=== PATIENT | female | born 1940 | race Caucasian/White ===

== ENCOUNTER 2023-08-29 07:19 | Outpatient (OUT) | payer MEDICARE, SELFPAY ==
--- NOTE | 2023-08-29 07:30 | CA_ITS ---
Patient Name: NANCY ANDRADE MR#: [id number] : 1940 Exam Date: 08/29/2023 Ordering Doctor: JETHRO KOVACS ECHOCARDIOGRAM REPORT PROCEDURE: CA ECHO LIMITED INDICATIONS: Dilated cardiomyopathy, pacemaker, h/o IA COMPARISON: None. DESCRIPTION: Limited ECHOCARDIOGRAM Real-time transthoracic echocardiography with 2D and M-mode performed. QUALITY: Technical quality was good. 64 , 185#, BSA 1.89 m2 Limited echocardiogram per physician order. LEFT VENTRICLE: Normal chamber size. Sigmoid septum. LV EF: Global left ventricular systolic function is difficult to assess but appears normal; visually estimated ejection fraction is 55 to 60%. Unable to assess regional wall motion abnormalities. LEFT ATRIUM: Normal chamber size. RIGHT ATRIUM: Normal chamber size. RIGHT VENTRICLE: Normal chamber size. Pacemaker wire appears to extend beyond the right ventricle; likely artifactual given imaging plane. Pacer wire present. TRICUSPID VALVE: Normal mobility and thickness. MITRAL VALVE: Normal mobility and thickness. There is no mitral annular calcification. AORTIC VALVE: Normal trileaflet appearance. No visible sclerosis. Normal leaflet mobility. AORTIC ROOT: Normal diameter and appearance. PULMONIC VALVE: Normal thickness and mobility. PERICARDIUM: Anterior free space; trivial effusion versus fat pad. IVC: Not well visualized. CONCLUSION: 1. Global left ventricular systolic function is normal; visually estimated ejection fraction is 55 to 60% 2. Normal right ventricular size and systolic function 3. Right ventricular pacemaker lead extends out into the apex; the appearance of the lead extending beyond the right ventricle is likely artifactual. Consider further imaging if clinical concern exists. 4. Angiography; trivial effusion versus fat pad A limited echocardiogram was performed Adult Echocardiography Procedure Report Left Ventricle LVEDD (3.7 - 5.6 cm): 3.74 cm LVESD (2.2 - 4.0 cm): 2.87 cm LVIVS thickness (0.6 - 1.2 cm): 1.46 cm LVPW thickness (0.5 - 1.0 cm): 1.09 cm LVOT Diameter 2.03 cm Left Atrium LA Volume Index (2D A2C): 34.57 ml/m2 Left Atrium Systolic Dimension: 3.51 cm Mitral Valve Right Ventricle Aorta AO Root Diam: 3.53 cm Ascending Ao Diam: 3.60 cm Aortic Valve Tricuspid Valve Pulmonic Valve Right Atrium Dictated by: Jamie Mora M.D. on 08/29/2023 at 12:14 Approved by: Jamie Mora M.D. on 08/29/2023 at 12:20
== END 2023-08-29 07:20 | disposition home or self-care (01) ==
LOC: CARD 07:19
PROVIDERS: PCP Internal Medicine; Visit Provider Internal Medicine Cardiovascular Disease
DX: I42.0 Dilated cardiomyopathy (principal)
CPT/HCPCS: 93308

== ENCOUNTER 2023-09-16 13:06 | Outpatient (OUT) | payer MEDICARE, SELFPAY ==
[2023-09-16 14:16] LABS: Basophils Absolute Auto 0.1 10^3/uL (0.0-0.1); Basophils Percent Auto 0.6 % (0.2-2.0); Eosinophils Absolute Auto 0.2 10^3/uL (0.0-0.7); Eosinophils Percent Auto 2.8 % (0.9-7.0); Hematocrit 44.1 % (36.0-48.0); Immature Granulocytes Abs Auto 0.04 10^3/uL (0.00-0.03); Immature Granulocytes Pct Auto 0.5 % (0.0-0.5); Lymphocytes Absolute Auto 2.1 10^3/uL (1.2-3.8); Lymphocytes Percent Auto 24.4 % (20.5-60.0); Mean Corpuscular HGB Conc 31.7 g/dL (29.9-35.2); Mean Corpuscular Hemoglobin 31.9 pg (26.7-34.0); Mean Corpuscular Volume 100.5 fL (81.0-99.0); Mean Platelet Volume 12.2 fL (9.5-13.5); Monocytes Absolute Auto 0.8 10^3/uL (0.3-0.8); Monocytes Percent Auto 9.5 % (1.7-12.0); Neutrophils Absolute Auto 5.3 10^3/uL (1.4-6.5); Neutrophils Percent Auto 62.2 % (43.0-75.0); Platelet Count 125 10^3/uL (150-450); Red Blood Count 4.39 10^6/uL (4.20-5.40); Red Cell Distribution Width 12.4 % (11.0-15.0); White Blood Count 8.6 10^3/uL (4.0-11.0)
[2023-09-16 14:20] LABS: BUN Creatinine Ratio 16.4; Calcium 9.3 mg/dL (8.5-10.1); Carbon Dioxide 23.8 mmol/L (21.0-32.0); Chloride 108 mmol/L (98-107); Estimated GFR (African America 40 (>=60); Estimated GFR (Non-African Ame 33 (>=60); Glucose 184 mg/dL (74-106); Potassium 4.8 mmol/L (3.5-5.1); Sodium 142 mmol/L (136-145)
== END 2023-09-16 13:07 | disposition home or self-care (01) ==
LOC: LAB 13:10
PROVIDERS: PCP Internal Medicine; Visit Provider Internal Medicine Cardiovascular Disease
DX: I50.22 Chronic systolic (congestive) heart failure (principal)
CPT/HCPCS: 36415; 80048; 85025

== ENCOUNTER 2024-03-29 09:35 | Outpatient (OUT) | payer MEDICARE, SELFPAY ==
--- OUTSIDE RECORDS SUMMARY | 2024-03-29 09:46 | XMS_ITS | CCD ---
Author Organization [facility] Care Team Providers Care Plasterer Journeyman Name Role Phone MARIPOSA CABRERA Primary Care Physician MD Madhav MERCADO Attending Unavailable JESS, MD Madhav Her Attending Unavailable JESS, MD Madhav Her Attending Unavailable JESS, MD Madhav Her Admitting Unavailable HEMMER, DR MARVA Dixon Admitting Unavailable HEMMER, DR MARVA Dixon Attending Unavailable CABRERA, DR MONGE Primary Care Unavailable Zieber, DR Vera Consulting Unavailable HEMMER, DR AMRVA Dixon Consulting Unavailable MERCADO, DR COREY Admitting Unavailable MERCADO, DR COREY Attending Unavailable CABRERA, DR MONGE Primary Care Unavailable MERCADO, DR COREY Consulting Unavailable MERCADO, DR COREY Admitting Unavailable MERCADO, DR COREY Attending Unavailable CABRERA, DR MONGE Primary Care Unavailable MERCADO, DR COREY Consulting Unavailable Zieber, DR Vera Consulting Unavailable Unavailable Primary Care Provider UnavailCarmen Landeros MD Primary Care Provider [phone] DARIN, JED Referring Unavailable CARMEN QUINTANA Primary Care Unavailable DARIN, JED Admitting Unavailable DARIN, JED Attending Unavailable DARIN, JED Referring Unavailable DARIN, JED Admitting Unavailable DARIN, JED Attending Unavailable DARIN, JED Referring Unavailable DARIN, JED Referring Unavailable TWYAL QUINTANAEN Primary Care Unavailable DARIN, JED Attending Unavailable NAOMI IBRAHIM Referring Unavailab PEPE Crum Attending Unavailable PEPE KOVACS Admitting Unavailable PEPE KOVACS Referring Unavailable JONN LEE Attending Unavailable PEPE KOVACS Attending Unavailable EUNICE GRANT Referring Unavailable BETHANIEPEPE Mooney Referring Unavailable PEPE KOVACS Referring Unavailable CHRIS TILLEY Attending Unavailable Allergies Allergy Classification Reported Allergen(s) Allergy Type Date of Onset Reaction(s) Facility (1 source) No Known Medication Allergies; Translations: [No Known Medication Allergies] Propensity to adverse reactions (disorder) [facility] Repository (1 source) ALLERGIES NOT ON FILE; Translations: [ALLERGIES NOT ON FILE] Propensity to adverse reactions (disorder) [facility] Repository Medications Current Medications Medication Drug Class(es) Dates Sig (Normalized) Sig (Original) cephalexin 250 mg oral capsule (2 sources) Cephalosporin Antibacterial Start: 11-19-2021 End: 11-24-2021 take 1 capsule by mouth twice daily Keflex 250 mg Cap 250 mg = 1 cap(s), Oral, BID, X 5 day(s), # 10 cap(s), Refills(s) 0, Pharmacy: [facility]/pharmacy #[id number], 163, cm, 11/19/21 9:53:00 EDT, Height/Length Dosing, 85.3, kg, 11/19/21 9:53:00 EDT, Weight Dosing Start Date: 11/19/21 Stop Date: 11/24/21 Status: Ordered Completed/Discontinued Medications Medication Drug Class(es) Dates Sig (Normalized) Sig (Original) aspirin 325 mg oral tablet (5 sources) Platelet Aggregation Inhibitor, Nonsteroidal Anti-inflammatory Drug Start: 04-17-2021 aspirin 325 mg cap Take by mouth. 0 04/17/2021 Active Start: 04-17-2021 take 1 mg by mouth once daily aspirin 325 mg oral capsule mg cap(s), Oral, Daily, Refills(s) 0 Start Date: 04/17/21 Status: Ordered Comment on above: Take by mouth. atorvastatin 40 mg oral tablet (5 sources) HMG-CoA Reductase Inhibitor Start: 04-17-2021 atorvastatin (LIPITOR) 40 mg tablet Take by mouth. 0 04/17/2021 Active Comment on above: Take by mouth. benoxinate hydrochloride 4 mg/ml / fluorescein sodium 2.5 mg/ml ophthalmic solution (1 source) Diagnostic Dye Start: 01-09-2023 End: 01-10-2023 fluorescein-benoxinate 0.25-0.4 % 1 Drop (FLURESS) carvedilol 12.5 mg oral tablet (5 sources) alpha-Adrenergic Alberto, beta-Adrenergic Alberto Start: 04-17-2021 carvedilol (COREG) 12.5 mg tablet Take by mouth. 0 04/17/2021 Active Comment on above: Take by mouth. glimepiride 1 mg oral tablet (5 sources) Sulfonylurea Start: 04-17-2021 glimepiride (AMARYL) 1 mg tablet Take by mouth. 0 04/17/2021 Active Comment on above: Take by mouth. metFORMIN hydrochloride 500 mg oral tablet (5 sources) Biguanide Start: 04-17-2021 metFORMIN (GLUCOPHAGE) 500 mg tablet Take by mouth. 0 04/17/2021 Active Comment on above: Take by mouth. phenylephrine hydrochloride 25 mg/ml ophthalmic solution (1 source) alpha-1 Adrenergic Agonist Start: 01-09-2023 End: 01-10-2023 PHENYLephrine 2.5 % 1 Drop (AK-DILATE, LORRIE-SYNEPHRINE) SITagliptin 50 mg oral tablet (2 sources) Dipeptidyl Peptidase 4 Inhibitor Start: 01-01-2023 JANUVIA 50 mg tablet tropicamide 10 mg/ml ophthalmic solution (1 source) Anticholinergic Start: 01-09-2023 End: 01-10-2023 tropicamide 1 % 1 Drop (MYDRIACYL) Problems Problem Classification Problem Date Documented Da te Episodic/Chronic Acute myocardial infarction (4 sources) Myocardial infarction; Translations: [Acute myocardial infarction, unspecified] Onset: 02-26-2023 04-17-2021 Chronic Calculus of urinary tract (9 sources) History of calculus of kidney; Translations: [Personal history of urinary calculi] Onset: 11-19-2021 Episodic Cataract (3 sources) Bilateral senile combined form cataracts of eyes; Translations: [Combined forms of age-related cataract, bilateral] Onset: 03-26-2023 Chronic Conduction disorders (8 sources) Biventricular cardiac pacemaker present; Translations: [Presence of cardiac pacemaker] Onset: 11-20-2011 02-27-2023 Chronic Diabetes mellitus without complication (6 sources) Diabetes mellitus; Translations: [Type 2 diabetes mellitus without complication] Onset: 02-26-2023 04-17-2021 Chronic Disorders of lipid metabolism (5 sources) Hyperlipidemia; Translations: [Hyperlipidemia, unspecified] Onset: 07-22-2023 02-27-2023 Chronic Essential hypertension (3 sources) Hypertensive disorder; Translations: [Essential (primary) hypertension] 02-27-2023 Chronic Genitourinary symptoms and ill-defined conditions (2 sources) Mixed incontinence; Translations: [Mixed incontinence] Onset: 11-19-2021 Chronic Glaucoma (1 source) Preglaucoma, unspecified, bilateral; Translations: [Preglaucoma, unspecified] Chronic Menopausal disorders (4 sources) Other primary ovarian failure; Translations: [OTHER PRIMARY OVARIAN FAILURE] Onset: 08-12-2022 Chronic Other bone disease and musculoskeletal deformities (1 source) Other specified disorders of bone density and structure, other site; Translations: [OTH D/O BONE DEN STRUCT OTH SITE] Onset: 08-14-2022 Episodic Urinary tract infections (2 sources) Urinary tract infectious disease; Translations: [Urinary tract infection, site not specified] Onset: 11-19-2021 Episodic Results Test Name Value Interpretation Reference Range Facility Office Visiton 03-15-2024 Follow-up visit [id number] Derian Andrade [place] 1940 Date Provider Department Center 03/15/2024 [id number] LEE [facility] No family history on file Level of Service:19486 ND OFFICE/OUTPATIENT ESTABLISHED MOD MDM 30 MIN Reason for Visit and Comments: Hyperlipidemia [182] Hypertension [378735] - Pt is here for a six month follow up [facility] Office Visiton 10-02-2023 Follow-up visit [id number] Brandt [place] 1940 Provider Department Center 10/02/2023 CHRIS CRAWLEY [facility] No family history on file Level of Service:77930 ND POSTOP FOLLOW UP VISIT RELATED TO ORIGINAL PX Reason for Visit and Comments: Wound Check [447314] Normal [facility] HPon 09-22-2023 [facility] Electrophysiology Consult Note Reason for visit:Gen change 09/22/23 pt here for gen change 07/22/23 Telephone visit for 2.5 year follow up. Device had reached DIANE. Had Medtronic device checked at [facility] in May and Jun 2023. She denies chest pain, SOB, palpitations, and lightheadedness/syncope . Active and ambulated without assistanmce. Was told had only few months to DIANE when [facility] HPI: Marva Andrade is a 83 y.o. year old with past medical history of atrioventricular block, cardiac pacemaker in situ, HFrEF, Cardiomyopathy presented to the clinic due to the device check up.As per pt she Device checked showed: normal function no tachcardiasNo chest pain/pressure, No BUENO or SOB at rest, No PND, No orthopnea, No edema No cough No palpitations dizziness or lightheadedness or syncope. No claudication. She document GEN change by Dr. De on 05/29/2016, and previously by Dr. Wiggins on 10/21/2007. It is noted does mention that she had the first implant in 1999. Test Device check that was performed on 03/21/2021 shows a Medtronic Adapta pacemaker the patient is known to have 3 leads .However there is a note of one of the leads being attached to the His location. EKG performed on 07/23/2017 shows AV pacing with the ventricular pacing revealing right bundle branch morphology with II, III, and aVF being negative and a QRS of 132 ms supported likely what this is his and RV pacing combination. CXR cionfirms 3 leads with atrial lead likely in His area. Echocardiogram performed on 11/17/2015 showed EF of 45 to 50% with a left atrium is normal in size with mild MR and mild TR PMH: Past Medical History: Diagnosis Date Abnormal ECG AV block Cardiomyopathy (CMS/HCC) CHF (congestive heart failure) (CMS/HCC) Diabetes mellitus (CMS/HCC) PSH: Past Surgical History: Procedure Laterality Date INSERT / REPLACE / REMOVE PACEMAKER SH: Social Determinants of Health Tobacco Use: Not on file Alcohol Use: Not on file Financial Resource Strain: Not on file Food Insecurity: Not on file Transportation Needs: Not on file Physical Activity: Not on file Stress: Not on file Social Connections: Not on file Intimate Partner Violence: Not on file Depression: Not on file Housing Stability: Not on file Utilities: Not on file Allergies: No Known Allergies Weight: 81.6kg Visit Vitals BP 141/79 Pulse 86 Ht 1.626 m (5' 4 ) Wt 81.6 kg (180 lb) BMI 30.90 kg/m??? BSA 1.92 m??? Meds: Current Outpatient Medications on File Prior to Visit Medication Sig Dispense Refill aspirin 325 mg capsule Take by mouth. atorvastatin (Lipitor) 40 mg tablet Take 1 tablet every day by oral route for 90 days. carvedilol (Coreg) 12.5 mg tablet Take 1 tablet twice a day by oral route for 90 days. cholecalciferol (Vitamin D-3) 125 MCG (5000 UT) capsule Take 1 capsule by mouth in the morning. glimepiride (Amaryl) 2 mg tablet Take 1 tablet by mouth in the morning and at bedtime. metFORMIN (Glucophage) 500 mg tablet Take 1 tablet twice a day by oral route for 90 days. SITagliptin phosphate (Januvia) 50 mg tablet Take 50 mg by mouth 1 (one) time each day. No current facility-administered medications on file prior to visit. ROS: Cardio Basic Cardiovascular Symptoms: no lightheadedness, no leg edema, no syncope, no orthopnea, no PND, no claudication, Constitutional Constitutional: no fever, no night sweats, no significant weight gain, no significant weight loss, no exercise intolerance Eyes Eyes: no dry eyes, no irritation, no vision change ENMT Ears: no difficulty hearing, no ear pain Nose: no frequent nosebleeds, Mouth/Throat: no sore throat, no bleeding gums, no snoring, no dry mouth, no mouth ulcers, no oral abnormalities, no teeth problems Respiratory Respiratory: no cough, no wheezing, no coughing up blood, no sleep apnea Musculoskeletal Musculoskeletal: no muscle aches, no muscle weakness, joint pain+, no back pain, no swelling in the extremities Integumentary Skin no rash, no ulcer, no varicosities, no discoloration, no pruritus Neurologic Neurologic: no loss of consciousness, no weakness, no numbness, no seizures, no dizziness, no headaches Psychiatric Psych: no depression, feeling safe in relationship, no alcohol abuse, Hematologic/Lymphatic Hematologic/Lymphatic no swollen glands, no bruising Physical Exam: Constitutional General Appearance: well-nourished, well-developed, appears stated age Level of Distress: comfortable Psychiatric Mental Status: alert, normal affect Orientation: oriented to time, place, and person Insight: good judgement Eyes Lids and Conjunctivae: non-injected, no xanthelasma ENMT Ears: no lesions on external ear Nose: no lesions on external nose Oropharynx: no cyanosis, no pallor Neck Neck: supple, trachea midline Carotid Arteries: bilateral normal upstroke, no bruits Jugular Veins: normal jugu (more content not included)... Normal [facility] NURSNOTEon 09-22-2023 NURSNOTE RN educated pt on d/ c instructions. RN encouraged pt to voice any questions or concerns. Pt verbalizes no questions or concerns at this time. Pt was wheeled off of unit with all of belongings. [facility] NURSNOTE CHG wipes and betadi ne nasal swabs completed. Normal [facility] Orders Onlyon 09-22-2023 Orders Only [id number] Trickett,Derian sixto S 1940 F Date Provider Department Center 09/22/2023 [id number], SHANTEL [facility] No family history on file [facility] Orders Onlyon 09-15-2023 Orders Only [id number] Trickett,Derian sixto S 1940 F Date Provider Department Center 09/15/2023 [id number], SHANTEL [facility] No family history on file [facility] Telemedicineon 07-22-2023 Telemedicine [id number] Trickett,Derian sixto S 1940 F Date Provider Department Center 07/22/2023 Miesha-PEPE KOVACS [facility] No family history on file Level of Service:05710 ND PHYS/QHP TELEPHONE EVALUATION 5-10 MIN [facility] ANES POSTPROC EVALon 023 ANES POSTPROC EVAL HNO ID: [id number] Author: Pepe Junior II, DO Service: Anesthesiology Author Type: Anesthesiologist Type: Anesthesia Postprocedure Evaluation Filed: 03/26/2023 11:31 AM Note Text: POST ANESTHESIA EVALUATION NOTE : 1940 Procedure Summary Date: 03/26/23 Room / Location: [place] [address] / [facility] Anesthesia Start: 954 Anesthesia Stop: 1014 Procedures: PHACOEMULSIFICATION CATARACT IMPLANT INTRAOCULAR LENS W/O ENDOSCOPIC CYCLOPHOTOCOAGULATION (Right: Eye) OPHTHALMIC BIOMETRY BY PARTIAL COHERENCE INTERFEROMETRY W/INTRAOCULAR LENS POWER CALCULATION (Right: Eye) Diagnosis: Combined forms of age-related cataract of both eyes (Combined forms of age-related cataract of both eyes [H25.813]) Surgeons: Jed Webster V, MD Responsible Provider: Pepe Junior II, DO Anesthesia Type: MAC ASA Status: 3 Anesthesia Type: MAC Last Vitals Vitals Value Taken Time BP 136/68 03/26/23 1025 Temp 36.1 ?C (96.9 ?F) 03/26/23 1018 HR SpO2 76 03/26/23 1025 Resp 16 03/26/23 1025 SpO2 95 % 03/26/23 1025 Post Anesthesia Patient Status Patient Evaluation: PACU. PACU/ICU Patient Condition: stable. Neurological Status: aware and responsive. Pulmonary Status: breathing comfortably on room air Airway Control: returned to baseline unsupported. Cardiovascular Status: stable. Pain Management: clinically adequate Postoperative Hydration: acceptable. Intraoperative Events: no significant anesthesia events Post Operative Nausea/Vomiting Status: no significant post operative nausea or vomiting Recommendation: continue current plan of care. Anesthesia Observations No Documentation SIGNATURE: Pepe Junior II, DO PATIENT NAME: Marva Andrade DATE: March 26, 2023 TIME: 11:31 AM CSN: [id number] Normal [facility] ANES PRE-OPon 03-26-2023 ANES PRE-OP HNO ID: [id number] Author: Pepe uJnior II, DO Service: Anesthesiology Author Type: Anesthesiologist Type: Anesthesia Preprocedure Evaluation Filed: 03/26/2023 9:11 AM Note Text: ANESTHESIOLOGY DAY OF SURGERY NOTE : 1940 Procedure Information Date/Time: 03/26/23 1000 Procedures: PHACOEMULSIFICATION CATARACT IMPLANT INTRAOCULAR LENS W/O ENDOSCOPIC CYCLOPHOTOCOAGULATION (Right: Eye) OPHTHALMIC BIOMETRY BY PARTIAL COHERENCE INTERFEROMETRY W/INTRAOCULAR LENS POWER CALCULATION (Right: Eye) Location: [address] Surgeons: Jed Webster V, MD Estimated body mass index is 31.24 kg/m? as calculated from the following: Height as of 02/27/23: 162.6 cm (5' 4 ). Weight as of 02/27/23: 82.6 kg (182 lb). Most recent hematocrit and potassium results: No results found for this basename: HCT,HEMATOCRIT,K,POTASS IUM Relevant Problems CARDIO (+) Biventricular cardiac pacemaker in situ (+) Complete atrioventricular block (HCC) (+) Hypertension (+) Myocardial infarction (HCC) I - PHYSICAL EVALUATION AIRWAY Patient intubated: No. Tracheostomy tube not present Mallampati: III. TM distance: >3 FB. Neck ROM: limited extension. Mouth opening: adequate. Short neck: no. Thick neck: yes DENTAL Dentures, upper: complete. Additional exam findings: yes. CARDIOVASCULAR Rhythm: regular Rate: normal PULMONARY Breath sounds clear to auscultation. II - ANESTHESIA PLAN ASA Score: 3 Anesthetic Plan: MAC The patient is not a current smoker. NPO Status: adequate Beta Alberto Monitoring Plan Monitoring plan: standard ASA. Post Procedure Analgesic Plan Postoperative analgesic plan: parenteral or oral opioids. Informed Consent Anesthetic risks, benefits, alternatives, personnel and consent discussed: yes. Patient / Responsible Libertarian agrees to proceed: yes Patient / Surrogate agrees to blood products: Yes No vitals data found for the desired time range. Facility-Administered Medications as of 03/26/2023 Medication Dose Route Frequency - [COMPLETED] lidocaine HCl (PF) 40 mg/mL 2 mg injection (XYLOCAINE) 0.05 mL LEFT EYE EVERY 5 MINUTES X 3 DOSES - [COMPLETED] PHENYLephrine 2.5 % 1 Drop (AK-DILATE, LORRIE-SYNEPHRINE) 1 Drop LEFT EYE EVERY 5 MINUTES X 3 DOSES - [COMPLETED] tropicamide 1 % 1 Drop (MYDRIACYL) 1 Drop LEFT EYE EVERY 5 MINUTES X 3 DOSES - [COMPLETED] keTORolac 0.5 % 1 Drop (ACULAR) 1 Drop LEFT EYE q 5 MIN - [COMPLETED] Povidone-Iodine 5 % 30 mL ophth soln (BETADINE) 30 mL LEFT EYE ONCE - [COMPLETED] balanced salts 15 mL (BSS) 15 mL LEFT EYE ONCE Outpatient Medications as of 03/26/2023 Medication Sig - prednisoLONE acetate (PRED FORTE) 1 % ophthalmic suspension USE DIRECTED BY PHYSICIAN, IN OPERATIVE EYE, BEGINNING ONE DAY AFTER SURGERY - keTORolac (ACULAR) 0.5 % ophthalmic solution USE DIRECTED BY PHYSICIAN, IN OPERATIVE EYE, BEGINNING ONE DAY AFTER SURGERY - prednisoLONE acetate (PRED FORTE) 1 % ophthalmic suspension USE DIRECTED BY PHYSICIAN, IN OPERATIVE EYE, BEGINNING ONE DAY AFTER SURGERY - keTORolac (ACULAR) 0.5 % ophthalmic solution USE DIRECTED BY PHYSICIAN, IN OPERATIVE EYE, BEGINNING ONE DAY AFTER SURGERY - JANUVIA 50 mg tablet - aspirin 325 mg cap Take by mouth. - atorvastatin (LIPITOR) 40 mg tablet Take by mouth. - carvedilol (COREG) 12.5 mg tablet Take by mouth. - glimepiride (AMARYL) 1 mg tablet Take by mouth. - metFORMIN (GLUCOPHAGE) 500 mg tablet Take by mouth. I have interviewed and examined the patient. I have reviewed the medical record and/or the pre-anesthesia evaluation, pertinent labs, and test results. This contains updated information obtained within 48 hours of Surgery/Procedure. SIGNATURE: Pepe Junior II, DO PATIENT NAME: Marva Andrade DATE: March 26, 2023 TIME: 9:10 AM CSN: [id number] Normal [facility] OPERATIVE NOon 03-26-2023 OPERATIVE NO HNO ID: [id number] Author: Jed Webster V, MD Service: Ophthalmology Author Type: Physician Type: Operative Report Filed: 03/26/2023 10:14 AM Note Text: OPERATIVE REPORT DATE OF SERVICE: March 26, 2023 PRIMARY SURGEON: Jed Webster M.D. VENETIAN BLIND MECHANIC: None Procedure(s) (LRB): PHACOEMULSIFICATION CATARACT IMPLANT INTRAOCULAR LENS W/O ENDOSCOPIC CYCLOPHOTOCOAGULATION (Right) OPHTHALMIC BIOMETRY BY PARTIAL COHERENCE INTERFEROMETRY W/INTRAOCULAR LENS POWER CALCULATION (Right) ANESTHESIA: Topical with monitored anesthesia care. PREOPERATIVE DIAGNOSIS: Combined cataract POSTOPERATIVE DIAGNOSIS: Combined cataract, presbyopia OPERATIVE INDICATIONS: BAT <20/400 OPERATIVE PROCEDURE: The patient was admitted to the operating suite where an IV and BP, EKG, and O2 monitors were placed. Nasal oxygen was administered. The operative eye was confirmed, marked, then pretreated with 2.5% tropicamide and 1% phenylephrine eye drops. With the patient in the supine position, topical lidocaine gel 2% was placed in a small ribbon in the lower cul-de-sac. The patient was then prepped and draped in the usual sterile fashion for intraocular surgery. After a time-out confirming correct patient, correct eye, correct operation, presence of allergies, and correct implant, an eyelid speculum was placed. Under the operating microscope a beveled clear corneal incision was created temporally with a Gove blade then a 2.4 mm keratome. The anterior chamber was reformed with Viscoat, after which the anterior capsule was opened centrally. Using the Utrata forceps a continuous curvilinear capsulorrhexis of approximately 5.5 mm round was created. Gentle hydrodissection was accomplished using preservative-free lidocaine on a 27-gauge cannula. Using the Viktor phacoemulsification unit with the Kelman curved tip, the anterior chamber was entered and the nucleus was removed while it was in the bag. The epinuclear ring was dissected into several segments, then removed using the phacoemulsification unit set to the desired aspiration flow rate and ultrasound parameters. It was necessary to use chopper forceps at various intervals to aid in the fragmentation of the dense lens material. Great care was taken not to violate the posterior capsule. The silicone-tipped I and A instrument was used to remove the cortex and buff off any remaining cataractous material from the posterior capsule. The capsular bag was then reformed with Discovisc and the following Intraocular lens implant Implant Name Type Inv. Item Serial No. Lead Producer Lot No. LRB No. Used Action Model No. [place] IOL [id number] +25.5 D Implant [id number] IMPLANT [id number] [employer] Right 1 Implanted [id number] was inserted through the lips of the wound into the capsular bag. Using the I and A instrument, the Discovisc was removed from the anterior chamber and capsular bag, and the implant was centered. Cefuroxime 1mg in 0.1 mL normal saline was introduced into the anterior chamber through the clear corneal incision using a 30 gauge cannula. The wound was checked and found to be watertight. At the end of the procedure, the cornea was clear, the anterior chamber was deep and clear, the pupil was round, the implant was centered within the capsular bag, and the posterior capsule was intact. The eyelid speculum was removed and prednisolone acetate 1% and timolol 0.5% eye drops were administered. A shield was affixed over the eye and the patient was sent to the recovery room, leaving the operating room in excellent condition. ESTIMATED BLOOD LOSS: <1mL SPECIMEN: None FINDINGS: Age-related cataract COMPLICATIONS: None Incision/Procedure Start Time: 10:02 AM Incision Close/Procedure End Time: 10:12 AM - Comanage with Dr Ibrahim; relinquish care POD #1 Jed WEBSTER MD [facility] ANES POSTPROC EVALon 023 ANES POSTPROC EVAL HNO ID: [id number] Author: Beto Awan MD Service: Anesthesiology Author Type: Anesthesiologist Type: Anesthesia Postprocedure Evaluation Filed: 03/12/2023 10:36 AM Note Text: POST ANESTHESIA EVALUATION NOTE : 1940 Procedure Summary Date: 03/12/23 Room / Location: [address] Anesthesia Start: 930 Anesthesia Stop: 954 Procedures: PHACOEMULSIFICATION CATARACT IMPLANT INTRAOCULAR LENS W/O ENDOSCOPIC CYCLOPHOTOCOAGULATION (Left: Eye) OPHTHALMIC BIOMETRY BY PARTIAL COHERENCE INTERFEROMETRY W/INTRAOCULAR LENS POWER CALCULATION (Left: Eye) Diagnosis: Combined forms of age-related cataract of both eyes (Combined forms of age-related cataract of both eyes [H25.813]) Surgeons: Jed Webster V, MD Responsible Provider: Beto Awan MD Anesthesia Type: MAC ASA Status: 3 Anesthesia Type: MAC Last Vitals Vitals Value Taken Time BP 133/63 03/12/23 1005 Temp 36.6 ?C (97.9 ?F) 03/12/23 0955 HR SpO2 75 03/12/23 1005 Resp 16 03/12/23 1005 SpO2 95 % 03/12/23 1005 Post Anesthesia Patient Status Patient Evaluation: PACU. PACU/ICU Patient Condition: stable. Anticipated Disposition: phase 2 then home. Neurological Status: aware and responsive. Pulmonary Status: breathing comfortably on room air Airway Control: returned to baseline unsupported. Cardiovascular Status: stable. Pain Management: clinically adequate - multimodal analgesia pain management approach Postoperative Hydration: acceptable. Intraoperative Events: no significant anesthesia events Recommendation: continue current plan of care. Anesthesia Observations No Documentation SIGNATURE: Beto Awan MD PATIENT NAME: Marva Andrade DATE: March 12, 2023 TIME: 10:36 AM CSN: [id number] Normal [facility] ANES PRE-OPon 03-12-2023 ANES PRE-OP HNO ID: [id number] Author: Beto Awna MD Service: Anesthesiology Author Type: Anesthesiologist Type: Anesthesia Preprocedure Evaluation Filed: 03/12/2023 9:08 AM Note Text: ANESTHESIOLOGY DAY OF SURGERY NOTE : 1940 Procedure Information Date/Time: 03/12/2340 Procedures: PHACOEMULSIFICATION CATARACT IMPLANT INTRAOCULAR LENS W/O ENDOSCOPIC CYCLOPHOTOCOAGULATION (Left: Eye) OPHTHALMIC BIOMETRY BY PARTIAL COHERENCE INTERFEROMETRY W/INTRAOCULAR LENS POWER CALCULATION (Left: Eye) Location: [place] [address] / [facility] Surgeons: Jed Webster V, MD Estimated body mass index is 31.24 kg/m? as calculated from the following: Height as of 02/27/23: 162.6 cm (5' 4 ). Weight as of 02/27/23: 82.6 kg (182 lb). Most recent hematocrit and potassium results: No results found for this basename: HCT,HEMATOCRIT,K,POTASS IUM Relevant Problems CARDIO (+) Biventricular cardiac pacemaker in situ (+) Complete atrioventricular block (HCC) (+) Hypertension (+) Myocardial infarction (HCC) I - PHYSICAL EVALUATION AIRWAY Patient intubated: No. Tracheostomy tube not present Mallampati: II. TM distance: >3 FB. Neck ROM: full ROM without neurological symptoms. Mouth opening: adequate. DENTAL Dental findings: poor dentition. Additional exam findings: no II - ANESTHESIA PLAN ASA Score: 3 Anesthetic Plan: MAC NPO Status: adequate Beta Alberto Monitoring Plan Monitoring plan: standard ASA. Post Procedure Analgesic Plan Postoperative analgesic plan: parenteral or oral opioids and multimodal analgesia. Patient / Surrogate agrees to blood products: blood products not planned Significant changes in the patient condition since the History and Physical, not otherwise documented in primary service progress note: no. Vitals Value Taken Time BP 169/86 03/12/23900 Pulse 73 03/12/23900 Resp 16 03/12/23900 Temp -13.3 ?C (8 ?F) 03/12/23 09 SpO2 95 % 03/12/23 09 Facility-Administered Medications as of 03/12/2023 Medication Dose Route Frequency - NaCl 0.9% iv infusion 30 mL/hr INTRAVENOUS CONTINUOUS - [COMPLETED] lidocaine HCl (PF) 40 mg/mL 2 mg injection (XYLOCAINE) 0.05 mL LEFT EYE EVERY 5 MINUTES X 3 DOSES - [COMPLETED] PHENYLephrine 2.5 % 1 Drop (AK-DILATE, LORRIE-SYNEPHRINE) 1 Drop LEFT EYE EVERY 5 MINUTES X 3 DOSES - [COMPLETED] tropicamide 1 % 1 Drop (MYDRIACYL) 1 Drop LEFT EYE EVERY 5 MINUTES X 3 DOSES - cyclopentolate 1 % 1 Drop (CYCLOGYL) 1 Drop LEFT EYE Pre-Op PRN - [COMPLETED] keTORolac 0.5 % 1 Drop (ACULAR) 1 Drop LEFT EYE q 5 MIN - Povidone-Iodine 5 % 30 mL ophth soln (BETADINE) 30 mL LEFT EYE ONCE - balanced salts 15 mL (BSS) 15 mL LEFT EYE ONCE Outpatient Medications as of 03/12/2023 Medication Sig - JANUVIA 50 mg tablet - aspirin 325 mg cap Take by mouth. - atorvastatin (LIPITOR) 40 mg tablet Take by mouth. - carvedilol (COREG) 12.5 mg tablet Take by mouth. - glimepiride (AMARYL) 1 mg tablet Take by mouth. - metFORMIN (GLUCOPHAGE) 500 mg tablet Take by mouth. - prednisoLONE acetate (PRED FORTE) 1 % ophthalmic suspension USE DIRECTED BY PHYSICIAN, IN OPERATIVE EYE, BEGINNING ONE DAY AFTER SURGERY - keTORolac (ACULAR) 0.5 % ophthalmic solution USE DIRECTED BY PHYSICIAN, IN OPERATIVE EYE, BEGINNING ONE DAY AFTER SURGERY I have interviewed and examined the patient. I have reviewed the medical record and/or the pre-anesthesia evaluation, pertinent labs, and test results. This contains updated information obtained within 48 hours of Surgery/Procedure. SIGNATURE: Beto Awan MD PATIENT NAME: Marva Andrade DATE: March 12, 2023 TIME: 9:07 AM CSN: [id number] Normal [facility] OPERATIVE NOon 03-12-2023 OPERATIVE NO HNO ID: [id number] Author: Jed Webster V, MD Service: Ophthalmology Author Type: Physician Type: Operative Report Filed: 03/12/2023 9:52 AM Note Text: OPERATIVE REPORT DATE OF SERVICE: March 12, 2023 PRIMARY SURGEON: Jed Webster M.D. VENETIAN BLIND MECHANIC: None Procedure(s) (LRB): PHACOEMULSIFICATION CATARACT IMPLANT INTRAOCULAR LENS W/O ENDOSCOPIC CYCLOPHOTOCOAGULATION (Left) OPHTHALMIC BIOMETRY BY PARTIAL COHERENCE INTERFEROMETRY W/INTRAOCULAR LENS POWER CALCULATION (Left) ANESTHESIA: Topical with monitored anesthesia care. PREOPERATIVE DIAGNOSIS: Combined cataract POSTOPERATIVE DIAGNOSIS: Combined cataract, presbyopia OPERATIVE INDICATIONS: BAT <20/400 OPERATIVE PROCEDURE: The patient was admitted to the operating suite where an IV and BP, EKG, and O2 monitors were placed. Nasal oxygen was administered. The operative eye was confirmed, marked, then pretreated with 2.5% tropicamide and 1% phenylephrine eye drops. With the patient in the supine position, topical lidocaine gel 2% was placed in a small ribbon in the lower cul-de-sac. The patient was then prepped and draped in the usual sterile fashion for intraocular surgery. After a time-out confirming correct patient, correct eye, correct operation, presence of allergies, and correct implant, an eyelid speculum was placed. Under the operating microscope a beveled clear corneal incision was created temporally with a Gove blade then a 2.4 mm keratome. The anterior chamber was reformed with Viscoat, after which the anterior capsule was opened centrally. Using the Utrata forceps a continuous curvilinear capsulorrhexis of approximately 5.5 mm round was created. Gentle hydrodissection was accomplished using preservative-free lidocaine on a 27-gauge cannula. Using the Viktor phacoemulsification unit with the Kelman curved tip, the anterior chamber was entered and the nucleus was removed while it was in the bag. The epinuclear ring was dissected into several segments, then removed using the phacoemulsification unit set to the desired aspiration flow rate and ultrasound parameters. It was necessary to use chopper forceps at various intervals to aid in the fragmentation of the dense lens material. Great care was taken not to violate the posterior capsule. The silicone-tipped I and A instrument was used to remove the cortex and buff off any remaining cataractous material from the posterior capsule. The capsular bag was then reformed with Discovisc and the following Intraocular lens implant Implant Name Type Inv. Item Serial No. Lead Producer Lot No. LRB No. Used Action Model No. [id number] IMPLANT - [id number] Implant [id number] IMPLANT [id number] ClickScanShare Left 1 Implanted [id number] was inserted through the lips of the wound into the capsular bag. Using the I and A instrument, the Discovisc was removed from the anterior chamber and capsular bag, and the implant was centered. Cefuroxime 1mg in 0.1 mL normal saline was introduced into the anterior chamber through the clear corneal incision using a 30 gauge cannula. The wound was checked and found to be watertight. At the end of the procedure, the cornea was clear, the anterior chamber was deep and clear, the pupil was round, the implant was centered within the capsular bag, and the posterior capsule was intact. The eyelid speculum was removed and prednisolone acetate 1% and timolol 0.5% eye drops were administered. A shield was affixed over the eye and the patient was sent to the recovery room, leaving the operating room in excellent condition. ESTIMATED BLOOD LOSS: <1mL SPECIMEN: None FINDINGS: Age-related cataract COMPLICATIONS: None Incision/Procedure Start Time: 9:42 AM Incision Close/Procedure End Time: 9:51 AM - Comanage with Dr Ibrahim; [facility] POD #1 Jed WEBSTER MD [facility] HISTORY PHYSICALon HISTORY PHYSICAL HNO ID: [id number] Author: Shoshana Nieves APRN.CNP Service: ? Author Type: Nurse Practitioner Type: HANDP Filed: 02/27/2023 9:09 AM Note Text: HISTORY AND PHYSICAL EXAMINATION SERVICE DATE: 02/27/2023 SERVICE TIME: 8:39 AM PRIMARY CARE PHYSICIAN: Carmen Quintana CNP, MD REASON FOR VISIT: Marva Andrade is a 82 year old female who is scheduled for PHACOEMULSIFICATION CATARACT IMPLANT INTRAOCULAR LENS W/O ENDOSCOPIC CYCLOPHOTOCOAGULATION bilateral at the request of Dr. Jed Webster V for consultation. My final recommendation will be communicated back to the requesting physician by way of shared medical record or letter. The patient has the following: ACTIVE PROBLEM LIST Diabetes Mellitus (Hcc) Myocardial Infarction (Hcc) Biventricular Cardiac Pacemaker in Situ Complete Atrioventricular Block (Hcc) Hld (Hyperlipidemia) Hypertension Subjective CHIEF COMPLAINT: bilateral change of vision HPI: 82 year old female with bilateral change of vision that has been ongoing for >6 months. Patient states she has blurred Vision,difficulty with reading,difficulty with watching television,glare. No alleviating factors. No pain today PAST MEDICAL HISTORY Diagnosis Date Diabetes mellitus (HCC) HLD (hyperlipidemia) Hypertension Senile cataracts of both eyes PAST SURGICAL HISTORY Procedure Laterality Date ESWL PAST SURGICAL HISTORY OF pacemaker FAMILY HISTORY Problem Relation Age of Onset Cataract Daughter SOCIAL HISTORY: Social History Tobacco Use Smoking status: Never Smokeless tobacco: Never Vaping Use Vaping Use: Never used Substance Use Topics Alcohol use: Not Currently Drug use: Never Prior to Admission medications as of 02/27/23 0848 Medication Sig Last Dose Taking JANUVIA 50 mg tablet Taking Yes aspirin 325 mg cap Take by mouth. Taking Yes atorvastatin (LIPITOR) 40 mg tablet Take by mouth. Taking Yes carvedilol (COREG) 12.5 mg tablet Take by mouth. Taking Yes glimepiride (AMARYL) 1 mg tablet Take by mouth. Taking Yes metFORMIN (GLUCOPHAGE) 500 mg tablet Take by mouth. Taking Yes No medication comments found. ALLERGIES No Known Allergies COVID VACCINATION STATUS: Fully vaccinated REVIEW OF SYSTEMS: PAIN ASSESSMENT: General: No weight loss, malaise or fevers. Neuro: No history of TIA's, stroke, IMMERSION METALCLEANER tumor, impaired sensorium, hemiplegia, paraplegia or quadraplegia. No neurological symptoms or problems. Respiratory: No history of current cough or dyspnea, or pneumonia in the past 6 weeks. No history of respiratory/pulmonary symptoms or problems. Cardiovascular: Positive for: HLD, Hypertension Pacemaker on ASA follows with Dr. Longoria from in [place] Denies rest pain, gangrene or revascularization/amput ation for PVD. GI: No history of GI symptoms or problems. No history of esophageal varices, recent ascites, or ETOH greater than 2 drinks per day. : No difficulty urinating, nocturia > 1 time per night or hematuria, History of kidney stones JACK WINDER: Negative for abnormal vaginal bleeding, abnormal vaginal discharge. : Denies, No LMP recorded. Patient is postmenopausal. Endocrine: Diabetes Mellitus on oral agent Hematology: Chronic anti-coagulation / platelet meds (Aspirin) Oncology: No history of CA metastasis, chemo within 30 days, or radiotherapy within 90 days. Has not lost 10% of body wt in 6 months. No history of oncological symptoms or problems. Psych: No history of psychiatric symptoms or problems. Musculoskeletal: Negative for joint pain or swelling, back pain or muscle pain. Skin: Negative for lesions, rash and itching. Objective PHYSICAL EXAM: VITALS: BP 138/75 Pulse 99 Temp (Src) 98 (Temporal) Resp 16 Ht 5' 4 (1.63m) Wt 182 lb (82.6kg) SpO2 99% BMI 31.22 kg/(m2). General: Alert and oriented, No acute distress Skin: Normal color, no rash, no lesions. Cardiovascular: Pulse regular. 2/6 mid systolic low pitched blowing murmur URSB and ULSB Lungs: Normal breath sounds, no wheezes or crackles. Abdomen: Soft, non-tender, no rigidity., Positive bowel sounds Extremities: No deformity, no edema or tenderness, no joint swelling or clubbing. Neurological: Normal cognition and motor skills. Gait normal. No weakness or sensory deficit. Pulses: Carotid and radial pulses normal +2. Diagnostic tests reviewed for today's visit: CARDIAC PACEMAKER IN PDF FILE FROM [facility] EVERYWHERE 12/18/2022 Lab Value Units Date High Low ABORHD No results within date range. ABSCREEN No results within date range. Echocardiogram 2D complete Anatomical Region Laterality Modality -- -- Ultrasound Narrative PERFORMED AT [facility] LOCATION:[place] [address] Patient: RAYMOND George Exam Date: 05/08/2021 : 1940 Gender:F Ordering : PEPE KOVACS Admission #: [id number] Family : DR MARIPOSA CABRERA M.D. Order #: [id number] CLICK HERE TO VIEW EXAM ECHOCARDIOGRAM REPORT PROCEDURE: CARDI (more content not included)... Normal [facility] XR DEXA BONE DENSITYon 08-12 XR DEXA BONE DENSITY EXAMINATION: XR DEX A BONE DENSITY, 08/12/2022 10:47 AM EST HISTORY: Primary ovarian failure COMPARISON: DEXA bone densitometry 08/10/2020 TECHNIQUE: Dual-energy X-ray absorptiometry (DEXA) bone density study performed for the axial skeleton. FINDINGS: SPINE ANALYSIS: Average bone mineral density is 1.262 g/cm2. T-score (standard deviation relative to young adult mean): 0.7 . -3.9% change since prior study. HIP ANALYSIS: Lowest bone mineral density is within the left femoral trochanter, 0.638 g/cm2. T-score (standard deviation relative to young adult mean): -1.8 . +1.0% change since prior study. IMPRESSION: [employer] Classification: Osteopenia - Moderate Fracture Risk Electronically authenticated by: THA LOVE Date: 2022-08-12 11:24 Normal [facility] Patient Educationon 05-27-20 Patient Education Urology Dietary Guidelines to Help Prevent Kidney Stones Kidney stones are deposits of minerals and salts that form inside your kidneys. Your risk of developing kidney stones may be greater depending on your diet, your lifestyle, the medicines you take, and whether you have certain medical conditions. Most people can reduce their chances of developing kidney stones by following the instructions below. Depending on your overall health and the type of kidney stones you tend to develop, your dietitian may give you more specific instructions. What are tips for following this plan? Reading food labels ? Choose foods with no salt added or low-salt labels. Limit your sodium intake to less than 1500 mg per day. ? Choose foods with calcium for each meal and snack. Try to eat about 300 mg of calcium at each meal. Foods that contain 200?500 mg of calcium per serving include: ? 8 oz (237 ml) of milk, fortified nondairy milk, and fortified fruit juice. ? 8 oz (237 ml) of kefir, yogurt, and soy yogurt. ? 4 oz (118 ml) of tofu. ? 1 oz of cheese. ? 1 cup (300 g) of dried figs. ? 1 cup (91 g) of cooked broccoli. ? 1?3 oz can of sardines or mackerel. ? Most people need 1000 to 1500 mg of calcium each day. Talk to your dietitian about how much calcium is recommended for you. Shopping ? Buy plenty of fresh fruits and vegetables. Most people do not need to avoid fruits and vegetables, even if they contain nutrients that may contribute to kidney stones. ? When shopping for convenience foods, choose: ? Whole pieces of fruit. ? Premade salads with dressing on the side. ? Low-fat fruit and yogurt smoothies. ? Avoid buying frozen meals or prepared deli foods. ? Look for foods with live cultures, such as yogurt and kefir. Cooking ? Do not add salt to food when cooking. Place a salt shaker on the table and allow each person to add his or her own salt to taste. ? Use vegetable protein, such as beans, textured vegetable protein (TVP), or tofu instead of meat in pasta, casseroles, and soups. Meal planning ? Eat less salt, if told by your dietitian. To do this: ? Avoid eating processed or premade food. ? Avoid eating fast food. ? Eat less animal protein, including cheese, meat, poultry, or fish, if told by your dietitian. To do this: ? Limit the number of times you have meat, poultry, fish, or cheese each week. Eat a diet free of meat at least 2 days a week. ? Eat only one serving each day of meat, poultry, fish, or seafood. ? When you prepare animal protein, cut pieces into small portion sizes. For most meat and fish, one serving is about the size of one deck of cards. ? Eat at least 5 servings of fresh fruits and vegetables each day. To do this: ? Keep fruits and vegetables on hand for snacks. ? Eat 1 piece of fruit or a handful of berries with breakfast. ? Have a salad and fruit at lunch. ? Have two kinds of vegetables at dinner. ? Limit foods that are high in a substance called oxalate. These include: ? Spinach. ? Rhubarb. ? Beets. ? Potato chips and jamaican fries. ? Nuts. ? If you regularly take a diuretic medicine, make sure to eat at least 1?2 fruits or vegetables high in potassium each day. These include: ? Avocado. ? Banana. ? [place], prune, carrot, or tomato juice. ? Baked potato. ? Cabbage. ? Beans and split peas. General instructions ? Drink enough fluid to keep your urine clear or pale yellow. This is the most important thing you can do. ? Talk to your health care provider and dietitian about taking daily supplements. Depending on your health and the cause of your kidney stones, you may be advised: ? Not to take supplements with vitamin C. ? To take a calcium supplement. ? To take a daily probiotic supplement. ? To take other supplements such as magnesium, fish oil, or vitamin B6. ? Take all medicines and supplements as told by your health care provider. ? Limit alcohol intake to no more than 1 drink a day for non women and 2 drinks a day for men. One drink equals 12 oz of beer, 5 oz of wine, or 1? oz of hard liquor. ? Lose weight if told by your health care provider. Work with your dietitian to find strategies and an eating plan that works best for you. What foods are not recommended? Limit your intake of the following foods, or as told by your dietitian. Talk to your dietitian about specific foods you should avoid based on the type of kidney stones and your overall health. Grains Breads. Bagels. Rolls. Baked goods. Salted crackers. Cereal. Pasta. Vegetables Spinach. Rhubarb. Beets. Canned vegetables. Pickles. Olives. Meats and other protein foods Nuts. Nut butters. Large portions of meat, poultry, or fish. Salted or cured meats. Deli meats. Hot dogs. Sausages. Dairy Cheese. Beverages Regular soft drinks. Regular vegetable juice. Seasonings and other foods Seasoning blends with salt. Katiana luque (more content not included)... [facility] Reminderson 05-27-2022 Reminders - From: Ayde Horton To: JYOTSNA Mercado; Sent: 05/27/2022 14:17:03 EST Show up: 02/05/2024 14:16:00 EDT Subject: 2 year follow up Due Date/Time: 05/21/2024 14:16:00 EST Reminder/Recall Patient will be due back for a two year follow up for med refills in 05/2024 [facility] Urology Office/Clinic Noteon 05-27-2022 Urology Office/Clinic Note Chief Complaint 6m KUB HPI Staff 6m w/KUB due to Kidney Stone. Additional DX: Mixed incontinence & UTI. KUB done @ [place] on 05/21/22. *Effer K 25meq BID therapy. Pt denies any signs/symptoms of kidney stone. Denies any complaints urinating. Still has some mild leaking. Wears a pad, changes 1-2x/day, leaks before getting to restroom. No infection since last encounter. History of Present Illness Tests reviewed: reviewed UA, KUB. I have reviewed the previous health record information and history for this patient from Dr. Mercado. I have reviewed and verified the staff HPI to be accurate for this encounter. There have been no associated fever, chills, flank pain, or blood in the urine. Denies any urinary infections since last encounter. Review of Systems PHQ Score Initial Depression Screen Score: 0 ROS - Provider Constitutional: denies weight loss, denies hot flashes. Eyes: denies eye problems. Gastrointestinal: denies nausea, denies vomiting. Cardiovascular: denies chest pain or angina. Integumentary: no dryness Musculoskeletal: denies musculoskeletal symptoms. ENMT: denies otolaryngeal symptoms. Respiratory: no shortness of breath. Heme/Lymph: denies easy bleeding tendency, denies easy bruising tendency. Psychiatric: no confusion, no anxiety. Genitourinary: denies vaginal discharge, denies incontinence, denies dysuria, denies hematuria, denies urinary frequency, denies amenorrhea, denies menorrhagia, denies abnormal bleeding, denies pelvic pain, denies genital sores, and denies decreased libido. Physical Exam Vitals & Measurements HR: 66(Peripheral) RR: 16 BP: 132/74 HT: 64 in HT: 163 cm WT: 85 kg WT: 187 lb BMI: 31.99 General Appearance: alert , no acute distress, well nourished, well developed female. Genitourinary: bladder nonpalpable, no flank pain. Assessment/Plan 1. Personal history of kidney stones (Z87.442: Personal history of urinary calculi) S/p Right ESWL 05/24/21. KUB done at [place] on 05/21/22 shows no appreciable urinary tract calculi. Pt denies any signs/symptoms of kidney stone. Pt denies passing any stones since last encounter. Pt admits she doesn't drink enough, probably 32oz per day. Recommended pt. to increase fluid intake to ten to twelve 16oz bottles a day; preferably water, clear pop, and sugar free lemonade. Pt continues taking Effer K 25meq BID therapy. Pt to increase fluid intake otherwise follow up PRN. All questions/concerns were discussed. Pt. to call the office if heencounters any issues prior. Pt. acknowledges understanding and agrees with plan. 2. Mixed incontinence (N39.46: Mixed incontinence) Ongoing. Denies any urinary habit complaints. Still has some mild leaking. Wears a pad, changes 1-2x/day, leaks before getting to restroom. 3. UTI (urinary tract infection) (N39.0: Urinary tract infection, site not specified) No infection since last encounter. Follow-up With When Contact Information JESS DELGADO, Madhav Her, URL [facility] [address], [place] [address]- Additional Instructions: PRN Patient Education Dietary Guidelines to Help Prevent Kidney Stones I, Sandhya Rodrigues, personally scribed for Dr. Mercado on 05/27/2022 12:12:36. . Documentation recorded by the scribe, Sandhya Rodrigues, accurately reflects the services(s) I performed and decisions made by me. Authenticated by Dr. Mercado on 05/27/2022 12:13:44. Problem List/Past Medical History Ongoing Diabetes mellitus Heart attack Kidney stone Mixed incontinence Personal history of kidney stones UTI (urinary tract infection) Historical No qualifying data Procedure/Surgical History ESWL of kidney (05/24/2021), Cardiac pacemaker. Medications aspirin 325 mg oral capsule, Oral, Daily atorvastatin 40 mg Tab, Oral, Daily carvedilol 12.5 mg Tab, Oral, BID Effer-K 25 mEq oral tablet, effervescent, 25 mEq= 1 tab(s), Oral, BID, 11 refills glimepiride 1 mg Tab, Oral, Daily metformin 500 mg oral tablet, Oral, BID Allergies No Known Medication Allergies Social History Tobacco Never (less than 100 in lifetime) Tobacco Use:. Never Smokeless Tobacco Use:., 05/27/2022 Family History Cancer: Mother. Kidney stone: Father. Lab Results Ambulatory Point of Care Results Bilirubin Urine Dipstick: Negative (05/27/22 11:20:00) Blood Urine Dipstick: Trace-intact (05/27/22 11:20:00) Glucose Urine Dipstick: 1+ 250 mg/dl (05/27/22 11:20:00) Ketones Urine Dipstick: Trace - 5 mg/dl (05/27/22 11:20:00) Leukocytes Urine Dipstick: Trace (05/27/22 11:20:00) Nitrite Urine Dipstick: Negative (05/27/22 11:20:00) Protein Urine Dipstick: Negative (05/27/22 11:20:00) Specific [place] Urine Dipstick: 1.025 (05/27/22 11:20:00) Urine Appearance Urine Dipstick: Cloudy (05/27/22 11:20:00) Urine Color Urine Dipstick: Yellow (05/27/22 11:20:00) Urobilinogen Urine Dipstick: Normal 0.2-1 EU/dl (05/27/22 11:20: (more content not included)... Normal [facility] Comment on above: Result Comment: Elec tronically Signed By: JESS DELGADO, Madhav Vásquez\Date and Time Signed: 05/27/22 12:15 EST RAD - MISCon 05-24-2022 RAD - MISC [id number] D:127 Normal [facility] XR KUB 1 VIEWon 05-21-2022 XR KUB 1 VIEW EXAMINATION: XR KUB 1 VIEW HISTORY: Urinary incontinence ; history of kidney stones COMPARISON: XR KUB 08/06/2021 FINDINGS: KIDNEY/URETER - RIGHT: No visible renal or ureteral calcifications. KIDNEY/URETER - LEFT: No visible renal or ureteral calcifications. PELVIS: Stable pelvic calcifications favoring phlebolith. No visible ureteral stones. BOWEL: No abnormal dilation or deviation. BONES: No acute abnormality. OTHER: Negative. No abnormal gaseous collections. IMPRESSION: 1. No appreciable urinary tract calculi. Electronically authenticated by: THA LOVE Date: 2022-05-21 15:32 Normal [facility] Lab Reportson 11-29-2021 Lab Reports [id number] D:127 Normal [facility] Coding Summary.on 11-24-2021 Coding Summary. CD:[id number] Gh0 bWw+PGhlYWQ+JJ6FUSOzL97 rcUXwvZ6GJ6mTVQ3RZEKNQW HRPK2FSR4puGN5GYbuV5Kpb iAv WkyjoXCjZX07FTr6EER6fGd kXRypzY7xtTFrG4b3VpAwVH 70iP28ORfdJMPyWyW1HrZcg jsgbWFy M1bjJuGqmHHhDdd+PHRhYmx lIHdpZHRoPScxMDAlJyBzdH zjTO3gVz8wVBHaCTUpiNgae HNlOiBj k2jeRPApAEadZB8beDouJ9R amSW9VNQhj2g1Pg46mJX+PH TdMCK8oHefUFijb555NhNvs 4tsVWI5 iTSbARbsQLN5T72da7A2YMF tJQVxSHJ7eEZ9tS8swNyrnt xgL2NcdHWlYyJ8GUG5aCKai E1vyJqz jkhgrB8cOek+T42JKE2WIIW QPL4OPkl7D8PnUwmorRH+PC 29MNNlZY65dYKvfSRho0wum Kv4NtLd JDZkJXF2jPikOBpog0RdKUJ xG60xzGIyp7Q6PPDgzYbvkH CpPhZhiKX0oP3tMAnsxkrny 2hvdzsn Czcdm4wzll86gA04X49kTRd dWJQhBPZ1TIWaPTFzpKjevd 6reW9hEz1+FBjpd5qtx1fuj Op8KdEl ACOoukRejBvsQJD3l4ClFz1 3U1QmyTmdn9LzIny6jr07wA Wai6I0kRW2KQhuSLMmvA0mX WxlZnQ6 HMFiLfEaqW03gXMpDHwoIp3 hiHjemQrfSM3bYJQaoxsxNM ZgdZ8uXSAenUYrzLxvWQ5yP TBpbjtm x464JvEaXDT9MPHtnEYtP3M hxK4tZwXyMIOiMMHaZ5MomO VrHQfhL259QTvqQzG7UTXcp gJgC4Ox GWBwfPptJpL4p2Q0Za0Zp1F kvgvxQMD8LXxiJIR3VeYbBf HaPaH1B7DkHmk3SCNutJrjA L8kW8Gh QPMqgljpgzmbdHX6JOQlYSL cyX09jCLbRWsmWl6cc9M8e4 05TDHsZJGniO58Pn8dwQzrJ TBwdCBU jT8nifpkh9qjpsgqRxUmZKE sCYi8FIc3BYMdoAcbIkYrME T3ZyZ8CGX7eQLriI0ezUatj kwxsW9f Oyc+V75ncD9xNWM4GCK9lku uXNJchgQlAG53TY87V0XpGi wvdGFibGU+PGRpdiBzdHlsZ Y6pSlHt z3oml1RqRCsrP2AsJMSiOEo tDwn1EATwTXP8jMF9iM1nMW QvPRgyp0Q6iZT0E5SuuoSah u8lx1cb UZFgILxtP97rfXGzm3N8IFU vcHH4INPjoHipTeVvcY18Nm c+FIOzqNsxs9VwPsgvx2rqr 5heqDo2 LaSuPWHuoyLnfAoyERG2u0D sFv68L34aZWseOHHhDKVsOA FcXAUisCtyxk0xbP6vUl6+P GNvbCB3 nQC1oO2bKKZiZpI3LOfeZ56 1SbBhsACnYikrx0tyn2zugR e1ThIgVRQsgrLnwZfyBRB3f 5XyLj40 B37aRSueRRSyWTRxCHPbNKI rvGemkd0wkY4bUu1+PC9jb2 ohgx99eU31hGM+IGOsDWU5e WxlPSdw INYrcH1bVPdaGiC7BHLvZqV yxM99cMJwTQrySz2arVwulY srGR4uMXZjrxgao923HtYmk 2xkIDEw gVEbFQinFGI4P60rs0R2IWC nRKWqWVU1jWZ5cM0boGhizi ogbGVmdDsgdmVydGljYWwtY JseM219 IHRvcDsnPlBhdGllbnQgTmF xIBh2Q5LmSiw7UJVxiCagDQ 5qgFIkJHdlNx8dzVpmeVijP Y0xROAv rkqyi123RtHaq3tlDLLvtJP oFAghQBS1I90zu5X8WCQjKM JgSNE7xIS7qI0deEjxdanbb GVmdDsg mjVfzGunUWelVIbkX285DSA ddGshXeYdvmBvIUDtqEF1HF 92EQ24qMRbu4Y6dZI3Y4FgA GRpbmct banthZM4BDEwHAStkM36Da9 beHcaEp1cQTExLEG0QYOgmL RhE5KqzL7xEtWjOMXhBYVzC 3RleHQt DExnR040IFdvGaR4NXEkufT iI2MsFILuwAivRsF8t3Q1Hp 0XT3G6ZI14JP07qOIna4T9v OT0V5Us BOUclrkmahodbDO9OOPlHGD wlB00Ln3gdIekWk7uZQLhDV W0CPPobPHkC9TfzM2wXeBoY DAwMDAw U7RdlYMcAQqkL950SSzwKvX 8XUWkivYiN2TcVKGbgLogDv H5w7F3Rv2ATAq1DG73XV56r YCuh9K1 mFT6T2ZeDYTjkclkfljmtRR 9SWKnDOHvlC64Hy0oeDkuYg 5lHBAjQCT8HUBmsSUzO5Upt J0aNiGi LFWwQDJmU4NxxSXbLGpqK08 2KVwwDsJ5PDLjigTnI3EgPT YqzOaoAqY8u0X7Ve5MDCMzB Z04ZUC4 zOE8HU26MY34K4EdFqxjaSG ibGU+PHRhYmxlIHdpZHRoPS lbZSSiDrZwrMseWY8oVb9wD GVyLWNv zShggCEwNgEqw0mmSGKdHRr uKN3aoPtfQ7PwaTF8NMAwm6 m6Yf36T50xF0NqqBH+PGNvb DJ6nVT6 mE8lWaWlUoO6CEdvE413TmU tvCCoErptk3hnn5goxTz7Ts O5OFTdcdVftTuyEKN7o9YcG a96J65u IHdpZHRoPSIxNSUiIHZhbGl drt2jjZ7kEb8+RTAcsIG1dV U8zA5rHzDgOeN1QBnsR258D nRvcCIv Kzemm8kwy9dkbFx4DpSxSWO ukeBbdRezUWG3g8HyOn89T7 PiaWcsx5TvEck9ue86fWIdd 1P2tBF2 V0FzRTZipahjmPPrfCuvJX2 xFVKtyqwpLHHarK2oGIMjW3 l4TtJfWcG8ZCyjF9DrbpV7D DEwcHQg XYfiCOV0E43gm6D5BNGiQNB iZFP5hVY9bO0dpTlgflncxC VmdDsgdmVydGljYWwtYWxpZ 246IHRv jAueANYvgL7qHEQkdGHyoMr qHG7eKWImgsycJsOQHYTNXC PNSZTOBXKZKhVQXB33ZU32v WQst6W2 bET3X8RwQRGesvevntqctTW 0UOCkSVBwgB05uDXiHHbpUf 8ho6P7e329NPFzPLGpaT05N g1pbWkf DIAudDLEcX5dhvymh3rnicu aDlHvUKPqEIz8ECn1GWAdjO kxPaJuDKP0RzK7KCW7tIQkw X7qbUpn wgfquT8cKrm+MTEvMDgvMTk 0MTwvdGQ+ROJiZZM6bYqcIB nqBSVhbW8aUZOeR3a7VpXuK zV9XNmp X7XvGYKavgesKi37sK6tHoL pKwQ1KWbhX7NlmaH5AJQzzV GqQJjvMGX8Y61jn4I1JXNcD DAwMDA7 xGM2dS8hgWwsysaxdHKsxUa azxWxoCgbOUotABlmX356YO TxyLodWcagPIjeZRNaDY76M Y88zPPj x8S6hYE0D8CpYRLjzltfkwa ddLE2RMWbPVHpxX49pRYdVY cdTd4wa1H4f760OUAaITYnl M67Ng9i xOueQFVrvITPyO1jdnutf3u putbtIcMfOQAlLSc4GPa8SP XkrGhlEyQuWYX2ZxB5UYJ4k RNrxE4u kNfjizzrzS0dJou+RmVtYWx uOT17FD55kYLnb9S6cBP4A2 GcPXCvojsjpysblZA0KLMyG DUwaW47 lQRwGRsdDd3hp9Y5d049WYR bFSVxgE69Sa5rkRlhOXWveG RLcI8tosfjk5oxdfkqZmDdT DAwMDt0 NUh5HLXeoDwzVxEdILQ4RmF 6IHT1aIHvfQ1kxXgjjbwlkV 9wOyc+FMJwZDYub8Wur8ChW J42SR37 C9TpJddcuDItbZJ+PHRhYmx lIHdpZHRoPScxMDAlJyBzdH clSV3qCt2dFNZpUDScePhbk HNlOiBj s4twLMDbJClsEW7kpXmvM6P thPP1NIHxk2m9Aq29Z70rQ5 JvdXA+CKZeaAI7zHY9aX8oI zAlIiB2 OCvyY204OmTnqETmOtiqh7y hl5lgtDe9RaGgOHEopyBhyW ceDMW8m3YnBp52N56kXUgcB HRoPSIy BNHzRTZlmKbhcc1qgS7zWz4 +FUXjdJK5tJI0jX5mVsJkLd T3SXbyG233CjQrcPGaUxfmM 71lC1Hy dXA+SUSeYqd3TICgnUyyXR8 lsVWxMNagCx0sQID0YyCmOz YiATjgI5WdZJWbfiqihmbkc WS0BEVc NTBjuG08Aq1gdMqdDw5rAKO jMRQ3GIKcxLRhH3JriG2wQf SaKUNpROWfC7BpyXHxZIgzD 246IGxl KvE6NYRgxnWgR7ObVZEslKi gRzD6e5D8Hf7BzBmynLNjHO 2nKvAyVRb1F0BbZio3QSHun ZzcWH2q pEYgXDfzYu2sgIoqoQnvGO4 iAFKmdyfyn809BiGdr2gkAP XnxNNeTMykIYE7G38kb2C2Z CMwMDAw IEG3wZY0xG2jjBivxgdmgNP mdDsgdmVydGljYWwtYWxpZ2 09ZNLglGxoNvKZIcz4O3EbS ow9OKHb pCkzLP1rmTHhYHnfNa4ndYy sjWpuHN7tHZCwonurd563Xu Qal3egDUSmeIPiKQerIKL0R 67xe1Y4 QPHoXCEqHGG5iWJ0hU7ksBo nbjogbGVmdDsgdmVydGljYW inBGwnZ205RTFfvVudQu6TY xb2S3Vi Wjn3JHQebEqjXV7xiPQcYSj kZw2okXtilCpkHV5rQYBlrn dhl804JfDtz4bcRVDroNCoE GltZXM7 I34tx5U1ORCdUALlHOL6xYO 2rH2uhZgfgnezlJAbbSaoiw KtlElgFCilLGeaK198XBKcg DsnPlBh eWVyOjwvdGQ+HY23ik70M1X cOigqHjp3FXEqUIJ1zKR2uF 6nDTIkEDqvu2M8cWF6N3Hnp ePrui4y b2xs (more content not included)... Normal [facility] C Urineon 11-22-2021 Bacteria identified Cx Nom (U) Microbiology PROCEDURE: Urine Culture [R1] SOURCE: U Random BODY SITE: COLLECTED DATE/TIME: 11/19/2021 13:51 EDT RECEIVED DATE/TIME: 11/20/2021 15:13 EDT START DATE/TIME: 11/20/2021 15:13 EDT FREE TEXT SOURCE: JESS DELGADO, Madhav MERCADO MD, Madahv Her FINAL REPORTS Final Report [] Verified Date/Time: 11/22/2021 11:54 EDT >100,000 cfu/ml Escherichia coli SUSCEPTIBILITY RESULTS ___ LEGEND: S=Susceptible, N/R=Not Reported, Blank=Data not available, or drug not advisable or tested, I=Intermediate, ESBL=Extended spectrum beta-lactamase, R=Resistant, TFG=Thymidine-dependent strain, DARYL=Beta-lactamase positive, ROHIT=mcg/m;(mg/L), S*=Predicted susceptible interp, R*=Predicted resistant interp ___ EC Antibiotic ROHIT Dilutn ROHIT Interp Amikacin <=16 S Ampicillin >16 R Ampicillin/ 16/8 I Sulbactam Aztreonam <=4 S Cefazolin <=2 S Cefepime <=2 S Cefoxitin <=8 S Ceftazidime <=1 S Ceftazidime/ <=8 S Avibactam Ceftriaxone <=1 S Ciprofloxacin <=1 S Ertapenem <=0.5 S Gentamicin <=4 S Levofloxacin <=2 S Meropenem <=1 S Nitrofurantoin 64 I Piperacillin/ <=16 S Tazobactam Tetracycline <=4 S Tigecycline <=2 S Tobramycin <=4 S Trimethoprim/ <=2/38 S Sulfa Performing Locations R1: This test was performed at: [facility], [address] [place] [address], [address] , [place], Normal [facility] Comment on above: Performed By: #### [id number] #### [facility] [address] [place] [id number] CALCULI, URINARYon 2 2,8 Dihydroxyadenine Normal [facility] Comment on above: Performed By: #### C ALCULI #### [facility] [address] [address] [address] Tena Gregg Ammonium Acid Urate Normal [facility] Comment on above: Performed By: #### C ALCULI #### [facility] [address] [place] [address] Dr. Tena Gregg Bilirubin Ql (U) Normal [facility] Comment on above: Performed By: #### C ALCULI #### [facility] [address] [address] [address] Tena Gregg Ca Oxalate Dihydrate Normal [facility] Comment on above: Performed By: #### C ALCULI #### [facility] [address] [address] [address] Tena Gregg CaHPO4 (Brushite) [facility] Comment on above: Performed By: #### C ALCULI #### [facility] [address] [address] [address] Tena Gregg Calcium Bilirubinate Normal [facility] Comment on above: Performed By: #### C ALCULI #### [facility] [address] [address] [address] Tena Gregg Calcium Carbonate Normal [facility] Comment on above: Performed By: #### C ALCULI #### [facility] [address] [address] [address] Tena Gregg Calcium Oxalate Monohydrate 20 % [facility] Comment on above: Performed By: #### C ALCULI #### [facility] [address] [address] [address] Tena Gregg Calcium Palmitate Normal [facility] Comment on above: Performed By: #### C ALCULI #### [facility] [address] [address] [address] Tena Gregg Calcium Phosphate Normal [facility] Comment on above: Performed By: #### C ALCULI #### [facility] [address] [address] [address] Tena Gregg Calcium Stearate Normal [facility] Comment on above: Performed By: #### C ALCULI #### [facility] [address] [address] [address] Tena Gregg Carbonate Apatite Normal [facility] Comment on above: Performed By: #### C ALCULI #### [facility] [address] [address] [address] Tena Gergg Cellular Material Normal [facility] Comment on above: Performed By: #### C ALCULI #### [facility] [address] [address] [address] Tena Gregg Cholesterol [facility] Comment on above: Performed By: #### C ALCULI #### [facility] [address] [address] [address] Tena Gregg Color (U) [place] Normal [facility] Comment on above: Performed By: #### C ALCULI #### [facility] [address] [address] [address] Tena Gregg Comment [facility] Comment on above: Performed By: #### C ALCULI #### [facility] [address] [address] [address] Tena Gregg Comment: Comment Normal [facility] Comment on above: Result Comment: Ken briceno questions regarding Calculi Analysis contact [facility] at: [phone]. Performed By: #### C ALCULI #### [facility] [address] [address] [address] Tena Gregg Composition Comment [facility] Comment on above: Result Comment: Perc entage (Represents the % composition) Performed By: #### C ALCULI #### [facility] [address] [address] [address] Tena Gregg Cystine Normal [facility] Comment on above: Performed By: #### C ALCULI #### [facility] [address] [address] [address] Tena Gregg Disclaimer: Comment Normal [facility] Comment on above: Result Comment: This test was developed and its performance characteristics determined by [facility]. It has not been cleared or approved by the Food and Drug Administration. Performed By: #### C ALCULI #### [facility] [address] [address] [address] Tena Gregg Dried Blood [facility] Comment on above: Performed By: #### C ALCULI #### [facility] [address] [place] [address] Dr. Tena Gregg Drug or Metabolite Normal [facility] Comment on above: Performed By: #### C ALCULI #### [facility] [address] [place] [address] Dr. Tena Gregg Hydroxyapatite [facility] Comment on above: Performed By: #### C ALCULI #### [facility] [address] [place] [address] Dr. Tena Gregg Mg NH4 PO4 (Struvite) [facility] Comment on above: Performed By: #### C ALCULI #### [facility] [address] [place] [address] Dr. Tena Gregg MgHPO4 (Newberyite) Normal [facility] Comment on above: Performed By: #### C ALCULI #### [facility] [address] [place] [address] Dr. Tena Gregg Other component(s) Normal [facility] Comment on above: Performed By: #### C ALCULI #### [facility] [address] [place] [address] Dr. Tena Gregg PDF . [facility] Comment on above: Performed By: #### C ALCULI #### [facility] [address] [place] [address] Dr. Tena Gregg Photo Comment Normal [facility] Comment on above: Result Comment: Phot ograph will follow under a separate cover Performed By: #### C ALCULI #### [facility] [address] [address] [address] Tena Gregg Please note: Comment Normal [facility] Comment on above: Result Comment: Calc mitzi report will follow via computer, mail or can closing machine tender delivery. Performed By: #### C ALCULI #### [facility] [address] [address] [address] Tena Gregg Size 4x3 Normal [facility] Comment on above: Result Comment: Mult iple pieces received. Dimensions of the largest piece reported. Performed By: #### C ALCULI #### [facility] [address] [address] [address] Tena Gregg Sodium Acid Urate [facility] Comment on above: Performed By: #### C ALCULI #### [facility] [address] [address] [address] Tena Gregg Source Comment Normal [facility] Comment on above: Result Comment: Not provided Performed By: #### C ALCULI #### [facility] [address] [address] [address] Tena Gregg Triamterene [facility] Comment on above: Performed By: #### C ALCULI #### [facility] [address] [address] [address] Tena Gregg Uric Acid 80 % [facility] Comment on above: Performed By: #### C ALCULI #### [facility] [address] [address] [address] Tena Gregg Uric Acid Dihydrate Normal [facility] Comment on above: Performed By: #### C ALCULI #### [facility] [address] [address] [address] Tena Gregg Weight 195 mg [facility] Comment on above: Performed By: #### C ALCULI #### [facility] [address] [address] [address] Tena Gregg Xanthine [facility] Comment on above: Performed By: #### C ALCULI #### [facility] [address] [place], [place] [address] Dr. Tena Gregg Reminderson 11-22-2021 Reminders - From: Olga Duque MA To: [facility] - Clinical; Sent: 11/19/2021 13:53:51 EDT Show up: 11/21/2021 13:53:00 EDT Subject: Urine culture Reminder/Recall Urine culture Sent to Maite Villagomez to review [facility] Ambulatory Visit Summaryon 0 11-19-2021 Ambulatory Visit Summary MARVA ANDRADE :1940 Visit Date:11/19/2021 Ambulatory Visit Instructions Your Diagnosis Personal history of kidney stones Kidney stone Mixed incontinence Urinary tract infection Tests Performed Urnls Dip Stick Auto w/o Microscopy POC 02449 XR Abdomen 1 View -- Results Pending -- Please visit your patient portal for your results or contact your primary care physician. Your Care Team Attending Physician - Madhav MERCADO MD Primary Care Physician - MARIPOSA CABRERA MD This Is Your Medications List cephalexin (Keflex 250 mg Cap) Contact prescribing physician if questions or concerns aspirin (aspirin 325 mg oral capsule) atorvastatin (atorvastatin 40 mg Tab) carvedilol (carvedilol 12.5 mg Tab) glimepiride (glimepiride 1 mg Tab) metformin (metformin 500 mg oral tablet) Procedures Performed ESWL of kidney (05/24/2021), Cardiac pacemaker. Discharge Vitals Heart Rate (Peripheral) 73 Respiratory Rate 16 Blood Pressure 132/72 Height 163 cm Height 163.0 cm Weight 85.3 kg Weight 85.3 kg BMI 32.11 What to do next Scheduled Follow-Up Appointments Friday 11:15 AM EST With: Madhav MERCADO MD Where: [facility] Patient Educationon 11-20-19 22 Patient Education Urology Dietary Guidelines to Help Prevent Kidney Stones Kidney stones are deposits of minerals and salts that form inside your kidneys. Your risk of developing kidney stones may be greater depending on your diet, your lifestyle, the medicines you take, and whether you have certain medical conditions. Most people can reduce their chances of developing kidney stones by following the instructions below. Depending on your overall health and the type of kidney stones you tend to develop, your dietitian may give you more specific instructions. What are tips for following this plan? Reading food labels ? Choose foods with no salt added or low-salt labels. Limit your sodium intake to less than 1500 mg per day. ? Choose foods with calcium for each meal and snack. Try to eat about 300 mg of calcium at each meal. Foods that contain 200?500 mg of calcium per serving include: ? 8 oz (237 ml) of milk, fortified nondairy milk, and fortified fruit juice. ? 8 oz (237 ml) of kefir, yogurt, and soy yogurt. ? 4 oz (118 ml) of tofu. ? 1 oz of cheese. ? 1 cup (300 g) of dried figs. ? 1 cup (91 g) of cooked broccoli. ? 1?3 oz can of sardines or mackerel. ? Most people need 1000 to 1500 mg of calcium each day. Talk to your dietitian about how much calcium is recommended for you. Shopping ? Buy plenty of fresh fruits and vegetables. Most people do not need to avoid fruits and vegetables, even if they contain nutrients that may contribute to kidney stones. ? When shopping for convenience foods, choose: ? Whole pieces of fruit. ? Premade salads with dressing on the side. ? Low-fat fruit and yogurt smoothies. ? Avoid buying frozen meals or prepared deli foods. ? Look for foods with live cultures, such as yogurt and kefir. Cooking ? Do not add salt to food when cooking. Place a salt shaker on the table and allow each person to add his or her own salt to taste. ? Use vegetable protein, such as beans, textured vegetable protein (TVP), or tofu instead of meat in pasta, casseroles, and soups. Meal planning ? Eat less salt, if told by your dietitian. To do this: ? Avoid eating processed or premade food. ? Avoid eating fast food. ? Eat less animal protein, including cheese, meat, poultry, or fish, if told by your dietitian. To do this: ? Limit the number of times you have meat, poultry, fish, or cheese each week. Eat a diet free of meat at least 2 days a week. ? Eat only one serving each day of meat, poultry, fish, or seafood. ? When you prepare animal protein, cut pieces into small portion sizes. For most meat and fish, one serving is about the size of one deck of cards. ? Eat at least 5 servings of fresh fruits and vegetables each day. To do this: ? Keep fruits and vegetables on hand for snacks. ? Eat 1 piece of fruit or a handful of berries with breakfast. ? Have a salad and fruit at lunch. ? Have two kinds of vegetables at dinner. ? Limit foods that are high in a substance called oxalate. These include: ? Spinach. ? Rhubarb. ? Beets. ? Potato chips and jamaican fries. ? Nuts. ? If you regularly take a diuretic medicine, make sure to eat at least 1?2 fruits or vegetables high in potassium each day. These include: ? Avocado. ? Banana. ? [place], prune, carrot, or tomato juice. ? Baked potato. ? Cabbage. ? Beans and split peas. General instructions ? Drink enough fluid to keep your urine clear or pale yellow. This is the most important thing you can do. ? Talk to your health care provider and dietitian about taking daily supplements. Depending on your health and the cause of your kidney stones, you may be advised: ? Not to take supplements with vitamin C. ? To take a calcium supplement. ? To take a daily probiotic supplement. ? To take other supplements such as magnesium, fish oil, or vitamin B6. ? Take all medicines and supplements as told by your health care provider. ? Limit alcohol intake to no more than 1 drink a day for non women and 2 drinks a day for men. One drink equals 12 oz of beer, 5 oz of wine, or 1? oz of hard liquor. ? Lose weight if told by your health care provider. Work with your dietitian to find strategies and an eating plan that works best for you. What foods are not recommended? Limit your intake of the following foods, or as told by your dietitian. Talk to your dietitian about specific foods you should avoid based on the type of kidney stones and your overall health. Grains Breads. Bagels. Rolls. Baked goods. Salted crackers. Cereal. Pasta. Vegetables Spinach. Rhubarb. Beets. Canned vegetables. Pickles. Olives. Meats and other protein foods Nuts. Nut butters. Large portions of meat, poultry, or fish. Salted or cured meats. Deli meats. Hot dogs. Sausages. Dairy Cheese. Beverages Regular soft drinks. Regular vegetable juice. Seasonings and other foods Seasoning blends with salt. Salad dr (more content not included)... Normal [facility] Urology Office/Clinic Noteon 11-19-2021 Urology Office/Clinic Note Chief Complaint 6 month f/u HPI Staff Pt is here for f/u. 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 Dysuria: no Incomplete bladder emptying: no Hematuria: no Frequency: no Urgency: yes Nocturia: pt states she does not get up Stream: good stream no straining Leaking: yes for years Post void dripping: no Wearing pads/ Depends: pad has to change 2-3x a day depending on how much she is drinking Urge incontinence: states that once she starts leaking she is unable to stop Stress incontinence: yes with coughing and sneezing hard Incontinence without Sensory Awareness: no Abdominal pain: no Flank pain: no Sexual complaints: no History of Present Illness I have reviewed and verified the staff HPI to be accurate for this encounter. Review of Systems PHQ Score Initial Depression Screen Score: 0 ROS - Provider Constitutional: denies weight loss, denies hot flashes. Eyes: denies eye problems. Gastrointestinal: denies nausea, denies vomiting. Cardiovascular: denies chest pain or angina. Integumentary: no dryness Musculoskeletal: denies musculoskeletal symptoms. ENMT: denies otolaryngeal symptoms. Respiratory: no shortness of breath. Heme/Lymph: denies easy bleeding tendency, denies easy bruising tendency. Psychiatric: no confusion, no anxiety. Genitourinary: denies vaginal discharge, denies incontinence, denies dysuria, denies hematuria, denies urinary frequency, denies amenorrhea, denies menorrhagia, denies abnormal bleeding, denies pelvic pain, denies genital sores, and denies decreased libido. Physical Exam Vitals & Measurements HR: 73(Peripheral) RR: 16 BP: 132/72 HT: 163 cm HT: 163.0 cm WT: 85.3 kg WT: 85.3 kg BMI: 32.11 General Appearance: alert , no acute distress, well nourished, well developed female. Genitourinary: bladder nonpalpable, no flank pain. Assessment/Plan 1. Personal history of kidney stones (Z87.442: Personal history of urinary calculi) S/p right ESWL 05/24/21. Patient has an apparent, ongoing hx with kidney stones. Patient brought in expelled kidney stones, directed that she can send her sample out for stone analysis. 2. Kidney stone (N20.0: Calculus of kidney) S/p right ESWL 05/24/21. KUB on 08/06/21 shows right 2mm kidney stone, faint calcification within inferior pole, and possible small bilateral urinary tract stone. Patient currently denies any pain or visual blood. Educated patient to start increasing water intake, such as drinking two bottles of water q2 hours. Patient understands/acknowledge s. 3. Mixed incontinence (N39.46: Mixed incontinence) Patient reports incontinence with sneezing and coughing. Patient wears pads, has to change 2-3x a day depending on how much fluids she is drinking. Patient reports she does has accidents, and is unable to stop leaking. Patient reports she does not get up during the night. 4. Urinary tract infection (N39.0: Urinary tract infection, site not specified) UA today is cloudy, foul smelling, and purulent, with positive nitrates, moderate leukocytes, and small blood. Patient shares she has symptoms such as urgency and frequency, however denies any dysuria or pain. will send urine for culture. Will start abx treatment. Will start Keflex 250mg bid for 5 days, sent to [facility] in [place]. Follow-up With When Contact Information JESS DELGADO, Madhav Her, URL [facility] [address] [place] [address]- Additional Instructions: 6 month f/u with [facility] Patient Education Dietary Guidelines to Help Prevent Kidney Stones Sangeetha Schmitt, personally scribed for Dr. Mercado on 11/19/2021 10:26:46. . Documentation recorded by the tripibSangeetha sarmiento, accurately reflects the services(s) I performed and decisions made by me. Authenticated by Dr. Mercado on 11/19/2021 10:28:59. Problem List/Past Medical History Ongoing Diabetes mellitus Heart attack Kidney stone Historical No qualifying data Procedure/Surgical History ESWL of kidney (05/24/2021), Cardiac pacemaker. Medications aspirin 325 mg oral capsule, Oral, Daily atorvastatin 40 mg Tab, Oral, Daily carvedilol 12.5 mg Tab, Oral, BID glimepiride 1 mg Tab, Oral, Daily metformin 500 mg oral tablet, Oral, BID Allergies No Known Medication Allergies Social History Tobacco Never (less than 100 in lifetime) Tobacco Use:. Never Smokeless Tobacco Use:., 04/17/2021 Family History Cancer: Mother. Kidney stone: Father. Immunizations Vaccine Date Status SARS-CoV-2 (COVID-19) Ad26 vaccine 08/18/2020 Recorded SARS-CoV-2 (COVID-19) Ad26 vaccine 07/21/2020 Recorded Lab Results Ambulatory Point of Care Results Bilirubin Urine Dipstick: Negative (11/19/21 09:48:00) Blood Urine Dipstick: 1+ Small (11/19/21 09:48:00) Glucose Urine Dipstick: Trace 100 mg/dl (11/19/21 09:48:00) Ketones Urine Dipstick: Negative (05 (more content not included)... [facility] Comment on above: Result Comment: Elec tronically Signed By: Madhav MERCADO MD\.br\Date and Time Signed: 11/19/21 10:29 EDT\.br\Electronically Co-Signed By: Sangeetha Singh.br\Date and Time Co-Signed: 11/19/21 10:27 EDT RAD - MISCon 08-10-2021 RAD MIS [id number] D:127 [facility] RAD - MISC [id number] D:127 [facility] Reminderson 08-07-2021 Reminders - From: Rebecca Asencio To: EU - Clinical; Sent: 08/02/2021 15:25:57 EST Show up: 08/07/2021 15:25:00 EST Subject: IMELDA Reminder/Recalls Owen SEGURA, order faxed 08/02/21 Results scanned into pt's file will send PRW a message when they are available. Normal [facility] Complete Blood Count with Au to Diffon 08-06-2021 Basophils (Bld) [#/Vol] 0.06 10*3/uL Normal 0.00-0.20 [facility] Comment on above: Performed By: #### C BCAD, CMP, LIPD #### [facility] [address], [place] [id number] Basophils/100 WBC (Bld) 0.7 % Normal [facility] Comment on above: Performed By: #### C BCAD, CMP, LIPD #### [facility] [address], [place] [id number] Eosinophils (Bld) [#/Vol] 0.23 10*3/uL Normal 0.02-0.50 [facility] Comment on above: Performed By: #### C BCAD, CMP, LIPD #### [facility] [address], [place] [id number] Eosinophils/100 WBC (Bld) 2.5 % Normal [facility] Comment on above: Performed By: #### C BCAD, CMP, LIPD #### [facility] [address], [place] [id number] Erythrocyte distribution width (RBC) [Ratio] 13.0 % Normal 11.0-15.0 [facility] Comment on above: Performed By: #### C BCAD, CMP, LIPD #### [facility] [address], [place] [id number] Hematocrit (Bld) [Volume fraction] 43.3 % Normal 35.0-47.0 [facility] Comment on above: Performed By: #### C BCAD, CMP, LIPD #### [facility] [address], [place] [id number] Hemoglobin (Bld) [Mass/Vol] 14.1 g/dL Normal 11.6-15.5 [facility] Specialist Comment on above: Performed By: #### C BCAD, CMP, LIPD #### [facility] [address], [place] [id number] Lymphocytes (Bld) [#/Vol] 2.7 10*3/uL Normal 0.9-3.9 [facility] Comment on above: Performed By: #### C BCAD, CMP, LIPD #### [facility] [address], [place] [id number] Lymphocytes/100 WBC (Bld) 29.9 % Normal [facility] Comment on above: Performed By: #### C BCAD, CMP, LIPD #### [facility] [address], [place] [id number] MCH (RBC) [Entitic mass] 31.7 pg Normal 27.0-33.0 [facility] Comment on above: Performed By: #### C BCAD, CMP, LIPD #### [facility] [address], [place] [id number] MCHC (RBC) [Mass/Vol] 32.6 g/dL Normal 32.0-36.0 [facility] Comment on above: Performed By: #### C BCAD, CMP, LIPD #### [facility] [address], [place] [id number] MCV (RBC) [Entitic vol] 97 fL Normal 80-100 [facility] Comment on above: Performed By: #### C BCAD, CMP, LIPD #### [facility] [address], [place] [id number] Monocytes (Bld) [#/Vol] 0.9 10*3/uL Normal 0.2-0.9 [facility] Comment on above: Performed By: #### C BCAD, CMP, LIPD #### [facility] [address], [place] [id number] Monocytes/100 WBC (Bld) 9.5 % Normal [facility] Comment on above: Performed By: #### C BCAD, CMP, LIPD #### [facility] [address], [place] [id number] Neutrophils (Bld) [#/Vol] 5.2 10*3/uL Normal 1.5-7.8 [facility] Comment on above: Performed By: #### C BCAD, CMP, LIPD #### [facility] [address], [place] [id number] Neutrophils/100 WBC (Bld) 57.2 % Normal [facility] Comment on above: Performed By: #### C BCAD, CMP, LIPD #### [facility] [address], [place] [id number] Platelet mean volume (Bld) [Entitic vol] 12.10 fL Normal 7.50-12.50 [facility] Comment on above: Performed By: #### C BCAD, CMP, LIPD #### [facility] [address], [place] [id number] Platelets (Bld) [#/Vol] 138 10*3/uL Low 140-400 [facility] Comment on above: Performed By: #### C BCAD, CMP, LIPD #### [facility] [address], [place] [id number] RBC (Bld) [#/Vol] 4.45 10*6/uL Normal 3.90-5.20 [facility] Comment on above: Performed By: #### C BCAD, CMP, LIPD #### [facility] [address], [place] [id number] RDW-SD 46.4 fL Normal 37.0-50.0 [facility] Comment on above: Performed By: #### C BCAD, CMP, LIPD #### [facility] [address], [place] [id number] WBC (Bld) [#/Vol] 9.1 10*3/uL Normal 3.8-11.0 [facility] Comment on above: Performed By: #### C BCAD, CMP, LIPD #### [facility] [address], [place] [id number] Comprehensive Metabolic Pane thelma 08-06-2021 Albumin [Mass/Vol] 4.6 g/dL Normal 3.6-5.1 [facility] Specialist Comment on above: Performed By: #### C BCAD, CMP, LIPD #### [facility] [address], [place] [id number] Albumin/Globulin [Mass ratio] 2.1 {ratio} Normal 1.0-2.5 [facility] Comment on above: Performed By: #### C BCAD, CMP, LIPD #### [facility] [address], [place] [id number] ALP [Catalytic activity/Vol] 126 U/L High 35-119 [facility] Comment on above: Performed By: #### C BCAD, CMP, LIPD #### [facility] [address], [place] [id number] ALT [Catalytic activity/Vol] 26 U/L Normal 6-33 [facility] Comment on above: Result Comment: 06/06 Female reference range changed. Performed By: #### C BCAD, CMP, LIPD #### [facility] [address] [place] [id number] Anion gap [Moles/Vol] 20 mmol/L Normal 12-20 [facility] Comment on above: Result Comment: Effe ctive 07/12/2019 reference range changed. Performed By: #### C BCAD, CMP, LIPD #### [facility] [address], [place] [id number] AST [Catalytic activity/Vol] 36 U/L High 9-34 [facility] Comment on above: Performed By: #### C BCAD, CMP, LIPD #### [facility] [address], [place] [id number] Bilirubin [Mass/Vol] 0.64 mg/dL Normal 0.30-1.20 [facility] Comment on above: Performed By: #### C BCAD, CMP, LIPD #### [facility] [address] [place] [id number] BUN/CREA 24 Ratio High 6-22 [facility] Comment on above: Performed By: #### C BCAD, CMP, LIPD #### [facility] [address] [place] [place] [id number] Calcium [Mass/Vol] 9.7 mg/dL Normal 8.6-10.2 [facility] Comment on above: Performed By: #### C BCAD, CMP, LIPD #### [facility] [address] [place] [id number] Chloride [Moles/Vol] 108 mmol/L High 98-107 [facility] Comment on above: Performed By: #### C BCAD, CMP, LIPD #### [facility] [address] [place] [id number] CO2 [Moles/Vol] 19 mmol/L Low 20-31 [facility] Comment on above: Performed By: #### C BCAD, CMP, LIPD #### [facility] [address] [place] [id number] Creatinine [Mass/Vol] 1.2 mg/dL Normal 0.6-1.4 [facility] Comment on above: Performed By: #### C BCAD, CMP, LIPD #### [facility] [address], [place] [id number] eGFRAA 52 mL/min/1.73m2 Low >60 [facility] Comment on above: Performed By: #### C BCAD, CMP, LIPD #### [facility] [address] [place] [id number] eGFRNAA 43 mL/min/1.73m2 Low >60 [facility] Comment on above: Performed By: #### C BCAD, CMP, LIPD #### [facility] [address], [place] [id number] Globulin (S) [Mass/Vol] 2.2 g/dL Normal 1.9-3.7 [facility] Comment on above: Performed By: #### C BCAD, CMP, LIPD #### [facility] [address], [place] [id number] Glucose [Mass/Vol] 104 mg/dL High 65-99 [facility] Comment on above: Result Comment: For FASTING Glucose --- ADA reference ranges: Normal 65-99 mg/dl Prediabetes 100-125 Diabetes >/= 126 Performed By: #### C BCAD, CMP, LIPD #### [facility] [address], [place] [id number] Potassium [Moles/Vol] 4.5 mmol/L Normal 3.5-5.5 [facility] Comment on above: Performed By: #### C BCAD, CMP, LIPD #### [facility] [address], [place] [id number] Protein [Mass/Vol] 6.8 g/dL Normal 6.1-8.1 [facility] Comment on above: Performed By: #### C BCAD, CMP, LIPD #### [facility] [address], [place] [id number] Sodium [Moles/Vol] 143 mmol/L Normal 135-146 [facility] Comment on above: Performed By: #### C BCAD, CMP, LIPD #### [facility] [address], [place] [id number] Urea nitrogen [Mass/Vol] 28 mg/dL High 7-25 [facility] Comment on above: Performed By: #### C BCAD, CMP, LIPD #### [facility] [address], [place] [id number] Hemoglobin A1Con 08-06-2021 EAG 145.59 Normal [facility] Comment on above: Performed By: #### A 1C #### [facility] [address], [place] [id number] HbA1c (Bld) [Mass fraction] 6.7 % High 4.0-6.0 [facility] Comment on above: Performed By: #### A 1C #### [facility] [address], [place] [id number] Lipid Panelon 08-06-2021 Cholesterol [Mass/Vol] 142 mg/dL Normal 125-200 [facility] Comment on above: Result Comment: Low risk < 200mg/dL Borderline risk 201-239 mg/dl High risk > or equal to 240 Performed By: #### C BCAD, CMP, LIPD #### [facility] [address], [place] [id number] Cholesterol in HDL [Mass/Vol] 43 mg/dL Normal >40 [facility] Comment on above: Result Comment: High Cardiovascular Risk HDL <40 mg/dL Low Cardiovascular Risk HDL > or equal to 60 mg/dl Performed By: #### C BCAD, CMP, LIPD #### [facility] [address] [place] [id number] Cholesterol in LDL [Mass/Vol] 73 mg/dL Normal [facility] Comment on above: Result Comment: LDL ATP III CLASSIFICATION LDL less than 100 mg/dl Optimal LDL 100-129 mg/dl Near or above optimal LDL 130-159 Borderline high LDL 160-189 High LDL greater than 189 mg/dl Very High Performed By: #### C BCAD, CMP, LIPD #### [facility] [address], [place] [id number] Cholesterol in VLDL [Mass/Vol] 26 mg/dL Normal [facility] Comment on above: Performed By: #### C BCAD, CMP, LIPD #### [facility] [address], [place] [id number] Cholesterol.total/Ch olesterol in HDL [Mass ratio] 3 {ratio} Normal [facility] Comment on above: Performed By: #### C BCAD, CMP, LIPD #### [facility] [address], [place] [id number] Triglyceride [Mass/Vol] 132 mg/dL Normal 30-150 [facility] Comment on above: Result Comment: TRIG ATPIII CLASSIFICATIONS TRIG less than 150 mg/dl Normal TRIG 150-199 mg/dl Borderline High TRIG 200-500 mg/dl High TRIG greather than 500 mg/dl Very High Performed By: #### C BCAD, CMP, LIPD #### [facility] [address], [place] [id number] CHEST AND LATERALon 03-30-20 CHEST AND LATERAL [facility] Department of Radiology [address] [place] [id number] ===== Patient Name: MARVA ANDRADE : 1940 Sex: F Age: Race: White Pt. Location: Patient Status: O Ordered Date: 03/30/2021 11:40:00 AM Completed Date: 03/30/2021 11:59 AM Requesting Provider: PEPE KOVACS Attending Provider: PEPE KOVACS Report Copy To: MARIPOSA CABRERA Signs & Symptoms: Z95.0 Presence of cardiac pacemaker I10 History: Comments: evaluate Exam: CHEST AND LATERAL ===== EXAMINATION: CHEST AND LATERAL 03/30/2021 11:59 AM CLINICAL HISTORY: Z95.0 Presence of cardiac pacemaker I10 TECHNOLOGIST COMMENTS: patient states check pacemaker but denies any problems with it. placed in 2000 QUESTION FOR THE RADIOLOGIST: evaluate TECHNIQUE: AP(PA) and Lateral views were obtained. COMPARISON: None available. FINDINGS: Heart is in upper limits of normal in size. A permanent pacemaker is in satisfactory position. Aorta is somewhat ectatic with calcification in its wall. Trachea is in midline. Mediastinum is otherwise unremarkable. Both lungs are free of pulmonary infiltrates or acute pulmonary pathology. Costophrenic angles are clear. There is no vascular congestion. Hemidiaphragms are normal in position and contour. IMPRESSION: 1. Mild cardiomegaly. A permanent pacemaker is in satisfactory position. 2. No evidence of pulmonary infiltrate or acute pulmonary pathology. Electronically signed: Nikolai Palomino. Transcribed by: [email or web address], User Resident: Electronically Signed by: NIKOLAI PALOMINO @ 03/30/2021 01:03 PM Normal [facility] Comment on above: Order Comment: evalu ate IOL BIOMETRY W/ IOL CALC OU (BOTH EYES) [facility] Vital Signs Date Time Vital Sign Value Performing Clinician Facility 02-27-2023 08:37-0400 Body height 162.6 cm Pacc 1 Work Phone: [facility] 02-27-2023 08:37-0400 Body temperature 98.01 [degF] Pacc 1 Work Phone: [facility] 02-27-2023 08:37-0400 Body weight 82.56 kg Pacc 1 Work Phone: [facility] 02-27-2023 08:37-0400 Diastolic blood pressure 75 mm[Hg] Pacc 1 Work Phone: [facility] 02-27-2023 08:37-0400 Heart rate 99 /min Pacc 1 Work Phone: [facility] 02-27-2023 08:37-0400 Respiratory rate 16 /min Pacc 1 Work Phone: [facility] 02-27-2023 08:37-0400 SaO2% (BldA) [Mass fraction] 99 % Pacc 1 Work Phone: [facility] 02-27-2023 08:37-0400 Systolic blood pressure 138 mm[Hg] Pacc 1 Work Phone: [facility] 11-19-2021 09:49-0400 Blood Pressure Location Madhav MERCADO [facility] 11-19-2021 09:49-0400 Diastolic blood pressure 72 mm[Hg] Madhav MERCADO [facility] 11-19-2021 09:49-0400 Heart rate 73 /min Madhav MERCADO [facility] 11-19-2021 09:49-0400 Respiratory rate 16 /min Madhav MERCADO [facility] 11-19-2021 09:49-0400 Systolic blood pressure 132 mm[Hg] Madhav MERCADO [facility] Encounters Encounter Date Encounter Type Care Provider Facility Start: 03-15-2024 End: 03-[facility] Start: 11-18-2023 End: 11-18-2023 ambulatory [facility] Start: 10-02-2023 End: 10[facility]02-20[facility] 09-22-[facility]23 End: 09-22-2023 ambulatory [facility] Start: 08-19-2023 End: 08-19-2023 ambulatory [facility] Start: 07-22-2023 End: 07-22-2023 ambulatory [facility] Start: 07-03-2023 ambulatory [facility] Start: 05-27-2023 ambulatory EUNICE GRANT [facility] Start: 03-26-2023 End: 03-26-2023 ambulatory [facility] Facility:[facility] Start: 03-12-2023 End: 03-12-2023 ambulatory [facility] Facility:[facility] Start: 02-27-2023 Encounter for other preprocedural examination JED WEBSTER [facility] Start: 02-27-2023 End: 02-27-2023 Patient encounter procedure [facility] Work Phone: Ophthalmology Comment on above: Combined forms of ag e-related cataract of both eyes Start: 02-27-2023 End: 02-27-2023 Admission to [facility]acc King 1 [facility] Start: 02-27-2023 End: 02-27-2023 ambulatory Pacc King 1 Work Phone: Pre Anesthesia Comment on above: Pre-operative cleara nce (Primary Dx); Type 2 diabetes mellitus without complication, without long-term current use of insulin (HCC); Hyperlipidemia, unspecified hyperlipidemia type; Hypertension, unspecified type; Biventricular cardiac pacemaker in situ; Complete atrioventricular block (HCC) Start: 02-27-2023 End: 02-27-2023 Preoperative state Pac Mayda Meyers Work Phone: [facility] Work Phone: Start: 01-09-2023 End: 01-09-2023 ambulatory JED WEBSTER Facility:[facility] Start: 01-09-2023 End: 01-09-2023 Patient encounter procedure Jed Webster MD Work Phone: Ophthalmology Comment on above: Combined forms of ag e-related cataract of both eyes (Primary Dx); Glaucoma suspect of both eyes Start: 08-12-2022 End: 08-13-[address] MARVA SAUER Facility:[facility] Start: 05-27-2022 End: 05-28-2022 ambulatory MD Madhav MERCADO Facility:[facility] [place] Start: 05-21-2022 End: 05-22-[address] MADHAV MERCADO Facility:[facility] Start: 11-19-2021 End: 11-20-2021 ambulatory MD Madhav MERCADO [facility] Start: 11-19-2021 End: 11-19-2021 Lab Drop off Madhav MERCADO [facility] Start: 11-19-2021 End: 11-19-[address] MADHAV MERCADO Facility:[facility] Start: 11-19-2021 End: 11-20-2021 ambulatory MD Madhav MERCADO Facility:[facility] [place] Start: 11-19-2021 End: 11-19-2021 Patient encounter procedure Madhav MERCADO [facility] Procedures Date Procedure Procedure Detail Performing Clinician Start: 02-27-2023 IOL BIOMETRY W/ IOL CALC OU (BOTH EYES) Jed Webster MD Work Phone: Start: 05-24-2021 Extracorporeal shock wave lithotripsy of calculus of kidney Madhav MERCADO Cardiac pacemaker, d evice (physical object) Madhav MERCADO Plan of Treatment Date Care Activity Detail Author Start: 01-10-2024 Hepatitis C antibody , confirmatory test DILATED RETINAL EXAM [facility] Start: 01-09-2024 End: 07-02-2024 IOL BIOMETRY W/ IOL CALC OU (BOTH EYES) IOL BIOMETRY W/ IOL CALC OU (BOTH EYES) [facility] Imaging Routine Combined forms of age-related cataract of both eyes Expected: 01/09/2024, Expires: 07/02/2024 [facility] Work Phone: Comment on above: Expected: 01/09/2024 , Expires: 07/02/2024 Start: 03-07-2023 Influenza vaccination INFLUENZA (#1) [facility] Start: 07-07-2022 ADVANCE DIRECTIVE DISCUSSION ADVANCE DIRECTIVE DISCUSSION [facility] Start: 07-07-2022 DEPRESSION ASSESSMENT DEPRESSION ASS ESSMENT [facility] Start: 2006 BONE DENSITY BONE DENSITY [facility] Start: 2006 PNEUMOCOCCAL: 65+ (1 - PCV) PNEUMOCOCCAL: 65+ (1 - PCV) [facility] Start: 1991 SHINGRIX VACCINE (1 of 2) SHINGRIX VACCINE (1 of 2) [facility] Start: 1986 DIABETES SCREEN DIABETES SCREEN [facility] Start: 1960 Urine microalbumin profile DTAP,TDAP,TD (1 - Tdap) [facility] Start: 1959 Hepatitis B surface antibody level LDL CHOLESTEROL [facility] Start: 1951 3 comp foot exam completed DIABETIC FOOT EXAM [facility] Start: 1951 Hepatitis B screening URINE ALBUMIN:CREATININE RATIO [facility] Start: 1947 PNEUMOCOCCAL: 65+ (1 - PCV) PNEUMOCOCCAL: 65+ (1 - PCV) [facility] Start: 1946 Hemoglobin A1c/Hemoglobin.total in Blood HBA1C [facility] CORNEAL TOPOGRAPHY A TLAS OU (BOTH EYES) CORNEAL TOPOGRAPHY ATLAS OU (BOTH EYES) [facility] Imaging Routine Combined forms of age-related cataract of both eyes 01/09/2023 1:45 PM EDT [facility] Work Phone: End: 06-12-2024 OCT MACULA CIRRUS OU (BOTH EYES) OCT MACULA CIRRUS OU (BOTH EYES) [facility] Imaging Routine Combined forms of age-related cataract of both eyes 1 Occurrences starting 12/20/2022 until 06/12/2024 [facility] Work Phone: Comment on above: 1 Occurrences starti ng 12/20/2022 until 06/12/2024 OCT MACULA CIRRUS OU (BOTH EYES) OCT MACULA CIRRUS OU (BOTH EYES) [facility] Imaging Routine Combined forms of age-related cataract of both eyes 01/09/2023 2:05 PM EDT [facility] Work Phone: [facility] Immunizations Immunization Date Immunization Notes Care Provider Fa cility 08-18-2020 SARS-CoV-2 (COVID-19 ) Ad26 vaccine, recombinant Madhav MERCADO [facility] 07-21-2020 SARS-CoV-2 (COVID-19 ) Ad26 vaccine, recombinant Madhav MERCADO [facility] Payers Date Payer Category Payer Private Health Insurance [facility] AARP SUPPLEMENT [id number] 2022-Present [phone] [address] [place] [address] Indemnity [id number] 2006 Medicare MEDICARE MEDICAR E A AND B [id number] 2006-Present [phone] [place] [address] Medicare [id number] 1959 Medicare [id number] 1958 Unknown [id number] 1940 Unknown [id number] 1940 Unknown [id number] 1940 Unknown [id number] 1940 Unknown [id number] 1940 Unknown [id number] 1940 Unknown [id number] Social History Date Type Detail Facility Start: 04-17-2021 End: 01-09-2023 Tobacco smoking status Never smoked tobacco (finding) [facility] Tobacco smoking status Never [facility] Start: 01-09-2023 End: 02-27-2023 Sex Assigned At Female [facility] Start: 01-09-2023 Tobacco use and exposure Smokeless tobacco non-user [facility] Start: 01-09-2023 End: 02-27-2023 Alcohol intake Ex-drinker (finding) [facility] Start: 1940 Sex Assigned At Not on file [facility] Start: 01-09-2023 End: 02-27-2023 History of Social function [facility] Start: 10-25-2022 Gender identity Identifies as female gender (finding) [facility] Clinical Notes 11-19-2021 to 03-15-2024 Leticia Keyes [facility] - 02/27/2023 9:48 AM EDTPatient Shoshana Ferrari DRILLER PORTABLE.RACE STARTER - 02/27/2023 8:32 AM EDTAddendum Note - Yasmany Clark Coord - 01/09/2023 4:33 PM EDT Note Date & Type Note Facility 03-15-2024 Note [facility] Subjective Marva Andrade is a 83 y.o. year old female patient being seen for Hyperlipidemia and Hypertension (Pt is here for a six month follow up) Patient Active Problem List Diagnosis Allergic rhinitis Atherosclerosis of coronary artery without angina pectoris Biventricular cardiac pacemaker in situ Cardiomyopathy, ischemic Chronic systolic congestive heart failure, NYHA class 2 (CMS/HCC) Complete atrioventricular block (CMS/HCC) Congestive heart failure (CMS/HCC) Elevated liver enzymes HLD (hyperlipidemia) Hypertension Obesity (BMI 30-39.9) Myocardial infarction (CMS/HCC) Osteopenia of right femoral neck Pain in right knee Primary cardiomyopathy (CMS/HCC) Primary ovarian failure Pure hypercholesterolemia Recurrent major depressive disorder (CMS/HCC) Stage 3b chronic kidney disease (CMS/HCC) Thrombocytopenia (CMS/HCC) Type 2 diabetes mellitus with diabetic chronic kidney disease (CMS/HCC) Cardiac pacemaker in situ HPI Patient has history of AV block, status post permanent pacemaker and generator replacement September 2023, cardiomyopathy and chronic CHF, diabetes mellitus Here today for follow-up visit. She has been doing well. She denies any chest pain or shortness of breath at rest or with exertion. She denies orthopnea or paroxysmal nocturnal dyspnea or dizziness or palpitations. She denies legs edema or discomfort on exertion. ROS All systems were reviewed and they were negative except for the positive findings noted above in the history Past Medical History: Diagnosis Date Abnormal ECG AV block Cardiomyopathy (CMS/HCC) CHF (congestive heart failure) (CMS/HCC) Diabetes mellitus (CMS/HCC) Past Surgical History: Procedure Laterality Date INSERT / REPLACE / REMOVE PACEMAKER No family history on file. Allergies No Known Allergies Medications Current Outpatient Medications: aspirin 325 mg capsule, Take by mouth., Disp: , Rfl: atorvastatin (Lipitor) 40 mg tablet, Take 1 tablet every day by oral route for 90 days., Disp: , Rfl: carvedilol (Coreg) 12.5 mg tablet, Take 1 tablet twice a day by oral route for 90 days., Disp: , Rfl: cholecalciferol (Vitamin D-3) 125 MCG (5000 UT) capsule, Take 1 capsule by mouth in the morning., Disp: , Rfl: glimepiride (Amaryl) 2 mg tablet, Take 1 tablet by mouth in the morning and at bedtime., Disp: , Rfl: metFORMIN (Glucophage) 500 mg tablet, Take 1 tablet twice a day by oral route for 90 days., Disp: , Rfl: SITagliptin phosphate (Januvia) 50 mg tablet, Take 50 mg by mouth 1 (one) time each day., Disp: , Rfl: Objective Visit Vitals BP 133/71 (BP Location: Right arm, Patient Position: Sitting) Pulse 65 Ht 1.626 m (5' 4 ) Wt 79.8 kg (176 lb) SpO2 93% BMI 30.21 kg/m??? OB Status Postmenopausal BSA 1.9 m??? Physical exam: GENERAL: alert and oriented x3, well developed, in no acute distress. HEAD: atraumatic, normocephalic. EYES: CONCHIS, EOMI. NECK: trachea midline, no JVD present, no carotid bruits present. CARDIAC: S1, S2 present. RRR. No murmur, rubs, or gallops. RESPIRATORY: CTAB, no increased effort of breathing, no rales, rhonchi, or wheezing. ABDOMEN: soft, nontender, nondistended. EXTREMITIES: no lower extremity edema. No rash/skin discoloration present. NEURO: strength/sensation equal and symmetric in bilateral upper and lower extremities. PSYCH: appropriate mood, affect, and judgement. Recent Labs Labs 09/16/2023 sodium 142, potassium 4.8, BUN 25, creatinine 1.5, glucose 184, GFR 40, calcium 9.3 White blood count 9.3, hemoglobin 14, hematocrit 44, platelets 125 Imaging and other tests EKG: Echo: 08/29/2023 Stress test: Cardiac cath: Event Monitor: Cardiac MRI: CX ray: Assessment/Plan: History of AV block, Status post permanent pacemaker implantation, Last generator replacement was in September 22, 2023 Last device check was in November 2023 showing adequate function History of cardiomyopathy, EF 45-50% on Echo 2015, with recovery of left ventricle systolic function, ejection fraction 55 to 60% August 2023 Clinically stable. She is on Coreg Hypertension, well-controlled on Coreg Hyperlipidemia, on atorvastatin Type 2 diabetes mellitus, on Januvia and Glucophage and Amaryl Obesity BMI 30.2 kg/m??? Chronic kidney disease Thrombocytopenia Plan: Continue current management Continue device check in device clinic every 6 months Check fasting lipids and LFTs Follow-up in 6 months Jonn Lee MD,[facility] 10-02-2023 Note Cardiovascular Medic ine [facility] SUBJECTIVE Chief Complaint Patient presents with Wound Check Marva Andrade is a 83 y.o. female here for wound check follow-up after her recent generator change. HPI PMHx: CAD, HFrEF, CHB s/p PPM (medtronic) document GEN change by Dr. De on 05/29/2016, and previously by Dr. Wiggins on 10/21/2007. It is noted does mention that she had the first implant in 1999 She has been doing well. She initially had some increased soreness around PM incision. This has improved. Denies any fevers/chills, CP, dyspnea, palpitations, dizziness/LH. Patient Active Problem List Diagnosis Allergic rhinitis Atherosclerosis of coronary artery without angina pectoris Biventricular cardiac pacemaker in situ Cardiomyopathy, ischemic Chronic systolic congestive heart failure, NYHA class 2 (CMS/HCC) Complete atrioventricular block (CMS/HCC) Congestive heart failure (CMS/HCC) Elevated liver enzymes HLD (hyperlipidemia) Hypertension Obesity (BMI 30-39.9) Myocardial infarction (CMS/HCC) Osteopenia of right femoral neck Pain in right knee Primary cardiomyopathy (CMS/HCC) Primary ovarian failure Pure hypercholesterolemia Recurrent major depressive disorder (CMS/HCC) Stage 3b chronic kidney disease (CMS/HCC) Thrombocytopenia (CMS/HCC) Type 2 diabetes mellitus with diabetic chronic kidney disease (CMS/HCC) Cardiac pacemaker in situ Past Medical History: Diagnosis Date Abnormal ECG AV block Cardiomyopathy (CMS/HCC) CHF (congestive heart failure) (CMS/HCC) Diabetes mellitus (CMS/HCC) No family history on file. No Known Allergies Review of Systems Constitutional: Negative for chills, decreased appetite, fever, malaise/fatigue and weight gain. Cardiovascular: Negative for chest pain, dyspnea on exertion, irregular heartbeat, leg swelling, near-syncope, orthopnea, palpitations, paroxysmal nocturnal dyspnea and syncope. Hematologic/Lymphatic: Negative for bleeding problem. Does not bruise/bleed easily. OBJECTIVE Visit Vitals OB Status Postmenopausal Medications: Current Outpatient Medications: aspirin 325 mg capsule, Take by mouth., Disp: , Rfl: atorvastatin (Lipitor) 40 mg tablet, Take 1 tablet every day by oral route for 90 days., Disp: , Rfl: carvedilol (Coreg) 12.5 mg tablet, Take 1 tablet twice a day by oral route for 90 days., Disp: , Rfl: cholecalciferol (Vitamin D-3) 125 MCG (5000 UT) capsule, Take 1 capsule by mouth in the morning., Disp: , Rfl: doxycycline (Monodox) 100 mg capsule, Take 1 capsule (100 mg) by mouth in the morning and at bedtime for 14 days. Take with at least 8 ounces (large glass) of water, do not lie down for 30 minutes after, Disp: 28 capsule, Rfl: 0 glimepiride (Amaryl) 2 mg tablet, Take 1 tablet by mouth in the morning and at bedtime., Disp: , Rfl: metFORMIN (Glucophage) 500 mg tablet, Take 1 tablet twice a day by oral route for 90 days., Disp: , Rfl: SITagliptin phosphate (Januvia) 50 mg tablet, Take 50 mg by mouth 1 (one) time each day., Disp: , Rfl: Physical Exam Cardiovascular: Comments: Left upper chest PM incision healing well without any s/s of infection. Surgical glue intact. Resolving ecchymosis. No redness/warmth/drainage/hematoma. Labs: Ancillary Procedure on 05/27/2023 Component Date Value Ref Range Status Date Time Interrogation Session 05/27/[id number] Final Implantable Pulse Generator Manufa* 05/27/2023 Medtronic Final Implantable Pulse Generator Model 05/27/2023 [id number] Adapta Final Implantable Pulse Generator Serial* 05/27/2023 [id number] Final Type Interrogation Session 05/27/2023 In Clinic Final Clinic Name 05/27/2023 [facility] Final Implantable Pulse Generator Type 05/27/2023 Pacemaker Final Implantable Pulse Generator Implan* 05/27/2023 [id number] Final Implantable Lead Lead Producer 05/27/2023 Medtronic Final Implantable Lead Model 05/27/2023 4023 CapSure SP Final Implantable Lead Serial Number 05/27/2023 [id number] Final Implantable Lead Implant Date 05/27/2023 [id number] Final Implantable Lead Location 05/27/2023 Left Ventricle Final Implantable Lead Lead Producer 05/27/2023 Medtronic Final Implantable Lead Model 05/27/2023 5076 CapSureFix Novus Final Implantable Lead Serial Number 05/27/2023 [id number] Final Implantable Lead Implant Date 05/27/202320010220 Final Implantable Lead Location 05/27/2023 Unknown Final Implantable Lead Lead Producer 05/27/2023 Medtronic Final Implantable Lead Model 05/27/2023 5076 CapSureFix Novus Final Implantable Lead Serial Number 05/27/2023 [id number] Final Implantable Lead Implant Date 05/27/202320010220 Final Implantable Lead Location 05/27/2023 Right Ventricle Final Edwin Setting Mode (NBG Code) 05/27/2023 DDDR Final Edwin Setting Lower Rate Limit 05/27/2023 70 [beats]/min Final Edwin Setting Maximum Tracking Rate 05/27/2023 130 [beats]/min Final Edwin Setting Maximum Sensor Rate 05/27/2023 130 [ (more content not included)... [facility] 09-22-2023 Note PACEMAKER GENERATOR REPLACEMENT PROCEDURE NOTE DATE OF PROCEDURE: 09/22/23 PERFORMING PHYSICIAN: Dr. Pepe Kovacs CONSENT: Patient LOCATION: EP Lab PROCEDURE PERFORMED: 1. Pacemaker generator change (Medtronic) 2. Explant of previously implanted pacemaker (Medtronic) 3. Pocket revision. INDICATIONS: 1. Device at EOL. PROCEDURAL SEDATION: Versed and Fentanyl. Moderate sedation was administered by the sedation nurse under my supervision and noted in the CVL log. Intraprocedural face to face sedation time: 29min. Monitoring: Cardiac telemetry, Blood pressure, continuous pulse oxymetry. FLUOROSCOPY TIME:0min EBL: 10cc SPECIMEN REMOVED: None PREPARATION: Patient was brought to the EP lab in the post absorptive state. A procedural pause was performed identifying the patient, the procedure to be performed and the site of implant. The left chest was prepped and draped in the usual sterile fashion. Preoperative antibiotics IV Ancef was administered. PROCEDURAL DETAILS: Patient was placed in trendelenberg position and local infiltration of 1% Lidocaine was performed, and an incision was created in the left upper chest. Dissection was then performed using cautery down to the fascial plane to identify the capsule. Capsulotomy was performed and the device was freed and the leads were freed form the underlying capsule. Capsulectomy was performed so as to open and exteriorize the device. It was noted that there was a Y adaptor attached to 2 ventricular leads. Leads were then removed and connected to a new Medtronic pacemaker generator in sequence. Once both leads were attached, pacing thresholds, sensing and impedance were checked and noted to be stable as prior to procedure. Pocket was revised to prevent the device from migrating cephalad causing tension on the superior aspect of the pocket. Pocket hemostasis was secured, and it was then copiously and vigorously irrigated with antibiotic solution. The leads were wrapped under the device and the device was tacked to underlying muscle and placed in the pocket. The pocket was closed in layers: subcutaneous layer using 2-0 Vicryl and skin using 3-0 absorbable monofilament suture. Glue was applied and Tegaderm dressing was placed on top. Lead parameters were then rechecked through the device as noted below. The patient was returned to the short stay room for post procedural observation. No immediate procedural complications were noted. POST PROCEDURE EXAM: Patient was hemodynamically stable. COMPLICATIONS: None. IMPRESSION: 1. Successful dual chamber pacemaker generator change with excellent pacing and sensing parameters. RECOMMENDATIONS: 1. Occlusive dressing to be removed after 2 weeks. 2. Do not wet the incision for 7 days. 3. F/u in device clinic 1 week from discharge or sooner for any concerns. 4. Doxycycline 100mg bid x 2 weeks Pepe Kovacs MD Cardiac Electrophysiology [facility] 09-22-2023 Note Patient: Marva dominguez Procedure Information Date/Time: 09/22/23 1500 Procedure: PPM generator change - dual Location: [facility] POSTDOCTORAL RESEARCH [facility]OCI[facility] 1 EP / [facility] (Cath) Providers: Pepe Kovacs MD Clinical information reviewed: Allergies Meds OB Status Physical Exam Airway Mallampati: II TM distance: >3 FB Neck ROM: full Cardiovascular Dental Pulmonary Abdominal Anesthesia Plan ASA 2 CSE Anesthetic plan and risks discussed with patient. Use of blood products discussed with patient who. Additional Equipment Requests [facility] 07-22-2023 Note [place] Electrophysiology Consult Note Reason for visit: Date of Telehealth Visit: 07/22/23 The patient was notified that using 3rd constitution party telecommunication application (e.g., [employer]) is not HIPPA compliant and may carry some privacy risks. Yes The visit was conducted [id number] with the use of audio and video technology between patient and provider for a virtual visit. Verbal consent to provide and bill this service was obtained on 07/22/23 . No signature was obtained due to the COVID-19 pandemic. Patient Location: Patient Home I spent 7 minutes of total time on the day of the visit. This time was spent preparing for the visit, obtaining and reviewing any outside history/data, taking a history, performing an exam/evaluation, counseling and educating patient/family about the diagnosis and plan, performing medical decision making, referring to and communicating with other health care referrals, independently interpreting results and documenting in the EMR, and coordinating care. Please see the additional documentation in this note for specific details. There are no diagnoses linked to this encounter. 07/22/23 Telephone visit for 2.5 year follow up. Device had reached DIANE. Had Medtronic device checked at [facility] in May and Jun 2023. She denies chest pain, SOB, palpitations, and lightheadedness/syncope. Active and ambulated without assistanmce. Was told had only few months to DIANE when [facility] HPI: Marva Andrade is a 83 y.o. year old with past medical history of atrioventricular block, cardiac pacemaker in situ, HFrEF, Cardiomyopathy presented to the clinic due to the device check up.As per pt she Device checked showed: normal function no tachcardiasNo chest pain/pressure, No BUENO or SOB at rest, No PND, No orthopnea, No edema No cough No palpitations dizziness or lightheadedness or syncope. No claudication. She document GEN change by Dr. De on 05/29/2016, and previously by Dr. Wiggins on 10/21/2007. It is noted does mention that she had the first implant in 1999. Test Device check that was performed on 03/21/2021 shows a Medtronic Adapta pacemaker the patient is known to have 3 leads .However there is a note of one of the leads being attached to the His location. EKG performed on 07/23/2017 shows AV pacing with the ventricular pacing revealing right bundle branch morphology with II, III, and aVF being negative and a QRS of 132 ms supported likely what this is his and RV pacing combination. CXR cionfirms 3 leads with atrial lead likely in His area. Echocardiogram performed on 11/17/2015 showed EF of 45 to 50% with a left atrium is normal in size with mild MR and mild TR PMH: Past Medical History: Diagnosis Date Abnormal ECG AV block Cardiomyopathy (CMS/HCC) CHF (congestive heart failure) (CMS/HCC) Diabetes mellitus (CMS/HCC) PSH: Past Surgical History: Procedure Laterality Date INSERT / REPLACE / REMOVE PACEMAKER SH: Social Determinants of Health Tobacco Use: Not on file Alcohol Use: Not on file Financial Resource Strain: Not on file Food Insecurity: Not on file Transportation Needs: Not on file Physical Activity: Not on file Stress: Not on file Social Connections: Not on file Intimate Partner Violence: Not on file Depression: Not on file Housing Stability: Not on file Utilities: Not on file Allergies: No Known Allergies Weight: 81.6kg Visit Vitals BP 141/79 Pulse 86 Ht 1.626 m (5' 4 ) Wt 81.6 kg (180 lb) BMI 30.90 kg/m??? BSA 1.92 m??? Meds: Current Outpatient Medications on File Prior to Visit Medication Sig Dispense Refill aspirin 325 mg capsule Take by mouth. atorvastatin (Lipitor) 40 mg tablet Take 1 tablet every day by oral route for 90 days. carvedilol (Coreg) 12.5 mg tablet Take 1 tablet twice a day by oral route for 90 days. cholecalciferol (Vitamin D-3) 125 MCG (5000 UT) capsule Take 1 capsule by mouth in the morning. glimepiride (Amaryl) 2 mg tablet Take 1 tablet by mouth in the morning and at bedtime. metFORMIN (Glucophage) 500 mg tablet Take 1 tablet twice a day by oral route for 90 days. SITagliptin phosphate (Januvia) 50 mg tablet Take 50 mg by mouth 1 (one) time each day. No current facility-administered medications on file prior to visit. ROS: Cardio Basic Cardiovascular Symptoms: no lightheadedness, no leg edema, no syncope, no orthopnea, no PND, no claudication, Constitutional Constitutional: no fever, no night sweats, no significant weight gain, no significant weight loss, no exercise intolerance Eyes Eyes: no dry eyes, no irritation, no vision change ENMT Ears: no difficulty hearing, no ear pain Nose: no frequent nosebleeds, Mouth/Throat: no sore throat, no bleeding gums, no snoring, no dry mouth, no mouth ulcers, no oral abnormalities, no teeth problems Respiratory Respiratory: no cough, no wheezing, no coughing up blood, no sleep apnea Musculoskeletal Mu (more content not included)... [facility] 02-27-2023 Note HNO ID: [id number] Author: Leticia Keyes COA Service: ? Author Type: Molding Fitter Type: Progress Notes Filed: 02/27/2023 9:49 AM Note Text: CONFIRM AIM PLANO BOTH EYES. PATIENT AWARE THAT SHE WILL NEED GLASSES FOR ALL DISTANCES. BOZENA Hurley [facility] 02-27-2023 History of Present illness Narrative CONFIRM AIM PLANO BOTH EYES. PATIENT AWARE THAT SHE WILL NEED GLASSES FOR ALL DISTANCES. BOZENA Hurley documented in this encounter [facility] 02-27-2023 Instructions Shoshana Nieves APRN.RACE STARTER - 02/27/2023 8:53 AM EDT PATIENT PREOPERATIVE INSTRUCTIONS Jed Webster V, MD has scheduled you for your procedure at this surgery center: [facility]: [phone] --[id number] [facility]. [facility] [place] [address]. Please read below carefully for your personalized instructions. Dietary Restrictions: - No solid food after midnight. - You may have 12 ounces of clear liquids (water, clear juices such as apple juice or gatorade, carbonated beverages, clear tea, black coffee, jello) until 2 hours before scheduled arrival at facility. Medications: Unless instructed differently below, stay on all of your medications until your surgery. Approved medications to take the morning of surgery with a sip of water: Carvedilol NO DIABETIC MEDICATION MORNING OF SURGERY If you start any new medications after today's visit, please contact the surgeon's office. Important Reminders: - Candy, mints, and tobacco products are NOT permitted the morning of surgery. - Hearing aids, dentures and glasses may be worn the morning of surgery. - NO jewelry, body piercings, makeup, hairpins or contacts are to be worn the day of surgery. If you develop symptoms such as a fever, cold, or flu, or have other changes to your health within TWO DAYS of scheduled surgery or the morning of surgery, please contact the surgery center above. Personal Belongings: -Please have photo ID and insurance cards. -If you do not have a copy of advance directives on file with us, please bring a copy with you on the day of surgery. - Leave ALL valuables and money at home or with family members. For Outpatient Procedures: - YOU MUST HAVE A RESPONSIBLE WASHER BLANKET TAKE YOU HOME. A DIGITAL PRINTER OPERATOR OR UNDERWRITING SUPPORT MANAGER CANNOT BE MADE A RESPONSIBLE WASHER BLANKET. - We recommend that a responsible person stays with you overnight to take care of you. - You cannot stay in a hotel alone after outpatient surgery. You will not be permitted to have your surgery, if you do not have someone to take care of you. Arrival Time for Surgery: - The Surgery Center or hospital where you are having surgery will call the afternoon before surgery (or Friday for Friday surgery) with a scheduled arrival time. - If you have not heard by 4 pm, please contact the surgery center above. Please be aware that emergency situations arise, which may delay or change your surgical time. If this happens, we will notify you as soon as possible and regret any inconvenience. If you already have an Advance Directive, please fax a copy to [phone] or email to for it to be added to your chart. If you do not have an Advance Directive, you can find the appropriate form and more information at [email or web address]. We recommend that you complete the Advance Directive form found on the website and bring it with you the day of your surgery. It can be witnessed and scanned into your chart that day. Shoshana Nieves APRN.GRACIELA documented in this encounter [facility] 02-27-2023 History and physical note HISTORY AND PHYSICAL EXAMINATION SERVICE DATE: 02/27/2023 SERVICE TIME: 8:39 AM PRIMARY CARE PHYSICIAN: Carmen Quintana CNP, MD REASON FOR VISIT: Marva Andrade is a 82 year old female who is scheduled for PHACOEMULSIFICATION CATARACT IMPLANT INTRAOCULAR LENS W/O ENDOSCOPIC CYCLOPHOTOCOAGULATION bilateral at the request of Dr. Jed Webster V for consultation. My final recommendation will be communicated back to the requesting physician by way of shared medical record or letter. The patient has the following: ACTIVE PROBLEM LIST Diabetes Mellitus (Hcc) Myocardial Infarction (Hcc) Biventricular Cardiac Pacemaker in Situ Complete Atrioventricular Block (Hcc) Hld (Hyperlipidemia) Hypertension Subjective CHIEF COMPLAINT: bilateral change of vision HPI: 82 year old female with bilateral change of vision that has been ongoing for >6 months. Patient states she has blurred Vision,difficulty with reading,difficulty with watching television,glare. No alleviating factors. No pain today PAST MEDICAL HISTORY Diagnosis Date Diabetes mellitus (HCC) HLD (hyperlipidemia) Hypertension Senile cataracts of both eyes PAST SURGICAL HISTORY Procedure Laterality Date ESWL PAST SURGICAL HISTORY OF pacemaker FAMILY HISTORY Problem Relation Age of Onset Cataract Daughter SOCIAL HISTORY: Social History Tobacco Use Smoking status: Never Smokeless tobacco: Never Vaping Use Vaping Use: Never used Substance Use Topics Alcohol use: Not Currently Drug use: Never Prior to Admission medications as of 02/27/23 0848 Medication Sig Last Dose Taking JANUVIA 50 mg tablet Taking Yes aspirin 325 mg cap Take by mouth. Taking Yes atorvastatin (LIPITOR) 40 mg tablet Take by mouth. Taking Yes carvedilol (COREG) 12.5 mg tablet Take by mouth. Taking Yes glimepiride (AMARYL) 1 mg tablet Take by mouth. Taking Yes metFORMIN (GLUCOPHAGE) 500 mg tablet Take by mouth. Taking Yes No medication comments found. ALLERGIES No Known Allergies COVID VACCINATION STATUS: Fully vaccinated REVIEW OF SYSTEMS: PAIN ASSESSMENT: General: No weight loss, malaise or fevers. Neuro: No history of TIA's, stroke, IMMERSION METALCLEANER tumor, impaired sensorium, hemiplegia, paraplegia or quadraplegia. No neurological symptoms or problems. Respiratory: No history of current cough or dyspnea, or pneumonia in the past 6 weeks. No history of respiratory/pulmonary symptoms or problems. Cardiovascular: Positive for: HLD, Hypertension Pacemaker on ASA follows with Dr. Longoria from in [place] Denies rest pain, gangrene or revascularization/amputation for PVD. GI: No history of GI symptoms or problems. No history of esophageal varices, recent ascites, or ETOH greater than 2 drinks per day. : No difficulty urinating, nocturia > 1 time per night or hematuria, History of kidney stones JACK WINDER: Negative for abnormal vaginal bleeding, abnormal vaginal discharge. : Denies, No LMP recorded. Patient is postmenopausal. Endocrine: Diabetes Mellitus on oral agent Hematology: Chronic anti-coagulation / platelet meds (Aspirin) Oncology: No history of CA metastasis, chemo within 30 days, or radiotherapy within 90 days. Has not lost 10% of body wt in 6 months. No history of oncological symptoms or problems. Psych: No history of psychiatric symptoms or problems. Musculoskeletal: Negative for joint pain or swelling, back pain or muscle pain. Skin: Negative for lesions, rash and itching. Objective PHYSICAL EXAM: VITALS: BP 138/75 Pulse 99 Temp (Src) 98 (Temporal) Resp 16 Ht 5' 4 (1.63m) Wt 182 lb (82.6kg) SpO2 99% BMI 31.22 kg/(m^2). General: Alert and oriented, No acute distress Skin: Normal color, no rash, no lesions. Cardiovascular: Pulse regular. 2/6 mid systolic low pitched blowing murmur URSB and ULSB Lungs: Normal breath sounds, no wheezes or crackles. Abdomen: Soft, non-tender, no rigidity., Positive bowel sounds Extremities: No deformity, no edema or tenderness, no joint swelling or clubbing. Neurological: Normal cognition and motor skills. Gait normal. No weakness or sensory deficit. Pulses: Carotid and radial pulses normal +2. Diagnostic tests reviewed for today's visit: CARDIAC PACEMAKER IN PDF FILE FROM [facility] EVERYWHERE 12/18/2022 Lab Value Units Date High Low ABORHD No results within date range. ABSCREEN No results within date range. Echocardiogram 2D complete Anatomical Region Laterality Modality -- -- Ultrasound Narrative PERFORMED AT [facility] LOCATION:[place] [address] Patient: RAYMOND George Exam Date: 05/08/2021 : 1940 Gender:F Ordering : PEPE KOVACS Admission #: [id number] Family : DR MARIPOSA CABRERA M.D. Order #: [id number] CLICK HERE TO VIEW EXAM ECHOCARDIOGRAM REPORT PROCEDURE: CARDIO PULMONARY ECHOCARDIO M/2D COMP INDICATIONS: Chronic systolic heart failure. COMPARISON: None. DESCRIPTION: COMPLETE ECHOCARDIOGRAM Real-time transthoracic echocardiography with 2D M-mode spectral and color flow Doppler performed. QUALITY: Technical quality was good. LEFT VENTRICLE: Normal chamber size. Thickened septal wall. Left ventricular systolic function appears at the lower limits of normal. Abnormal septal motion likely related to bundle branch block or pacing. LV EF: Lower limits of normal left ventricular ejection fraction (50-55%). DIASTOLIC: Grade I diastolic dysfunction. ATRIAL SEPTUM: LEFT ATRIUM: Mild dilatation. RIGHT ATRIUM: Mild dilatation. Pacer wire present. RIGHT VENTRICLE: Normal chamber size. Normal right ventricular systolic function. Pacer wire present. TRICUSPID VALVE: Normal mobility and thickness. No stenosis with mild regurgitation. No evidence of pulmonary hypertension. RVSP 28 mmHg MITRAL VALVE: Mild Anterior and posterior mitral valve leaflet prolapse. No evidence of mitral valve stenosis. There is no mitral annular calcification. Mild mitral regurgitation. AORTIC VALVE: Normal trileaflet appearance. No visible sclerosis. Normal leaflet mobility. No evidence of aortic valve stenosis. No aortic regurgitation. AORTIC ROOT: Normal diameter and appearance. PULMONIC VALVE: Normal thickness and mobility. No stenosis. Trivial regurgitation. PERICARDIUM: No evidence of pericardial effusion. IVC: Collapses with inspirations. PLEURA: CONCLUSION: 1. Left ventricular systolic function is at the lower limits of normal ejection fraction 50-55%. 2. Mild diastolic dysfunction. 3. Mild mitral and tricuspid regurgitation. 4. Normal right-sided pressures. 5. Lumason echocontrast was injected for better endocardial border definition. Adult Echocardiography Procedure Report Left Ventricle LVEDD (3.7 - 5.6 cm): 3.24 cm LVESD (2.2 - 4.0 cm): 2.62 cm LVIVS thickness (0.6 - 1.2 cm): 1.36 cm LVPW thickness (0.5 - 1.0 cm): 1.05 cm e'': 5.78 cm/s E - e'': 10 LVOT Area (cm2): 4.15 cm2 LVOT Diameter 2.30 cm Left Ventricular Ejection Fraction: 40.50 % Left Ventricular Ejection Fraction (A2C): 49 % Left Ventricular Ejection Fraction (A4C): 53 % Left Atrium LA Volume Index (2D A2C): 27.10 ml/m2 Left Atrium Systolic Dimension: 3.20 cm Left Atrium Systolic Area(A2C): 18.90 cm2 Left Atrium Systolic Area(A4C): 20.50 cm2 Left Atrium Systolic Volume(A2C): 10209 mm3 Left Atrium Systolic Volume(A4C): 64273 mm3 Mitral Valve MV E to A Ratio: 0.70 Deceleration Latimer: 2330 mm/s2 Mitral Valve A-Wave Peak Velocity: 87.90 cm/s Mitral Valve E-Wave Peak Velocity: 57.80 cm/s Right Ventricle RV Internal Diastolic Dimension: 3.76 cm Aorta AO Root Diam: 3.70 cm Aortic Valve AoV Area (Peak Palmer): 2.56 cm2 Aortic Valve Cusp Separation: 2.10 cm Peak Velocity(Antegrade Flow): 95.00 cm/s Peak Gradient(Antegrade Flow): 4 mm[Hg] Tricuspid Valve Peak Velocity (Regurgitant Flow): 232.00 cm/s 200.00 cm/s Pulmonic Valve Peak Velocity: 85.60 cm/s Peak Gradient: 3 mm[Hg] Right Atrium Dictated by: Thuan Dale M.D. on 05/08/2021 at 18:39 Approved by: Thuan Dale M.D. on 05/08/2021 at 18:44 No results found for: HBA1C No new labs or tests Assessment/Plan Diabetes mellitus (HCC) Stable on oral medication HLD (hyperlipidemia) Assessment: stable on medication Hypertension Assessment: Stable on medication BP today 138/75 To take medication morning of surgery Biventricular cardiac pacemaker in situ Assessment: Pacemaker in place Last checked 12/[address] Bay Complete atrioventricular block (HCC) Assessment: s/p pacemaker insertion METS: Take care of self; that is eating, dressing, bathing, using the toilet (2.75 METs) Walk a block or two on level ground (2.75 METs) Do moderate work around the house such as vacuuming, sweeping floors, or carrying in groceries (3.50 METs) Patient denies any chest pain or undue shortness of breath with the above physical activity. ANESTHESIA FINDINGS: Intubation History: No history of difficult intubation Significant Anesthesia Considerations: None Airway Exam: General: Normal appearance Mallampati Score is CLASS II ULBT: Class II - Lower incisors can bite the upper lip below the jeny line Neck: Normal appearance and function, Distance from hyoid to mentum during neck extension is at least 3 finger breaths Mouth: Normal tongue size and Mouth opening greater than 2 finger breaths Dentition: Upper denture Airway History: No abnormal airway history STOP BANG Score: Criteria: Hypertension Age over 50 (82 year old) Score = 2 PLAN This patient is optimally prepared for surgery. CONSULTS: Patient does not require consults for optimization at this time. The Following Tests/Procedures Have Been Initiated: Labs not indicated per [facility] protocol, EKG not indicated per [facility] protocol Planned Anesthetic: Per anesthesia choice Instructions Given to Patient: Instructions located in the after visit summary. Patient given verbal and written preop instructions and voices comprehension and compliance. SIGNATURE: Shoshana Nieves APRN.CNP PATIENT NAME: Marva Andrade DATE: February 27, 2023 TIME: 8:39 AM documented in this encounter [facility] 01-09-2023 Note HNO ID: [id number] Author: Jed Webster V, MD Service: ? Author Type: Physician Type: Progress Notes Filed: 01/09/2023 4:04 PM Note Text: The documentation for this note was completed by Aide Moreland, COA acting as a scribe for Jed WEBSTER MD. 01/09/2023 3:01 PM. ASSESSMENT / PLAN: 1. Combined cataract, both eyes - Offered cataract extraction by phacoemulsification and intraocular lens implant with Dr. Webster, both eyes, left eye first - Aim: plano Both eyes [do not recommend interrupting binocularity in the setting of probable glaucomatous Visual field loss] - Flomax/alpha-alberto? No - Toric candidate: No - PanOptix candidate: No - Anesthesia: Topical with MAC - Contact lens use No - History of LASIK/PRK/RK No - Discussed initiate twice daily eyelid scrubs pending U/S biometry and surgery - Comanage with Dr Ibrahim; [facility] POD #1 Cataract Presurgical Documentation Cataract: Both eyes (OU) Current Visual Acuity Right Eye Distance CC 20/30 Left Eye Distance CC 20/30 Best Corrected Vision Right Eye 20/30 Best Corrected Vision Left Eye 20/30 Glare Testing: Right Eye High Less jagdish 20/400 Left Eye High Less than 20/400 Visual Function: Marva Andrade states that the decline in vision from the cataract impedes her abilities as listed in the HPI, as well as other activities of daily living. Marva Andrade has confirmed that she is no longer able to function adequately on a day-to-day basis because of her current visual condition. Further, it is my medical opinion that the cataract is the primary cause, or at least a significantly contributory cause of her visual dysfunction. With uncomplicated cataract surgery and lens implantation, it is my expectation that her visual function and quality of life will improve significantly. The risks, benefits, alternatives, personnel and complications of cataract surgery with lens implantation were discussed with Marva Andrade in detail. These included, but are not limited to: infection, bleeding, loss of vision, and the need for additional surgery. she appeared to understand and asked that I proceed with plans for surgery. Patient acknowledges possible need for glasses after procedure. Intraocular lens options were discussed with patient. If patient was a good candidate for multifocal Intraocular lenses, risk of halos, glare, and possible need for glasses was discussed. Informed consent form signed by physician and patient. Literature regarding cataract and cataract extraction by phacoemulsification offered. Return for preadmission testing, biometry AND intraocular lens calculations prior to surgery. The patient was offered a surgery/procedure at a [facility] facility. The surgeon/proceduralist and patient have discussed in detail the risk of exposure to and/or potential harm posed by the COVID-19 virus with having a surgery/procedure at this time versus the risk of delaying the surgery/procedure. It is not possible to know either the risk of delaying the surgery or procedure or chance of getting an infection with perfect accuracy, but a joint decision was made between the patient and the surgeon/proceduralist to proceed at this time with the scheduled surgery/procedure as indicated on the consent form. The documentation recorded by the scribe accurately reflects the service I personally performed and the decisions made by me. I have confirmed and edited as necessary the relevant ophthalmic history, ROS, and the exam findings as obtained by others. I have seen and examined Marva Andrade. I also have reviewed and agree with the assessment and plan as stated above and agree with all of its relevant components. Jed WEBSTER MD January 09, 2023 3:01 PM [facility] 01-09-2023 Miscellaneous Notes Addended by: YASMANY LÓPEZ on: 01/09/2023 04:33 PM Modules accepted: Orders documented in this encounter [facility] 01-09-2023 Note HNO ID: [id number] Author: Tyson Fleming, OD Service: ? Author Type: ACIDIZER HELPER Type: Progress Notes Filed: 01/09/2023 4:04 PM Note Text: ASSESSMENT/PLAN: 1. Combined forms of age-related cataract of both eyes - ICD9: 366.19, ICD10: H25.813 (primary diagnosis) Dr Jed Webster Cataract evaluation today 2. Glaucoma suspect of both eyes - ICD9: 365.00, ICD10: H40.003 Large c/d's with thin rims Average IOPs Ttoday 17/17 Pachs 600/594 Arcuate RNFL losses Both eyes with corresponding GCL losses OD > OS +++ Documented history of Andres Cannon x [address] Ibrahim+++ Likely Glaucoma (NTGlc) Review with Dr Jed Webster today - Likely to start treatment I have confirmed and edited as necessary the relevant ophthalmic history, ROS, and the exam findings as obtained by others. I have seen and examined this patient. I also have reviewed and agree with the assessment and plan as stated above and agree with all of its relevant components. Tyson Bernadette, OD January 09, 2023 2:20 PM [facility] 01-09-2023 History of Present illness Narrative The documentation for this note was completed by Aide Moreland, COA acting as a scribe for Jed WEBSTER MD. 01/09/2023 3:01 PM. ASSESSMENT / PLAN: 1. Combined cataract, both eyes - Offered cataract extraction by phacoemulsification and intraocular lens implant with Dr. Webster, both eyes, left eye first - Aim: plano Both eyes [do not recommend interrupting binocularity in the setting of probable glaucomatous Visual field loss] - Flomax/alpha-alberto? No - Toric candidate: No - PanOptix candidate: No - Anesthesia: Topical with MAC - Contact lens use No - History of LASIK/PRK/RK No - Discussed initiate twice daily eyelid scrubs pending U/S biometry and surgery - [facility] POD #1 Cataract Presurgical Documentation Cataract: Both eyes (OU) Current Visual Acuity Right Eye Distance CC 20/30 Left Eye Distance CC 20/30 Best Corrected Vision Right Eye 20/30 Best Corrected Vision Left Eye 20/30 Glare Testing: Right Eye High Less jagdish 20/400 Left Eye High Less than 20/400 Visual Function: Marva Andrade states that the decline in vision from the cataract impedes her abilities as listed in the HPI, as well as other activities of daily living. Marva Andrade has confirmed that she is no longer able to function adequately on a day-to-day basis because of her current visual condition. Further, it is my medical opinion that the cataract is the primary cause, or at least a significantly contributory cause of her visual dysfunction. With uncomplicated cataract surgery and lens implantation, it is my expectation that her visual function and quality of life will improve significantly. The risks, benefits, alternatives, personnel and complications of cataract surgery with lens implantation were discussed with Marva Andrade in detail. These included, but are not limited to: infection, bleeding, loss of vision, and the need for additional surgery. she appeared to understand and asked that I proceed with plans for surgery. Patient acknowledges possible need for glasses after procedure. Intraocular lens options were discussed with patient. If patient was a good candidate for multifocal Intraocular lenses, risk of halos, glare, and possible need for glasses was discussed. Informed consent form signed by physician and patient. Literature regarding cataract and cataract extraction by phacoemulsification offered. Return for preadmission testing, biometry & intraocular lens calculations prior to surgery. The patient was offered a surgery/procedure at a [facility] facility. The surgeon/proceduralist and patient have discussed in detail the risk of exposure to and/or potential harm posed by the COVID-19 virus with having a surgery/procedure at this time versus the risk of delaying the surgery/procedure. It is not possible to know either the risk of delaying the surgery or procedure or chance of getting an infection with perfect accuracy, but a joint decision was made between the patient and the surgeon/proceduralist to proceed at this time with the scheduled surgery/procedure as indicated on the consent form. The documentation recorded by the scribe accurately reflects the service I personally performed and the decisions made by me. I have confirmed and edited as necessary the relevant ophthalmic history, ROS, and the exam findings as obtained by others. I have seen and examined Marva Trickett. I also have reviewed and agree with the assessment and plan as stated above and agree with all of its relevant components. Jed WEBSTER MD January 09, 2023 3:01 PM ASSESSMENT/PLAN: 1. Combined forms of age-related cataract of both eyes - ICD9: 366.19, ICD10: H25.813 (primary diagnosis) Dr Jed Webster Cataract evaluation today 2. Glaucoma suspect of both eyes - ICD9: 365.00, ICD10: H40.003 Large c/d's with thin rims Average IOPs Ttoday 17/17 Pachs 600/594 Arcuate RNFL losses Both eyes with corresponding GCL losses OD > OS +++ Documented history of Drance Hemes x [address] Ibrahim+++ Likely Glaucoma (NTGlc) Review with Dr Jed Webster today - Likely to start treatment I have confirmed and edited as necessary the relevant ophthalmic history, ROS, and the exam findings as obtained by others. I have seen and examined this patient. I also have reviewed and agree with the assessment and plan as stated above and agree with all of its relevant components. Tyson Fleming OD January 09, 2023 2:20 PM documented in this encounter [facility] 11-19-2021 Hospital Discharge instructions Patient Education 11/19/2021 07:44:37 Dietary Guidelines to Help Prevent Kidney Stones Dietary Guidelines to Help Prevent Kidney Stones Kidney stones are deposits of minerals and salts that form inside your kidneys. Your risk of developing kidney stones may be greater depending on your diet, your lifestyle, the medicines you take, and whether you have certain medical conditions. Most people can reduce their chances of developing kidney stones by following the instructions below. Depending on your overall health and the type of kidney stones you tend to develop, your dietitian may give you more specific instructions. What are tips for following this plan? Reading food labels Choose foods with no salt added or low-salt labels. Limit your sodium intake to less than 1500 mg per day. Choose foods with calcium for each meal and snack. Try to eat about 300 mg of calcium at each meal. Foods that contain 200 500 mg of calcium per serving include: ?8 oz (237 ml) of milk, fortified nondairy milk, and fortified fruit juice. ?8 oz (237 ml) of kefir, yogurt, and soy yogurt. ?4 oz (118 ml) of tofu. ?1 oz of cheese. ?1 cup (300 g) of dried figs. ?1 cup (91 g) of cooked broccoli. ?1 3 oz can of sardines or mackerel. Most people need 1000 to 1500 mg of calcium each day. Talk to your dietitian about how much calcium is recommended for you. Shopping Buy plenty of fresh fruits and vegetables. Most people do not need to avoid fruits and vegetables, even if they contain nutrients that may contribute to kidney stones. When shopping for convenience foods, choose: ?Whole pieces of fruit. ?Premade salads with dressing on the side. ?Low-fat fruit and yogurt smoothies. Avoid buying frozen meals or prepared deli foods. Look for foods with live cultures, such as yogurt and kefir. Cooking Do not add salt to food when cooking. Place a salt shaker on the table and allow each person to add his or her own salt to taste. Use vegetable protein, such as beans, textured vegetable protein (TVP), or tofu instead of meat in pasta, casseroles, and soups. Meal planning Eat less salt, if told by your dietitian. To do this: ?Avoid eating processed or premade food. ?Avoid eating fast food. Eat less animal protein, including cheese, meat, poultry, or fish, if told by your dietitian. To do this: ?Limit the number of times you have meat, poultry, fish, or cheese each week. Eat a diet free of meat at least 2 days a week. ?Eat only one serving each day of meat, poultry, fish, or seafood. ?When you prepare animal protein, cut pieces into small portion sizes. For most meat and fish, one serving is about the size of one deck of cards. Eat at least 5 servings of fresh fruits and vegetables each day. To do this: ?Keep fruits and vegetables on hand for snacks. ?Eat 1 piece of fruit or a handful of berries with breakfast. ?Have a salad and fruit at lunch. ?Have two kinds of vegetables at dinner. Limit foods that are high in a substance called oxalate. These include: ?Spinach. ?Rhubarb. ?Beets. ?Potato chips and jamaican fries. ?Nuts. If you regularly take a diuretic medicine, make sure to eat at least 1 2 fruits or vegetables high in potassium each day. These include: ?Avocado. ?Banana. ?[place], prune, carrot, or tomato juice. ?Baked potato. ?Cabbage. ?Beans and split peas. General instructions Drink enough fluid to keep your urine clear or pale yellow. This is the most important thing you can do. Talk to your health care provider and dietitian about taking daily supplements. Depending on your health and the cause of your kidney stones, you may be advised: ?Not to take supplements with vitamin C. ?To take a calcium supplement. ?To take a daily probiotic supplement. ?To take other supplements such as magnesium, fish oil, or vitamin B6. Take all medicines and supplements as told by your health care provider. Limit alcohol intake to no more than 1 drink a day for non women and 2 drinks a day for men. One drink equals 12 oz of beer, 5 oz of wine, or 1 oz of hard liquor. Lose weight if told by your health care provider. Work with your dietitian to find strategies and an eating plan that works best for you. What foods are not recommended? Limit your intake of the following foods, or as told by your dietitian. Talk to your dietitian about specific foods you should avoid based on the type of kidney stones and your overall health. Grains Breads. Bagels. Rolls. Baked goods. Salted crackers. Cereal. Pasta. Vegetables Spinach. Rhubarb. Beets. Canned vegetables. Pickles. Olives. Meats and other protein foods Nuts. Nut butters. Large portions of meat, poultry, or fish. Salted or cured meats. Deli meats. Hot dogs. Sausages. Dairy Cheese. Beverages Regular soft drinks. Regular vegetable juice. Seasonings and other foods Seasoning blends with salt. Salad dressings. Canned soups. Soy sauce. Ketchup. Barbecue sauce. Canned pasta sauce. Casseroles. Pizza. Lasagna. Frozen meals. Potato chips. Swedish fries. Summary You can reduce your risk of kidney stones by making changes to your diet. The most important thing you can do is drink enough fluid. You should drink enough fluid to keep your urine clear or pale yellow. Ask your health care provider or dietitian how much protein from animal sources you should eat each day, and also how much salt and calcium you should have each day. This information is not intended to replace advice given to you by your health care provider. Make sure you discuss any questions you have with your health care provider. Document Released: 10/18/2011 Document Revised: 10/13/2019 Document Reviewed: 06/03/2017 [employer] Patient Education 2020 [employer]. Follow Up Care 05/24/2021 08:42:01 With:Madhav MERCADO MD, URL Address: [facility] [address], [place] [address]- When: Unknown [facility] Evaluation + Plan note Future Appointments Appointment Date:05/27/2022 11:15:00 AM Scheduled Provider:Madhav MERCADO MD Location:[facility] Appointment Type:URO Office Visit Diagnostic Tests PendingCalculi Analysis Urinary 11/19/21 [facility] Evaluation + Plan note Future Appointments Appointment Date:05/27/2022 11:15:00 AM Scheduled Provider:Madhav MERCADO MD [facility] Appointment Type:URO Office Visit Diagnostic Tests PendingUrine Culture 11/19/21 [facility] Evaluation note Diagnosis Combined forms of age-related cataract of both eyes- Primary Other and combined forms of senile cataract Glaucoma suspect of both eyes Preglaucoma, unspecified [facility] Pre-operative clearance- Primary Preoperative examination, unspecified Type 2 diabetes mellitus without complication, without long-term current use of insulin (HCC) Hyperlipidemia, unspecified hyperlipidemia type Hypertension, unspecified type 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, 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 Other and combined forms of senile cataract Combined forms of age-related cataract of both eyes Other and combined forms of senile cataract documented [facility] this [facility] Diagnosis Combined forms of age-related cataract of both eyes Other and combined forms of senile cataract Combined forms of age-related cataract of both eyes Other and combined forms of senile cataract Combined forms of age-related cataract of both eyes Other and combined forms of senile cataract documented in this encounter [facility] course Narrative No data available for this section [facility] Discharge instructions No data available for this section [facility] Summary Purpose Family History No Family History Records FoundNo Family History Records FoundNo Family History Records FoundNo Family History Records FoundNo Family History Records FoundNo Family History Records Found Advance Directives No Advanced Directives Records FoundNo Advanced Directives Records FoundNo Advanced Directives Records FoundNo Advanced Directives Records FoundNo Advanced Directives Records FoundNo Advanced Directives Records Found Medications Administered Section Inactive Administered Medications - up to 3 most recent administrations Medication Order MAR Action Action Date Dose Rate Site fluorescein-benoxinate 0.25-0.4 % 1 Drop (FLURESS) 1 Drop, BOTH EYES, DIRECTED, Starting on Fri01/09/23 at 1330, Until Fri01/10/23 at 0129, Administer for applanation tonometry. In the event of a Fluress shortage, administer 1 drop of Cool-Fluor into both eyes as directed for applanation tonometry., [facility] MED ORDERS Given 01/09/2023 1:30 PM EDT 1 Drop PHENYLephrine 2.5 % 1 Drop (AK-DILATE, LORRIE-SYNEPHRINE) 1 Drop, BOTH EYES, DIRECTED, Starting on Fri01/09/23 at 1330, Until Fri01/10/23 at 0129, Administer for dilation PROTECT FROM LIGHT, [facility] MED ORDERS Given 01/09/2023 1:30 PM EDT 1 Drop tropicamide 1 % 1 Drop (MYDRIACYL) 1 Drop, BOTH EYES, DIRECTED, Starting on Fany 01/09/23 at 1330, Until Fri01/10/23 at 0129, Administer for dilation, [facility] MED ORDERS Given 01/09/2023 1:30 PM EDT 1 Drop Additional Source Comments INFORMATION SOURCE (unrecogn ized section and content) DATE CREATED AUTHOR 04/03/2021 [facility] DATE CREATED AUTHOR AUTHOR'S ORGANIZ ATION 08/06/2021 [facility] dical Specialist DATE CREATED AUTHOR AUTHOR'S ORGANIZ ATION 05/28/2022 [employer] [facility] DATE CREATED AUTHOR AUTHOR'S ORGANIZ ATION 08/15/2022 [facility] DATE CREATED AUTHOR AUTHOR'S ORGANIZ ATION 03/27/2023 [facility] DATE CREATED AUTHOR AUTHOR'S ORGANIZ ATION 03/21/2024 [facility] Source Comments (unrecognize d section and content) In the event this informatio n is protected by the Federal Confidentiality of Alcohol and Drug Abuse Patient Records regulations: The Federal rules restrict any use of the information to criminally investigate or prosecute any alcohol or drug abuse patient.[facility] the event this information is protected by the Federal Confidentiality of Alcohol and Drug Abuse Patient Records regulations: The Federal rules restrict any use of the information to criminally investigate or prosecute any alcohol or drug abuse patient.[facility] the event this information is protected by the Federal Confidentiality of Alcohol and Drug Abuse Patient Records regulations: The Federal rules restrict any use of the information to criminally investigate or prosecute any alcohol or drug abuse patient.[facility] Reason for Visit (unrecogniz ed section and content) Reason Comments Cataract Evaluation Reason Comments Anesthesia Consult Bilateral Cataract Reason Comments Pre-Op Exam Care Teams (unrecognized sec tion and content) Plasterer Journeyman Relationship Specialty Start Date End Date Carmen Quintana MD [address] [place] [address] PCP - General Internal Medicine 02/20/23 Plasterer Journeyman Relationship Specialty Start Date End Date Carmen Quintana MD [address] [place] [address] PCP - General Internal Medicine 02/20/23 FOR RECORDS PERTAINING TO PATIENTS WHO ARE OR HAVE BEEN ENROLLED IN A CHEMICAL DEPENDENCY/SUBSTANCEABUSE PROGRAM, SOME INFORMATION MAY BE OMITTED. This clinical summary was aggregated from multiple sources. Caution should be exercised in using it in the provision of clinical care. This summary normalizes information from multiple sources, and as a consequence, information in this document may materially change the coding, format and clinical context of patient data. In addition, data may be omitted in some cases. CLINICAL DECISIONS SHOULD BE BASED ON THE PRIMARY CLINICAL RECORDS. [facility] [employer] [facility] provides no warranty or guarantee of the accuracy or completeness of information in this document.
[2024-03-29 10:15] LABS: Chol HDL Ratio 2.7; Cholesterol 144 mg/dL (<=200); HDL Cholesterol 54 mg/dL (40-60); LDL Cholesterol Calculated 63.4 mg/dL; Triglycerides 133 mg/dL (<=150); VLDL CHOLESTEROL 26.6 mg/dL
== END 2024-03-29 09:36 | disposition home or self-care (01) ==
LOC: LAB 09:37
PROVIDERS: PCP Internal Medicine; Visit Provider Internal Medicine Cardiovascular Disease
DX: E78.00 Pure hypercholesterolemia, unspecified (principal)
CPT/HCPCS: 36415; 80061

== ENCOUNTER 2024-12-01 11:48 | Outpatient (OUT) | payer MEDICARE, SELFPAY ==
--- OUTSIDE RECORDS SUMMARY | 2024-12-01 12:08 | XMS_ITS | CCD ---
Author Organization [facility] Care Team Providers Care Regrinder Operator Name Role Phone EUGENE RYAN Primary Care Physician MD Yao DINERO Attending Unavailable JESS, MD Yao Her Attending Unavailable JESS, MD Yao Her Attending Unavailable JESS, MD Yao Her Admitting Unavailable HEMMER, DR MARVA Dixon Admitting Unavailable HEMMER, DR MARVA Dixon Attending Unavailable RYAN, DR MONGE Primary Care Unavailable Ziebemily, DR Vera Consulting Unavailable HEMMER, DR MARVA Dixon Consulting Unavailable JESS, DR COREY Admitting Unavailable DINERO, DR COREY Attending Unavailable RYAN, DR MONGE Primary Care Unavailable DINERO, DR COREY Consulting Unavailable DINERO, DR COREY Admitting Unavailable DINERO, DR COREY Attending Unavailable RYAN, DR MONGE Primary Care Unavailable DINERO, DR COREY Consulting Unavailable Zieber, DR Vera Consulting Unavailable Unavailable Primary Care Provider UnavailCarmen Landeros MD Primary Care Provider DARIN, JED Referring Unavailable CARMEN QUINTANA Primary Care Unavailable DARIN, JED Admitting Unavailable DARIN, JED Attending Unavailable DARIN, JED Referring Unavailable DARIN, JED Admitting Unavailable DARIN, JED Attending Unavailable DARIN, JED Referring Unavailable DARIN, JED Referring Unavailable CARMEN QUINTANA Primary Care Unavailable DARIN, JED Attending Unavailable NAOMI IBRAHIM Referring UnavailEugene Garcia MD Unavailable [phone] Eugene Ryan MD Primary Care Provider PEPE KOVACS Referring Unavailable PEPE KOVACS Referring Unavailable MAURILIO PURCELL Attending Unavailable MAURILIO PURCELL Attending Unavailable PEPE KOVACS Referring Unavailable JONN LEE Attending Unavailable PEPE KOVACS Referring Unavailable PEPE KOVACS Referring Unavailable Allergies Allergy Classification Reported Allergen(s) Allergy Type Date of Onset Reaction(s) Facility (1 source) No Known Medication Allergies; Translations: [No Known Medication Allergies] Propensity to adverse reactions (disorder) [facility] Repository Medications Current Medications Medication Drug Class(es) Dates Sig (Normalized) Sig (Original) atorvastatin 40 mg oral tablet (6 sources) HMG-CoA Reductase Inhibitor Start: 01-12-2024 take 1 tablet by mouth in the morning atorvastatin (Lipitor) 40 MG tablet Indications: Pure hypercholesterolemia (CMS/HCC) TAKE 1 TABLET BY MOUTH IN THE MORNING 90 tablet 3 01/12/2024 Active Start: 04-17-2021 atorvastatin ( LIPITOR) 40 mg tablet Take by mouth. 0 04/17/2021 Active Comment on above: Take by mouth. carvedilol 12.5 mg oral tablet (6 sources) alpha-Adrenergic Endy, beta-Adrenergic Endy Start: 01-12-2024 take 1 tablet by mouth in the morning carvedilol (Coreg) 12.5 MG tablet Indications: Chronic systolic congestive heart failure, NYHA class 2 (CMS/HCC) TAKE 1 TABLET BY MOUTH IN THE MORNING AND 1 TABLET BY MOUTH BEFORE BEDTIME 180 tablet 3 01/12/2024 Active Start: 04-17-2021 carvedilol (CO REG) 12.5 mg tablet Take by mouth. 0 04/17/2021 Active Comment on above: Take by mouth. cephalexin 250 mg oral capsule (2 sources) Cephalosporin Antibacterial Start: 2 End: 2 take 1 capsule by mouth twice daily Keflex 250 mg Cap 250 mg = 1 cap(s), Oral, BID, X 5 day(s), # 10 cap(s), Refills(s) 0, Pharmacy: [facility]/pharmacy #[id number], 163, cm, 11/19/21 9:53:00 EDT, Height/Length Dosing, 85.3, kg, 11/19/21 9:53:00 EDT, Weight Dosing Start Date: 11/19/21 Stop Date: 11/24/21 Status: Ordered glimepiride 2 mg oral tablet (6 sources) Sulfonylurea Start: 4 take 1 tablet by mouth in the morning glimepiride (Amaryl) 2 MG tablet Indications: Type 2 diabetes mellitus with stage 3b chronic kidney disease, without long-term current use of insulin (HCC) (CMS/HCC) TAKE 1 TABLET BY MOUTH IN THE MORNING AND 1 TABLET BY MOUTH BEFORE BEDTIME 180 tablet 3 01/12/2024 Active Start: 04-17-2021 glimepiride (A MARYL) 1 mg tablet Take by mouth. 0 04/17/2021 Active Comment on above: Take by mouth. metFORMIN hydrochloride 500 mg oral tablet (6 sources) Biguanide Start: 01-12-2024 metFORMIN (Glucophage) 500 MG tablet Indications: Type 2 diabetes mellitus with stage 3b chronic kidney disease, without long-term current use of insulin (HCC) (CMS/HCC) TAKE 1 TABLET BY MOUTH IN THE MORNING AND 1 TABLET BY MOUTH AT NOON AND 1 TABLET BY MOUTH IN THE EVENING WITH MEALS 270 tablet 3 01/12/2024 Active Start: 04-17-2021 metFORMIN (GLU COPHAGE) 500 mg tablet Take by mouth. 0 04/17/2021 Active Comment on above: Take by mouth. SITagliptin 50 mg oral tablet (3 sources) Dipeptidyl Peptidase 4 Inhibitor Start: take 1 tablet by mouth once daily SITagliptin (Januvia) 50 MG tablet Indications: Type 2 diabetes mellitus with chronic kidney disease, without long-term current use of insulin, unspecified CKD stage ([facility]/HCC) TAKE 1 TABLET BY MOUTH ONCE DAILY 30 tablet 03/12/2024 Active Start: 01-01-2023 JANUVIA 50 mg tablet Completed/Discontinued Medications Medication Drug Class(es) Dates Sig [...] Ordered Comment on above: Take by mouth. benoxinate hydrochloride 4 mg/ml / fluorescein sodium 2.5 mg/ml ophthalmic solution (1 source) Diagnostic Dye Start: 01-09-2023 End: 01-10-2023 fluorescein-benoxinate 0.25-0.4 % 1 Drop (FLURESS) phenylephrine hydrochloride 25 mg/ml ophthalmic solution (1 source) alpha-1 Adrenergic Agonist Start: 01-09-2023 End: 01-10-2023 PHENYLephrine 2.5 % 1 Drop (AK-DILATE, LORRIE-SYNEPHRINE) tropicamide 10 mg/ml ophthalmic solution (1 source) Anticholinergic Start: 01-09-2023 End: 01-10-2023 tropicamide 1 % 1 Drop (MYDRIACYL) Problems Active Problems Problem Classification Problem Date Documented Date Episodic/Chronic Acute myocardial infarction (4 sources) Myocardial infarction; Translations: [Acute myocardial infarction, unspecified] Onset: 02-26-2023 04-17-2021 Chronic Calculus of urinary tract (9 sources) History of calculus of kidney; Translations: [Personal history of urinary calculi] Onset: 11-19-2021 Episodic Cataract (3 sources) Bilateral senile combined form cataracts of eyes; Translations: [Combined forms of age-related cataract, bilateral] Onset: 03-26-2023 Chronic Chronic kidney disease (1 source) Chronic kidney disease stage 3B ; Translations: [Stage 3b chronic kidney disease (HCC)] Onset: 02-26-2023 02-26-2023 Chronic Coagulation and hemorrhagic disorders (1 source) Thrombocytopenic disorder; Translations: [Thrombocytopenia, unspecified] Onset: 02-26-2023 02-26-2023 Chronic Conduction disorders (14 sources) Biventricular cardiac pacemaker present; Translations: [Presence of cardiac pacemaker] Onset: 11-20-2011 02-27-2023 Chronic Congestive heart failure; nonhypertensive (3 sources) Chronic systolic heart failure; Translations: [Chronic systolic (congestive) heart failure] Onset: 02-26-2023 02-26-2023 Chronic Coronary atherosclerosis and other heart disease (3 sources) Ischemic myocardial dysfunction; Translations: [Ischemic cardiomyopathy] Onset: 02-26-2023 02-26-2023 Chronic Diabetes mellitus with complications (1 source) Chronic kidney disease due to type 2 diabetes mellitus; Translations: [Type 2 diabetes mellitus with diabetic chronic kidney disease] Onset: 02-26-2023 02-26-2023 Chronic Diabetes mellitus without complication (6 sources) Diabetes mellitus; Translations: [Type 2 diabetes mellitus without complication] Onset: 02-26-2023 04-17-2021 Chronic Disorders of lipid metabolism (6 sources) Hyperlipidemia; Translations: [Hyperlipidemia, unspecified] Onset: 02-26-2023 02-27-2023 Chronic Essential hypertension (5 sources) Hypertensive disorder; Translations: [Essential (primary) hypertension] Onset: 07-22-2023 02-27-2023 Chronic Genitourinary symptoms and ill-defined conditions (2 sources) Mixed incontinence; Translations: [Mixed incontinence] Onset: 11-19-2021 Chronic Glaucoma (1 source) Preglaucoma, unspecified, bilateral; Translations: [Preglaucoma, unspecified] Chronic Menopausal disorders (5 sources) Other primary ovarian failure; 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] Onset: 08-12-2022 Chronic Mood disorders (1 source) Recurrent major depression; Translations: [Major depressive disorder, recurrent, unspecified] Onset: 02-26-2023 02-26-2023 Chronic Other bone disease and musculoskeletal deformities (1 source) Other specified disorders of bone density and structure, other site; Translations: [OTH D/O BONE DEN STRUCT OTH SITE] Onset: 08-14-2022 Episodic Other nutritional; endocrine; and metabolic disorders (1 source) Body mass index 30+ - obesity; Translations: [Obesity, unspecified] Onset: 02-26-2023 02-26-2023 Chronic Other upper respiratory disease (1 source) Allergic rhinitis; Translations: [Allergic rhinitis, unspecified] Onset: 02-26-2023 02-26-2023 Chronic Urinary tract infections (2 sources) Urinary tract infectious disease; Translations: [Urinary tract infection, site not specified] Onset: 11-19-2021 Episodic Past or Other Problems Problem Classification Problem Date Documented Da te Episodic/Chronic Other bone disease and musculoskeletal deformities (1 source) Osteopenia; Translations: [Other specified disorders of bone density and structure, right thigh] Onset: 02-26-2023 02-26-2023 Episodic Other liver diseases (1 source) Elevated liver enzymes level; Translations: [Abnormal levels of other serum enzymes] Onset: 02-26-2023 02-26-2023 Episodic Other non-traumatic joint disorders (1 source) Pain in right knee; Translations: [Pain in joint, lower leg] Onset: 02-26-2023 02-26-2023 Episodic Results Test Name Value Interpretation Reference Range Facility Office Visiton 10-20-2024 Follow-up visit [id number] Derian Wang 1940 F Date Provider Department Center 10/20/2024 MAURILIO SIFUENTES Family History Problem Relation Age of Onset Cancer Mother Cancer Father Cancer Sister Cancer Brother Family Status - Relation Status Age at Mother Father Sister Brother Level of Service:24456 [place] OFFICE/OUTPATIENT ESTABLISHED LOW MDM 20 MIN [facility] Office Visiton 09-29-2024 Follow-up visit [id number] Derian Wang S 1940 F Date Provider Department Center 09/29/2024 MAURILIO SIFUENTES Hos No family history on file Level of Service:16328 [place] OFFICE/OUTPATIENT ESTABLISHED LOW MDM 20 MIN [facility] 36on 04-05-2024 36 Regarding lab result s from 03/29/2024: MD Kareen Maddox MA Please inform patient that her lipids look very good. Continue current management. Recheck lipids and AST/ALT in 6 months. Patient made aware. Normal [facility] ALL LIPID PROFILE (FASTING)o n 03-29-2024 CHOL HDL RATIO 2.7 [facility] Comment on above: 3.3 - 4.4 LOW RISK 4.4 - 7.1 AVERAGE RISK 7.1 - 11.0 MODERATE RISK >11.0 HIGH RISK Cholesterol [Mass/Vol] 144 mg/dL NINF - 200 mg/dL [facility] Cholesterol in HDL [Mass/Vol] 54 mg/dL 40 - 60 mg/dL [facility] Comment on above: > or =60 mg/dl - LOW CARDIOVASCULAR RISK <40 mg/dl - HIGH CARDIOVASCULAR RISK Magnesium [Mass/Vol] 63.4 mg/dL [facility] Comment on above: <100 mg/dl OPTIMAL 100-129 mg/dl NEAR OR ABOVE OPTIMAL 130-159 mg/dl BORDERLINE HIGH 160-189 mg/dl HIGH >190 mg/dl VERY HIGH Magnesium [Mass/Vol] 26.6 mg/dL [facility] Triglyceride [Mass/Vol] 133 mg/dL NINF - 150 mg/dL [facility] Office Visiton 03-15-2024 Follow-up visit [id number] Derian Wang S 1940 F Date Provider Department Center 03/15/2024 [id number] LEE CARD [place] [facility] No family history on file Level of Service:78820 [place] OFFICE/OUTPATIENT ESTABLISHED MOD MDM 30 MIN Reason for Visit and Comments: Hyperlipidemia [182] Hypertension [345101] - Pt is here for a six month follow up [facility] ANES POSTPROC EVALon 023 ANES POSTPROC EVAL HNO ID: [id number] Author: Pepe Junior II, DO Service: Anesthesiology Author Type: Anesthesiologist Type: Anesthesia Postprocedure Evaluation Filed: 03/26/2023 11:31 AM Note Text: POST ANESTHESIA EVALUATION NOTE : 1940 Procedure Summary Date: 03/26/23 Room / Location: [address] Anesthesia Start: 954 Anesthesia Stop: 1014 Procedures: PHACOEMULSIFICATION CATARACT IMPLANT INTRAOCULAR LENS W/O ENDOSCOPIC CYCLOPHOTOCOAGULATION (Right: Eye) OPHTHALMIC BIOMETRY BY PARTIAL COHERENCE INTERFEROMETRY W/INTRAOCULAR LENS POWER CALCULATION (Right: Eye) Diagnosis: Combined forms of age-related cataract of both eyes (Combined forms of age-related cataract of both eyes [H25.813]) Surgeons: Jed Marcos V, MD Responsible Provider: Pepe Junior II, [...] Pepe Junior II, DO PATIENT NAME: Marva Wang DATE: March 26, 2023 TIME: 11:31 AM CSN: [id number] Normal [facility] ANES PRE-OPon 03-26-2023 ANES PRE-OP HNO ID: [id number] Author: Pepe Junior II, DO Service: Anesthesiology Author Type: Anesthesiologist Type: Anesthesia Preprocedure Evaluation Filed: 03/26/2023 9:11 AM Note Text: ANESTHESIOLOGY DAY OF SURGERY NOTE : 1940 Procedure Information Date/Time: 03/26/23 1000 Procedures: PHACOEMULSIFICATION CATARACT IMPLANT INTRAOCULAR LENS W/O ENDOSCOPIC CYCLOPHOTOCOAGULATION (Right: Eye) OPHTHALMIC BIOMETRY BY PARTIAL COHERENCE INTERFEROMETRY W/INTRAOCULAR LENS POWER CALCULATION (Right: Eye) Location: [address] Surgeons: Jed Marcos V, MD Estimated body mass index is [...] a current smoker. NPO Status: adequate Beta Endy Monitoring Plan Monitoring plan: standard ASA. Post [...] Pepe Junior II, DO PATIENT NAME: Marva Wang DATE: March 26, 2023 TIME: 9:10 AM CSN: [id number] [facility] OPERATIVE NOon 03-26-2023 OPERATIVE NO HNO ID: [id number] Author: Jed Marcos V, MD Service: Ophthalmology Author Type: Physician Type: Operative Report Filed: 03/26/2023 10:14 AM Note Text: OPERATIVE REPORT DATE OF SERVICE: March 26, 2023 PRIMARY SURGEON: Jed Marcos M.D. MITER SAWYER: None Procedure(s) (LRB): PHACOEMULSIFICATION CATARACT IMPLANT INTRAOCULAR [...] corneal incision was created temporally with a [place] blade then a 2.4 mm keratome. The [...] Implant Name Type Inv. Item Serial No. Industrial Manufacturing Technician Lot No. LRB No. Used Action Model No. [place] IOL [id number] +25.5 D Implant BFP-BR-Z-KIND IMPLANT [id number] [employer] Right 1 Implanted [id number] was inserted through [...] 10:12 AM - [facility] Ibrahim[facility] Jed MARCOS MD [facility] ANES POSTPROC EVALon 023 ANES POSTPROC EVAL HNO ID: [id number] Author: Beto Awan MD Service: Anesthesiology Author Type: Anesthesiologist Type: Anesthesia Postprocedure Evaluation Filed: 03/12/2023 10:36 AM Note Text: POST ANESTHESIA EVALUATION NOTE : 1940 Procedure Summary Date: 03/12/23 Room / Location: [address] Anesthesia Start: 930 Anesthesia Stop: 954 Procedures: PHACOEMULSIFICATION CATARACT IMPLANT INTRAOCULAR LENS W/O ENDOSCOPIC CYCLOPHOTOCOAGULATION (Left: Eye) OPHTHALMIC BIOMETRY BY PARTIAL COHERENCE INTERFEROMETRY W/INTRAOCULAR LENS POWER CALCULATION (Left: Eye) Diagnosis: Combined forms of age-related cataract of both eyes (Combined forms of age-related cataract of both eyes [H25.813]) Surgeons: Jed Marcos V, MD Responsible Provider: Beto Awan MD [...] SIGNATURE: Beto Awan MD PATIENT NAME: Marva Wang DATE: March 12, 2023 TIME: 10:36 AM CSN: [id number] Normal [facility] ANES PRE-OPon 03-12-2023 ANES PRE-OP HNO ID: [id number] Author: Beto Awan MD Service: Anesthesiology Author Type: Anesthesiologist Type: Anesthesia Preprocedure Evaluation Filed: 03/12/2023 9:08 AM Note Text: ANESTHESIOLOGY DAY OF SURGERY NOTE : 1940 Procedure Information Date/Time: 03/12/23 0940 Procedures: PHACOEMULSIFICATION CATARACT IMPLANT INTRAOCULAR LENS W/O ENDOSCOPIC CYCLOPHOTOCOAGULATION (Left: Eye) OPHTHALMIC BIOMETRY BY PARTIAL COHERENCE INTERFEROMETRY W/INTRAOCULAR LENS POWER CALCULATION (Left: Eye) Location: [address] Surgeons: Jed Marcos V, MD Estimated body mass index is [...] Anesthetic Plan: MAC NPO Status: adequate Beta Endy Monitoring Plan Monitoring plan: standard ASA. Post [...] 16 03/12/23900 Temp -13.3 ?C (8 ?F) 03/12/23900 SpO2 95 % 03/12/23900 Facility-Administered Medications as of 03/12/2023 Medication Dose [...] SIGNATURE: Beto Awan MD PATIENT NAME: Marva Wang DATE: March 12, 2023 TIME: 9:07 AM CSN: [id number] Normal [facility] OPERATIVE NOon 03-12-2023 OPERATIVE NO HNO ID: [id number] Author: Jed Marcos V, MD Service: Ophthalmology Author Type: Physician Type: Operative Report Filed: 03/12/2023 9:52 AM Note Text: OPERATIVE REPORT DATE OF SERVICE: March 12, 2023 PRIMARY SURGEON: Jed Marcos M.D. MITER SAWYER: None Procedure(s) (LRB): PHACOEMULSIFICATION CATARACT IMPLANT INTRAOCULAR [...] corneal incision was created temporally with a [place] blade then a 2.4 mm keratome. The [...] Implant Name Type Inv. Item Serial No. Industrial Manufacturing Technician Lot No. LRB No. Used Action Model No. KFD-IX-E-KIND IMPLANT - [id number] Implant CGQ-YQ-V-KIND IMPLANT [id number] [employer]oApp Left 1 Implanted [id number] was inserted through [...] 9:51 AM - Comanage with [facility] Ibrahim[facility] Jed MARCOS MD [facility] HISTORY PHYSICALon HISTORY PHYSICAL HNO ID: [id number] Author: Shoshana Nieves APRN.ELECTRONIC COMMERCE SPECIALIST Service: ? Author Type: Nurse Practitioner Type: HANDP Filed: 02/27/2023 9:09 AM Note Text: HISTORY AND PHYSICAL EXAMINATION SERVICE DATE: 02/27/2023 SERVICE TIME: 8:39 AM PRIMARY CARE PHYSICIAN: Carmen Quintana CNP, MD REASON FOR VISIT: Marva Wang is a 82 year old female who is scheduled for PHACOEMULSIFICATION CATARACT IMPLANT INTRAOCULAR LENS W/O ENDOSCOPIC CYCLOPHOTOCOAGULATION bilateral at the request of Dr. Jed Marcos V for consultation. My final recommendation will [...] fevers. Neuro: No history of TIA's, stroke, GRIT BLASTER tumor, impaired sensorium, hemiplegia, paraplegia or quadraplegia. No neurological symptoms or problems. Respiratory: No history of current cough or dyspnea, or pneumonia in the past 6 weeks. No history of respiratory/pulmonary symptoms or problems. Cardiovascular: Positive for: HLD, Hypertension Pacemaker on ASA follows with Dr. Longoria from in [place] Denies rest pain, gangrene or revascularization/amput ation for PVD. GI: No history of GI symptoms or problems. No history of esophageal varices, recent ascites, or ETOH greater than 2 drinks per day. : No difficulty urinating, nocturia > 1 time per night or hematuria, History of kidney stones HEAD OF DIGITAL ADVERTISING & INTEGRATION: Negative for abnormal vaginal bleeding, abnormal vaginal [...] visit: CARDIAC PACEMAKER IN PDF FILE FROM CARE EVERYWHERE 12/18/2022 Lab Value Units Date High Low ABORHD No results within date range. ABSCREEN No results within date range. Echocardiogram 2D complete Anatomical Region Laterality Modality -- -- Ultrasound Narrative PERFORMED AT [facility] LOCATION:[place] [address] Patient: RAYMOND George Exam Date: 05/08/2021 : 1940 Gender:F Ordering : PEPE KOVACS Admission #: [id number] Family : DR EUGENE RYAN M.D. Order #: [id number] CLICK HERE TO VIEW EXAM ECHOCARDIOGRAM REPORT PROCEDURE: CARDI (more content not included)... Normal [facility] XR DEXA BONE DENSITYon 08-12 XR DEXA [...] by: THA LOVE Date: 2022-08-12 11:24 Normal [facility] Patient Educationon 05-27-20 Patient Education Urology Dietary [...] Rhubarb. ? Beets. ? Potato chips and south korean fries. ? Nuts. ? If you regularly take a diuretic medicine, make sure to eat at least 1?2 fruits or vegetables high in potassium each day. These include: ? Avocado. ? Banana. ? [place], prune, carrot, or tomato juice. ? Baked [...] salt. Katiana luque (more content not included)... Normal [facility] Reminderson 05-27-2022 Reminders - From: Ayde Horton To: EU - Recalls Dinero; Sent: 05/27/2022 14:17:03 EST Show up: 02/05/2024 14:16:00 EDT Subject: 2 year follow up Due Date/Time: 05/21/2024 14:16:00 EST Reminder/Recall Patient will be due back for a two year follow up for med refills in 05/2024 [facility] Urology Office/Clinic Noteon 05-27-2022 Urology Office/Clinic Note Chief Complaint 6m KUB HPI Staff 6m w/KUB due to Kidney Stone. Additional DX: Mixed incontinence & UTI. KUB done @ [place] on 05/21/22. *Effer K 25meq BID therapy. Pt denies any signs/symptoms of kidney stone. Denies any complaints urinating. Still has some mild leaking. Wears a pad, changes 1-2x/day, leaks before getting to restroom. No infection since last encounter. History of Present Illness Tests reviewed: reviewed UA, KUB. I have reviewed the previous health record information and history for this patient from Dr. Dinero. I have reviewed and verified the staff [...] S/p Right ESWL 05/24/21. KUB done at [place] on 05/21/22 shows no appreciable urinary tract [...] Follow-up With When Contact Information JESS DELGADO, Yao Her, [facility] [address], [place] [address]- Additional Instructions: PRN Patient Education Dietary Guidelines to Help Prevent Kidney Stones I, Sandhya Rodrigues, personally scribed for Dr. Dinero on 05/27/2022 12:12:36. . Documentation recorded by the scribe, Sandhya Rodrigues, accurately reflects the services(s) I performed and decisions made by me. Authenticated by Dr. Dinero on 05/27/2022 12:13:44. Problem List/Past Medical History [...] Protein Urine Dipstick: Negative (05/27/22 11:20:00) Specific Lily Urine Dipstick: 1.025 (05/27/22 11:20:00) Urine Appearance Urine Dipstick: Cloudy (05/27/22 11:20:00) Urine Color Urine Dipstick: Yellow (05/27/22 11:20:00) Urobilinogen Urine Dipstick: Normal 0.2-1 EU/dl (05/27/22 11:20: (more content not included)... Normal [facility] Comment on above: Result Comment: Elec tronically Signed By: JESS DELGADO, Yao Vásquez\Date and Time Signed: 05/27/22 12:15 EST RAD - MISCon 05-24-2022 RAD - MISC [id number] D:127 Normal [facility] XR KUB 1 VIEWon 05-21-2022 XR [...] by: THA LOVE Date: 2022-05-21 15:32 Normal [facility] Lab Reportson 11-29-2021 Lab Reports [id number] D:127 Normal [facility] Coding Summary.on 11-24-2021 Coding Summary. CD:[id number] Gh0 bWw+PGhlYWQ+FZ0ONYReT05 ebDWepZ0BA8wRZE4XWJTCHJ UYOS4PLO0urAE1OUqtN6Nbe iAv FvnbeBIaSE56UWa2CRP0zDr iLRgzgA7vpNCnA1l7QqIwRQ 33pE19XFuqRWYoDsZ0OgKdq jsgbWFy S1kpLjEliDRdQdq+PHRhYmx lIHdpZHRoPScxMDAlJyBzdH yxFA3cQj7zWGAiBGJcpVztr HNlOiBj f4lkUMWmTOpoTE1gsGacV0V bhWB7KWIji5k8Df68hHB+PH ExAYE0dKhcIHsya351JxHfv 2srUSN2 jLMfWBljOVX2C60es7O4TSC mETMdCSB0hSH7kI3hgYwlmg ezK4ArbBIsFrN0BHH3dYIoa K0ggGur fvvxoA0fKar+S89ROG5OEIK MCB1EVxl6X9KcIwtdsTF+PC 59THSrRW68xBDfhIUma5dqq Uf0XdMr RJMpUYY2sKxjSYbec3BxYZX nV67ofJHac4I3PSEchFnzkP BcPsJvfDA0eT7hXVbfijvsm 2hvdzsn Sawln8song19bM83G93zVFf kZGKtTBE9JWCwBZYveRiarc 0vbB9jKb7+PHrlb8mok0rmt Qv9UePt GPPhxpEgeDkxUAP0x7AiSt7 4I7QatQnkk9GzVmn1tc46jV Tej9S6pOU9OKuwRCVdxX3yX WxlZnQ6 UTPxBpUzrX49kJZqVVweXm0 vzYlejFigHH1kTTBlaqxpKH HvbC4vRZWtjZLqcEdzHD2bT TBpbjtm f956TdJvGGS7MKOpcYTeA4O fuN4gDhHaJTGvPVYoN0HuzX KhHJefM138MFjkVgZ2CEPra cAnZ9Bj CCYdcTgaRjT4b4X7Zl2Jo4C vmabjWQG5HBlyPRW0YuHxHu MpIuO3Z1ImBsp8LUEbpCqoG K2eP1Sa WKPxremcdibngBU8JTGtIEV udI02vAFaGQkeKa9qz0P4d7 80DWUwAEShhQ37Ko3jtVaqL TBwdCBU bA2ilhdhz6hoxmzjXkVgISH sVFd1EWt6BVQnmDvyFmPlPO J0MaH7OYC3iYTusZ7udXftq ojlcR5e Oyc+U80izZ0qUAL8HCG9nss tBIKsovZqEI68XX37Y2NyHl wvdGFibGU+PGRpdiBzdHlsZ W7jBeXt a8efg2KuRFjsD6KkNKDaOTc qNsv0XWPfYDW3lTO0iQ4sZF CqGYywl3E7xXP8W9IstiMeo g6tb9ah YCRuBPqyW71coAIvt6S9CGT abTX1NAFfbNiwLxBjqF34Gy c+WPFwiRvsx4IqYwttv4ntj 7jwfAn7 YdAiTGVqnvQavTaqRZQ8d5Z xTg89H19gDQkwWGThLBYeMG IjHFJktFvjes1zkC4sFy1+P GNvbCB3 bDW3mM8gCHYxKdH2VQimS02 8YuAmeFZvObzny7suv1qkpA q8HzPeLZStquJikUqsOSO3m 1UwVt39 S99dQJrkJRQnQEKsCHPwYMU ekQzzzb2baA9qSy3+PC9jb2 hsnk30jQ12sWU+IWAsMPG2u WxlPSdw SLOhhA8jKQffBiS0JZPjGtZ ddH63rUPpFXoxGx2vhPgahA tlKS7qHVQelketj311KoOrb 2xkIDEw zIVyFBtoTWX4P98ao9W9XWJ aNXLkSMF6sWS9yG7ykSprbe ogbGVmdDsgdmVydGljYWwtY HtfR731 IHRvcDsnPlBhdGllbnQgTmF bIOw7F3RiGis3CLDolWtpHU 5spZLyWJmoAk6zeLzhyAfxZ U1mBWCn imkbj854YxObq8bsRPYuaVL bAVybPUZ4B92rn5U7TOVuPP NeVER3sAZ2kT2qyMjwcikjy GVmdDsg xbRtvGijCPxiTTbuL566JIR anDxvTtImunRdANUndWY5MI 01TF86uZXlw1V8aDY4B7HzR GRpbmct hkrlnNM4HBYiCTQkzI97Do7 ywJjpFc2xVXOuLQO0ZWTchB YtI4PuxX7aEbNlSRHjLSLtF 3RleHQt FYdwW785YKznYiH3HPFjsfU cL8LzEYWjaRmaNbC1u2L2Kx 1IX9J5LA03ZX16kAUqv5W4v PX9R6Wj ELPpjkrtxqvzfJA4YRFqOPH gsI07Bf9upTzhRa5sAMRmZU D7KNEmbDKzQ5JnfM5jOwZjN DAwMDAw V1YrpNVmSKvyL695NPstTiM 8XIVxxwZsQ4SfSVMytSyjFt U7q9N6Zx9VZRo1IM41ZS39l ZYno7V0 zLD9Y5QtMHIplflnngtrqZZ 7DMCeUDVaxN46Bu8xoAkdQg 6oJSFhFIM4NHRyqLXfR7Qma U8gCwFv RUIiBJLxR8AwaEPhPWlyH22 2ZCumOnC2HWFqlzUzW1LbDV VagIrjEgU4z1I8Qz7UHTWfA J93OEO7 zUH7OV86HT00Q0KoPxvhkYK ibGU+PHRhYmxlIHdpZHRoPS ybIKJlXqCcaFhgIS6yXr5cD GVyLWNv mSeieWHyMvZcw3drYNNxSTb rUE3hpEpoV6TnlZY3DAQir2 o7Fy22P89vD7CyrKK+PGNvb YK2qNY9 vI3cShGiZhB0WNzmC416OeQ ypBRsFlxhe8cah5xmfOn1Bu G3RYFxdpTjvQlqRWP0j9BqN m19E84b IHdpZHRoPSIxNSUiIHZhbGl plc0rnQ5jRp8+KYDmnPO1qO O7oD7kCnIaRgX1RKnyB282K nRvcCIv Aigdy1iog3bngCa7RuNyOGG hluCquPugOCE9x5AwSb62T7 BvxObpj3WjWdg2pb57dPJdo 2T3tZI3 Y4ZfGNXjjdcujSAowVjuMS0 mOADiwnulIWZwkM6hZZTnA3 p4ShMdZvD7STnpP8AakxM0M DEwcHQg VRwlHVM1N47xk9A9HMQpWXP kXZI6jWO0fG8koCwwilhybI VmdDsgdmVydGljYWwtYWxpZ 246IHRv fUksNAKtwH5gIPTobNTfxXv fDX8oURIuwimeXnJLJSAGXJ LFEWYVJUWSDfJVCN20NB80e OTjn4H5 dOK8J5NsMRXnrlcyfkwnkQC 6SQWmGWKutA85qPPeKTaxQp 3il0Y4p208WCZuJWAxhS47C o5grEar RITojSUKhZ5jhhnqk7iuvia mYcCvPSQeXXc0YUg0IXTibR phNgNcVYC0FfI7OQC5yAXcz B3xuUee zmqveE3hDhr+MTEvMDgvMTk 0MTwvdGQ+QDHuJMP3rYlwBQ goKSAowQ4qYJAaU9d8FqDdD dK9DOrv W0YfRCYqvvpzCa15cN0eMlP hDcI6BJfkL1GwjeQ1VTAxuB HoMEboUSN2Q21mx5U7MZLnB DAwMDA7 mKZ8zC7itRwaevybuVKwyTu hvqSqbKeuNNmuMQvlP246WW TrlCcfThwfKIakAQFbNR54X Y01iOBi s5O1mPP4N2FsTTFifjmhdmz viBW9UBKjDTGweD36aHHqVC jfEh3op1M9e139ASZbTQGps C55Je1f hTdpDDHgnADAdD6ucryep2i brvtaTvCdLECcBDg1QNu6KQ NfuDewIdSmZXH0QqD5VOS1h ASugL6k rOvwqrvpzA6xSqi+RmVtYWx kAA91FR72hYZbx3Z9jHV0G5 UzPOOrouqmmtooqHN4JVIzL DUwaW47 sIYgHCgfHi2uq3F9i784AOI sILZwiO24Ae4hwLjmJRNpyR TBpE9ooqzsp2dpyyqsBmQxC DAwMDt0 KAc5FFTsjPriGjAzSPH8UtP 5CBV7mXPzsB1leLxtfquchU 9wOyc+NXOpKTMwf2Udi7UaA I84FP48 Z4JnZbiueWQrpQJ+PHRhYmx lIHdpZHRoPScxMDAlJyBzdH ftTT6hVk4cUOOtTLKyxYzgz HNlOiBj y6llIQRdDRgkXK3gqGtaZ5U tuTU9HVLae2d3Vc29Z50vI6 JvdXA+ILBpkVP8kTE8xS4wB zAlIiB2 QTgqM752PrHboWAqJwyfz5u dr1zisLd4PrOgSEVphtHylQ ycVJA1x9UuBy72B16iIYqxF HRoPSIy LLXxGZMdiTdphj6qaC0rNo6 +XWAlkOF3fHE4bO5uYoCxIh R8TQbdT965WsCtfUSbEqycS 57nZ3Ek dXA+PYTjKzz8ULLtfEvlGX0 zzOCyVAdkZg1wMMG5IxJbZi BjMKdhV2ZaQEKmowrqoqdaz MW5YREx LSFufX58Vj4xePlzBf4aTAO wZUZ1QBNnvORiG9TeeK7yDo MxTSDaLLHlC6IgdHFkXJnyI 246IGxl IjG5MTUqokEoB4RdXPMhmTh gTmK9j5O8Na5ElVnsmPRuEZ 4rIpGpEDq9C1NdRur9LQNls AxeGM2s uJGdJMznBl3naOieyNkyVW7 rMMEbnjmor874KbMeh5wkSC VeyBRfGDdfNTZ6I48zu8D9H CMwMDAw ORZ6nCQ1uJ4whKfhoaxehWD mdDsgdmVydGljYWwtYWxpZ2 28YVFcrJixLqEZZvp0M5KfA tm2YBFg zSszOH6cdFRjQDlpAf5hiOm mrJteIA3qJUUuqpwoa338Qa Tad1lsZYBqhKBpILpxKXM5T 98xa4L2 PYLoIAOdZRG9nDI1rH8ezEw nbjogbGVmdDsgdmVydGljYW hbLGvgN038ZRAdjIwbGl3FJ sm6P8Ze Dbi8IYYbdOesNQ7pxZPwDPn tIy2hvOragYrvTL7rOAHzcy shl453TtMcp9jpGGKmwUOxY GltZXM7 Q25zm0L2KUDlBFVcEZB7lVV 3yV6khIcnunzblPNviOtcnf PlzXvrVRdnXRpwY707ELXbh DsnPlBh eWVyOjwvdGQ+QK75kl91I8F uPedmGyp4MWDzTVY9xJN9nY 5gESMoFFslo2P1lTW5K2Zyz sQize9h b2xs (more content not included)... [facility] C Urineon 11-22-2021 Bacteria identified Cx Nom (U) Microbiology PROCEDURE: Urine Culture [R1] SOURCE: U Random BODY SITE: COLLECTED DATE/TIME: 11/19/2021 13:51 EDT RECEIVED DATE/TIME: 11/20/2021 15:13 EDT START DATE/TIME: 11/20/2021 15:13 EDT FREE TEXT SOURCE: JESS DELGADO, Yao DINERO MD, Yao Her FINAL REPORTS Final Report [] Verified [...] Locations R1: This test was performed at: [facility], [address] [place] [address], [facility]- , , [facility] Comment on above: Performed By: #### [id number] #### [facility] [address] [place] [address] CALCULI, URINARYon 2 2,8 Dihydroxyadenine Normal [facility] Comment on above: Performed By: #### C ALCULI #### [facility] [address] [place] [address] Dr. Tena Gregg Ammonium Acid Urate Normal [facility] Comment on above: Performed By: #### C ALCULI #### [facility] [address] [place] [address] Dr. Tena Gregg Bilirubin Ql (U) Normal [facility] Comment on above: Performed By: #### C ALCULI #### [facility] [address] [address] [address] Tena Gregg Ca Oxalate Dihydrate Normal [facility] Comment on above: Performed By: #### C ALCULI #### [facility] [address] [address] [address] Tena Gregg CaHPO4 (Brushite) Normal [facility] Comment on above: Performed By: #### C ALCULI #### [facility] [address] [address] [address] Tena Gregg Calcium Bilirubinate Normal [facility] Comment on above: Performed By: #### C ALCULI #### [facility] [address] [address] [address] Tena Gregg Calcium Carbonate Normal [facility] Comment on above: Performed By: #### C ALCULI #### [facility] [address] [address] [address] Tena Gregg Calcium Oxalate Monohydrate 20 % [facility] Comment on above: Performed By: #### C ALCULI #### [facility] [address] [address] [address] Tena Gregg Calcium Palmitate Normal [facility] Comment on above: Performed By: #### C ALCULI #### [facility] [address] [address] [address] Tena Gregg Calcium Phosphate Normal [facility] Comment on above: Performed By: #### C ALCULI #### [facility] [address] [address] [address] Tena Gregg Calcium Stearate Normal [facility] Comment on above: Performed By: #### C ALCULI #### [facility] [address] [address] [address] Tena Gregg Carbonate Apatite Normal [facility] Comment on above: Performed By: #### C ALCULI #### [facility] [address] [address] [address] Tena Gregg Cellular Material Normal [facility] Comment on above: Performed By: #### C ALCULI #### [facility] [address] [address] [address] Tena Gregg Cholesterol Normal [facility] Comment on above: Performed By: #### C ALCULI #### [facility] [address] [address] [address] Tena Gregg Color (U) Kenedy Normal [facility] Comment on above: Performed By: #### C ALCULI #### [facility] [address] [address] [address] Tena Gregg Comment Normal [facility] Comment on above: Performed By: #### C ALCULI #### [facility] [address] [address] [address] Tena Gregg Comment: Comment Normal [facility] Comment on above: Result Comment: Ken briceno questions regarding Calculi Analysis contact [employer] at: [phone]. Performed By: #### C ALCULI #### [facility] [address] [place] [address] Dr. Tena Gregg Composition Comment [facility] Comment on above: Result Comment: Perc entage (Represents the % composition) Performed By: #### C ALCULI #### [facility] [address] [place] [address] Dr. Tena Gregg Cystine Normal [facility] Comment on above: Performed By: #### C ALCULI #### [facility] [address] [place] [address] Dr. Tena Gregg Disclaimer: Comment [facility] Comment on above: Result Comment: This test was developed and its performance characteristics determined by [facility]. It has not been cleared or approved by the Food and Drug Administration. Performed By: #### C ALCULI #### [facility] [address] [place] [address] Dr. Tena Gregg Dried Blood [facility] Comment on above: Performed By: #### C ALCULI #### [facility] [address] [place] [address] Dr. Tena Gregg Drug or Metabolite Normal [facility] Comment on above: Performed By: #### C ALCULI #### [facility] [address] [place] [address] Dr. Tena Gregg Hydroxyapatite Normal [facility] Comment on above: Performed By: #### C ALCULI #### [facility] [address] [address] [address] Tena Gregg Mg NH4 PO4 (Struvite) [facility] Comment on above: Performed By: #### C ALCULI #### [facility] [address] [address] [address] Tena Gregg MgHPO4 (Newberyite) Normal [facility] Comment on above: Performed By: #### C ALCULI #### [facility] [address] [address] [address] Tena Gregg Other component(s) Normal [facility] Comment on above: Performed By: #### C ALCULI #### [facility] [address] [address] [address] Tena Gregg PDF . Normal [facility] Comment on above: Performed By: #### C ALCULI #### [facility] [address] [place] [address] Dr. Tena Gregg Photo Comment [facility] Comment on above: Result Comment: Phot ograph will follow under a separate cover Performed By: #### C ALCULI #### [facility] [address] [place] [address] Dr. Tena Gregg Please note: Comment Normal [facility] Comment on above: Result Comment: Calc mitzi report will follow via computer, mail or reprographics technician delivery. Performed By: #### C ALCULI #### [facility] [address] [address] [address] Tena Gregg Size 4x3 Normal [facility] Comment on above: Result Comment: Mult iple pieces received. Dimensions of the largest piece reported. Performed By: #### C ALCULI #### [facility] [address] [address] [address] Tena Gregg Sodium Acid Urate Normal [facility] Comment on above: Performed By: #### C ALCULI #### [facility] [address] [place] [address] Dr. Tena Gregg Source Comment Normal [facility] Comment on above: Result Comment: Not provided Performed By: #### C ALCULI #### [facility] [address] [address] [address] Tena Gregg Triamterene [facility] Comment on above: Performed By: #### C ALCULI #### [facility] [address] [address] [address] Tena Gregg Uric Acid 80 % Normal [facility] Comment on above: Performed By: #### C ALCULI #### [facility] [address] [address] [address] Tena Gregg Uric Acid Dihydrate Normal [facility] Comment on above: Performed By: #### C ALCULI #### [facility] [address] [address] [address] Tena Gregg Weight 195 mg [facility] Comment on above: Performed By: #### C ALCULI #### [facility] [address] [address] [address] Tena Gregg Xanthine [facility] Comment on above: Performed By: #### C ALCULI #### [facility] [address] [address] [address] Tena Gregg Reminderson 11-22-2021 Reminders - From: Olga Duque MA To: [facility] - Clinical; Sent: 11/19/2021 13:53:51 EDT Show up: 11/21/2021 13:53:00 EDT Subject: Urine culture Reminder/Recall Urine culture Sent to Maite Villagomez to review Normal [facility] Ambulatory Visit Summaryon 0 11-19-2021 Ambulatory Visit Summary MICHELLEMARVA Ocampo :1940 Visit Date:11/19/2021 Ambulatory Visit Instructions Your Diagnosis Personal history of kidney stones Kidney stone Mixed incontinence Urinary tract infection Tests Performed Urnls Dip Stick Auto w/o Microscopy POC 58766 XR Abdomen 1 View -- Results Pending -- Please visit your patient portal for your results or contact your primary care physician. Your Care Team Attending Physician - Yao DINERO MD Primary Care Physician - EUGENE RYAN MD This Is Your Medications List cephalexin [...] Follow-Up Appointments Friday 11:15 AM EST With: Yao DINERO MD Where: [facility] Patient Educationon 11-20-19 22 Patient Education Urology [...] Rhubarb. ? Beets. ? Potato chips and south korean fries. ? Nuts. ? If you regularly take a diuretic medicine, make sure to eat at least 1?2 fruits or vegetables high in potassium each day. These include: ? Avocado. ? Banana. ? Kenedy, prune, carrot, or tomato juice. ? Baked [...] salt. Katiana luque (more content not included)... Normal [place] [facility] Urology Office/Clinic Noteon 11-19-2021 Urology Office/Clinic Note Chief Complaint 6 month f/u HPI Staff Pt is here for f/u. Previous dx of kidney stone (right ESWL 05/24/21), stress incontinence, personal hx of kidney stones and snf use of aspirin. Dysuria: no Incomplete bladder [...] 250mg bid for 5 days, sent to [facility] in [place]. Follow-up With When Contact Information JESS DELGADO, Yao Her, L [facility] [address] [place] [address]- Additional Instructions: 6 month f/u with [facility] Patient Education Dietary Guidelines to Help Prevent Kidney Stones ISangeetha, personally scribed for Dr. Dinero on 11/19/2021 10:26:46. . Documentation recorded by the scribeSangeetha, accurately reflects the services(s) I performed and decisions made by me. Authenticated by Dr. Dinero on 11/19/2021 10:28:59. Problem List/Past Medical History [...] Dipstick: Negative (05 (more content not included)... Normal [facility] Comment on above: Result Comment: Elec tronically Signed By: Yao DINERO MD\.br\Date and Time Signed: 11/19/21 10:29 EDT\.br\Electronically Co-Signed By: Sangeetha Singh\.br\Date and Time Co-Signed: 11/19/21 10:27 EDT RAD - MISCon 08-10-2021 RAD - MISC [id number] D:127 Normal [facility] RAD - MISC [id number] D:127 Normal [facility] Reminderson 08-07-2021 Reminders - From: Rebecca Asencio To: [facility] - Clinical; Sent: 08/02/2021 15:25:57 EST Show up: 08/07/2021 15:25:00 EST Subject: IMELDA Reminder/Recalls Owen SEGURA, order faxed 08/02/21 Results scanned into pt's file will send PRW a message when they are available. Normal [facility] Complete Blood Count with Au to Diffon 08-06-2021 Basophils (Bld) [#/Vol] 0.06 10*3/uL Normal 0.00-0.20 [facility] [employer] Comment on above: Performed By: #### C BCAD, CMP, LIPD #### [facility] [address] [place], [place] [id number] Basophils/100 WBC (Bld) 0.7 % Normal [facility] [employer] Comment on above: Performed By: #### C BCAD, CMP, LIPD #### [facility] [address] [place], [place] [id number] Eosinophils (Bld) [#/Vol] 0.23 10*3/uL Normal 0.02-0.50 [facility] Comment on above: Performed By: #### C BCAD, CMP, LIPD #### [facility] [address] [facility] [place] [place] [id number] Eosinophils/100 WBC (Bld) 2.5 % Normal [facility] Comment on above: Performed By: #### C BCAD, CMP, LIPD #### [facility] [address] [place], [place] [id number] Erythrocyte distribution width (RBC) [Ratio] 13.0 % Normal 11.0-15.0 [facility] Comment on above: Performed By: #### C BCAD, CMP, LIPD #### [facility] [address] [place], [place] [id number] Hematocrit (Bld) [Volume fraction] 43.3 % Normal 35.0-47.0 [facility] Comment on above: Performed By: #### C BCAD, CMP, LIPD #### [facility] [address] [place], [place] [id number] Hemoglobin (Bld) [Mass/Vol] 14.1 g/dL Normal 11.6-15.5 [facility] Comment on above: Performed By: #### C BCAD, CMP, LIPD #### [facility] [address] [place], [place] [id number] Lymphocytes (Bld) [#/Vol] 2.7 10*3/uL Normal 0.9-3.9 [facility] Comment on above: Performed By: #### C BCAD, CMP, LIPD #### [facility] [address] [place], [place] [id number] Lymphocytes/100 WBC (Bld) 29.9 % Normal [facility] Comment on above: Performed By: #### C BCAD, CMP, LIPD #### [facility] [address] [place], [place] [id number] MCH (RBC) [Entitic mass] 31.7 pg Normal 27.0-33.0 [facility] Comment on above: Performed By: #### C BCAD, CMP, LIPD #### [facility] [address] [place], [place] [id number] MCHC (RBC) [Mass/Vol] 32.6 g/dL Normal 32.0-36.0 [facility] Comment on above: Performed By: #### C BCAD, CMP, LIPD #### [facility] [address] [place], [place] [id number] MCV (RBC) [Entitic vol] 97 fL Normal 80-100 [facility] Comment on above: Performed By: #### C BCAD, CMP, LIPD #### [facility] [address] [place], [place] [id number] Monocytes (Bld) [#/Vol] 0.9 10*3/uL Normal 0.2-0.9 [facility] Comment on above: Performed By: #### C BCAD, CMP, LIPD #### [facility] [address] [place], [place] [id number] Monocytes/100 WBC (Bld) 9.5 % Normal [facility] Comment on above: Performed By: #### C BCAD, CMP, LIPD #### [facility] [address] [place], [place] [id number] Neutrophils (Bld) [#/Vol] 5.2 10*3/uL Normal 1.5-7.8 [facility] Comment on above: Performed By: #### C BCAD, CMP, LIPD #### [facility] [address] [place], [place] [id number] Neutrophils/100 WBC (Bld) 57.2 % Normal [facility] Comment on above: Performed By: #### C BCAD, CMP, LIPD #### [facility] [address] [place], [place] [id number] Platelet mean volume (Bld) [Entitic vol] 12.10 fL Normal 7.50-12.50 [facility] Comment on above: Performed By: #### C BCAD, CMP, LIPD #### [facility] [address] [place], [place] [id number] Platelets (Bld) [#/Vol] 138 10*3/uL Low 140-400 [facility] Comment on above: Performed By: #### C BCAD, CMP, LIPD #### [facility] [address] [place], [place] [id number] RBC (Bld) [#/Vol] 4.45 10*6/uL Normal 3.90-5.20 [facility] Comment on above: Performed By: #### C BCAD, CMP, LIPD #### [facility] [address] [place], [place] [id number] RDW-SD 46.4 fL Normal 37.0-50.0 [facility] Comment on above: Performed By: #### C BCAD, CMP, LIPD #### [facility] [address] [place], [place] [id number] WBC (Bld) [#/Vol] 9.1 10*3/uL Normal 3.8-11.0 [facility] Comment on above: Performed By: #### C BCAD, CMP, LIPD #### [facility] [address] [place], [place] [id number] Comprehensive Metabolic Pane [facility] 08-06-2021 Albumin [Mass/Vol] 4.6 g/dL Normal 3.6-5.1 [facility] Comment on above: Performed By: #### C BCAD, CMP, LIPD #### [facility] [address] [place], [place] [id number] Albumin/Globulin [Mass ratio] 2.1 {ratio} Normal 1.0-2.5 [facility] Comment on above: Performed By: #### C BCAD, CMP, LIPD #### [facility] [address] [place], [place] [id number] ALP [Catalytic activity/Vol] 126 U/L High 35-119 [facility] Comment on above: Performed By: #### C BCAD, CMP, LIPD #### [facility] [address] [place], [place] [id number] ALT [Catalytic activity/Vol] 26 U/L Normal 6-33 [facility] Comment on above: Result Comment: 06/06 Female reference range changed. Performed By: #### C BCAD, CMP, LIPD #### [facility] [address] [place], [place] [id number] Anion gap [Moles/Vol] 20 mmol/L Normal 12-20 [place] Comment on above: Result Comment: Effguillermina ctive 07/12/2019 reference range changed. Performed By: #### C BCAD, CMP, LIPD #### [facility] [address] [place], [place] [id number] AST [Catalytic activity/Vol] 36 U/L High 9-34 [place] Comment on above: Performed By: #### C BCAD, CMP, LIPD #### [facility] [address] [place], [place] [id number] Bilirubin [Mass/Vol] 0.64 mg/dL Normal 0.30-1.20 [facility] Comment on above: Performed By: #### C BCAD, CMP, LIPD #### [facility] [address] [place], [place] [id number] BUN/CREA 24 Ratio High 6-22 [place] Comment on above: Performed By: #### C BCAD, CMP, LIPD #### [facility] [address] [place], [place] [id number] Calcium [Mass/Vol] 9.7 mg/dL Normal 8.6-10.2 [facility] Comment on above: Performed By: #### C BCAD, CMP, LIPD #### [facility] [address] [place], [place] [id number] Chloride [Moles/Vol] 108 mmol/L High 98-107 [facility] Comment on above: Performed By: #### C BCAD, CMP, LIPD #### [facility] [address] [place], [place] [id number] CO2 [Moles/Vol] 19 mmol/L Low 20-31 [place] Comment on above: Performed By: #### C BCAD, CMP, LIPD #### [facility] [address] [place], [place] [id number] Creatinine [Mass/Vol] 1.2 mg/dL Normal 0.6-1.4 [facility] [employer] Comment on above: Performed By: #### C BCAD, CMP, LIPD #### [facility] [address] [place], [place] [id number] eGFRAA 52 mL/min/1.73m2 Low >60 [facility] [employer] Work[employer] Comment on above: Performed By: #### C BCAD, CMP, LIPD #### [facility] [address] [place], [place] [id number] eGFRNAA 43 mL/min/1.73m2 Low >60 [facility] [employer] Work[employer] Comment on above: Performed By: #### C BCAD, CMP, LIPD #### [facility] [address] [place], [place] [id number] Globulin (S) [Mass/Vol] 2.2 g/dL Normal 1.9-3.7 [facility] [employer] Work[employer] Comment on above: Performed By: #### C BCAD, CMP, LIPD #### [facility] [address] [place], [place] [id number] Glucose [Mass/Vol] 104 mg/dL High 65-99 [facility] [employer] Worker Comment on above: Result Comment: For FASTING Glucose --- ADA reference ranges: Normal 65-99 mg/dl Prediabetes 100-125 Diabetes >/= 126 Performed By: #### C BCAD, CMP, LIPD #### [facility] [address] [place], [place] [id number] Potassium [Moles/Vol] 4.5 mmol/L Normal 3.5-5.5 [facility] [employer] Work[employer] Comment on above: Performed By: #### C BCAD, CMP, LIPD #### [facility] [address] [place], [place] [id number] Protein [Mass/Vol] 6.8 g/dL Normal 6.1-8.1 [facility] [employer] Work[facility] Comment on above: Performed By: #### C BCAD, CMP, LIPD #### [facility] [address] [place], [place] [id number] Sodium [Moles/Vol] 143 mmol/L Normal 135-146 [facility] [place] [facility] [employer] Comment on above: Performed By: #### C BCAD, CMP, LIPD #### [facility] [address] [place], [place] [id number] Urea nitrogen [Mass/Vol] 28 mg/dL High 7-25 [facility] [employer] Work[employer] Comment on above: Performed By: #### C BCAD, CMP, LIPD #### [facility] [address] [place], [place] [id number] Hemoglobin A1Con 08-06-2021 EAG 145.59 Normal [facility] [employer] Work[employer] Comment on above: Performed By: #### A 1C #### [facility] [address] [place], [place] [id number] HbA1c (Bld) [Mass fraction] 6.7 % High 4.0-6.0 [facility] [employer] Work[employer] Comment on above: Performed By: #### A 1C #### [facility] [address] [place], [place] [id number] Lipid Panelon 08-06-2021 Cholesterol [Mass/Vol] 142 mg/dL Normal 125-200 [facility] [employer] Work[employer] Comment on above: Result Comment: Low risk < 200mg/dL Borderline risk 201-239 mg/dl High risk > or equal to 240 Performed By: #### C BCAD, CMP, LIPD #### [facility] [address] [place], [place] [id number] Cholesterol in HDL [Mass/Vol] 43 mg/dL Normal >40 [facility] [employer] Production Worker Comment on above: Result Comment: High Cardiovascular Risk HDL <40 mg/dL Low Cardiovascular Risk HDL > or equal to 60 mg/dl Performed By: #### C BCAD, CMP, LIPD #### [facility] [address], [place] [id number] Cholesterol in LDL [Mass/Vol] 73 mg/dL Normal [facility] [employer] Production Worker Comment on above: Result Comment: LDL ATP III CLASSIFICATION LDL less than 100 mg/dl Optimal LDL 100-129 mg/dl Near or above optimal LDL 130-159 Borderline high LDL 160-189 High LDL greater than 189 mg/dl Very High Performed By: #### C BCAD, CMP, LIPD #### [facility] [address], [place] [id number] Cholesterol in VLDL [Mass/Vol] 26 mg/dL Normal [facility] [employer]ag Production Worker Comment on above: Performed By: #### C BCAD, CMP, LIPD #### [facility] [address] [place], [place] [id number] Cholesterol.total/Ch olesterol in HDL [Mass ratio] 3 {ratio} Normal [facility] [employer]ag Production Worker Comment on above: Performed By: #### C BCAD, CMP, LIPD #### [facility] [address] [place], [place] [id number] Triglyceride [Mass/Vol] 132 mg/dL Normal 30-150 [facility] [employer]ag Production Worker Comment on above: Result Comment: TRIG ATPIII CLASSIFICATIONS TRIG less than 150 mg/dl Normal TRIG 150-199 mg/dl Borderline High TRIG 200-500 mg/dl High TRIG greather than 500 mg/dl Very High Performed By: #### C BCAD, CMP, LIPD #### [facility] [address] [place], [place] [id number] CHEST AND LATERALon 03-30-20 CHEST AND LATERAL [facility] Department of Radiology [address] [place] [address] ===== Patient Name: MARVA WANG : 1940 Sex: F Age: Race: White Pt. Location: Patient Status: O Ordered Date: 03/30/2021 11:40:00 AM Completed Date: 03/30/2021 11:59 AM Requesting Provider: PEPE KOVACS Attending Provider: PEPE KOVACS Report Copy To: EUGENE RYAN Signs & Symptoms: Z95.0 Presence of cardiac [...] or acute pulmonary pathology. Electronically signed: Nikolai Sauceda. Transcribed by: [email or web address], User Resident: Electronically Signed by: NIKOLAI SAUCEDA @ 03/30/2021 01:03 PM Normal [facility] Comment on above: Order Comment: evalu ate IOL BIOMETRY W/ IOL CALC OU (BOTH EYES) [facility] Vital Signs Date Time Vital Sign Value Performing Clinician Facility 02-27-2023 08:37-0400 Body height 162.6 cm Pacc 1 Work Phone: [facility] 02-27-2023 08:37-0400 Body temperature 98.01 [degF] Pac 1 Work Phone: [facility] 02-27-2023 08:37-0400 Body weight 82.56 kg Pacc 1 Work Phone: [facility] 02-27-2023 08:37-0400 Diastolic blood pressure 75 mm[Hg] Pacc 1 Work Phone: [facility] 02-27-2023 08:37-0400 Heart rate 99 /min Pacc 1 Work Phone: [facility] 02-27-2023 08:37-0400 Respiratory rate 16 /min Pac 1 Work Phone: [facility] 02-27-2023 08:37-0400 SaO2% (BldA) [Mass fraction] 99 % Pacc 1 Work Phone: [facility] 02-27-2023 08:37-0400 Systolic blood pressure 138 mm[Hg] Pacc 1 Work Phone: [facility] 11-19-2021 09:49-0400 Blood Pressure Location Yao DINERO [facility] 11-19-2021 09:49-0400 Diastolic blood pressure 72 mm[Hg] Yao DINERO [facility] 11-19-2021 09:49-0400 Heart rate 73 /min Yao DINERO [facility] 11-19-2021 09:49-0400 Respiratory rate 16 /min Yao DINERO [facility] 11-19-2021 09:49-0400 Systolic blood pressure 132 mm[Hg] Yao DINERO [facility] Encounters Encounter Date Encounter Type Care Provider Facility Start: 11-15-2024 ambulatory [facility] Start: 11-01-2024 ambulatory [facility] Start: 10-25-2024 End: 10-25-2024 ambulatory [facility] Start: 10-20-2024 End: 10-20-2024 ambulatory [facility] Start: 09-29-2024 End: 09-29-2024 ambulatory [facility] Start: 05-18-2024 End: 05-18-2024 ambulatory [facility] Start: 03-29-2024 End: 03-29-2024 Clinisync Result Encounter Generic External Data Provider [facility] Unsolicited Start: 03-29-2024 End: 03-29-2024 Clinisync Result Encounter Generic External Data Provider [facility] External [facility] Unsolicited Start: 03-15-2024 End: 03-15-2024 ambulatory JONN LEE [facility] Start: 11-18-2023 End: 11-18-2023 ambulatory PEPE KOVACS [facility] Start: 03-26-2023 End: 03-26-2023 ambulatory JED MARCOS Facility:[facility] Start: 03-12-2023 End: 03-12-2023 ambulatory JED MARCOS Facility:[facility] Start: 02-27-2023 Encounter for other preprocedural examination JED MARCOS [facility] Start: 02-27-2023 End: 02-27-2023 Patient encounter procedure [facility] Work Phone: Ophthalmology Comment on above: Combined forms of ag e-related cataract of both eyes Start: 02-27-2023 End: 02-27-2023 [facility] Pacc Monona 1 Work Phone: [facility] Start: 02-27-2023 End: 02-27-2023 ambulatory Pacc Monona 1 Work Phone: Pre Anesthesia Comment on above: Pre-operative cleara nce (Primary Dx); Type 2 diabetes mellitus without complication, without long-term current use of insulin (HCC); Hyperlipidemia, unspecified hyperlipidemia type; Hypertension, unspecified type; Biventricular cardiac pacemaker in situ; Complete atrioventricular block (HCC) Start: 02-27-2023 End: 02-27-2023 Preoperative state Pacc Monona 1 Work Phone: [facility] Work Phone: Start: 01-09-2023 End: 01-09-2023 ambulatory JED MARCOS Facility:[facility] Start: 01-09-2023 End: 01-09-2023 Patient encounter procedure Jed Marcos MD Work Phone: Ophthalmology Comment on above: Combined forms of ag e-related cataract of both eyes (Primary Dx); Glaucoma suspect of both eyes Start: 08-12-2022 End: 08-13-[address] MARVA SAUER Facility: Start: 05-27-2022 End: 05-28-2022 ambulatory MD Yao DINERO Facility:[facility] Start: 05-21-2022 End: 05-22-[address] YAO DINERO Facility: Start: 11-19-2021 End: 11-20-2021 ambulatory MD Yao DINERO [place] Start: 11-19-2021 End: 11-19-2021 Lab Drop off Yao DINERO [facility] Start: 11-19-2021 End: 11-19-[address] YAO DINERO Facility: Start: 11-19-2021 End: 11-20-2021 ambulatory MD Yao DINERO Facility:[facility] Start: 11-19-2021 End: 11-19-2021 Patient encounter procedure Yao DINERO [facility] Procedures Date Procedure Procedure Detail Performing Clinician Start: 03-29-2024 ALL LIPID PROFILE (FASTING) Generic External Data Provider Start: 02-27-2023 IOL BIOMETRY W/ IOL CALC OU (BOTH EYES) Jed Marcos MD Work Phone: Start: 05-24-2021 Extracorporeal shock wave lithotripsy of calculus of kidney Yao DINERO Cardiac pacemaker, d evice (physical object) Yao DINERO Plan of Treatment Date Care Activity Detail Author Start: 03-07-2024 Influenza vaccination Influenza Vacc ine (#1) [facility] Start: 01-10-2024 Hepatitis C antibody , confirmatory test DILATED RETINAL EXAM [facility] Start: 01-09-2024 End: 07-02-2024 IOL BIOMETRY W/ IOL CALC OU (BOTH EYES) IOL BIOMETRY W/ IOL CALC OU (BOTH EYES) [facility] Imaging Routine Combined forms of age-related cataract of both eyes Expected: 01/09/2024, Expires: 07/02/2024 [facility] Work Phone: Comment on above: Expected: 01/09/2024 , Expires: 07/02/2024 Start: 09-05-2023 Urine screening for protein Diabetes: Urine Protein Screening [facility] Start: 03-07-2023 Influenza vaccination INFLUENZA (#1) [facility] Start: 10-22-2022 Hemoglobin A1c measurement Diabetes: Hemoglobin A1C [facility] Start: 07-07-2022 ADVANCE DIRECTIVE DISCUSSION ADVANCE DIRECTIVE DISCUSSION [facility] Start: 07-07-2022 DEPRESSION ASSESSMENT DEPRESSION ASS ESSMENT [facility] Start: 03-27-2022 Glaucoma screening Diabetes: R etinopathy Screening [facility] Start: 2006 BONE DENSITY BONE DENSITY [facility] Start: 2006 PNEUMOCOCCAL: 65+ (1 - PCV) PNEUMOCOCCAL: 65+ (1 - PCV) [facility] Start: 1991 SHINGRIX VACCINE (1 of 2) SHINGRIX VACCINE (1 of 2) [facility] Start: 1986 DIABETES SCREEN DIABETES SCREEN [facility] Start: 1960 Urine microalbumin profile DTAP,TDAP,TD (1 - Tdap) [facility] Start: 1959 Hepatitis B surface antibody level LDL CHOLESTEROL [facility] Start: 1951 3 comp foot exam completed DIABETIC FOOT EXAM [facility] Start: 1951 Hepatitis B screening URINE ALBUMIN:CREATININE RATIO [facility] Start: 1947 PNEUMOCOCCAL: 65+ (1 - PCV) PNEUMOCOCCAL: 65+ (1 - PCV) [facility] Start: 1946 Hemoglobin A1c/Hemoglobin.total in Blood HBA1C [facility] CORNEAL TOPOGRAPHY A TLAS OU (BOTH EYES) CORNEAL TOPOGRAPHY ATLAS OU (BOTH EYES) [facility] Imaging Routine Combined forms of age-related cataract of both eyes 01/09/2023 1:45 PM EDT [facility] Work Phone: End: 06-12-2024 OCT MACULA CIRRUS OU (BOTH EYES) OCT MACULA CIRRUS OU (BOTH EYES) [facility] Imaging Routine Combined forms of age-related cataract of both eyes 1 Occurrences starting 12/20/2022 until 06/12/2024 [facility] Work Phone: Comment on above: 1 Occurrences starti ng 12/20/2022 until 06/12/2024 OCT MACULA CIRRUS OU (BOTH EYES) OCT MACULA CIRRUS OU (BOTH EYES) [facility] Imaging Routine Combined forms of age-related cataract of both eyes 01/09/2023 2:05 PM EDT [facility] Work Phone: [facility] Immunizations Immunization Date Immunization Notes Care Provider Fa cili 05-12-2023 influenza virus vaccine, unspecified formulation Generic Provider [facility] 08-18-2020 SARS-CoV-2 (COVID-19 ) Ad26 vaccine, recombinant Yao DIENRO [facility] 07-21-2020 SARS-CoV-2 (COVID-19 ) Ad26 vaccine, recombinant Yao DINERO [facility] Payers Date Payer Category Payer Private Health Insurance [facility] AARP SUPPLEMENT [id number] 2022-Present [phone] [address] [place] [address] Indemnity [id number] 2006 Medicare MEDICARE MEDICAR E A AND B [id number] 2006-Present [phone] [address] [address] [place] [address] Medicare [id number] 1959 Medicare [id number] 1959 Unknown [id number] 1940 Unknown [id number] 1940 Unknown [id number] 1940 Unknown [id number] 1940 Unknown [id number] 1940 Unknown [id number] 1940 Unknown [id number] Social History Date Type Detail Facility Start: 04-17-2021 End: 01-09-2023 Tobacco smoking status Never smoked tobacco (finding) [facility] Tobacco smoking status Never [facility] Start: 01-09-2023 End: 02-27-2023 Sex Assigned At Female [facility] Start: 01-09-2023 Tobacco use and exposure Smokeless tobacco non-user [facility] Start: 01-09-2023 End: 02-27-2023 Alcohol intake Ex-drinker (finding) [facility] Start: 1940 Sex Assigned At Not on file [facility] Start: 01-09-2023 End: 02-27-2023 History of Social function [facility] Start: 10-25-2022 Gender identity Identifies as female gender (finding) [facility] Tobacco smoking status NHIS Tobacco smoking consumption unknown [facility] Clinical Notes 11-19-2021 to 10-20-2024 Leticia Keyes COA - 02/27/2023 9:48 AM EDTPatient Shoshana Ferrari APRN.ELECTRONIC COMMERCE SPECIALIST - 02/27/2023 8:32 AM EDTAddendum Note - Bindu Daniels - 01/09/2023 4:33 PM EDT Note Date & Type Note Facility 10-20-2024 Note SUBJECTIVE Reason for Visit: Marva Wang is a 84 y.o. year old female patient being seen for follow-up. HPI: Marva Wang is a 84 y.o. 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 10/20/2024 office visit: Patient was seen and evaluated in the office today for follow-up of hypertension. She brings a home blood pressure log, with systolic readings ranging from 125s to 135s. She denies symptoms and has an overall benign exam. At her prior visit on 09/29/2024, her BP was 142/84; today, it is elevated at 157/82. She was advised to bring her home BP monitor to the next visit for comparison. She otherwise feels well and denies chest pain, shortness of breath, palpitations, lightheadedness, or dizziness. 09/29/2024 office visit: Patient was seen in the office today for evaluation. She reports feeling very well overall and denies chest pain, shortness of breath, lightheadedness, dizziness, or palpitations. Her initial blood pressure was elevated at 153/80 mmHg, and on repeat measurement, it improved to 142/84 mmHg. She was advised to monitor her blood pressure at home, specifically taking readings in the morning before taking her medications, including carvedilol, again one to two hours after medication administration, and once more in the evening. She was instructed to bring the blood pressure log to her next visit, at which time we will reassess and determine if any changes to her antihypertensive regimen are needed. She has no additional concerns at this time. 03/15/2024 office visit (Dr. Lee): Here today for follow-up visit. She has been doing well. She denies any chest pain or shortness of breath at rest or with exertion. She denies orthopnea or paroxysmal nocturnal dyspnea or dizziness or palpitations. She denies legs edema or discomfort on exertion. Past Medical History: Diagnosis Date Abnormal ECG AV block Cardiomyopathy (CMS/HCC) CHF (congestive heart failure) (CMS/HCC) Diabetes mellitus (CMS/HCC) Past Surgical History: Procedure Laterality Date INSERT / REPLACE / REMOVE PACEMAKER Patient Active Problem List Diagnosis Allergic rhinitis Atherosclerosis of coronary artery without angina pectoris Biventricular cardiac pacemaker in situ Cardiomyopathy, ischemic Chronic systolic congestive heart failure, NYHA class 2 (CMS/HCC) Complete atrioventricular block (CMS/HCC) Congestive heart failure (CMS/HCC) Elevated liver enzymes Hypertension Obesity (BMI 30-39.9) Myocardial infarction (CMS/HCC) Osteopenia of right femoral neck Pain in right knee Primary cardiomyopathy (CMS/HCC) Primary ovarian failure Pure hypercholesterolemia Recurrent major depressive disorder Stage 3b chronic kidney disease (CMS/HCC) Thrombocytopenia Type 2 diabetes mellitus with diabetic chronic kidney disease (CMS/HCC) Cardiac pacemaker in situ family history includes Cancer in her brother, father, mother, and sister. Social History Tobacco Use Smoking status: Former Types: Cigarettes Smokeless tobacco: Never Substance Use Topics Alcohol use: Never OBJECTIVE Visit Vitals BP 157/82 (BP Location: Right arm, Patient Position: Sitting) Pulse 75 Ht 1.626 m (5' 4 ) Wt 78 kg (172 lb) SpO2 98% BMI 29.52 kg/m??? OB Status Postmenopausal Smoking Status Former BSA 1.88 m??? Physical Exam Constitutional: General Appearance: well-developed, appears stated age. Level of Distress: no acute distress. Neck: Jugular Veins: normal jugular venous pressure. Lungs: Auscultation: no rales or rhonchi and normal breath sounds. Cardiovascular: Rate And Rhythm: regular Heart Sounds: normal S1 and s2; Systolic Murmur: not heard. Diastolic Murmur: not heard. Extremities: no edema Peripheral Pulses: Pulses: full and equal in all extremities except if noted. Abdomen: Inspection and Palpation: non distended or tender and soft. Musculoskeletal: Inspection: no joint tenderness or swelling. Neurologic: Gait: normal gait. Psychiatric: Mental Status: alert and normal affect. Skin: Inspection and Palpation: warm and dry. Allergies: No Known Allergies Outpatient Medications: Current Outpatient Medications Medication Instructions aspirin 325 mg capsule oral atorvastatin (Lipitor) 40 mg tablet Take 1 tablet every day by oral route for 90 days. carvedilol (Coreg) 12.5 mg tablet Take 1 tablet twice a day by oral route for 90 days. cholecalciferol (Vitamin D-3) 125 MCG (5000 UT) capsule 1 capsule, oral, Daily glimepiride (Amaryl) 2 mg tablet 1 tablet, oral, 2 times daily RT metFORMIN (Glucophage) 500 mg tablet Take 1 tablet twice a day by oral route for 90 days. SITagliptin phosphate (JANUVIA) 50 mg, oral, Daily Recent Labs: No visits with results within 2 Month(s) from this visit. Latest known visit with result (more content not included)... [facility] 09-29-2024 Note SUBJECTIVE Reason for Visit: Marva Wang is a 84 y.o. year old female patient being seen for 6-month follow-up visit. HPI: Marva Wang is a 84 y.o. 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 09/29/2024 office visit: Patient was seen in the office today for evaluation. She reports feeling very well overall and denies chest pain, shortness of breath, lightheadedness, dizziness, or palpitations. Her initial blood pressure was elevated at 153/80 mmHg, and on repeat measurement, it improved to 142/84 mmHg. She was advised to monitor her blood pressure at home, specifically taking readings in the morning before taking her medications, including carvedilol, again one to two hours after medication administration, and once more in the evening. She was instructed to bring the blood pressure log to her next visit, at which time we will reassess and determine if any changes to her antihypertensive regimen are needed. She has no additional concerns at this time. 03/15/2024 office visit (Dr. Lee): Here today for follow-up visit. She has been doing well. She denies any chest pain or shortness of breath at rest or with exertion. She denies orthopnea or paroxysmal nocturnal dyspnea or dizziness or palpitations. She denies legs edema or discomfort on exertion. Past Medical History: Diagnosis Date Abnormal ECG AV block Cardiomyopathy (CMS/HCC) CHF (congestive heart failure) (CMS/HCC) Diabetes mellitus (CMS/HCC) Past Surgical History: Procedure Laterality Date INSERT / REPLACE / REMOVE PACEMAKER Patient Active Problem List Diagnosis Allergic rhinitis Atherosclerosis of coronary artery without angina pectoris Biventricular cardiac pacemaker in situ Cardiomyopathy, ischemic Chronic systolic congestive heart failure, NYHA class 2 (CMS/HCC) Complete atrioventricular block (CMS/HCC) Congestive heart failure (CMS/HCC) Elevated liver enzymes Hypertension Obesity (BMI 30-39.9) Myocardial infarction (CMS/HCC) Osteopenia of right femoral neck Pain in right knee Primary cardiomyopathy (CMS/HCC) Primary ovarian failure Pure hypercholesterolemia Recurrent major depressive disorder Stage 3b chronic kidney disease (CMS/HCC) Thrombocytopenia Type 2 diabetes mellitus with diabetic chronic kidney disease (CMS/HCC) Cardiac pacemaker in situ family history is not on file. OBJECTIVE Visit Vitals BP 142/84 (BP Location: Right arm, Patient Position: Sitting) Pulse 79 Ht 1.626 m (5' 4 ) Wt 79.4 kg (175 lb) SpO2 97% BMI 30.04 kg/m??? OB Status Postmenopausal BSA 1.89 m??? Physical Exam Constitutional: General Appearance: well-developed, appears stated age. Level of Distress: no acute distress. Neck: Jugular Veins: normal jugular venous pressure. Lungs: Auscultation: no rales or rhonchi and normal breath sounds. Cardiovascular: Rate And Rhythm: regular Heart Sounds: normal S1 and s2; Systolic Murmur: not heard. Diastolic Murmur: not heard. Extremities: Trace lower extremity edema Peripheral Pulses: Pulses: full and equal in all extremities except if noted. Abdomen: Inspection and Palpation: non distended or tender and soft. Musculoskeletal: Inspection: no joint tenderness or swelling. Neurologic: Gait: normal gait. Psychiatric: Mental Status: alert and normal affect. Skin: Inspection and Palpation: warm and dry. Allergies: No Known Allergies Outpatient Medications: Current Outpatient Medications Medication Instructions aspirin 325 mg capsule oral atorvastatin (Lipitor) 40 mg tablet Take 1 tablet every day by oral route for 90 days. carvedilol (Coreg) 12.5 mg tablet Take 1 tablet twice a day by oral route for 90 days. cholecalciferol (Vitamin D-3) 125 MCG (5000 UT) capsule 1 capsule, oral, Daily glimepiride (Amaryl) 2 mg tablet 1 tablet, oral, 2 times daily RT metFORMIN (Glucophage) 500 mg tablet Take 1 tablet twice a day by oral route for 90 days. SITagliptin phosphate (JANUVIA) 50 mg, oral, Daily Recent Labs: No visits with results within 2 Month(s) from this visit. Latest known visit with results is: Ancillary Procedure on 05/27/2023 Component Date Value Date Time Interrogation * 05/27/2023 [id number] Implantable Pulse Genera* 05/27/2023 Medtronic Implantable Pulse Genera* 05/27/2023 [id number] Adapta Implantable Pulse Genera* 05/27/2023 [id number] Type Interrogation Sessi* 05/27/2023 In Clinic Clinic Name 05/27/2023 [facility] Implantable Pulse Genera* 05/27/2023 Pacemaker Implantable Pulse Genera* 05/27/2023 [id number] Implantable Lead Manufac* 05/27/2023 Medtronic Implantable Lead Model 05/27/2023 4023 CapSure SP Implantable Lead Serial * 05/27/2023 [id number] Implantable Lead Implant* 05/27/2023 [id number] Implantable Lead Location 05/27/2023 Left Ventricle Implantable L (more content not included)... [facility] 03-15-2024 Note [place] Cardiology - [facility] Subjective Marva Wang is a 83 y.o. year old female [...] LFTs Follow-up in 6 months Jonn Lee MD,[facility] 02-27-2023 Note HNO ID: [id number] Author: Leticia Keyes COA Service: ? Author Type: Production Operations Inspector Type: Progress Notes Filed: 02/27/2023 9:49 AM Note Text: CONFIRM AIM PLANO BOTH EYES. PATIENT AWARE THAT SHE WILL NEED GLASSES FOR ALL DISTANCES. BOZENA Hurley [facility] 02-27-2023 History of Present illness Narrative CONFIRM AIM PLANO BOTH EYES. PATIENT AWARE THAT SHE WILL NEED GLASSES FOR ALL DISTANCES. BOZENA Hurley documented in this encounter [facility] 02-27-2023 Instructions Shoshana Nieves APRN.ELECTRONIC COMMERCE SPECIALIST - 02/27/2023 8:53 AM EDT PATIENT PREOPERATIVE INSTRUCTIONS Jed Marcos V, MD has scheduled you for your procedure at this surgery center: [facility]: [phone] --[phone] [place] [address]. Please read below carefully for your personalized [...] Procedures: - YOU MUST HAVE A RESPONSIBLE AUTO DETAILER TAKE YOU HOME. A PIN BALL MACHINE MECHANIC OR HELIOTHERAPIST CANNOT BE MADE A RESPONSIBLE AUTO DETAILER. - We recommend that a responsible person [...] Advance Directive, please fax a copy to [phone] or email to for it to be [...] into your chart that day. Shoshana Nieves APRN.ELECTRONIC COMMERCE SPECIALIST documented in this encounter [facility] 02-27-2023 History and physical note HISTORY AND PHYSICAL EXAMINATION SERVICE DATE: 02/27/2023 SERVICE TIME: 8:39 AM PRIMARY CARE PHYSICIAN: Carmen Quintana CNP, MD REASON FOR VISIT: Marva Wang is a 82 year old female who is scheduled for PHACOEMULSIFICATION CATARACT IMPLANT INTRAOCULAR LENS W/O ENDOSCOPIC CYCLOPHOTOCOAGULATION bilateral at the request of Dr. Jed Marcos V for consultation. My final recommendation will [...] fevers. Neuro: No history of TIA's, stroke, GRIT BLASTER tumor, impaired sensorium, hemiplegia, paraplegia or quadraplegia. No neurological symptoms or problems. Respiratory: No history of current cough or dyspnea, or pneumonia in the past 6 weeks. No history of respiratory/pulmonary symptoms or problems. Cardiovascular: Positive for: HLD, Hypertension Pacemaker on ASA follows with Dr. Longoria from in [place] Denies rest pain, gangrene or revascularization/amputation for PVD. GI: No history of GI symptoms or problems. No history of esophageal varices, recent ascites, or ETOH greater than 2 drinks per day. : No difficulty urinating, nocturia > 1 time per night or hematuria, History of kidney stones HEAD OF DIGITAL ADVERTISING & INTEGRATION: Negative for abnormal vaginal bleeding, abnormal vaginal [...] visit: CARDIAC PACEMAKER IN PDF FILE FROM CARE EVERYWHERE 12/18/2022 Lab Value Units Date High Low ABORHD No results within date range. ABSCREEN No results within date range. Echocardiogram 2D complete Anatomical Region Laterality Modality -- -- Ultrasound Narrative PERFORMED AT [facility] LOCATION:[place] [address] Patient: RAYMNOD George Exam Date: 05/08/2021 : 1940 Gender:F Ordering : PEPE KOVACS Admission #: [id number] Family : DR EUGENE RYAN M.D. Order #: [id number] CLICK HERE TO VIEW EXAM ECHOCARDIOGRAM REPORT [...] Area(A4C): 20.50 cm2 Left Atrium Systolic Volume(A2C): 17482 mm3 Left Atrium Systolic Volume(A4C): 74869 mm3 Mitral Valve MV E to A Ratio: 0.70 Deceleration Cooke: 2330 mm/s2 Mitral Valve A-Wave Peak Velocity: [...] SIGNATURE: Shoshana Nieves APRN.CNP PATIENT NAME: Marva Wang DATE: February 27, 2023 TIME: 8:39 AM documented in this encounter [facility] 01-09-2023 Note HNO ID: [id number] Author: Jed Marcos V, MD Service: ? Author Type: Physician Type: Progress Notes Filed: 01/09/2023 4:04 PM Note Text: The documentation for this note was completed by Aide Moreland, [facility] acting as a scribe for Jed MARCOS MD. 01/09/2023 3:01 PM. ASSESSMENT / PLAN: 1. Combined cataract, both eyes - Offered cataract extraction by phacoemulsification and intraocular lens implant with Dr. Marcos, both eyes, left eye first - Aim: plano Both eyes [do not recommend interrupting binocularity in the setting of probable glaucomatous Visual field loss] - Flomax/alpha-endy? No - Toric candidate: No - PanOptix candidate: No - Anesthesia: Topical with MAC - Contact lens use No - History of LASIK/PRK/RK No - Discussed initiate twice daily eyelid scrubs pending U/S biometry and surgery - Comanage with Dr Ibrahim; [facility] POD #1 Cataract Presurgical Documentation Cataract: Both eyes (OU) Current Visual Acuity Right Eye Distance CC 20/30 Left Eye Distance CC 20/30 Best Corrected Vision Right Eye 20/30 Best Corrected Vision Left Eye 20/30 Glare Testing: Right Eye High Less jagdish 20/400 Left Eye High Less than 20/400 Visual Function: Marva Wang states that the decline in vision from the cataract impedes her abilities as listed in the HPI, as well as other activities of daily living. Marva Wang has confirmed that she is no longer [...] with lens implantation were discussed with Marva Wang in detail. These included, but are not [...] patient was offered a surgery/procedure at a [facility] facility. The surgeon/proceduralist and patient have discussed [...] others. I have seen and examined Marva Wang. I also have reviewed and agree with the assessment and plan as stated above and agree with all of its relevant components. Jed MARCOS MD January 09, 2023 3:01 PM [facility] 01-09-2023 Miscellaneous Notes Addended by: BINDU LÓPEZ on: 01/09/2023 04:33 PM Modules accepted: Orders documented in this encounter [facility] 01-09-2023 Note HNO ID: [id number] Author: Tyson Fleming, OD Service: ? Author Type: WARPER FIXER Type: Progress Notes Filed: 01/09/2023 4:04 PM Note Text: ASSESSMENT/PLAN: 1. Combined forms of age-related cataract of both eyes - ICD9: 366.19, ICD10: H25.813 (primary diagnosis) Dr Jed Marcos Cataract evaluation today 2. Glaucoma suspect of both eyes - ICD9: 365.00, ICD10: H40.003 Large c/d's with thin rims Average IOPs Ttoday 17/17 Pachs 600/594 Arcuate RNFL losses Both eyes with corresponding GCL losses OD > OS +++ Documented history of Andres [place] x [address] Ibrahim+++ Likely Glaucoma (NTGlc) Review with Dr Jed Marcos today - Likely to start treatment I have confirmed and edited as necessary the relevant ophthalmic history, ROS, and the exam findings as obtained by others. I have seen and examined this patient. I also have reviewed and agree with the assessment and plan as stated above and agree with all of its relevant components. Tyson Fleming, OD January 09, 2023 2:20 PM [facility] 01-09-2023 History of Present illness Narrative The documentation for this note was completed by Aide Moreland, [facility] acting as a scribe for Jed MARCOS MD. 01/09/2023 3:01 PM. ASSESSMENT / PLAN: 1. Combined cataract, both eyes - Offered cataract extraction by phacoemulsification and intraocular lens implant with Dr. Marcos, both eyes, left eye first - Aim: plano Both eyes [do not recommend interrupting binocularity in the setting of probable glaucomatous Visual field loss] - Flomax/alpha-endy? No - Toric candidate: No - PanOptix candidate: No - Anesthesia: Topical with MAC - Contact lens use No - History of LASIK/PRK/RK No - Discussed initiate twice daily eyelid scrubs pending U/S biometry and surgery - Comanage with Dr Ibrahim; [facility] POD #1 Cataract Presurgical Documentation Cataract: Both eyes (OU) Current Visual Acuity Right Eye Distance CC 20/30 Left Eye Distance CC 20/30 Best Corrected Vision Right Eye 20/30 Best Corrected Vision Left Eye 20/30 Glare Testing: Right Eye High Less jagdish 20/400 Left Eye High Less than 20/400 Visual Function: Marva Wang states that the decline in vision from the cataract impedes her abilities as listed in the HPI, as well as other activities of daily living. Marva Wang has confirmed that she is no longer [...] with lens implantation were discussed with Marva Wang in detail. These included, but are not [...] patient was offered a surgery/procedure at a [facility] facility. The surgeon/proceduralist and patient have discussed [...] others. I have seen and examined Marva Wang. I also have reviewed and agree with the assessment and plan as stated above and agree with all of its relevant components. Jed MARCOS MD January 09, 2023 3:01 PM ASSESSMENT/PLAN: 1. Combined forms of age-related cataract of both eyes - ICD9: 366.19, ICD10: H25.813 (primary diagnosis) Dr Jed Marcos Cataract evaluation today 2. Glaucoma suspect of both eyes - ICD9: 365.00, ICD10: H40.003 Large c/d's with thin rims Average IOPs Ttoday 17/17 Pachs 600/594 Arcuate RNFL losses Both eyes with corresponding GCL losses OD > OS +++ Documented history of Drance Hemes x [address] Ibrahim+++ Likely Glaucoma (NTGlc) Review with Dr Jed Marcos today - Likely to start treatment I have confirmed and edited as necessary the relevant ophthalmic history, ROS, and the exam findings as obtained by others. I have seen and examined this patient. I also have reviewed and agree with the assessment and plan as stated above and agree with all of its relevant components. Tyson Fleming, BLOSSOM January 09, 2023 2:20 PM documented in this encounter [facility] 11-19-2021 Hospital Discharge instructions Patient Education 11/19/2021 [...] include: ?Spinach. ?Rhubarb. ?Beets. ?Potato chips and south korean fries. ?Nuts. If you regularly take a diuretic medicine, make sure to eat at least 1 2 fruits or vegetables high in potassium each day. These include: ?Avocado. ?Banana. ?Kenedy, prune, carrot, or tomato juice. ?Baked potato. [...] Casseroles. Pizza. Lasagna. Frozen meals. Potato chips. Upper Sorbian fries. Summary You can reduce your risk [...] 10/18/2011 Document Revised: 10/13/2019 Document Reviewed: 06/03/2017 [employer] Patient Education 2020 [employer]. Follow Up Care 05/24/2021 08:42:01 With:Yao DINERO MD, URL Address: [facility] [address], [place] [address]- When: Unknown [facility] Evaluation + Plan note Future Appointments Appointment Date:05/27/2022 11:15:00 AM Scheduled Provider:Yao DINERO MD Location:[facility] Appointment Type:URO Office Visit Diagnostic Tests PendingCalculi Analysis Urinary 11/19/21 [facility] Evaluation + Plan note Future Appointments Appointment Date:05/27/2022 11:15:00 AM Scheduled Provider:Yao DINERO MD [facility] App[facility] Type:URO Office Visit Diagnostic Tests PendingUrine Culture 11/19/21 [facility] Evaluation note Diagnosis Combined forms of age-related cataract of both eyes- Primary Other and combined forms of senile cataract Glaucoma suspect of both eyes Preglaucoma, unspecified [facility] Diagnosis Pre-operative clearance- Primary Preoperative examination, [...] of senile cataract documented in this encounter [facility] note* Diagnosis Combined forms of age-related cataract of both eyes Other and combined forms of senile cataract Combined forms of age-related cataract of both eyes Other and combined forms of senile cataract Combined forms of age-related cataract of both eyes Other and combined forms of senile cataract documented in this encounter [facility] course Narrative No data available for this section [facility] Discharge instructions No data available for this section [facility] Summary Purpose Family History No Family [...] a Fluress shortage, administer 1 drop of Karolina-Fluor into both eyes as directed for applanation [...] Starting on Fany 01/09/23 at 1330, Until 01/10/23 at 0129, Administer for dilation, OP[facility] CLINIC MED ORDERS Given 01/09/2023 1:30 PM EDT 1 Drop Additional Source Comments INFORMATION SOURCE (unrecogn ized section and content) DATE CREATED AUTHOR 04/03/[address] [facility] DATE CREATED AUTHOR AUTHOR'S ORGANIZ ATION 08/06/2021 [facility] dical Specialist DATE CREATED AUTHOR AUTHOR'S ORGANIZ ATION 05/28/2022 [facility] DATE CREATED AUTHOR AUTHOR'S ORGANIZ ATION 08/15/2022 [facility] DATE CREATED AUTHOR AUTHOR'S ORGANIZ ATION 03/27/2023 [facility] DATE CREATED AUTHOR AUTHOR'S ORGANIZ ATION 11/16/2024 [facility] Source Comments (unrecognize d section and content) In the event this informatio n is protected by the Federal Confidentiality of Alcohol and Drug Abuse Patient Records regulations: The Federal rules restrict any use of the information to criminally investigate or prosecute any alcohol or drug abuse patient.[facility] the event this information is protected by the Federal Confidentiality of Alcohol and Drug Abuse Patient Records regulations: The Federal rules restrict any use of the information to criminally investigate or prosecute any alcohol or drug abuse patient.[facility] the event this information is protected by the Federal Confidentiality of Alcohol and Drug Abuse Patient Records regulations: The Federal rules restrict any use of the information to criminally investigate or prosecute any alcohol or drug abuse patient.[facility] Reason for Visit (unrecogniz ed section and content) Reason Comments Cataract Evaluation Reason Comments Anesthesia Consult Bilateral Cataract Reason Comments Pre-Op Exam Care Teams (unrecognized sec tion and content) Regrinder Operator Relationship Specialty Start Date End Date Carmen Quintana MD [address] [place] [address] PCP - General Internal Medicine 02/20/23 Regrinder Operator Relationship Specialty Start Date End Date Carmen Quintana MD [address] [place] [address] PCP - General Internal Medicine 02/20/23 Regrinder Operator Relationship Specialty Start Date End Date Eugene Ryan MD [address] [facility] [address] [place] [address] PCP - ACO Reach 11/28/22 Eugene Ryan MD [address] [facility] [address] [place] [address] PCP - General Internal Medicine 11/12/22 FOR RECORDS PERTAINING TO PATIENTS WHO ARE [...] BE BASED ON THE PRIMARY CLINICAL RECORDS. [employer] [facility]. provides no warranty or guarantee of the accuracy or completeness of information in this document.
[2024-12-01 12:16] LABS: Anion Gap 13.8; Calcium 9.5 mg/dL (8.5-10.1); Carbon Dioxide 26.3 mmol/L (21.0-32.0); Chloride 105 mmol/L (98-107); Estimated GFR (African America 40 (>=60 mL/min/1.73m^2); Estimated GFR (Non-African Ame 33 (>=60 mL/min/1.73m^2); Glucose 207 mg/dL (74-106); Potassium 5.1 mmol/L (3.5-5.1); Sodium 140 mmol/L (136-145)
== END 2024-12-01 11:49 | disposition home or self-care (01) ==
LOC: LAB 11:50
PROVIDERS: PCP Internal Medicine
DX: I11.0 Hypertensive heart disease with heart failure (principal); I50.22 Chronic systolic (congestive) heart failure
CPT/HCPCS: 36415; 80048

== ENCOUNTER 2025-05-27 13:48 | Outpatient (OUT) | payer MEDICARE, SELFPAY ==
--- OUTSIDE RECORDS SUMMARY | 2025-05-24 11:20 | XMS_ITS | Encounter Summary ---
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 Patient denies chest pain, SOB/BUENO, palpitations/racing heart, fatigue, leg swelling,dizziness/lightheadedCoronary Artery DiseaseCongestive Heart Failure CardiomyopathyIschemiccomplete atrioventricular blockPacemakerHypertensionMI Hyperlipidemia Encounter Details DateTypeDepartmentCare Team (Latest Contact Info)Urdrtqzaelu37/18/2025 11:20 AM ESTOffice Visit [facility] [address] [place] [address] Janina Ordoñez CNP [address] [place] [id number] Chronic systolic heart failure (CMS/HCC) (Primary Dx); [...] Assigned at BirthFemale 05/03/2025 2:29 PM EDTLegal OnvBmqflb44/29/2022 10:03 PM EDTGender Identity Riymyl1005/03/2025 2:29 PM EDTSexual OrientationChoose not to ynmrphmh71/29/2025 11:20 PM EDTdocumented as of this encounter Last Filed Vital Signs Vital SignReadingTime TakenCommentsBlood Xocctcce556/7405/24/2025 11:18 AM EST Nrbgz786605/24/2025 11:18 AM ESTTemperature--Respiratory Rate--Oxygen Saturation 98%05/24/2025 11:18 AM ESTInhaled Oxygen Concentration--Vglajb32.7 kg (178 lb) 05/24/2025 11:18 AM RHQXozmsl545.6 cm (5' 4 )05/24/2025 11:18 AM ESTBody Mass Index30.5505/24/2025 11:18 AM ESTdocumented in this encounter Functional Status * BPAnswerDate of QoeybnvujkWqblvj458/7405/24/2025 11:18 AM Jessica Mtz MA * PulseAnswerDate of AqgftrvuuzLjnhnn0451 11:18 AM Jessica Mtz MA * Audit Alcohol ScreeningQuestionAnswerDate of AssessmentAuthorHow often do you have a drink containing alcohol? 12:12 PM Jessica Mtz MA * Patient PositionAnswerDate of ZiogeztunuYzpsokTfxatri05/18/2025 11:18 AM Jessica Rivera MA * BPAnswerDate of SqacjnmdasCatvjb193/7405/24/2025 11:18 AM Jessica Mtz MA * PulseAnswerDate of AyhlldnnkgDsoguq4083 11:18 AM Jessica Mtz MA * YmT0TbgutcTspe of VottfadeldGdjqyi9705/18/2025 11:18 AM Jessica Mtz MA * BP LocationAnswerDate of AssessmentAuthorRight arm05/24/2025 11:18 AM Jessica Rivera MA * Audit Alcohol ScreeningQuestionAnswerDate of AssessmentAuthorHow often do you have a drink containing alcohol? 12:12 PM Jessica Mtz MA * Patient PositionAnswerDate of ReqwglvszrHwlbmxIrvvajg20/18/2025 11:18 AM Jessica Rivera MA documented as of this encounter Progress Notes * Janina Ordoñez, GRACIELA - 05/24/2025 11:20 AM EST Images from the original note were not included. Cardiovascular Medicine [facility] SUBJECTIVE Chief Complaint Patient presents with Follow-up Patient is here today for a 6 month follow up. Patient denies chest pain, SOB/BUENO, palpitations/racing heart, fatigue, leg swelling,dizziness/lightheaded Coronary Artery Disease Congestive Heart Failure Cardiomyopathy Ischemic complete atrioventricular block Pacemaker Hypertension [place] Hyperlipidemia Marva Wang is a 85 y.o. [...] Team MemberRelationshipSpecialtyStart DateEnd Eugene Ryan MD [address] [place] [address] PCP - Dioiplt65/19/22documented as of this encounter
--- OUTSIDE RECORDS SUMMARY | 2025-05-27 13:50 | XMS_ITS | Encounter Summary ---
Author Organization [facility] Address [address] [place] [address] Care Team Providers Care Cloth Finishing Range Operator Chief Name Role Phone Eugene Ryan MD Primary Care Provider Reason for Visit * ReasonOnset DateCommentsMed Xcbsxc6305/16/2025 Encounter Details DateTypeDepartmentCare Team (Latest Contact Info)Slyzlqbkije33/10/2025Refill [facility] Heart at [facility] [address] [place] [address] Kareen Leong MA Primary hypertension; Chronic systolic congestive heart failure, NYHA class 2 (CMS/HCC) Social History Tobacco UseTypesPacks/DayYears UsedDateSmoking Tobacco: FormerCigarettes Smokeless Tobacco: NeverAlcohol UseStandard Drinks/WeekCommentsNever0 (1 standard drink = 0.6 oz pure alcohol)UT Safety & EnvironmentAnswerDate Recorded Fear of Current or Ex-PartnerNot on file08/28/2023Emotionally AbusedNot on file 08/28/2023hysically AbusedNot on file08/28/2023Sexually AbusedNot on file 4Physically or Sexually AbusedNot on file08/28/2023CommentsNo Sex and Gender InformationValueDate RecordedSex Assigned at BirthFemale 05/03/2025 2:29 PM EDTLegal TtmXbkdxq88/29/2022 10:03 PM EDTGender Identity Picauf1005/03/2025 2:29 PM EDTSexual OrientationChoose not to bwstramt64/29/2025 11:20 PM EDTdocumented as of this encounter Plan of Treatment Not on file documented as of this encounter Visit Diagnoses Diagnosis Primary hypertension Unspecified essential hypertension Chronic systolic congestive heart failure, NYHA class 2 (CMS/HCC) documented in this encounter Care Teams Team MemberRelationshipSpecialtyStart DateEnd Date Eugene Ryan MD [address] [place] [id number] PCP - Ocijhgc64/19/22documented as of this encounter
--- OUTSIDE RECORDS SUMMARY | 2025-05-27 13:50 | XMS_ITS | Clinical Summary ---
Author Organization [facility] Address [address] [place] [address] Care Team Providers Care Store Custodian Name Role Phone Carmen Hernandez NP Primary Care Provider [phone] Allergies No known active allergies Medications MedicationSigDispense QuantityRefillsLast FilledStart DateEnd DateStatus aspirin 325 mg cap Take by mouth.04/17/2021ctive atorvastatin (LIPITOR) 40 mg tablet Take by mouth.04/17/2021ctive carvedilol (COREG) 12.5 mg tablet Take by mouth.04/17/2021ctive glimepiride (AMARYL) 1 mg tablet Take by mouth.04/17/2021ctive metFORMIN (GLUCOPHAGE) 500 mg tablet Take by mouth.04/17/2021ctive JANUVIA 50 mg tablet 01/01/2023ctive prednisoLONE acetate (PRED FORTE) 1 % ophthalmic suspension USE DIRECTED BY PHYSICIAN, IN OPERATIVE EYE, BEGINNING ONE DAY AFTER SURGERY 5 mL 03/11/2023ctive keTORolac (ACULAR) 0.5 % ophthalmic solution USE DIRECTED BY PHYSICIAN, IN OPERATIVE EYE, BEGINNING ONE DAY AFTER SURGERY 5 mL 03/11/2023ctive prednisoLONE acetate (PRED FORTE) 1 % ophthalmic suspension USE DIRECTED BY PHYSICIAN, IN OPERATIVE EYE, BEGINNING ONE DAY AFTER SURGERY 5 mL 03/25/2023ctive keTORolac (ACULAR) 0.5 % ophthalmic solution USE DIRECTED BY PHYSICIAN, IN OPERATIVE EYE, BEGINNING ONE DAY AFTER SURGERY 5 mL 03/25/2023ctive Active Problems ProblemNoted DateDiagnosed DateMyocardial bpfpztekgb12 Biventricular cardiac pacemaker in situ Assessment & Plan (02/27/2023 9:07 AM EDT): Assessment: Pacemaker in place Last checked 12/[address] [place] Complete atrioventricular block Assessment & Plan (02/27/2023 9:08 AM EDT): Assessment: s/p pacemaker insertion Diabetes mellitus Assessment & Plan (02/26/2023 10:41 AM EDT): Stable on oral medication HLD (hyperlipidemia) Assessment & Plan (02/27/2023 9:06 AM EDT): Assessment: stable on medication Hypertension Assessment & Plan (02/27/2023 9:07 AM EDT): Assessment: Stable on medication BP today 138/75 To take medication morning of surgery Family History Medical HistoryRelationCommentsCataractDaughterRelationStatusCommentsDaughter Alive Social History Tobacco UseTypesPacks/DayYears UsedDateSmoking Tobacco: NeverSmokeless Tobacco: Never Tobacco Cessation:Counseling Given: Not Answered Alcohol UseStandard Drinks/WeekCommentsNot Currently0 (1 standard drink = 0.6 oz pure alcohol)Area Deprivation IndexAnswerDate RecordedNational Score (1-100), lower number is lower ryni589401/09/2023State Score (1-10), lower number is lower eqgj2253Data from: https://www.neighborhoodatlas.medicine.[facility].edu/. Last address used for [address] 01/09/2023CommentsNoSex and Gender InformationValueDate RecordedSex Assigned at BirthNot on fileLegal Sex Fcimop0110/25/2022 8:24 AM EDTGender WebalabpJthham07/21/2023 8:26 AM EDTSexual OrientationNot on file Last Filed Vital Signs Vital SignReadingTime TakenCommentsBlood Svmbnfhb872/6809 10:25 AM EDT Ruxtp2633 10:25 AM WNPHoxbqakujra41.1 ??C (96.9 ??F)03/26/2023 10:18 AM EDTRespiratory Lljk591703/26/2023 10:25 AM EDTOxygen Wnvrskbmjp09%03/26/2023 10:25 AM EDTInhaled Oxygen Concentration--Gjliqm47.6 kg (182 lb)02/27/2023 8:37 AM EDT Uapozr578.6 cm (5' 4 )02/27/2023 8:37 AM EDTBody Mass Index31.24002/27/2023 8:37 AM EDT Plan of Treatment Health MaintenanceDue DateLast DoneCommentsAnxiety Pmxwtehht39/08/1959Depression Qvtpchvuu64/08/1959DTaP,Tdap,Td Vaccine (1 - Tdap)1960Diabetes Screening 1986Bone Density Myovuaksd72/08/2006Shingrix Vaccine (2 of 3)02/18/2015 12/24/2014Pneumococcal Vaccine: 50+ (2 of 2 - PCV20 or PCV21)12/25/2015 12/24/2014RSV Vaccine (1 - 1-dose 75+ series)2016Advance Directive Iprehmhiie75/01/2025Covid-19 Vaccine ( season), 10/08/2021, 06/04/2021, Additional history existsInfluenza Vaccine (#1) /, 05/08/2021, 03/25/2020, Additional history exists Medical Devices ImplantedTypeAreaManufacturerDevice [facility] Expiration DateModel / Serial / FboOjg-Hz-H-Kind Implant - [id number] Implanted:Qty: 1 on 03/12/2023 by Arlene Marcos V, MD at [facility] Left: EyeALCON [id number]/08/[id number] / [id number] / Description:-0.18Clareon Iol [id number] +25.5 D Implanted:Qty: 1 on 03/26/2023 by Arlene Marcos V, MD at [facility] JAYDEN GOPJWZUAGLND19/27/1645IC51HR.255 / [id number] / Description:-0.14 Insurance Care Teams Team MemberRelationshipSpecialtyStart DateEnd Date Carmen Hernandez NP [address] [place] [address] PCP - GeneralInternal Medicine02/20/23
--- OUTSIDE RECORDS SUMMARY | 2025-05-27 13:50 | XMS_ITS | Clinical Summary ---
Author Organization [facility] Address [address] [place] [address] Care Team Providers Care Vice President Client Services Name Role Phone Eugene Ryan MD Primary Care Provider [phone] Allergies No known active allergies Medications MedicationSigDispense QuantityRefillsLast FilledStart DateEnd DateStatus carvedilol (Coreg) 12.5 mg tablet Take 1 tablet twice a day by oral route for 90 days.04/17/2021ctive SITagliptin phosphate (Januvia) 50 mg tablet Take 50 mg by mouth 1 (one) time each day.01/01/2023ctive metFORMIN (Glucophage) 500 mg tablet Take 1 tablet twice a day by oral route for 90 days.04/17/2021ctive atorvastatin (Lipitor) 40 mg tablet Take 1 tablet every day by oral route for 90 days.04/17/2021ctive glimepiride (Amaryl) 2 mg tablet Take 1 tablet by mouth in the morning and at bedtime.Active aspirin 325 mg capsule Take by mouth.04/17/2021ctive cholecalciferol (Vitamin D-3) 125 MCG (5000 UT) capsule Take 1 capsule by mouth in the morning.Active cyanocobalamin (Vitamin B-12) 1,000 mcg tablet Take 1,000 mcg by mouth in the morning.Active chlorthalidone (Hygroton) 25 mg tablet Indications:Primary hypertension,Chronic systolic congestive heart failure, NYHA class 2 (CMS/HCC)Take 0.5 tablets (12.5 mg) by mouth in the morning. 45 tablet /ctive chlorthalidone (Hygroton) 25 mg tablet Indications:Primary hypertension,Chronic systolic congestive heart failure, NYHA class 2 (CMS/HCC)Take 0.5 tablets (12.5 mg) by mouth in the morning. 15 tablet /04/2025Discontinued(Reorder) Active Problems ProblemNoted DateDiagnosed DateCongestive heart hjpelej68 Eeqhrdngzatt79 Overview (07/22/2023): Last Assessment & Plan: Assessment: Stable on medication BP today 138/75 To take medication morning of surgery Cardiac pacemaker in situ07/22/2023llergic lwosmxzs92 Atherosclerosis of coronary artery without angina aspcrphk12 Cardiomyopathy, ymaqwjnb87hronic systolic congestive heart failure, NYHA class Elevated liver tcoriqy1502/26/2023 07/22/2023Obesity (BMI 30-39.9)Myocardial infarction 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 ovarian dqxeumk23ure wewrksmtqbvfcekxelah24/23/202301/16/2024Recurrent major depressive disorder Stage 3b chronic kidney Dlbxjuopupmfkbtq33Type 2 diabetes mellitus with diabetic chronic kidney hevrjkk81 Overview (07/22/2023): Last Assessment & Plan: Stable on oral medication Primary grhjgjvgbekzel22omplete atrioventricular block Overview (07/22/2023): Last Assessment & Plan: Assessment: s/p pacemaker insertion Resolved Problems ProblemNoted DateDiagnosed DateResolved DateHLD (hyperlipidemia)07/22/2023 Overview (07/22/2023): Last Assessment & Plan: Assessment: stable on medication Encounters DateTypeDepartmentCare ErpoSquogvrxpqs75/18/2025 11:[address] [facility] [address] [place] [address] Janina Ordoñez CNP Chronic systolic heart failure (CMS/HCC) (Primary Dx); 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); Cardiac pacemaker in situ; Sinus node dysfunction (CMS/HCC); Benign hypertensive heart disease with heart failure (CMS/HCC)05/16/2025Refill [facility] [address] [place] [address] Garth [place] Primary hypertension; Chronic systolic congestive heart failure, NYHA class 2 (CMS/HCC)05/03/2025 2:[address] [facility] [facility] [address] [place] [address] Encounter for checking and testing of cardiac pacemaker pulse generator (battery)04/21/2025 11:05 AM EDTAncillary Procedure [facility] [address] [place] [address] Adjustment and management of cardiac ejvqnefwi91/15/2025Orders Only [facility] [address] [place] [address] Pepe Kathleen MD from Last 3 Months Family History Medical HistoryRelationNameCommentsCancerBrotherCancerFatherCancerMotherCancer SisterRelationNameStatusCommentsBrotherDeceasedFatherDeceasedMotherDeceased SisterDeceased Social History Tobacco UseTypesPacks/DayYears UsedDateSmoking Tobacco: FormerCigarettes Smokeless Tobacco: Never Tobacco Cessation:Counseling Given: Not Answered Alcohol UseStandard Drinks/WeekCommentsNever0 (1 standard drink = 0.6 oz pure alcohol)UT Safety & EnvironmentAnswerDate RecordedFear of Current or Ex-Partner Not on file08/28/2023Emotionally AbusedNot on file08/28/2023hysically AbusedNot on file08/28/2023Sexually AbusedNot on file08/28/2023hysically or Sexually AbusedNot on file08/28/2023CommentsNoSex and Gender InformationValueDate RecordedSex Assigned at QdixpTjzcgq56/28/2025 2:29 PM EDTLegal SexFemale 01/02/2022 10:03 PM EDTGender UlbuhnxqRwsnvc32/28/2025 2:29 PM EDTSexual OrientationChoose not to kqbossgq93/29/2025 11:20 PM EDT Last Filed Vital Signs Vital SignReadingTime TakenCommentsBlood Yxaxprnu892/7411 11:18 AM EST Dvvlr267605/24/2025 11:18 AM ESTTemperature--Respiratory Jhut4518 4:30 PM EDTOxygen Mjddoeojpy67%05/24/2025 11:18 AM ESTInhaled Oxygen Concentration-- Csojva15.7 kg (178 lb)05/24/2025 11:18 AM NNIGgrhog286.6 cm (5' 4 )05/24/2025 11:18 AM ESTBody Mass Index30.5505/24/2025 11:18 AM EST Plan of Treatment Health MaintenanceDue DateLast DoneCommentsMedicare Annual Wellness (AWV) 1Diabetes: Retinopathy Ebxcxlahh35/08/1951epression Screening 1953Zoster Vaccines (1 of 2)Fall Risk Screening 2006Pneumococcal Vaccine: 50+ Years (2 of 2 - PPSV23, PCV20, or PCV21) Diabetes: Hemoglobin A1C///3COVID-19 Vaccine ( season)5003/16/2025, 03/27/2024, 06/10/2023, Additional history existsAdult Yudkfbw53/10/72006703/16/2025Influenza VaccineCompleted 03/16/2025, 03/27/2024, 05/12/2023, Additional history existsHIB VaccinesAged OutNo longer eligible based on patient's age to complete this topicHPV Vaccines Aged OutNo longer eligible based on patient's age to complete this topicIPV VaccinesAged OutNo longer eligible based on patient's age to complete this topic Meningococcal B VaccineAged OutNo longer eligible based on patient's age to complete this topicMeningococcal VaccineAged OutNo longer eligible based on patient's age to complete this topicRotavirus VaccinesAged OutNo longer eligible based on patient's age to complete this topic Medical Devices ImplantedTypeAreaManufacturerDevice IdentifierShelf Expiration DateModel / Serial / [id number] Capsure Sp [id number] Implanted:02/20/2001 (Quantity not on file)[id number] CAPSURE SP / [id number] / 5076 Capsurefix Novus [id number] Implanted:02/20/2001 (Quantity not on file)[id number] CAPSUREFIX NOVUS / [id number] / 5076 Capsurefix Novus [id number] Implanted:02/20/2001 (Quantity not on file)[id number] CAPSUREFIX NOVUS / [id number] / Generator,Asure,Ipg3,Xt Dr Valadez - [id number] - [id number] Implanted:Qty: 1 on 09/22/2023 [facility] CARDIO-VAS [id number] / [id number] / Addr01 Adapta [id number] Implanted:05/28/2016 (Quantity not on file)RsefkazfqRLYZ76 ADAPTA / [id number] / Procedures Procedure NamePriorityDate/TimeAssociated DiagnosisCommentsCARDIAC DEVICE CHECK - IN CLINIC - PACEMAKER DUAL CHAMBER W/ SFOSHzpkxdf79/29/2025 11:07 AM EDT Encounter for checking and testing of cardiac pacemaker pulse generator (battery) CARDIAC DEVICE CHECK CHECK - CCOSLSVwsfrty99/20/2025 10:13 AM EDT Adjustment and management of cardiac pacemaker CARDIAC DEVICE CHECK - REMOTE - WICYLYDGNWpylhfz88/15/2025 12:00 AM EDTfrom Last 3 Months Results * CARDIAC DEVICE CHECK - IN CLINIC - PACEMAKER DUAL CHAMBER W/ PROG (05/04/2025 11:07 AM EDT)Anatomical RegionLateralityModalityOtherSpecimen (Source) Anatomical Location / LateralityCollection Method / VolumeCollection Time Received Time Narrative 05/09/2025 5:27 AM EST By using the attestations below, the signing clinician agrees that I have read and verify that the documentation has been personally reviewed by me and ensure that the documentation accurately reflects the encounter. Routine EP device follow up as per schedule. Please see attached note Authorizing ProviderResult TypeResult StatusPaul Hever MDCV IMPLANTABLE CARDIAC DEVICE PROCEDURESFinal Result * CARDIAC DEVICE CHECK - REMOTE - PACEMAKER (04/25/2025 10:13 AM EDT)Specimen (Source)Anatomical Location / LateralityCollection Method / VolumeCollection TimeReceived Time Narrative Authorizing ProviderResult TypeResult StatusPaul Hever MDCV IMPLANTABLE CARDIAC DEVICE PROCEDURESFinal ResultPerforming OrganizationAddressCity/State/ZIP Code Phone Number CPACS * Cardiac device check - Remote pacemaker (04/20/2025 12:00 AM EDT)Anatomical RegionLateralityModalityOtherSpecimen (Source)Anatomical Location / Laterality Collection Method / VolumeCollection TimeReceived Time04/20/2025 Narrative Authorizing ProviderResult TypeResult StatusPaul Hever MDCV IMPLANTABLE CARDIAC DEVICE PROCEDURESFinal Result from Last 3 Months Insurance Advance Directives * Full Code (Latest Code Status on File) Date ActivatedDate InactivatedComments09/22/2023 3:56 PM09/22/2023 7:05 PM Care Teams Team MemberRelationshipSpecialtyStart DateEnd Date Eugene Ryan MD [address] [facility] [address] [place] [address] PCP - Htpbdat07/19/22
--- OUTSIDE RECORDS SUMMARY | 2025-05-27 13:50 | XMS_ITS | Clinical Summary ---
Author Organization [facility] Healthcare Address [address] [facility] [place] [address] Care Team Providers Care [employer] Commissioner Name Role Phone Eugene Ryan MD Primary Care Provider [phone] Medications MedicationSigDispense QuantityRefillsLast FilledStart DateEnd DateStatus Januvia 50 MG tablet Indications:Type 2 diabetes mellitus with chronic kidney disease, without long- term current use of insulin, unspecified CKD stage (HCC)TAKE 1 TABLET BY MOUTH ONCE DAILY 90 tablet 5Active metFORMIN (Glucophage) 500 MG tablet Indications:Type 2 diabetes mellitus with stage 3b chronic kidney disease, without long-term current use of insulin (HCC)TAKE 1 TABLET BY MOUTH IN THE MORNING AND 1 TABLET BY MOUTH AT NOON AND 1 TABLET BY MOUTH IN THE EVENING WITH MEALS 45 tablet 5Active carvedilol (Coreg) 12.5 MG tablet Indications:Chronic systolic congestive heart failure, NYHA class 2 (HCC)TAKE 1 TABLET BY MOUTH IN THE MORNING AND 1 TABLET BY MOUTH BEFORE BEDTIME 30 tablet 5Active glimepiride (Amaryl) 2 MG tablet Indications:Type 2 diabetes mellitus with stage 3b chronic kidney disease, without long-term current use of insulin (HCC)TAKE 1 TABLET BY MOUTH IN THE MORNING AND 1 TABLET BY MOUTH BEFORE BEDTIME 30 tablet 5Active atorvastatin (Lipitor) 40 MG tablet Indications:Pure hypercholesterolemiaTAKE 1 TABLET BY MOUTH IN THE MORNING 15 tablet 5Active Active Problems ProblemNoted DateDiagnosed DateChronic systolic congestive heart failure, NYHA class Elevated liver snphhjs4402/26/2023omplete atrioventricular block 02/26/2023ardiomyopathy, juhjvmyl05/23/2023Obesity (BMI 30-39.9)02/26/2023Old myocardial qpuoqxksab34/23/2023Osteopenia of right femoral neck02/26/2023ain in right knee02/26/2023rimary ovarian xbpfwoy6702/26/2023ure hypercholesterolemia 02/26/2023Recurrent major depressive pdnjqfez15/23/2023Stage 3b chronic kidney mzstwvv4502/26/20230410Qftauuswhbyhcxzb38/23/2023Type 2 diabetes mellitus with diabetic chronic kidney hxbfcia5402/26/2023iventricular cardiac pacemaker in situ 02/26/2023therosclerosis of coronary artery without angina szdavhdf61/23/2023 Allergic eczwjllr69/23/2023 Encounters DateTypeDepartmentCare BtfaQjagolhgpea51/[place] [facility] [address] [facility] [address] [place] [id number] Eugene Ryan MD Type 2 diabetes mellitus with stage 3b chronic kidney disease, without long-term current use of insulin (HCC); Pure hypercholesterolemia; Chronic systolic congestive heart failure, NYHA class 2 (HCC)04/15/[facility] [facility] [address] [facility] [address] [place] [phone] Marva Miles PA Type 2 diabetes mellitus with stage 3b chronic kidney disease, without long-term current use of insulin (HCC); Chronic systolic congestive heart failure, NYHA class 2 (HCC); Pure bbaxjutcskrtaefbkcgk02/17/20[place] [facility] [address] [facility] [address] [place] [phone] Marva Miles PA Type 2 diabetes mellitus with stage 3b chronic kidney disease, without long-term current use of insulin (HCC); Pure hypercholesterolemia ; Chronic systolic congestive heart failure, NYHA class 2 (HCC)from Last 3 Months Social History Tobacco UseTypesPacks/DayYears UsedDateSmoking Tobacco: Never Assessed CommentsUnknownSex and Gender InformationValueDate RecordedSex Assigned at Not on fileLegal LauHdxlki54/15/2023 7:25 PM EDTGender IdentityNot on fileSexual OrientationNot on file Last Filed Vital Signs Vital SignReadingTime TakenCommentsBlood Ybmtwqzj220/8201/ 12:00 PM EST Pulse--Temperature--Respiratory Rate--Oxygen Saturation--Inhaled Oxygen Concentration--Slgsyv86.4 kg (186 lb)07/24/2022 12:00 PM GOPMamlbm665.6 cm (5' 4 )07/24/2022 12:00 PM ESTBody Mass Index31.9307/24/2022 12:00 PM EST Plan of Treatment Health MaintenanceDue DateLast DoneCommentsDiabetes: Urine Protein Screening Diabetes: Retinopathy Jthgrphqf52, 02/11/2018Diabetes: Hemoglobin A1C/, 08/06/2021, 01/31/2021, Additional history existsMedicare Annual Wellness (AWV)4007/24/2022, 2COVID-19 Vaccine ( season)/11/2022, 10/08/2021, 06/04/2021, Additional history existsInfluenza Vaccine (#1)511/12/2022, 05/21/2022, 05/08/2021, Additional history existsPneumococcal Vaccine: 65+ Years Iyjbrlxwx85/01/2015, 11/29/2014 Procedures Procedure NamePriorityDate/TimeAssociated DiagnosisCommentsHEMOGLOBIN C2GHkjahjy 07/24/2022 12:00 PM EST COLOR FUNDUS PHOTOGRAPHY - OU - BOTH SCVZTmtnbwg31/21/2020 12:00 PM EDT MICROALBUMIN / CREATININE URINE YIOZKSizqzun86/08/2019 from Last 3 Months or Most Recently Relevant to Health Maintenance Results * Hemoglobin A1c (07/24/2022 12:00 PM EST)ComponentValueRef RangeTest Method Analysis TimePerformed AtPathologist SignatureGENERIC LEGACY COMPONENT INTERNAL7.8ECW NONXML LABSSpecimen (Source)Anatomical Location / Laterality Collection Method / VolumeCollection TimeReceived Time07/24/2022 12:00 PM EST Narrative Authorizing ProviderResult TypeResult StatusMarva Miles PALAB BLOOD ORDERABLESFinal ResultPerforming OrganizationAddressCity/State/ZIP CodePhone Number [facility] NONXML LABS * Color Fundus Photography - OU - Both Eyes (03/27/2020 12:00 PM EDT)Anatomical RegionLateralityModalityHeadFundus PhotographySpecimen (Source)Anatomical Location / LateralityCollection Method / VolumeCollection TimeReceived Time 03/27/2020 12:00 PM EDT Narrative 03/27/2020 12:00 PM EDT PERFORMED AT [facility] LOCATION:[id number] Procedure Note CONVERSION, GENERIC - 11/20/2022 PERFORMED AT [facility] LOCATION:[id number] Authorizing ProviderResult TypeResult StatusEugene Ryan MDOPH PHOTOGRAPHY Final Result * Microalbumin / creatinine urine ratio (01/11/2019)ComponentValueRef RangeTest MethodAnalysis TimePerformed AtPathologist CkgrgfbixWJSSA90426 - 217[facility] LEGACY EXTERNAL LABMALB1.9[facility] LEGACY EXTERNAL LABComment:mALB reference range not established.MICROALB/CREAT RATIO11.9[facility] LEGACY EXTERNAL LABSpecimen (Source)Anatomical Location / LateralityCollection Method / VolumeCollection TimeReceived Time01/11/2019 Narrative Authorizing ProviderResult TypeResult StatusEugene CONTRERAS URINE ORDERABLESFinal ResultPerforming OrganizationAddressCity/State/ZIP CodePhone Number [facility] from Last 3 Months or Most Recently Relevant to Health Maintenance Insurance Care Teams Team MemberRelationshipSpecialtyStart DateEnd Date Eugene Ryan MD [address] [id number] PCP - GeneralInternal Medicine11/12/22
--- NOTE | 2025-05-27 13:52 | CA_ITS ---
Patient Name: NANCY ANDRADE MR#: [id number] : 1940 Exam Date: 05/27/2025 Ordering Doctor: CHRIS TILLEY CNP ECHOCARDIOGRAM REPORT PROCEDURE: CA ECHO DOPPLER COMPLETE INDICATIONS: Chronic systolic heart failure COMPARISON: None. DESCRIPTION: COMPLETE ECHOCARDIOGRAM Real-time transthoracic echocardiography with 2D, M-mode, spectral and color flow Doppler performed. QUALITY: Technical quality was limited. LEFT VENTRICLE: Normal chamber size. Mild concentric left ventricular hypertrophy. Global left ventricular systolic function is difficult to assess but appears reduced. Visual estimation of left ventricular ejection fraction is 40-45% LV EF: Mildly to moderately reduced left ventricular ejection fraction, (40-45%). DIASTOLIC: Grade I diastolic dysfunction. ATRIAL SEPTUM: LEFT ATRIUM: Normal chamber size. RIGHT ATRIUM: Normal chamber size. RIGHT VENTRICLE: Normal chamber size. Normal right ventricular systolic function. Pacer wire present. TRICUSPID VALVE: Normal mobility and thickness. No stenosis with mild regurgitation. No evidence of pulmonary hypertension. RVSP 27 mmHg. MITRAL VALVE: Mild anterior leaflet prolapse. No evidence of mitral valve stenosis. There is no mitral annular calcification. Mild mitral regurgitation. AORTIC VALVE: Normal trileaflet appearance. Thickened aortic valve. Normal leaflet mobility. No evidence of aortic valve stenosis. Trivial aortic regurgitation. AORTIC ROOT: Normal diameter and appearance. The aortic root and ascending aorta measure 3.6 cm. PULMONIC VALVE: Normal thickness and mobility. No stenosis. Trivial regurgitation. PERICARDIUM: No evidence of pericardial effusion. IVC: Collapses with inspirations. The IVC is normal in size measuring 1.3cm. PLEURA: CONCLUSION: 1. Mild concentric left ventricular hypertrophy. Global left ventricular systolic function is difficult to assess but appears reduced. Estimated LVEF is 40 to 45%. 2. Normal right ventricular size and systolic function. 3. Mild mitral and tricuspid regurgitation. 4. Normal right-sided pressures. Adult Echocardiography Procedure Report Left Ventricle LVEDD (3.7 - 5.6 cm): 3.94 cm LVESD (2.2 - 4.0 cm): 2.80 cm LVIVS thickness (0.6 - 1.2 cm): 1.15 cm LVPW thickness (0.5 - 1.0 cm): 1.07 cm e': 0.05 m/s E - e': 11.74 LVOT Max Gradient: 1.56 mm[Hg] LVOT Area (cm2): 0.63 m/s Peak Velocity (LVOT): 0.63 m/s Mean Velocity (LVOT): 0.47 m/s LVOT Diameter 2.24 cm Left Ventricular Ejection Fraction: 40-45 % Left Atrium LA Volume Index (2D A2C): 23.52 ml/m2 Left Atrium Systolic Dimension: 4.14 cm Mitral Valve MV E to A Ratio: 0.84 Mitral Valve A-Wave Peak Velocity: 0.73 m/s Mitral Valve E-Wave Peak Velocity: 0.61 m/s Right Ventricle RV Internal Diastolic Dimension: 3.82 cm Aorta AO Root Diam: 3.56 cm Ascending Ao Diam: 3.62 cm Aortic Valve AoV Area (Peak Palmer): 2.38 cm2, 2.38 cm2 AoV Area (VTI): 2.51 cm2, 2.51 cm2 Peak Velocity(Antegrade Flow): 1.03 m/s Peak Gradient(Antegrade Flow): 4.27 mm[Hg] Mean Velocity(Antegrade Flow): 0.76 m/s Mean Gradient(Antegrade Flow): 2.57 mm[Hg] Velocity Time Integral: 19.46 cm Tricuspid Valve Peak Velocity (Regurgitant Flow): 2.05 m/s, 1.99 m/s, 1.96 m/s, 2.45 m/s Pulmonic Valve Peak Velocity: 0.57 m/s Peak Gradient: 1.11 mm[Hg], 1.47 mm[Hg] Right Atrium Right Atrium Systolic Pressure: 41.91 ml, 41.91 ml Dictated by: Thuan Dale M.D. on 05/27/2025 at 17:34 Approved by: Thuan Dale M.D. on 05/27/2025 at 17:40
--- OUTSIDE RECORDS SUMMARY | 2025-05-27 13:55 | XMS_ITS | CCD ---
Author Organization [facility] Care Team Providers Care Front Desk Receptionist Name Role Phone EUGENE RYAN Primary Care Physician MD Yao MERCADO Attending Unavailable JESS, MD Yao Her Attending Unavailable JESS, MD Yao Her Attending Unavailable JESS, MD Yao Her Admitting Unavailable HEMMER, DR MARVA Dixon Admitting Unavailable HEMMER, DR MARVA Dixon Attending Unavailable RYAN, DR MONGE Primary Care Unavailable Zieber, DR Vera Consulting Unavailable HEMMER, DR MARVA Dixon Consulting Unavailable JESS, DR COREY Admitting Unavailable MERCADO, DR COREY Attending Unavailable RYAN, DR MONGE Primary Care Unavailable MERCADO, DR COREY Consulting Unavailable MERCADO, DR COREY Admitting Unavailable MERCADO, DR COREY Attending Unavailable RYAN, DR MONGE Primary Care Unavailable MERCADO, DR COREY Consulting Unavailable Zieber, DR Vera Consulting Unavailable Unavailable Primary Care Provider Carmen Condon MD Primary Care Provider DARIN, JED Referring Unavailable CARMEN QUINTANA [facility] Unavailable DARIN, JED Admitting Unavailable DARIN, JED Attending Unavailable DARIN, JED Referring Unavailable DARIN, JED Admitting Unavailable DARIN, JED Attending Unavailable DARIN, JED Referring Unavailable DARIN, JED Referring Unavailable CARMEN QUINTANA [facility] Unavailable DARIN, JED Attending Unavailable NAOMI IBRAHIM Referring UnavailEugene Garcia MD Unavailable Eugene Ryan MD Primary Care Provider PEPE KOVACS Referring Unavailable PEPE KOVACS Referring Unavailable EUNICE GRANT Referring Unavailable PEPE KOVACS Referring Unavailable PEPE KOVACS Referring Unavailable MAURILIO PURCELL Attending Unavailable MAURILIO PURCELL Attending Unavailable PEPE KOVACS Referring Unavailable PEPE KOVACS Referring Unavailable MAURILIO PURCELL Attending Unavailable Eugene Ryan MD Unavailable Eugene Ryan MD Unavailable [phone] Allergies Allergy ClassificationReported Allergen(s)Allergy TypeDate of OnsetReaction(s) Facility (1 source)No Known Medication Allergies; Translations: [No Known Medication Allergies]Propensity to adverse reactions (disorder)[facility] Repository Medications Current Medications MedicationDrug Class(es)DatesSig (Normalized)Sig (Original)atorvastatin 40 mg oral tablet (7 sources)HMG-CoA Reductase InhibitorStart: 48-22-9143vlug 1 tablet by mouth in the morningatorvastatin (Lipitor) 40 MG tablet Indications: Pure hypercholesterolemia (CMS/HCC) TAKE 1 TABLET BY MOUTH IN THE MORNING 100 tablet 11/22/2024 ActiveStart: 24-73-6814nxdm 1 tablet by mouth in the morning atorvastatin (Lipitor) 40 MG tablet Indications: Pure hypercholesterolemia (CMS/HCC) TAKE 1 TABLET BY MOUTH IN THE MORNING 90 tablet 3 01/12/2024 Active Start: 98-13-2591vcsxfngsfybk (LIPITOR) 40 mg tablet Take by mouth. 0 04/17/2021 ActiveComment on above:Take by mouth.carvedilol 12.5 mg oral tablet (7 sources)alpha-Adrenergic Endy, beta-Adrenergic BlockerStart: 11-22-2024 take 1 tablet by mouth in the morningcarvedilol (Coreg) 12.5 MG tablet Indications: Chronic systolic congestive heart failure, NYHA class 2 (CMS/HCC) TAKE 1 TABLET BY MOUTH IN THE MORNING AND 1 TABLET BY MOUTH BEFORE BEDTIME 200 tablet 11/22/2024 ActiveStart: 25-32-7333fldw 1 tablet by mouth in the morning carvedilol (Coreg) 12.5 MG tablet Indications: Chronic systolic congestive heart failure, NYHA class 2 (CMS/HCC) TAKE 1 TABLET BY MOUTH IN THE MORNING AND 1 TABLET BY MOUTH BEFORE BEDTIME 180 tablet 3 01/12/2024 ActiveStart: 04-17-2021 carvedilol (COREG) 12.5 mg tablet Take by mouth. 0 04/17/2021 ActiveComment on above:Take by mouth.cephalexin 250 mg oral capsule (2 sources)Cephalosporin AntibacterialStart: 11-19-2021 End: 13-27-3323oeur 1 capsule by mouth twice dailyKeflex 250 mg Cap 250 mg = 1 cap(s), Oral, BID, X 5 day(s), # 10 cap(s), Refills(s) 0, Pharmacy: [facility]/pharmacy #[id number], 163, cm, 11/19/21 9:53:00 EDT, Height/Length Dosing, 85.3, kg, 11/19/21 9:53:00 EDT, Weight Dosing Start Date: 11/19/21 Stop Date: 11/24/21 Status: Orderedglimepiride 2 mg oral tablet (7 sources)SulfonylureaStart: 44-66-1583xllz 1 tablet by mouth in the morning glimepiride (Amaryl) 2 MG tablet Indications: Type 2 diabetes mellitus with stage 3b chronic kidneydisease, without long-term current use of insulin (HCC) (CMS/HCC) TAKE 1 TABLET BY MOUTH IN THE MORNING AND 1 TABLET BY MOUTH BEFORE BEDTIME 200 tablet 11/22/2024 ActiveStart: 13-42-4025gvyv 1 tablet by mouth in the morningglimepiride (Amaryl) 2 MG tablet Indications: Type 2 diabetes mellitus with stage 3b chronic kidneydisease, without long-term current use of insulin (HCC) (CMS/HCC) TAKE 1 TABLET BY MOUTH IN THE MORNING AND 1 TABLET BY MOUTH BEFORE BEDTIME 180 tablet 3 01/12/2024 ActiveStart: 18-50-4236keinbebxjcn (AMARYL) 1 mg tablet Take by mouth. 0 04/17/2021 ActiveComment on above:Take by mouth.metFORMIN hydrochloride 500 mg oral tablet (7 sources)BiguanideStart: 88-11-0449tdxFVXIQO (Glucophage) 500 MG tablet Indications: Type 2 diabetes mellitus with stage 3b chronic kidney disease, without long-term current use of insulin (HCC) (CMS/HCC) TAKE 1 TABLET BY MOUTH IN THEMORNING AND 1 TABLET BY MOUTH AT NOON AND 1 TABLET BY MOUTH IN THE EVENING WITH MEALS 300 tablet 11/22/2024 ActiveStart: 12-26-2134fjeCVDQXO (Glucophage) 500 MG tablet Indications: Type 2 diabetes mellitus with stage 3b chronic kidney disease, without long-term current use of insulin (HCC) (CMS/HCC) TAKE 1 TABLET BY MOUTH IN THEMORNING AND 1 TABLET BY MOUTH AT NOON AND 1 TABLET BY MOUTH IN THE EVENING WITH MEALS 270 tablet 3 01/12/2024 ActiveStart: 94-02-8405vzsDGFPUB (GLUCOPHAGE) 500 mg tablet Take by mouth. 0 04/17/2021 ActiveComment on above: Take by mouth.SITagliptin 50 mg oral tablet (4 sources)Dipeptidyl Peptidase 4 InhibitorStart: 50-54-6836qhhc 1 tablet by mouth once dailyJanuvia 50 MG tablet Indications: Type 2 diabetes mellitus with chronic kidney disease, without long-term current use of insulin, unspecified CKD stage (CMS/HCC) TAKE 1 TABLET BY MOUTH ONCE DAILY 30 tablet 11 04/05/2024 ActiveStart: 50-10-5932xujh 1 tablet by mouth once dailySITagliptin (Januvia) 50 MG tablet Indications: Type 2 diabetes mellitus with chronic kidney disease, without long-term current use of insulin, unspecified CKD stage (CMS/HCC) TAKE 1 TABLET BY MOUTH ONCE DAILY 30 tablet 03/12/2024 ActiveStart: 72-51-9985TXBDKDX 50 mg tablet Completed/Discontinued Medications MedicationDrug Class(es)DatesSig (Normalized)Sig (Original)aspirin 325 mg oral tablet (5 sources)Platelet Aggregation Inhibitor, Nonsteroidal Anti-inflammatory Drug Start: 77-35-5203zueultw 325 mg cap Take by mouth. 0 04/17/2021 ActiveStart: 03-92-1370jkjf 1 mg by mouth once dailyaspirin 325 mg oral capsule mg cap(s), Oral, Daily, Refills(s) 0 Start Date: 04/17/21 Status: OrderedComment on above: Take by mouth.benoxinate hydrochloride 4 mg/ml / fluorescein sodium 2.5 mg/ml ophthalmic solution (1 source)Diagnostic DyeStart: 01-09-2023 End: 60-99-4403ebsogdzqgty-benoxinate 0.25-0.4 % 1 Drop (FLURESS)phenylephrine hydrochloride 25 mg/ml ophthalmic solution (1 source)alpha-1 Adrenergic AgonistStart: 01-09-2023 End: 47-63-7479BXXPJVubeutof 2.5 % 1 Drop (AK-DILATE, LORRIE-SYNEPHRINE)tropicamide 10 mg/ml ophthalmic solution (1 source)AnticholinergicStart: 01-09-2023 End: 65-01-6098aivcsyhrypj 1 % 1 Drop (MYDRIACYL) Problems Active Problems Problem ClassificationProblemDateDocumented DateEpisodic/ChronicAcute myocardial infarction (4 sources)Myocardial infarction; Translations: [Acute myocardial infarction, unspecified]Onset: 386604-37-0809PwkdnalAnvujuvb of urinary tract (9 sources)History of calculus of kidney; Translations: [Personal history of urinary calculi]Onset: 94-82-1009CwqkevruNoaqnooz (3 sources)Bilateral senile combined form cataracts of eyes; Translations: [Combined forms of age-related cataract, bilateral]Onset: 87-58-5217Zvkzxto Chronic kidney disease (3 sources)Chronic kidney disease stage 3B ; Translations: [Stage 3b chronic kidney disease (HCC)]Onset: 077140-00-2588GntorkkBqjjjbnjkwe and hemorrhagic disorders (3 sources)Thrombocytopenic disorder; Translations: [Thrombocytopenia, unspecified]Onset: 384979-52-3400ChstksiKrvnsjhtjf disorders (18 sources)Biventricular cardiac pacemaker present; Translations: [Presence of cardiac pacemaker]Onset: 181599-73-5671SgvptiuKhzswuxxeq heart failure; nonhypertensive (7 sources)Chronic systolic heart failure; Translations: [Chronic systolic (congestive) heart failure]Onset: 145322-54-4925TqcjxzwWkvxruld atherosclerosis and other heart disease (9 sources)Ischemic myocardial dysfunction; Translations: [Ischemic cardiomyopathy]Onset: 823107-97-7364SavyatbYadqxsei mellitus with complications (3 sources)Chronic kidney disease due to type 2 diabetes mellitus; Translations: [Type 2 diabetes mellitus with diabetic chronic kidney disease]Onset: 02-26-2023 79-69-2265KrsdesnJlvpcudr mellitus without complication (6 sources)Diabetes mellitus; Translations: [Type 2 diabetes mellitus without complication]Onset: 290722-29-3833GmuqoagPdswkyctt of lipid metabolism (10 sources)Hyperlipidemia; Translations: [Hyperlipidemia, unspecified]Onset: 677141-81-5949KehkazrWwlpmaofm hypertension (5 sources)Hypertensive disorder; Translations: [Essential (primary) hypertension]Onset: 444479-92-9489UvacqsbXjytlurirlfzk symptoms and ill- defined conditions (2 sources)Mixed incontinence; Translations: [Mixed incontinence]Onset: 49-53-5582FmlyfavCkopkdoc (1 source)Preglaucoma, unspecified, bilateral; Translations: [Preglaucoma, unspecified]ChronicHypertension with complications and secondary hypertension (2 sources)Hypertensive heart disease with heart failure; Translations: [Hypertensive heart disease with heartfailure]Onset: 87-37-5904LqwgyogUnqboqshld disorders (7 sources)Other primary ovarian failure; 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]Onset: 65-87-3508AoopzixCzcq disorders (3 sources)Recurrent major depression; Translations: [Major depressive disorder, recurrent, unspecified]Onset: 900021-54-6494IgxqmgiUxbln bone disease and musculoskeletal deformities (1 source)Other specified disorders of bone density and structure, other site; Translations: [OTH D/O BONE DEN STRUCT OTH SITE]Onset: 84-25-7992WemrwigcOtwrs nutritional; endocrine; and metabolic disorders (3 sources)Body mass index 30+ - obesity; Translations: [Obesity, unspecified] Onset: 876679-02-6007HpzgepbAtbxp upper respiratory disease (3 sources)Allergic rhinitis; Translations: [Allergic rhinitis, unspecified] Onset: 096615-87-8110HuitcuuMhqdvcu tract infections (2 sources)Urinary tract infectious disease; Translations: [Urinary tract infection, site not specified]Onset: 99-04-6946Bfmeecws Past or Other Problems Problem ClassificationProblemDateDocumented DateEpisodic/ChronicOther bone disease and musculoskeletal deformities (3 sources)Osteopenia; Translations: [Other specified disorders of bone density and structure, right thigh]Onset: 862868-08-2765MdvuwmqlHrhrg liver diseases (3 sources)Elevated liver enzymes level; Translations: [Abnormal levels of other serum enzymes]Onset: 675746-23-2960OijvrjrpPnjnk non-traumatic joint disorders (3 sources)Pain in right knee; Translations: [Pain in joint, lower leg]Onset: 605808-20-5694Alnhihft Results Test NameValueInterpretationReference RangeFacilityOrders Onlyon 04-20-2025 Orders [id number] Marva Andrade S 1940 F Date Provider Department Center 04/20/2025 241-PEPE KOVACS [facility] CARD [facility] Family History Problem Relation Age of Onset Cancer Mother Cancer Father Cancer Sister Cancer Brother Family Status - Relation Status Age at Mother Father Sister Brother DeceasedNormalUniversCleveland Clinic Union HospitalOrders Onlyon 23-98-4306Quhxlz [id number] Marva Andrade S 1940 F Date Provider Department Center 12/02/2024 [id number], [facility] CARD [facility] Family History Problem Relation Age of Onset Cancer Mother Cancer Father Cancer Sister Cancer Brother Family Status - Relation Status Age at Mother Father Sister Brother DeceasedNormalUniversCleveland Clinic Union HospitalALL BASIC METABOLIC PANELon 83-84-3641Pstoq gap [Moles/Vol]13.8 mmol/LNOMS HealthcareCalcium [Mass/Vol]9.5 mg/dL8.5 - 10.1 mg/dLNOWV HealthcareChloride [Moles/Vol]105 mmol/L 98 - 107 mmol/LNOMS HealthcareCO2 [Moles/Vol]26.3 mmol/L21.0 - 32.0 mmol/LNOMS HealthcareCreatinine [Mass/Vol]1.5 mg/dLHigh0.55 - 1.02 mg/dLNOFulton State Hospital GFR/1.73 sq M.predicted CKD-EPI (S/P/Bld) [Vol rate/Area]40Low>=60 mL/min/1.73m 2NOMS HealthcareGlucose [Mass/Vol]207 mg/jBCtta46 - 106 mg/dLNOFulton State Hospital Interpretation and review of laboratory resultsAbnormalNOMS HealthcarePotassium [Moles/Vol]5.1 mmol/L3.5 - 5.1 mmol/LNOMS HealthcareSodium [Moles/Vol]140 mmol/L 136 - 145 mmol/LNOMS HealthcareTBH EGFR-NON AF LCTMVSSE69Pqq>=60 mL/min/1.73m 2 NOMS HealthcareUrea nitrogen [Mass/Vol]27 mg/dLHigh7.0 - 18.0 mg/dLNOFulton State HospitalUrea nitrogen/Creatinine [Mass ratio]18 mg/mgNOMS HealthcareCLINISYNC NOMS HealthcareOffice Visiton 67-02-8773Gscmhg-up [id number] Marva Andrade 1940 Provider Department Center 12/01/2024 MAURILIO SIFUENTES Family History Problem Relation Age of Onset Cancer Mother Cancer Father Cancer Sister Cancer Brother Family Status - Relation Status Age at Mother Father Sister Brother Level of Service:28012 MT OFFICE/OUTPATIENT ESTABLISHED MOD [facility] 55-57-4548Cgbcbn-up visit [id number] Marva Andrade 1940 Provider Department Center 10/20/2024 MAURILIO SIFUENTES Family History Problem Relation Age of Onset Cancer Mother Cancer Father Cancer Sister Cancer Brother Family Status - Relation Status Age at Mother Father Sister Brother Level of Service:95460 MT OFFICE/OUTPATIENT ESTABLISHED LOW [facility]DM [facility] 79-98-7891Cddsbl-up visit [id number] Marva Andrade 1940 Provider Department Center 09/29/2024 MAURILIO SIFUENTES No family history on file Level of Service:10252 MT OFFICE/OUTPATIENT ESTABLISHED LOW MDM 20 [facility] LIPID PROFILE (FASTING)on 11-08-2075LAEC HDL RATIO2.7NOMS HealthcareComment on above:3.3 - 4.4 LOW RISK 4.4 - 7.1 AVERAGE RISK 7.1 - 11.0 MODERATE RISK >11.0 HIGH RISK Cholesterol [Mass/Vol]144 mg/dLNINF - 200 mg/dLNOMS HealthcareCholesterol in HDL [Mass/Vol]54 mg/dL40 - 60 mg/dLNOMS HealthcareComment on above:> or =60 mg/dl - LOW CARDIOVASCULAR RISK <40 mg/dl - HIGH CARDIOVASCULAR RISK Magnesium [Mass/Vol]63.4 mg/dLNOMS HealthcareComment on above:<100 mg/dl OPTIMAL 100-129 mg/dl NEAR OR ABOVE OPTIMAL 130-159 mg/dl BORDERLINE HIGH 160-189 mg/dl HIGH >190 mg/dl VERY HIGH Magnesium [Mass/Vol]26.6 mg/dLNOMS HealthcareTriglyceride [Mass/Vol]133 mg/dL NINF - 150 mg/dLNOMS HealthcareCLINISYNCNOMS HealthcareCARD ECHO LIMITED STUDYon 01-77-9189Euo[place], [place] [address] Cardiology Report Signed Patient: MARVA ANDRADE MR#: [id number] : 1940 Acct:[id number] Age/Sex: 83 / F ADM Date: 08/29/23 Loc: CARD Attending Dr: Pepe Kovacs M.D. Ordering Physician: Pepe Kovacs M.D. Date of Service: 08/29/23 Procedure(s): CA echo limited Accession Number(s): [id number] cc: EUGENE RYAN ; Pepe Kovacs M.D. Patient Name: MARVA ANDRADE MR#: [id number] : 1940 Exam Date: 08/29/2023 Ordering Doctor: PEPE KOVACS ECHOCARDIOGRAM REPORT PROCEDURE: CA ECHO LIMITED INDICATIONS: Dilated cardiomyopathy, pacemaker, h/o NC COMPARISON: None. DESCRIPTION: Limited ECHOCARDIOGRAM Real-time transthoracic echocardiography with 2D and M-mode performed. QUALITY: Technical quality was good. 64 , 185#, BSA 1.89 m2 Limited echocardiogram per physician order. LEFT VENTRICLE: Normal chamber size. Sigmoid septum. LV EF: Global left ventricular systolic function is difficult to assess but appears normal; visually estimated ejection fraction is 55 to 60%. Unable to assess regional wall motion abnormalities. LEFT ATRIUM: Normal chamber size. RIGHT ATRIUM: Normal chamber size. RIGHT VENTRICLE: Normal chamber size. Pacemaker wire appears to extend beyond the right ventricle; likely artifactual given imaging plane. Pacer wire present. TRICUSPID VALVE: Normal mobility and thickness. MITRAL VALVE: Normal mobility and thickness. There is no mitral annular calcification. AORTIC VALVE: Normal trileaflet appearance. No visible sclerosis. Normal leaflet mobility. AORTIC ROOT: Normal diameter and appearance. PULMONIC VALVE: Normal thickness and mobility. PERICARDIUM: Anterior free space; trivial effusion versus fat pad. IVC: Not well visualized. CONCLUSION: 1. Global left ventricular systolic function is normal; visually estimated ejection fraction is 55 to 60% 2. Normal right ventricular size and systolic function 3. Right ventricular pacemaker lead extends out into the apex; the appearance of the lead extending beyond the right ventricle is likely artifactual. Consider further imaging if clinical concern exists. 4. Angiography; trivial effusion versus fat pad A limited echocardiogram was performed Adult Echocardiography Procedure Report Left Ventricle LVEDD (3.7 - 5.6 cm): 3.74 cm LVESD (2.2 - 4.0 cm): 2.87 cm LVIVS thickness (0.6 - 1.2 cm): 1.46 cm LVPW thickness (0.5 - 1.0 cm): 1.09 cm LVOT Diameter 2.03 cm Left Atrium LA Volume Index (2D A2C): 34.57 ml/m2 Left Atrium Systolic Dimension: 3.51 cm Mitral Valve Right Ventricle Aorta AO Root Diam: 3.53 cm Ascending Ao Diam: 3.60 cm Aortic Valve Tricuspid Valve Pulmonic Valve Right Atrium Dictated by: Jamie Mora M.D. on 08/29/2023 at 12:14 Approved by: Jamie Mora M.D. on 08/29/2023 at 12:20 Dictated By: Jamie Mora M.D. Signed By: 08/29/23 1221 DD/ 1220 TD/TT: Place Change Roof Bolter:YURIHRadiology, Radiologist, - 08/29/2023 [place] [address] Cardiology Report Signed Patient: MARVA ANDRADE MR#: [id number] : 1940 Acct:[id number] Age/Sex: 83 / F ADM Date: 08/29/23 Loc: CARD Attending Dr: Pepe Kovacs M.D. Ordering Physician: Pepe Kovacs M.D. Date of Service: 08/29/23 Procedure(s): CA echo limited Accession Number(s): [id number] cc: EUGENE RYAN ; Pepe Kovacs M.D. Patient Name: MARVA ANDRADE MR#: [id number] : 1940 Exam Date: 08/29/2023 Ordering Doctor: PEPE KOVACS ECHOCARDIOGRAM REPORT PROCEDURE: CA ECHO LIMITED INDICATIONS: Dilated cardiomyopathy, pacemaker, h/o NC COMPARISON: None. DESCRIPTION: Limited ECHOCARDIOGRAM Real-time transthoracic echocardiography with 2D and M-mode performed. QUALITY: Technical quality was good. 64 , 185#, BSA 1.89 m2 Limited echocardiogram per physician order. LEFT VENTRICLE: Normal chamber size. Sigmoid septum. LV EF: Global left ventricular systolic function is difficult to assess but appears normal; visually estimated ejection fraction is 55 to 60%. Unable to assess regional wall motion abnormalities. LEFT ATRIUM: Normal chamber size. RIGHT ATRIUM: Normal chamber size. RIGHT VENTRICLE: Normal chamber size. Pacemaker wire appears to extend beyond the right ventricle; likely artifactual given imaging plane. Pacer wire present. TRICUSPID VALVE: Normal mobility and thickness. MITRAL VALVE: Normal mobility and thickness. There is no mitral annular calcification. AORTIC VALVE: Normal trileaflet appearance. No visible sclerosis. Normal leaflet mobility. AORTIC ROOT: Normal diameter and appearance. PULMONIC VALVE: Normal thickness and mobility. PERICARDIUM: Anterior free space; trivial effusion versus fat pad. IVC: Not well visualized. CONCLUSION: 1. Global left ventricular systolic function is normal; visually estimated ejection fraction is 55 to 60% 2. Normal right ventricular size and systolic function 3. Right ventricular pacemaker lead extends out into the apex; the appearance of the lead extending beyond the right ventricle is likely artifactual. Consider further imaging if clinical concern exists. 4. Angiography; trivial effusion versus fat pad A limited echocardiogram was performed Adult Echocardiography Procedure Report Left Ventricle LVEDD (3.7 - 5.6 cm): 3.74 cm LVESD (2.2 - 4.0 cm): 2.87 cm LVIVS thickness (0.6 - 1.2 cm): 1.46 cm LVPW thickness (0.5 - 1.0 cm): 1.09 cm LVOT Diameter 2.03 cm Left Atrium LA Volume Index (2D A2C): 34.57 ml/m2 Left Atrium Systolic Dimension: 3.51 cm Mitral Valve Right Ventricle Aorta AO Root Diam: 3.53 cm Ascending Ao Diam: 3.60 cm Aortic Valve Tricuspid Valve Pulmonic Valve Right Atrium Dictated by: Jamie Mora M.D. on 08/29/2023 at 12:14 Approved by: Jamie Mora M.D. on 08/29/2023 at 12:20 Dictated By: Jamie Mora M.D. Signed By: 08/29/23 1221 DD/ 1220 TD/TT: Place Change Roof Bolter: MARTÍN HealthcareRadiology Study observation (narrative)MARTÍN HealthcareCARD ECHO LIMITED STUDYOrdered By: Radiologist Radiology on 61-22-0015HJFE [employer] Work Phone: anes POSTPROC EVALon [id number] POSTPROC EVALHNO ID: [id number] Author: Pepe Junior II, DO Service: Anesthesiology Author Type: Anesthesiologist Type: Anesthesia Postprocedure Evaluation Filed: 03/26/2023 11:31 AM Note Text: POST ANESTHESIA EVALUATION NOTE : 1940 Procedure Summary Date: 03/26/23 Room / Location: [address] Anesthesia Start: 954 Anesthesia Stop: 1014 [...] March 26, 2023 TIME: 11:31 AM CSN: [id number] Hospital [facility] PRE-OPon [id number] PRE-OPHNO ID: [id number] Author: Pepe Junior II, DO Service: Anesthesiology Author Type: Anesthesiologist Type: Anesthesia Preprocedure Evaluation Filed: 03/26/2023 9:11 AM Note Text: ANESTHESIOLOGY DAY OF SURGERY NOTE : 1940 Procedure Information Date/Time: 03/26/23 1000 Procedures: PHACOEMULSIFICATION CATARACT IMPLANT INTRAOCULAR LENS W/O ENDOSCOPIC CYCLOPHOTOCOAGULATION (Right: Eye) OPHTHALMIC BIOMETRY BY PARTIAL COHERENCE INTERFEROMETRY W/INTRAOCULAR LENS POWER CALCULATION (Right: Eye) Location: [address] Surgeons: Jed Webster V, MD Estimated body mass index is 31.24 kg/m? as calculated from the following: Height as of 02/27/23: 162.6 cm (5' 4 ). Weight as of 02/27/23: 82.6 kg (182 lb). Most recent hematocrit and potassium results: No results found for this basename: HCT,HEMATOCRIT,K,POTASSIUM Relevant Problems CARDIO (+) Biventricular cardiac pacemaker [...] and consent discussed: yes. Patient / Responsible Republican agrees to proceed: yes Patient / Surrogate [...] March 26, 2023 TIME: 9:10 AM CSN: [id number] District HospitalOPERATIVE NOon [id number] NOHNO ID: [id number] Author: Jed Webster V, MD Service: Ophthalmology Author Type: Physician Type: Operative Report Filed: 03/26/2023 10:14 AM Note Text: OPERATIVE REPORT DATE OF SERVICE: March 26, 2023 PRIMARY SURGEON: Jed Webster M.D. DRILLER'S OFFSIDER: None Procedure(s) (LRB): PHACOEMULSIFICATION CATARACT IMPLANT INTRAOCULAR [...] corneal incision was created temporally with a [place] blade then a 2.4 mm keratome. The [...] Implant Name Type Inv. Item Serial No. Clinical Pharmacy Coordinator Lot No. LRB No. Used Action Model No. [employer] IOL [id number] +25.5 D Implant AXE-[id number] IMPLANT [id number] [employer] Right 1 Implanted [id number] was inserted through [...] 10:12 AM - Comanage with Dr Ibrahim; [facility] P[facility] Jed [facility]Pro[facility] POSTPROC EVALon 03-12-2023 ANES POSTPROC EVALHNO ID: [id number] Author: Beto Awan MD Service: Anesthesiology Author Type: Anesthesiologist Type: Anesthesia Postprocedure Evaluation Filed: 03/12/2023 10:36 AM Note Text: POST ANESTHESIA EVALUATION NOTE : 1940 Procedure Summary Date: 03/12/23 Room / Location: [address] Anesthesia Start: 930 Anesthesia Stop: 954 [...] March 12, 2023 TIME: 10:36 AM CSN: [id number] Health [facility] PRE-OPon [id number] PRE-OPHNO ID: [id number] Author: Beto Awan MD Service: Anesthesiology Author Type: Anesthesiologist Type: Anesthesia Preprocedure Evaluation Filed: 03/12/2023 9:08 AM Note Text: ANESTHESIOLOGY DAY OF SURGERY NOTE : 1940 Procedure Information Date/Time: 03/12/23 0940 Procedures: PHACOEMULSIFICATION CATARACT IMPLANT INTRAOCULAR LENS W/O ENDOSCOPIC CYCLOPHOTOCOAGULATION (Left: Eye) OPHTHALMIC BIOMETRY BY PARTIAL COHERENCE INTERFEROMETRY W/INTRAOCULAR LENS POWER CALCULATION (Left: Eye) Location: [place] [address] / [facility] Surgeons: Jed Webster V, MD Estimated body mass index is 31.24 kg/m? as calculated from the following: Height as of 02/27/23: 162.6 cm (5' 4 ). Weight as of 02/27/23: 82.6 kg (182 lb). Most recent hematocrit and potassium results: No results found for this basename: HCT,HEMATOCRIT,K,POTASSIUM Relevant Problems CARDIO (+) Biventricular cardiac pacemaker [...] March 12, 2023 TIME: 9:07 AM CSN: [id number] HospitalOPERATIVE NOon [id number] NOHNO ID: [id number] Author: Jed Webster V, MD Service: Ophthalmology Author Type: Physician Type: Operative Report Filed: 03/12/2023 9:52 AM Note Text: OPERATIVE REPORT DATE OF SERVICE: March 12, 2023 PRIMARY SURGEON: Jed Webster M.D. DRILLER'S OFFSIDER: None Procedure(s) (LRB): PHACOEMULSIFICATION CATARACT IMPLANT INTRAOCULAR [...] corneal incision was created temporally with a [place] blade then a 2.4 mm keratome. The [...] Implant Name Type Inv. Item Serial No. Clinical Pharmacy Coordinator Lot No. LRB No. Used Action Model No. DUY-UO-R-KIND IMPLANT - [id number] Implant LVJ-HQ-R-KIND IMPLANT [id number] [employer] Left 1 Implanted [id number] was inserted through [...] 9:51 AM - Comanage with Dr Ibrahim; relinquish care POD #1 Jed WEBSTER MDNoUniversity Hospitals [facility] PHYSICALon 02-27-2023 HISTORY PHYSICALHNO ID: [id number] Author: Shoshana Nieves APRN.BINDERY LIBRARY TECHNICAL ASSISTANT Service: ? Author Type: Nurse Practitioner Type: [...] fevers. Neuro: No history of TIA's, stroke, INTELLIGENCE CHIEF tumor, impaired sensorium, hemiplegia, paraplegia or quadraplegia. No neurological symptoms or problems. Respiratory: No history of current cough or dyspnea, or pneumonia in the past 6 weeks. No history of respiratory/pulmonary symptoms or problems. Cardiovascular: Positive for: HLD, Hypertension Pacemaker on ASA follows with Dr. Longoria from in [place] Denies rest pain, gangrene or revascularization/amputation for PVD. GI: No history of GI symptoms or problems. No history of esophageal varices, recent ascites, or ETOH greater than 2 drinks per day. : No difficulty urinating, nocturia > 1 time per night or hematuria, History of kidney stones JAVA WEB ARCHITECT: Negative for abnormal vaginal bleeding, abnormal vaginal [...] Modality -- -- Ultrasound Narrative PERFORMED AT [facility] LOCATION:[place] [address] Patient: RAYMOND George Exam Date: 05/08/2021 : 1940 Gender:F Ordering : PEPE KOVACS Admission #: [id number] Family : DR EUGENE RYAN M.D. Order #: [id number] CLICK HERE TO VIEW EXAM ECHOCARDIOGRAM REPORT PROCEDURE: CARDI (more content not included)...[facility] XR DEXA BONE DENSITYon [id number] DEXA BONE DENSITYEXAMINATION: XR DEXA BONE DENSITY, 08/12/2022 10:47 AM EST HISTORY: [...] Electronically authenticated by: THA LOVE Date: 2022-08-12 11:24[facility] HospitalPatient Educationon 47-05-6041Zsriaak EducationUrology Dietary Guidelines to Help Prevent Kidney Stones [...] portion sizes. For most meat and fish, oneserving is about the size of one deck [...] Rhubarb. ? Beets. ? Potato chips and cuban fries. ? Nuts. ? If you regularly take a diuretic medicine, make sure to eat at least 1?2 fruits or vegetables high in potassium each day. These include: ? Avocado. ? Banana. ? [place], prune, carrot, or tomato juice. ? Baked potato. ? Cabbage. ? Beans and split peas. General instructions ? Drink enough fluid to keep your urine clear or pale yellow. This is the most important thing you can do. ? Talk to your health care provider and dietitian about taking daily supplements. Depending on yourhealth and the cause of your kidney stones, [...] Work with your dietitian to find strategies andan eating plan that works best for you. [...] fish. Salted or cured meats. Deli meats. Hotdogs. Sausages. Dairy Cheese. Beverages Regular soft drinks. Regular vegetable juice. Seasonings and other foods Seasoning blends with salt. Katiana luque (more content not included)...NormalFisher [facility] [id number] From: Ayde Horton To: JYOTSNA - Recalls Mercado; Sent: 05/27/2022 14:17:03 EST Show up: 02/05/2024 14:16:00 EDT Subject: 2 year follow up Due Date/Time: 05/21/2024 14:16:00 EST Reminder/Recall Patient will be due back for a two year follow up for med refills in 05/2024 [facility] Office/Clinic Noteon 12-04-7470Mqufboj Office/Clinic NoteChief Complaint 6m KUB HPI Staff 6m w/KUB due to Kidney Stone. Additional DX: Mixed incontinence & UTI. KUB done @ [place] on 05/21/22. *Effer K 25meq BID therapy. [...] S/p Right ESWL 05/24/21. KUB done at [place] on 05/21/22 shows no appreciable urinary tract [...] When Contact Information JESS DELGADO, Yao Her, [facility] [address] [place] [address]- Additional Instructions: PRN Patient Education Dietary Guidelines to Help Prevent Kidney Stones ISandhya, personally scribed for Dr. Mercado on 05/27/2022 [...] Protein Urine Dipstick: Negative (05/27/22 11:20:00) Specific [place] Urine Dipstick: 1.025 (05/27/22 11:20:00) Urine Appearance Urine Dipstick: Cloudy (05/27/22 11:20:00) Urine Color Urine Dipstick: Yellow (05/27/22 11:20:00) Urobilinogen Urine Dipstick: Normal 0.2-1 EU/dl (05/27/22 11:20: (more content not included)...[facility] HospitalComment on above:Result Comment: Electronically Signed By: Yao MERCADO MD\Date and Time Signed: 05/27/22 12:15 ESTRAD - MISCon [id number] - MIS [id number]#1.00CD:127NoAvita Health System Ontario HospitalXR KUB 1 VIEWon 41-40-2055DS KUB 1 VIEWEXAMINATION: XR KUB 1 VIEW HISTORY: Urinary incontinence [...] Electronically authenticated by: THA LOVE Date: 2022-05-21 15:32[facility] HospitalLab Reportson [id number] Reports [id number]:127[facility] HospitalCoding Summary.on 07-70-8107Vqxaum Summary. CD:[id number] [file] b2xs (more content not included)...[facility] Urineon 93-01-0147Cjltwgjk identified Cx Nom (U)Microbiology PROCEDURE: Urine Culture [R1] SOURCE: U Random BODY SITE: COLLECTED DATE/TIME: 11/19/2021 13:51 EDT RECEIVED DATE/TIME: 11/20/2021 15:13 EDT START DATE/TIME: 11/20/2021 15:13 EDT FREE TEXT SOURCE: JESS DELGADO, Yao MERCADO MD, Yao Her FINAL REPORTS Final Report [] Verified Date/Time: 11/22/2021 11:54 EDT >100,000 cfu/ml Escherichia coli SUSCEPTIBILITY RESULTS LEGEND: S=Susceptible, N/R=Not Reported, Blank=Data not available, or drug not advisable or tested, I=Intermediate, ESBL=Extended spectrum beta-lactamase, R=Resistant, TFG=Thymidine-dependent strain, DARYL=Beta-lactamase positive, ROHIT=mcg/m;(mg/L), S*=Predicted susceptible interp, R*=Predicted resistant interp EC Antibiotic ROHIT Dilutn ROHIT Interp Amikacin [...] Locations R1: This test was performed at: [facility], [address] [place] [address], [facility]- , , NyiymvTujuzaHenry County HospitalComment on above:Performed By: #### [id number] #### [facility] [address] [place], [place] [address]CALCULI, URINARYon ,8 DihydroxyThe MetroHealth SystemComment on above:Performed By: #### CHELSEA #### [facility] [address] [place] [address] Dr. Tena GreggAmmonium Acid UrWayne HospitalComment on above: Performed By: #### CALCULI #### [facility] [address] [place] [address] [address] Tena GreggBilirubin Ql (U)[facility] HospitalComment on above: Performed By: #### CALCULI #### [facility] [address] [place] [address] [address] Tena GreggCa Oxalate DihydrateNormalGrant HospitalComment on above: Performed By: #### CALCULI #### [facility] [address] [place] [address] [address] Tena GreggCaHPO4 (Brushite)[facility] on above: Performed By: #### CALCULI #### [facility] [address] [address] [address] Tena Schwartzium BilirubinateNSalem Regional Medical Center on above: Performed By: #### CALCULI #### [facility] [address] [place] [address] [address] Tena Schwartzium CarbonateCleveland Clinic Mercy Hospital on above: Performed By: #### CALCULI #### [facility] [address] [address] [address] Tena Schwartzium Oxalate Qggnnxsjmqa17 %[facility] on above:Performed By: #### CALCULI #### [facility] [address] [place] [address] [address] Tena Schwartzium PalmitateCleveland Clinic [facility] Hospital on above: Performed By: #### CALCULI #### [facility] [address] [place] [address] [address] Tena Schwartzium PhosphateCleveland Clinic [facility] Hospital on above: Performed By: #### CALCULI #### [facility] [address] [address] [address] Tena Schwartzium StearateNSalem Regional Medical Center on above: Performed By: #### CALCULI #### [facility] [address] [address] [address] Tena GreggCarbonate ApatiteCleveland Clinic Mercy Hospital on above: Performed By: #### CALCULI #### [facility] [address] [address] [address] Tena Stallworthular MaterialCleveland Clinic [facility] Hospital on above: Performed By: #### CALCULI #### [facility] [address] [address] [address] Tena GreggCholesterolCleveland Clinic Mercy Hospital on above:Performed By: #### CALCULI #### [facility] [address] [place] [address] [address] eTna Diaz ([facility] on above: Performed By: #### CALCULI #### [facility] [address] [address] [address] Tena VelizProvidence Hospital on above:Performed By: #### CALCULI #### [facility] [address] [address] [address] Tena Borden:CommentCleveland Clinic Mercy Hospital on above:Result Comment: Physician questions regarding Calculi Analysis contact LabSamaritan Hospital at: [phone].Performed By: #### CALCULI #### [facility] [address] [place] [address] Dr. Tena MonteBrown Memorial Hospital on above: Result Comment: Percentage (Represents the % composition)Performed By: #### CALCULI #### [facility] [address] [address] [address] Tena GreggCystineCleveland Clinic Mercy Hospital on above:Performed By: #### CALCULI #### [facility] [address] [place] [address] Dr. Tena Carlos:CommentCleveland Clinic Mercy Hospital on above: Result Comment: This test was developed and its performance characteristics determined by [facility]. It has not been cleared or approved by the Food and Drug Administration.Performed By: #### CALCULI #### [facility] [address] [address] [address] Tena Beach BloodOhioHealth Riverside Methodist HospitalComment on above:Performed By: #### CALCULI #### [facility] [address] [address] [address] Tena GreggDrug or MetaboliteOhioHealth Riverside Methodist HospitalCommunson healthcare [facility] on above: Performed By: #### CALCULI #### [facility] [address] [address] [address] Tena GreggHydroxyapatiteCleveland Clinic [facility]cy Hospital on above: Performed By: #### CALCULI #### [facility] [address] [address] [address] Tena GreggMg NH4 PO4 (Struvite)[facility] on above: Performed By: #### CALCULI #### [facility] [address] [place] [address] Dr. Tena GreggMgHPO4 (Newberyite)[facility] on above: Performed By: #### CALCULI #### [facility] [address] [place] [address] Dr. Tena GreggOther component(s)[facility] on above: Performed By: #### CALCULI #### [facility] [address] [place] [address] Dr. Tena Ugalde.[facility] on above:Performed By: #### CALCULI #### [facility] [address] [place] [address] Dr. Tena AdamesotoCommentCleveland Clinic Mercy Hospital on above:Result Comment: Photograph will follow under a separate coverPerformed By: #### CALCULI #### [facility] [address] [place] [address] Dr. Tena Mari note:CommentCleveland Clinic Mercy Hospital on above: Result Comment: Calculi report will follow via computer, mail or paint line supervisor delivery.Performed By: #### CALCULI #### [facility] [address] [place] [address] Dr. Tena NobleOgtkjElol2n3QuondcSjcCleveland Clinic Mercy Hospital on above:Result Comment: Multiple pieces received. Dimensions of the largest piece reported.Performed By: #### CALCULI #### [facility] [address] [place] [address] Dr. Tena Mendozadium Acid UrateNSalem Regional Medical Center on above: Performed By: #### CALCULI #### [facility] [address] [place] [address] Dr. Tena SlaughterGreene Memorial Hospital on above:Result Comment: Not providedPerformed By: #### CALCULI #### [facility] [address] [place] [address] Dr. Tena BakerUniversity Hospitals Lake West [facility] Center on above:Performed By: #### CALCULI #### [facility] [address] [place] [address] Dr. Tena Ramos Acid80 %NormalPremier Health Miami Valley Hospital on above: Performed By: #### CALCULI #### [facility] [address] [place] [address] Dr. Tena GreggUric Acid DihydrateNKing's Daughters Medical Center OhioCommunson healthcare [facility] on above: Performed By: #### CALCULI #### [facility] [address] [place] [address] Dr. T[address] [place] [address] on above:Performed By: #### CALCULI #### [facility] [address] [place] [address] Dr. Tena PedersenSt. Mary's Medical Center on above:Performed By: #### CALCULI #### [facility] [address] [place] [address] Dr. Tena Mcdonald 08-92-4542Hoggtqyuz From: Olga Duque MA To: EU - Clinical; Sent: 11/19/2021 13:53:51 EDT Show up: 11/21/2021 13:53:00 EDT Subject: Urine culture Reminder/Recall Urine culture Sent to Maite Hernando to reviewHenry County HospitalAmbulatory Visit Summaryon 29-01-5523Qaflpvuocb Visit Summary MARVA ANDRADE :1940 Visit Date:11/19/2021 Ambulatory Visit Instructions Your Diagnosis Personal history of kidney stones Kidney stone Mixed incontinence Urinary tract infection Tests Performed Urnls Dip Stick Auto w/o Microscopy POC 84256 XR Abdomen 1 View -- Results Pending -- Please visit your patient portal for your results or contact your primary care physician. Your Care Team Attending Physician - Yao MERCADO MD Primary Care Physician - EUGENE RYAN [...] Appointments Friday 11:15 AM EST With: Yao MERCADO MD [facility] CenterPatient Educationon 19-50-3121Ivuvdyq EducationUrology Dietary Guidelines to Help Prevent Kidney Stones [...] portion sizes. For most meat and fish, oneserving is about the size of one deck [...] Rhubarb. ? Beets. ? Potato chips and cuban fries. ? Nuts. ? If you regularly take a diuretic medicine, make sure to eat at least 1?2 fruits or vegetables high in potassium each day. These include: ? Avocado. ? Banana. ? [place], prune, carrot, or tomato juice. ? Baked potato. ? Cabbage. ? Beans and split peas. General instructions ? Drink enough fluid to keep your urine clear or pale yellow. This is the most important thing you can do. ? Talk to your health care provider and dietitian about taking daily supplements. Depending on yourhealth and the cause of your kidney stones, [...] Work with your dietitian to find strategies andan eating plan that works best for you. [...] fish. Salted or cured meats. Deli meats. Hotdogs. Sausages. Dairy Cheese. Beverages Regular soft drinks. Regular vegetable juice. Seasonings and other foods Seasoning blends with salt. Salad dr (more content not included)...[facility] HospitalUrology Office/Clinic Noteon 53-25-9901Qwrqksh Office/Clinic NoteChief Complaint 6 month f/u HPI Staff Pt is here for f/u. Previous dx of kidney stone (right ESWL 05/24/21), stress incontinence, personal hx of kidney stones and assisted use of aspirin. Dysuria: no Incomplete bladder [...] ongoing hx with kidney stones. Patient brought inexpelled kidney stones, directed that she can send [...] two bottles of water q2 hours. Patient understands/acknowledges. 3. Mixed incontinence (N39.46: Mixed incontinence) Patient [...] 250mg bid for 5 days, sent to [facility] in [place]. Follow-up With When Contact Information JESS DELGADO, Yao R, URL [facility] [address], [place] [address]- Additional Instructions: 6 month f/u with KUB Patient Education Dietary Guidelines to Help Prevent Kidney Stones Sangeetha Schmitt, personally scribed for Dr. Mercado on 11/19/2021 10:26:46. . Documentation recorded by the scribSangeetha sarmiento, accurately reflects the services(s) I performed [...] Urine Dipstick: Negative (05 (more content not included)...[facility] HospitalComment on above:Result Comment: Electronically Signed By: Yao MERCADO MD\.br\Date and Time Signed: 11/19/21 10:29 EDT\.br\Electronically Co-Signed By: Sangeetha Singh\.br\Date and Time Co-Signed: 11/19/21 10:27 EDTRAD - MISCon [id number] [facility] [id number]:[address] [place], [place] [address]RAD - [id number]:[address] [place] [address] 53-22-1946Heqbkpxia From: Rebecca Asencio To: EU - Clinical; Sent: 08/02/2021 15:25:57 EST Show up: 08/07/2021 15:25:00 EST Subject: KUB Reminder/Recalls ChoeJoseph WALKERKriss, order faxed 08/02/21 Results scanned into pt's file will send PRW a message when they are available. [facility] HospitalComplete Blood Count with Auto Diffon 59-59-2340Eneyycndk (Bld) [#/Vol]0.06 10*3/uLNormal0.00-0.20[facility] SpecialistComment on above:Performed By: #### CBCAD, CMP, LIPD #### [facility] [address], [place] [id number]/100 WBC (Bld)0.7 %[facility] SpecialistComment on above:Performed By: #### CBCAD, CMP, LIPD #### [facility] [address], [place] [id number] (Bld) [#/Vol]0.23 10*3/uLNormal0.02-0.50NoNorwalk Memorial Hospital SpecialistComment on above:Performed By: #### CBCAD, CMP, LIPD #### [facility] [address], [place] [id number]/100 WBC (Bld)2.5 %[facility] SpecialistComment on above:Performed By: #### CBCAD, CMP, LIPD #### [facility] [address], [place] [id number] distribution width (RBC) [Ratio]13.0 %Normal 11.0-15.0[facility] SpecialistComment on above:Performed By: #### CBCAD, CMP, LIPD #### [facility] [address], [place] [id number] (Bld) [Volume fraction]43.3 %Wkdlzz50.0-47.0 [facility] HospitalComment on above:Performed By: #### CBCAD, CMP, LIPD #### [facility] [address], [place] [id number] (Bld) [Mass/Vol]14.1 g/mEIlzqkq79.6-15.5NortSalem City Hospital SpecialistComment on above:Performed By: #### CBCAD, CMP, LIPD #### [facility] [address], [place] [id number] (Bld) [#/Vol]2.7 10*3/uLNormal0.9-3.9NortChillicothe Hospital Medical SpecialistComment on above:Performed By: #### CBCAD, CMP, LIPD #### [facility] [address], [place] [id number]/100 WBC (Bld)29.9 %NormalNortSalem City Hospital SpecialistComment on above:Performed By: #### CBCAD, CMP, LIPD #### [facility] [address], [place] [id number] (RBC) [Entitic mass]31.7 plWzoset15.0-33.0NortSalem City Hospital SpecialistComment on above:Performed By: #### CBCAD, CMP, LIPD #### [facility] [address], [place] [id number] (RBC) [Mass/Vol]32.6 g/rMLvtwll87.0-36.0NortSalem City Hospital SpecialistComment on above:Performed By: #### CBCAD, CMP, LIPD #### [facility] [address], [place] [id number] (RBC) [Entitic vol]97 cZWejdso85-597Jnbqwcqc [facility] SpecialistComment on above:Performed By: #### CBCAD, CMP, LIPD #### [facility] [address], [place] [id number] (Bld) [#/Vol]0.9 10*3/uLNormal0.2-0.9NortSalem City Hospital SpecialistComment on above:Performed By: #### CBCAD, CMP, LIPD #### [facility] [address], [place] [id number]/100 WBC (Bld)9.5 %NormalNorthern Indiana Medical SpecialistComment on above:Performed By: #### CBCAD, CMP, LIPD #### [facility] [address], [place] [id number] (Bld) [#/Vol]5.2 10*3/uLNormal1.5-7.8NortChillicothe Hospital Medical SpecialistComment on above:Performed By: #### CBCAD, CMP, LIPD #### [facility] [address], [place] [id number]/100 WBC (Bld)57.2 %NormalNortChillicothe Hospital Medical SpecialistComment on above:Performed By: #### CBCAD, CMP, LIPD #### [facility] [address], [place] [id number] mean volume (Bld) [Entitic vol]12.10 fLNormal 7.50-12.50NortSalem City Hospital SpecialistComment on above:Performed By: #### CBCAD, CMP, LIPD #### [facility] [address], [place] [id number] (Bld) [#/Vol]138 10*3/kXVbi227-044Xvcjmthq [facility] SpecialistComment on above:Performed By: #### CBCAD, CMP, LIPD #### [facility] [address], [place] [id number] (Bld) [#/Vol]4.45 10*6/uLNormal3.90-5.20NortChillicothe Hospital Medical SpecialistComment on above:Performed By: #### CBCAD, CMP, LIPD #### [facility] [address], [place] [id number]-EE76.4 vGIjnbnu49.0-50.0NortSalem City HospitalInternational Sales Manager Comment on above:Performed By: #### CBCAD, CMP, LIPD #### [facility] [address], [place] [id number] (Bld) [#/Vol]9.1 10*3/uLNormal3.8-11.0NortChillicothe Hospital Medical SpecialistComment on above:Performed By: #### CBCAD, CMP, LIPD #### [facility] [address], [place] [id number] Metabolic Panelon 90-13-8802Hykefmi [Mass/Vol] 4.6 g/dLNormal3.6-5.1[facility] SpecialistComment on above:Performed By: #### CBCAD, CMP, LIPD #### [facility] [address], [place] [id number]/Globulin [Mass ratio]2.1 {ratio}Normal1.0-2.5NoNorwalk Memorial Hospital SpecialistComment on above:Performed By: #### CBCAD, CMP, LIPD #### [facility] [address], [place] [id number] [Catalytic activity/Vol]126 U/WQjmu24-507Wtskefgr [facility] SpecialistComment on above:Performed By: #### CBCAD, CMP, LIPD #### [facility] [address], [place] [id number] [Catalytic activity/Vol]26 U/LNormal6-33NoNorwalk Memorial Hospital SpecialistComment on above:Result Comment: 06/06/2021 Female reference range changed.Performed By: #### CBCAD, CMP, LIPD #### [facility] [address], [place] [address]Dbkbk gap [Moles/Vol]20 mmol/EGpggce85-19Agxzdloy [facility] SpecialistComment on above:Result Comment: Effective 07/12/2019 reference range changed.Performed By: #### CBCAD, CMP, LIPD #### [facility] [address], [place] [address]PHA [Catalytic activity/Vol]36 U/LHigh9-34NoNorwalk Memorial Hospital SpecialistComment on above:Performed By: #### CBCAD, CMP, LIPD #### [facility] [address], [place] [id number] [Mass/Vol]0.64 mg/dLNormal0.30-1.20[facility] SpecialistComment on above:Performed By: #### CBCAD, CMP, LIPD #### [facility] [address] [place], [place] [address]URG/CREA24 RatioHigh6-22NoNorwalk Memorial Hospital Specialist Comment on above:Performed By: #### CBCAD, CMP, LIPD #### [facility] [address] [place], [place] [address]Stxhelw [Mass/Vol]9.7 mg/dLNormal8.6-10.2[facility] SpecialistComment on above:Performed By: #### CBCAD, CMP, LIPD #### [facility] [address] [place], [place] [address]Dsndhclr [Moles/Vol]108 mmol/GOiur94-715Klvbykqs [facility] SpecialistComment on above:Performed By: #### CBCAD, CMP, LIPD #### [facility] [address] [facility], [place] [id number] [Moles/Vol]19 mmol/GOtr98-03Gbuahbfs [place] Medical SpecialistComment on above:Performed By: #### CBCAD, CMP, LIPD #### [facility] [address] [facility]erenenc[place], [place] [id number] [Mass/Vol]1.2 mg/dLNormal0.6-1.4NoNorwalk Memorial Hospital SpecialistComment on above:Performed By: #### CBCAD, CMP, LIPD #### [facility] [address] [facility], [place] [id number] mL/min/1.33z6Rym>60NoDoctors Medical Center International Sales Manager Comment on above:Performed By: #### CBCAD, CMP, LIPD #### [facility] [address] [place], [place] [id number] mL/min/1.07e2Nvv>60NoDoctors Medical Center International Sales Manager Comment on above:Performed By: #### CBCAD, CMP, LIPD #### [facility] [address] [place], [place] [id number] (S) [Mass/Vol]2.2 g/dLNormal1.9-3.7NoNorwalk Memorial Hospital SpecialistComment on above:Performed By: #### CBCAD, CMP, LIPD #### [facility] [address] [place], [place] [id number] [Mass/Vol]104 mg/hESpaj68-45Cghqlupi [place] Medical SpecialistComment on above:Result Comment: For FASTING Glucose --- ADA reference ranges: Normal 65-99 mg/dl Prediabetes 100-125 Diabetes >/= 126Performed By: #### CBCAD, CMP, LIPD #### [facility] [address] [place], [place] [id number] [Moles/Vol]4.5 mmol/LNormal3.5-5.5NoNorwalk Memorial Hospital SpecialistComment on above:Performed By: #### CBCAD, CMP, LIPD #### [facility] [address] [place], [place] [id number] [Mass/Vol]6.8 g/dLNormal6.1-8.1NorthH[facility] SpecialistComment on above:Performed By: #### CBCAD, CMP, LIPD #### [facility] [address] [place], [place] [id number] [Moles/Vol]143 mmol/NCrjotc353-358Lnrwvcsl [place] Medical SpecialistComment on above:Performed By: #### CBCAD, CMP, LIPD #### [facility] [address] [place], [place] [id number] nitrogen [Mass/Vol]28 mg/dLHigh7-25NoNorwalk Memorial Hospital SpecialistComment on above:Performed By: #### CBCAD, CMP, LIPD #### [facility] [address], [place] [address]Twwpveczqm A1Con 41-82-6754BFI949.59NormalNoNorwalk Memorial Hospital SpecialistComment on above:Performed By: #### A1C #### [facility] [address] [place], [place] [id number] (Bld) [Mass fraction]6.7 %High4.0-6.0NoNorwalk Memorial Hospital SpecialistComment on above:Performed By: #### A1C #### [facility] [address] [place], [place] [id number] Panelon 93-17-0270Jebvqpiznpk [Mass/Vol]142 mg/dLNormal 125-200NoNorwalk Memorial Hospital SpecialistComment on above:Result Comment: Low risk < 200mg/dL Borderline risk 201-239 mg/dl High risk > or equal to 240Performed By: #### CBCAD, CMP, LIPD #### [facility] [address] [place], [place] [id number] in HDL [Mass/Vol]43 mg/dLNormal>40NoNorwalk Memorial Hospital SpecialistComment on above:Result Comment: High Cardiovascular Risk HDL <40 mg/dL Low Cardiovascular Risk HDL > or equal to 60 mg/dlPerformed By: #### CBCAD, CMP, LIPD #### [facility] [address] [place], [place] [id number] in LDL [Mass/Vol]73 mg/dLNormNorwalk Memorial Hospital SpecialistComment on above:Result Comment: LDL ATP III CLASSIFICATION LDL less than 100 mg/dl Optimal LDL 100-129 mg/dl Near or above optimal LDL 130-159 Borderline high LDL 160-189 High LDL greater than 189 mg/dl Very HighPerformed By: #### CBCAD, CMP, LIPD #### [facility] [address] [place], [place] [id number] in VLDL [Mass/Vol]26 mg/dLNormNorwalk Memorial Hospital SpecialistComment on above:Performed By: #### CBCAD, CMP, LIPD #### [facility] [address] [place], [place] [id number].total/Cholesterol in HDL [Mass ratio]3 {ratio} NormalNoNorwalk Memorial Hospital SpecialistComment on above:Performed By: #### CBCAD, CMP, LIPD #### [facility] [address] [place], [place] [id number] [Mass/Vol]132 mg/uDLovxxe81-715Gqqyymer [place] Medical SpecialistComment on above:Result Comment: TRIG ATPIII CLASSIFICATIONS TRIG less than 150 mg/dl Normal TRIG 150-199 mg/dl Borderline High TRIG 200-500 mg/dl High TRIG greather than 500 mg/dl Very HighPerformed By: #### CBCAD, CMP, LIPD #### [facility] [address] [place], [place] [id number] AND LATERALon 42-58-1476YEGLD AND LATERALMcKitrick Hospital Department of Radiology [address] [place] [address] Patient Name: MARVA ANDRADE : 1940 Sex: F Age: Race: White Pt. Location: Patient Status: O Ordered Date: 03/30/2021 11:40:00 AM Completed Date: 03/30/2021 11:59 AM Requesting Provider: PEPE KOVACS Attending Provider: PEPE KOVACS Report Copy To: EUGENE RYAN Signs & Symptoms: Z95.0 Presence of cardiac pacemaker I10 History: Comments: evaluate Exam: CHEST AND LATERAL EXAMINATION: CHEST AND LATERAL 03/30/2021 11:59 AM [...] pathology. Electronically signed: Nikolai Palomino. Transcribed by: [email or web address], User Resident: Electronically Signed by: NIKOLAI PALOMINO @ 03/30/2021 01:03 PMNormalOhioHealth Pickerington Methodist HospitalComment on above:Order Comment: evaluateIOL BIOMETRY W/ IOL CALC OU (BOTH EYES)[facility] Vital Signs Date TimeVital SignValuePerforming VhmjskwqjYskshzvp57-25-0320 08:37-0400Body .6 cmPacc 1 Work Phone: [facility]08-24-2023 08:37-0400Body temperature 98.01 [degF]Pacc 1 Work Phone: [facility]08-24-2023 08:37-0400Body .56 kgPacc 1 Work Phone: [facility]08-24-2023 08:37-0400Diastolic blood aetocadc57 mm[Hg]Pacc 1 Work Phone: [facility]08-24-2023 08:37-0400Heart rate99 /min Pacc 1 Work Phone: [facility]08-24-2023 08:37-0400Respiratory rate 16 /minPacc 1 Work Phone: [facility]08-24-2023 08:37-5053YhC8% (BldA) [Mass fraction]99 %Pacc 1 Work Phone: [facility]08-24-2023 08:37-0400Systolic blood twkuumic779 mm[Hg]Pacc 1 Work Phone: [facility]05-16-2022 09:49-0400Blood Pressure LocationPaC[facility]sea [facility] 05-16-2022 09:49-0400Diastolic blood ggaocyjk61 mm[Hg] Yao MERCADO [facility] 05-16-2022 09:49-0400Heart rate73 /minPatrick [employer] [facility] 05-16-2022 09:49-0400Respiratory rate16 /minPatrick [employer] [facility] 05-16-2022 09:49-0400Systolic blood zjxguagp590 mm[Hg] Yao MERCADO [facility] Encounters Encounter DateEncounter TypeCare ProviderFacilityStart: 05-03-2025 End: 31-35-9696hvgjpfcqupSCSEBerger Hospitaltart: 56-37-9677rnhhjpfaedKLVBCleveland Clinic Euclid Hospitaltart: 11-83-7124mrxcwppeeaBWJOY GRUBBUniMcKitrick Hospitaltart: 12-01-2024 End: 32-41-9606Ilmaqhxig Result EncounterGeneric External Data ProviderNOMS External Department UnsolicitedStart: 12-01-2024 End: 06-49-8971Kgcepumek Result EncounterGeneric External Data ProviderNOMS External Department UnsolicitedStart: 12-01-2024 End: 72-21-6689nnjucwinklOXTR SNIDERUnMercy Memorial Hospitaltart: 55-46-0428plwuxguuqbYPYSCleveland Clinic Euclid Hospitaltart: 44-82-0364glkwqduihnKUJKJ.W. Ruby Memorial Hospitaltart: 10-25-2024 End: 70-32-5172ojoenrbnysZOLFCleveland Clinic Euclid Hospitaltart: 10-20-2024 End: 83-58-8288vitptwqztiWIDTUniversity Hospitals Cleveland Medical Centertart: 09-29-2024 End: 27-73-4271appssvbmsgLAUMRegency Hospital Toledotart: 05-18-2024 End: 92-85-1644kghwhdbddwXTIIJ.W. Ruby Memorial Hospitaltart: 03-29-2024 End: 43-11-8813Rgdvndixn Result EncounterGeneric External Data ProviderNOMS External Department UnsolicitedStart: 03-29-2024 End: 10-34-0042Ysuwlycuv Result EncounterGeneric External Data ProviderNOMS External Department UnsolicitedStart: 08-29-2023 End: 81-34-0832Vmcckmwak Result EncounterGeneric External Data ProviderNOMS External Department UnsolicitedStart: 08-29-2023 End: 51-85-9090Caatcuubg Result EncounterGeneric External Data ProviderNOMS External Department UnsolicitedStart: 03-26-2023 End: 65-09-7071xfetiysfcgAAGER HABERFacility:[facility] Systemtart: 03-12-2023 End: 74-72-1929grvxhutlzxFKMOC HABERFacility:[facility] Systemtart: 91-95-3565Lfryuqcpq for other preprocedural examinationAIMEE [facility] CenterStart: 02-27-2023 End: 60-01-0464Pmlamrg encounter procedureEye Measurements Work Phone: OphthalmologyComment on above: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Start: 02-27-2023 End: 07-39-7804Sqezkpauc to establishmentPacc [facility] Work Phone: [facility]ENTERtart: 02-27-2023 End: 23-53-4446enksgorkdiHvrx [facility] [facility] Work Phone: Pre AnesthesiaComment on above:Pre-operative clearance (Primary Dx); Type 2 diabetes mellitus without complication, without long-term current use of insulin (HCC); Hyperlipidemia, unspecified hyperlipidemia type; Hypertension, unspecified type; Biventricular cardiac pacemaker in situ; Complete atrioventricular block (HCC)Start: 02-27-2023 End: 05-01-5072Ertwzksmftdy [facility] Mayda Meyers Work Phone: [facility] Work Phone: Start: 01-09-2023 End: 50-78-5335ucxhhpleddWWDBX HABERFacility: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 (Primary Dx); Glaucoma suspect of both eyesStart: 08-12-2022 End: 15-04-1055eetcvgrkpdMZ MARVA SAUERFacility:P4Xgncp: 05-27-2022 End: 78-05-7091zichihaarnSE Patrick R WATERSFacility:EU BellevueStart: 05-21-2022 End: 35-95-1242bfpiiuhpkiJS YAO MERCADOFacility:C2Orlfc: 11-19-2021 End: 27-85-0583bseleciticHUCourtney MERCADOFacility:FTMCStart: 11-19-2021 End: 24-03-3414Smp Drop offYao MERCADO [facility] Start: 11-19-2021 End: 17-72-3386wtxpvjdyrgJURomeo MERCADOFacility:W3Faqnm: 11-19-2021 End: 44-59-3652vmsplstnavJVCourtney MERCADOFacility:EU BellevueStart: 11-19-2021 End: 94-08-0608Qjjtquu encounter procedureYao MERCADO [facility] Procedures DateProcedureProcedure DetailPerforming ClinicianStart: 42-44-9390QZO BASIC METABOLIC PANELGeneric External Data ProviderStart: 05-80-4994PPP LIPID PROFILE (FASTING)Generic External Data ProviderStart: 97-86-4078FWJD ECHO LIMITED STUDY Generic External Data ProviderStart: 81-39-1325KIH BIOMETRY W/ IOL CALC OU (BOTH EYES)Jed Webster MD Work Phone: Start: 88-11-1538Aqoypaoxohinjo shockwave lithotripsy of calculus of kidneyPatrick MERCADO Cardiac pacemaker, device (physical object)Yao MERCADO Plan of Treatment DateCare ActivityDetailAuthorStart: 52-79-3706Gmwozzluz vaccinationGARFIELD MEMORIAL [facility]OSPITAL HealthcareStart: 66-03-0429Rmifjmccg vaccinationInfluenza Vaccine (#1)[facility] HealthcareStart: 72-45-6608Djogesbby C antibody, confirmatory testDILATED RETINAL EXAMSelect Medical [facility], Avontart: 01-09-2024 End: 47-58-5058WKF BIOMETRY W/ IOL CALC OU (BOTH EYES)IOL BIOMETRY W/ IOL CALC OU (BOTH EYES) OPHT Imaging Routine Combined forms of age-related cataractof both eyes Expected: 01/09/2024, Expires: 07/02/2024[facility] Work Phone: Comment on above:Expected: 01/09/2024, Expires: 07/02/2024Start: 86-14-2756Kzsbz screening for proteinDiabetes: Urine Protein ScreeningNOWV HealthcareStart: 01-18-2024Medicare Annual Wellness (AWV)Medicare Annual Wellness (AWV)[facility] HealthcareStart: 67-14-6449Isfnhhlzr vaccination INFLUENZA (#1)[facility], Avontart: 71-47-2776Maxbsuutkv A1c measurement Diabetes: Hemoglobin A7XMWLT HealthcareStart: 26-94-8625EVBMDLR DIRECTIVE DISCUSSIONADVANCE DIRECTIVE DISCUSSIONCleLima City Hospitaltart: 07-07-2022 DEPRESSION ASSESSMENTDEPRESSION ASSESSMENTCleLima City Hospitaltart: 03-27-2022 Glaucoma screeningDiabetes: Retinopathy ScreeningNOWV HealthcareStart: 59-57-2189Dvnlc screening for proteinDiabetes: Urine Protein ScreeningSt. Luke's HospitalStart: 20-75-9132TFDB DENSITYBONE DENSITYSelect Medical [facility], Avontart: 36-69-8347AKNZYSWBVCOJ: 65+ (1 - PCV)PNEUMOCOCCAL: 65+ (1 - PCV)[facility] Start: 90-79-4022GHRSKMEA VACCINE (1 of 2)SHINGRIX VACCINE (1 of 2)[facility] Avontart: 88-65-2819UZLOHGPZ SCREENDIABETES SCREENSelect Medical [facility], Avontart: 06-39-7536Dnbir microalbumin profileDTAP,TDAP,TD (1 - Tdap)[facility] Start: 06-81-0598Aixtfldha B surface antibody levelLDL CHOLESTEROLSelect Medical [facility], Avontart: comp foot exam completedDIABETIC FOOT EXAMSelect Medical [facility], Avontart: 61-95-5743Nuwylpsay B screeningURINE ALBUMIN:CREATININE RATIO [facility], Avontart: 53-96-2692ATLZECKYBYND: 65+ (1 - PCV)PNEUMOCOCCAL: 65+ (1 - PCV)[facility], Avontart: 22-10-6256Zjnlqieufo A1c/Hemoglobin.total in Blood BPU8ZNjvcgjjezJ.W. Ruby Memorial HospitalCORNEAL TOPOGRAPHY ATLAS OU (BOTH EYES)CORNEAL TOPOGRAPHY ATLAS OU (BOTH EYES) OPHT Imaging Routine Combined forms of age-related cataract of both eyes 01/09/2023 1:45 PM [facility] Work Phone: End: 82-70-2786TGB MACULA CIRRUS OU (BOTH EYES)OCT MACULA CIRRUS OU (BOTH EYES) OPHT Imaging Routine Combined forms of age-related cataract of both eyes 1 Occurrences starting 12/20/2022 until 06/12/2024[facility] Work Phone: Comment on above:1 Occurrences starting 12/20/2022 until 06/12/2024OCT MACULA CIRRUS OU (BOTH EYES)OCT MACULA CIRRUS OU (BOTH EYES) OPHT Imaging Routine Combined forms of age-related cataract of both eyes 01/09/2023 2:05 PM [facility] Work Phone: [facility] Immunizations Immunization DateImmunizationNotesCare ZgdwhyvyRjyiohed40-31-8559svrktxbmt virus vaccine, unspecified formulationGeneric ProviderNOFulton State HospitalGelckhrwfb14-68-6204 SARS-CoV-2 (COVID-19) Ad26 vaccine, recombinantPatrick MERCADO [facility] 01206821-89-1922WGOJ-DlB-9 (COVID-19) Ad26 vaccine, recombinantPatrick MERCADO [facility] Payers DatePayer CategoryPayerPolicy [id number] Health InsuranceCH[facility] AARP SUPPLEMENT [id number] 2022-Present [phone] [address] [place] [address] [id number] [id number] 1960Medicare [id number] [id number] 2.0.1.840041.3.57[id number] 2.840.1.213999.3.57[id number] 2.840.1.045580.3.57[id number] 2.840.1.017476.3.57[id number] 2.16840.1.177697.3.579.2.593 Social History DateTypeDetailFacilityStart: 04-17-2021 End: 33-34-5819Ewaqhoc smoking statusNever smoked tobacco (finding)[facility] start: 97-99-6160Cxxoofj smoking statusNeverExecutive Urology of [facility] Hospital start: 01-09-2023 End: 44-87-5351Cuc Assigned At BirthFemaleExecutive [facility]rology [facility] start: 16-64-4301Xuqdivq use and exposureSmokeless tobacco non-userSelect Medical [facility] Rehabilitation Hospital, Avontart: 01-09-2023 End: 49-17-6576Fgephju intakeEx-drinker (finding)[facility] Avontart: 63-09-7597Qiq Assigned At BirthNot on fileSelect Medical [facility] Clinic Rehabilitation Hospital, Avontart: 01-09-2023 End: 60-12-9980Dbtzgmj of Social functionSelect Medical Cleveland Clinic Rehabilitation Hospital, Avontart: 09-39-4010Qnrqnt identityIdentifies as female gender (finding)[facility] smoking status NHISTobacco smoking consumption unknownSt. Luke's Hospital Clinical Notes 11-19-2021 to 12-01-2024 Note Date & RsjxYlesAyhdcsrh45-18-1273 NoteSUBJECTIVE Reason for Visit: Marva Andrade is a 84 y.o. year old female patient being seen for 6-week follow-up visit. HPI: Marva Andrade is a 84 y.o. 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 12/01/2024 office visit: Patient is seen and evaluated in the office today for 6-week follow-up for hypertension management. She denies chest pain, shortness of breath, palpitations, lightheadedness or dizziness, or lower extremity edema. She reports doing well overall. Blood pressure today is well-controlled in the 120s systolic - chlorthalidone 12.5 mg daily was initiated prior visit, she's tolerating well. She mentions that she had forgot to get her labs checked after 1 week of initiation, and will get blood drawn after today's visit. 10/20/2024 office visit: Patient was seen and [...] Topics Alcohol use: Never OBJECTIVE Visit Vitals OB Status Postmenopausal Smoking Status Former Physical Exam Constitutional: General Appearance: well-developed, appears [...] a day by oral route for 90 (more content not included)...[facility]04-16-2025 NoteSUBJECTIVE Reason for Visit: Marva Andrade is a 84 y.o. year old female patient being seen for follow-up. HPI: Marva Andrade is a 84 y.o. year old female [...] known visit with result (more content not included)...[facility]03-26-2025 NoteSUBJECTIVE Reason for Visit: Marva Andrade is a 84 y.o. year old female patient being seen for 6-month follow-up visit. HPI: Marva Andrade is a 84 y.o. year old female [...] Date Value Date Time Interrogation * 05/27/2023 [id number] Implantable Pulse Genera* 05/27/2023 Medtronic Implantable Pulse Genera* 05/27/2023 [id number] Adapta Implantable Pulse Genera* 05/27/2023 [id number] Type Interrogation Sessi* 05/27/2023 In Clinic Clinic Name 05/27/2023 [facility] Implantable Pulse Genera* 05/27/2023 Pacemaker Implantable Pulse Genera* 05/27/2023 [id number] Implantable Lead Manufac* 05/27/2023 Medtronic Implantable Lead Model 05/27/2023 4023 CapSure SP Implantable Lead Serial * 05/27/2023 [id number] Implantable Lead Implant* 05/27/2023 [id number] Implantable Lead Location 05/27/2023 Left Ventricle Implantable L (more content not included)...[facility] 02-27-2023 NoteHNO ID: [id number] Author: Leticia Keyes COA Service: ? Author Type: Bulk Fluids Handler Type: Progress Notes Filed: 02/27/2023 9:49 AM Note Text: CONFIRM AIM PLANO BOTH EYES. PATIENT AWARE THAT SHE WILL NEED GLASSES FOR ALL DISTANCES. BOZENA HurleyWooster [facility]08-[facility] History of Present illness Narrative* Leticia Keyes COA - 02/27/2023 9:48 AM EDT CONFIRM AIM PLANO BOTH EYES. PATIENT AWARE THAT SHE WILL NEED GLASSES FOR ALL DISTANCES. BOZENA Hurley documented in this encounterJ.W. [facility]08-24-2023 Instructions* Patient Instructions* Shoshana Nieves APRN.BINDERY LIBRARY TECHNICAL ASSISTANT - 02/27/2023 8:53 AM EDT PATIENT PREOPERATIVE INSTRUCTIONS Jed Webster V, MD has scheduled you for your procedure at this surgery center: [facility]: [phone] --[address] [facility] [address] [facility] [place] [address]. Please read below carefully for your personalized [...] Procedures: - YOU MUST HAVE A RESPONSIBLE ALLEY CLEANER TAKE YOU HOME. A DIRECTOR AGENCY & STRATEGIC PARTNERSHIPS OR BEHAVIORAL HEALTH AIDE CANNOT BE MADE A RESPONSIBLE ALLEY CLEANER. - We recommend that a responsible person stays with you overnight to take care of you. - You cannot stay in a hotel alone after outpatient surgery. You will not be permitted to have yoursurgery, if you do not have someone to [...] Advance Directive, please fax a copy to [phone] or email to for it to be added to your chart. If you do not have an Advance Directive, you can find the appropriate form and more information at [email or web address]. We recommend that youcomplete the Advance Directive form found on the website and bring it with you the day of your surgery. It can be witnessed and scanned into your chart that day. Shoshana Nieves APRN.CNP documented in this encounterJ.W. Ruby [facility] Hospital08-24-2023 History and physical note * Shoshana Nieves APRN.CNP - 02/27/2023 8:32 AM EDT HISTORY AND PHYSICAL EXAMINATION SERVICE DATE: 02/27/2023 [...] fevers. Neuro: No history of TIA's, stroke, INTELLIGENCE CHIEF tumor, impaired sensorium, hemiplegia, paraplegia or quadraplegia. [...] night or hematuria, History of kidney stones JAVA WEB ARCHITECT: Negative for abnormal vaginal bleeding, abnormal vaginal [...] Modality -- -- Ultrasound Narrative PERFORMED AT [facility] LOCATION:[place] [address] Patient: RAYMOND George Exam Date: 05/08/2021 : 1940 Gender:F Ordering : PEPE KOVACS Admission #: [id number] Family : DR EUGENE RYAN M.D. Order #: [id number] CLICK HERE TO VIEW EXAM ECHOCARDIOGRAM REPORT [...] Area(A4C): 20.50 cm2 Left Atrium Systolic Volume(A2C): 72210 mm3 Left Atrium Systolic Volume(A4C): 83117 mm3 Mitral Valve MV E to A Ratio: 0.70 Deceleration Antelope: 2330 mm/s2 Mitral Valve A-Wave Peak Velocity: [...] 2023 TIME: 8:39 AM documented in this encounterJ.W. Ruby [facility] Hospital07-06-2023 NoteHNO ID: [id number] Author: Jed Webster V, MD Service: ? [...] and surgery - Comanage with Dr Ibrahim; [facility] POD #1 Cataract Presurgical Documentation Cataract: [...] patient was offered a surgery/procedure at a [facility] facility. The surgeon/proceduralist and patient have [...] Jed WEBSTER MD January 09, 2023 3:01 [facility]07-06-2023 Miscellaneous Notes* Addendum Note - Bindu Daniels - 01/09/2023 4:33 PM EDTAddended by: BINDU LÓPEZ on: 01/09/2023 04:33 PM Modules accepted: Orders documented in this encounterJ.W. Ruby [facility] Hospital07-06-2023 NoteHNO ID: [id number] Author: Tyson Fleming, OD Service: ? Author Type: LICENSED NUCLEAR OPERATOR Type: Progress Notes Filed: 01/09/2023 4:04 PM [...] Tyson Fleming, OD January 09, 2023 2:20 [facility]07-06-2023 History of Present illness Narrative * Jed Webster V, MD - 01/09/2023 3:01 PM EDT The documentation for this note was completed by Aide Moreland, BOZENA acting as a scribe for Jed WEBSTER [...] and surgery - Comanage with Dr Ibrahim; [facility] POD #1 Cataract Presurgical Documentation Cataract: [...] patient was offered a surgery/procedure at a [facility] facility. The surgeon/proceduralist and patient have discussed in detail the risk of exposure to and/or potential harm posed by the COVID-19 virus with having a surgery/procedure at this time versus the risk of delaying the surgery/pr ocedure. It is not possible to know either the risk of delaying the surgery or procedure or chance of getting an infection with perfect accuracy, but a joint decision was made between the patient andthe surgeon/proceduralist to proceed at this time with the scheduled surgery/procedure as indicatedon the consent form. The documentation recorded by the scribe accurately reflects the service I personally performed andthe decisions made by me. I have confirmed and edited as necessary the relevant ophthalmic history,ROS, and the exam findings as obtained by others. I have seen and examined Marva Andrade. I also have reviewed and agree with the assessment and plan as stated above and agree with all of its relevant components. Jed WEBSTER MD January 09, 2023 3:01 PM * Tyson Fleming, OD - 01/09/2023 2:20 PM EDT ASSESSMENT/PLAN: 1. Combined forms of age-related cataract [...] 09, 2023 2:20 PM documented in this encounterJ.W. [facility] Hospital05-16-2022 Hospital Discharge instructions Patient Education 11/19/2021 07:44:37 [...] about 300 mg of calcium at each meal.Foods that contain 200 500 mg of calcium [...] Talk to your dietitian about how much calciumis recommended for you. Shopping Buy plenty of [...] the table and allow each person to addhis or her own salt to taste. Use [...] fish, if told by your dietitian. To dothis: ?Limit the number of times you have [...] include: ?Spinach. ?Rhubarb. ?Beets. ?Potato chips and cuban fries. ?Nuts. If you regularly take a diuretic medicine, make sure to eat at least 1 2 fruits or vegetables high in potassium each day. These include: ?Avocado. ?Banana. ?[place], prune, carrot, or tomato juice. ?Baked potato. [...] fish. Salted or cured meats. Deli meats. Hotdogs. Sausages. Dairy Cheese. Beverages Regular soft drinks. Regular vegetable juice. Seasonings and other foods Seasoning blends with salt. Salad dressings. Canned soups. Soy sauce. Ketchup. Barbecue sauce. Canned pasta sauce. Casseroles. Pizza. Lasagna. Frozen meals. Potato chips. Guinean fries. Summary You can reduce your risk of kidney stones by making changes to your diet. The most important thing you can do is drink enough fluid. You should drink enough fluid to keep your urine clear or pale yellow. Ask your health care provider or dietitian how much protein from animal sources you should eat eachday, and also how much salt and calcium you should have each day. This information is not intended to replace advice given to you by your health care provider. Make sure you discuss any questions you have with your health care provider. Document Released: 10/18/2011 Document Revised: 10/13/2019 Document Reviewed: 06/03/2017 [employer] Patient Education 2020 [employer]. Follow Up Care 05/24/2021 08:42:01 With:Yao MERCADO MD, URL Address: [facility] [address], [place] [address]- When: Unknown [facility] evaluation + Plan note Future Appointments Appointment Date:05/27/2022 11:15:00 AM Scheduled Provider:Yao MERCADO MD Location:[facility] Appointment Type:URO Office Visit Diagnostic Tests Pending * Calculi Analysis Urinary 11/19/21 [facility] evaluation + Plan note Future Appointments Appointment Date:05/27/2022 11:15:00 AM Scheduled Provider:Yao MERCADO MD Location:[facility] Appointment Type:URO Office Visit Diagnostic Tests Pending * [facility] Combined forms of age-related cataract of both eyes- Primary Other and combined forms of senile cataract Glaucoma suspect of both eyes Preglaucoma, unspecified [facility] Diagnosis Pre-operative clearance- Primary Preoperative examination, [...] of senile cataract documented in this encounter [facility] note* Diagnosis Combined forms of age-related cataract of both eyes Other and combined forms of senile cataract Combined forms of age-related cataract of both eyes Other and combined forms of senile cataract Combined forms of age-related cataract of both eyes Other and combined forms of senile cataract documented in this encounter [facility] course Narrative No data available for this section [facility] Discharge instructions No data available for this section [facility] Summary Purpose Family History No Family History Records FoundNo Family History Records FoundNo Family History Records FoundNo Family History Records FoundNo Family History Records FoundNo Family History Records Found Advance Directives No Advanced Directives Records FoundNo Advanced Directives Records FoundNo Advanced Directives Records FoundNo Advanced Directives Records FoundNo Advanced Directives Records FoundNo Advanced Directives Records Found Medications Administered Section Medication OrderMAR ActionAction DateDoseRateSite fluorescein-benoxinate 0.25-0.4 % 1 Drop (FLURESS) 1 Drop, BOTH EYES, DIRECTED, Starting on Fri01/09/23 at 1330, Until Fri01/10/23 at 0129, Administer for applanation tonometry. In the event of a Fluress shortage, administer 1 drop of Holstein-Fluor into both eyes as directed for applanation tonometry., [facility] MED ORDERS Given01/09/2023 1:30 PM EDT1 Drop PHENYLephrine 2.5 % 1 Drop (AK-DILATE, LORRIE-SYNEPHRINE) 1 Drop, BOTH EYES, DIRECTED, Starting on Fri01/09/23 at 1330, Until Fri01/10/23 at 0129, Administer for dilation PROTECT FROM LIGHT, [facility]IC MED ORDERS Given01/09/2023 1:30 PM EDT1 Drop tropicamide 1 % 1 Drop (MYDRIACYL) 1 Drop, BOTH EYES, DIRECTED, Starting on Fany 01/09/23 at 1330, Until Fri01/10/23 at 0129, Administer for dilation, [facility]IC MED ORDERS Given01/09/2023 1:30 PM EDT1 Drop Additional Source Comments INFORMATION SOURCE (unrecogn ized section and content) DATE CREATED AUTHOR 04/03/2021 [facility] DATE CREATED AUTHOR AUTHOR'S ORGANIZ ATION 08/06/2021 [facility] DATE CREATED AUTHOR AUTHOR'S ORGANIZ ATION 05/28/2022 [facility] DATE CREATED AUTHOR AUTHOR'S ORGANIZ ATION 08/15/2022 [facility] DATE CREATED AUTHOR AUTHOR'S ORGANIZ ATION 03/27/2023 [facility] DATE CREATED AUTHOR AUTHOR'S ORGANIZ ATION 05/05/2025 [facility] Source Comments (unrecognize d section and content) In the event this informatio n is protected by the Federal Confidentiality of Alcohol and Drug Abuse Patient Records regulations: The Federal rules restrict any use of the information to criminally investigate or prosecute any alcohol or drug abuse patient.[facility] the event this information is protected by the Federal Confidentiality of Alcohol and Drug Abuse Patient Records regulations: The Federal rules restrict any use of the information to criminally investigate or prosecute any alcohol or drug abuse patient.[facility] Hospital[facility] the event this information is protected by the Federal Confidentiality of Alcohol and Drug Abuse Patient Records regulations: The Federal rules restrict any use of the information to criminally investigate or prosecute any alcohol or drug abuse patient.[facility] Reason for Visit (unrecogniz ed section and content) ReasonCommentsCataract EvaluationReasonCommentsAnesthesia ConsultBilateral CataractReasonCommentsPre-Op Exam Care Teams (unrecognized sec tion and content) Team MemberRelationshipSpecialtyStart DateEnd Date Carmen Quintana MD [address] [place] [address] PCP - GeneralInternal Medicine02/20/23Te MemberRelationshipSpecialtyStart Date End Date Carmen Quintana MD [address] [place] [address] PCP - GeneralInternal Medicine02/20/23 MemberRelationshipSpecialtyStart Date End Date Eugene Ryan MD [address] [facility] [address] [place] [address] PCP - ACO [facility]11/28/22 Eugene Ryan MD [address] [place] [address] PCP - GeneralInternal Medicine11/12/22 MemberRelationshipSpecialtyStart Date End Date Eugene Ryan MD [address] [facility] [address] [place] [address] PCP - GeneralInternal Medicine11/12/22Team MemberRelationshipSpecialtyStart Date End Date Eugene Ryan MD [address] [facility] [address] [place] [address] [facility] Reach Eugene Ryan MD [address] [facility] [address] [place] [address] [facility]11/12/22 Eugene Ryan MD [address] [facility] [address] [place] [address] [facility] Reach FOR RECORDS PERTAINING TO PATIENTS WHO ARE [...] BE BASED ON THE PRIMARY CLINICAL RECORDS. [facility] [employer] [facility]. provides no warranty or guarantee of the accuracy or completeness of information in this document.
== END 2025-05-27 13:49 | disposition home or self-care (01) ==
LOC: CARD 13:48
PROVIDERS: PCP Internal Medicine; Visit Provider Nurse Practitioner Family
DX: I50.22 Chronic systolic (congestive) heart failure (principal)
CPT/HCPCS: 93306

== ENCOUNTER 2025-05-31 10:09 | Outpatient (OUT) | payer MEDICARE, SELFPAY ==
--- OUTSIDE RECORDS SUMMARY | 2025-05-24 11:20 | XMS_ITS | Encounter Summary ---
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); Cardiac pacemaker in situ; Sinus node dysfunction (CMS/HCC); Benign hypertensive heart disease with heart failure (CMS/HCC) Social History Tobacco UseTypesPacks/DayYears UsedDateSmoking Tobacco: FormerCigarettes Smokeless Tobacco: NeverAlcohol UseStandard Drinks/WeekCommentsNever0 (1 standard drink = 0.6 oz pure alcohol)UT Safety & EnvironmentAnswerDate Recorded Fear of Current or Ex-PartnerNot on file08/28/2023Emotionally AbusedNot on file 08/28/2023hysically AbusedNot on file08/28/2023Sexually AbusedNot on file 08/28/2023hysically or Sexually AbusedNot on file08/28/2023CommentsNo Sex and Gender InformationValueDate RecordedSex Assigned at BirthFemale 05/03/2025 2:29 PM EDTLegal UxfAaeetr62/29/2022 10:03 PM EDTGender Identity Maacla6205/03/2025 2:29 PM EDTSexual OrientationChoose not to vgjzffze70/29/2025 11:20 PM EDTdocumented as of this encounter Last Filed Vital Signs Vital SignReadingTime TakenCommentsBlood Boaexqqy495/7405/24/2025 11:18 AM EST Zdgfv862605/24/2025 11:18 AM ESTTemperature--Respiratory Rate--Oxygen Saturation 98%05/24/2025 11:18 AM ESTInhaled Oxygen Concentration--Kjzyac14.7 kg (178 lb) 05/24/2025 11:18 AM GELWlqzav343.6 cm (5' 4 )05/24/2025 11:18 AM ESTBody Mass Index30.5505/24/2025 11:18 AM ESTdocumented in this encounter Functional Status * BPAnswerDate of NsjrllsidiTddgke107/7405/24/2025 11:18 AM Jessica Mtz MA * PulseAnswerDate of RxedamoebmGewfnd1963 11:18 AM Jessica Mtz MA * Audit Alcohol ScreeningQuestionAnswerDate of AssessmentAuthorHow often do you have a drink containing alcohol? 12:12 PM Jessica Mtz MA * Patient PositionAnswerDate of GmfcniazgbJwsrilEezqunm10/18/2025 11:18 AM Jessica Rivera MA * BPAnswerDate of YhrvvvxsnbHhprgd189/7405/24/2025 11:18 AM Jessica Mtz MA * PulseAnswerDate of HmrejtcdrbDiejon0338 11:18 AM Jessica Mtz MA * YnM5CaqdocRlfw of OxgwakofuvYbmxsp1892/18/2025 11:18 AM Jessica Mtz MA * BP LocationAnswerDate of AssessmentAuthorRight arm05/24/2025 11:18 AM Jessica Rivera MA * Audit Alcohol ScreeningQuestionAnswerDate of AssessmentAuthorHow often do you have a drink containing alcohol? 12:12 PM Jessica Mtz MA * Patient PositionAnswerDate of CqckbroufyHoxoiuNdiqznw03/18/2025 11:18 AM Jessica Rivera MA documented as of this encounter Progress Notes * Janina Ordoñez, GRACIELA - 05/24/2025 11:20 AM EST Images from the original note were not included. Cardiovascular Medicine [facility] SUBJECTIVE Chief Complaint Patient presents with Follow-up Patient is here today for a 6 month follow up. Patient denies chest pain, SOB/BUENO, palpitations/racing heart, fatigue, leg swelling,dizziness/lightheaded Coronary Artery Disease Congestive Heart Failure Cardiomyopathy Ischemic complete atrioventricular block Pacemaker Hypertension [place] Hyperlipidemia Marva Wang is a 85 y.o. female here for follow-up. CAD, HFrEF, CHB s/p PPM (medtronic) - Gen replacement September,, HTN, HLD document GEN change by Dr. De on 05/29/2016, and previously by Dr. Wiggins on 10/21/2007. It is noted does mention that she had the first implant in 1999 HPI 05/24/2025 She has been doing well since last seen. Denies c/o CP, dyspnea, orthopnea, PND, LE edema, dizziness/LH, palpitations, syncope. Problem List[1] Medical History[2] Family History[3] Social History[4] Allergies[5] OBJECTIVE Visit Vitals BP 134/74 (BP Location: Right arm, Patient Position: Sitting) Pulse 76 Ht 1.626 m (5' 4 ) Wt 80.7 kg (178 lb) SpO2 98% BMI 30.55 kg/m?? OB Status Postmenopausal Smoking Status Former BSA 1.91 m?? Medications: Current Medications[6] Physical Exam Vitals reviewed. Constitutional: Appearance: Normal appearance. HENT: Head: Normocephalic and atraumatic. Right Ear: External ear normal. Left Ear: External ear normal. Eyes: Extraocular Movements: Extraocular movements intact. Conjunctiva/sclera: Conjunctivae normal. Pupils: Pupils are equal, round, and reactive to light. Neck: Vascular: No carotid bruit. Cardiovascular: Rate and Rhythm: Normal rate and regular rhythm. Pulses: Normal pulses. Heart sounds: Normal heart sounds. Pulmonary: Effort: Pulmonary effort is normal. Breath sounds: Normal breath sounds. Abdominal: General: Bowel sounds are normal. Palpations: Abdomen is soft. Musculoskeletal: Cervical back: Neck supple. Right lower leg: No edema. Left lower leg: No edema. Skin: General: Skin is warm and dry. Neurological: General: No focal deficit present. Mental Status: She is alert and oriented to person, place, and time. Psychiatric: Mood and Affect: Mood normal. Behavior: Behavior normal. Thought Content: Thought content normal. Judgment: Judgment normal. Labs: No results found for: EXTCMP , BMPR1A , CBCDIF , BNP , LASAP , RED No visits with results within 6 Month(s) from this visit. Latest known visit with results is: Ancillary Procedure on 07/22/2024 Component Date Value BSA 11/01/2024 1.88 12/01/2024 Cr 1.5, BUN 27, K 5.1, Na 140, eGFR 33 Lipids 03/29/2024 Chol 144, trig 133, LDL 63, HDL 54 Testing/Procedures: TTE 08/29/2023: PACEMAKER GENERATOR REPLACEMENT PROCEDURE NOTE DATE OF PROCEDURE: 09/22/23 PERFORMING PHYSICIAN: Dr. Pepe Kathleen CONSENT: Patient LOCATION: EP Lab PROCEDURE PERFORMED: 1. Pacemaker generator change (Medtronic) 2. Explant of previously implanted pacemaker (Medtronic) 3. Pocket revision. IMPRESSION: 1. Successful dual chamber pacemaker generator change with excellent pacing and sensing parameters. RECOMMENDATIONS: 1. Occlusive dressing to be removed after 2 weeks. 2. Do not wet the incision for 7 days. 3. F/u in device clinic 1 week from discharge or sooner for any concerns. 4. 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 -GDMT: continue coreg -Follow-up ECHO ordered #Sinus node dysfunction #s/p BiV, currently functioning as dual chamber pacemaker -Normal functioning device per recent device check, RV pacing 99% -Continue routine device checks #HTN -Controlled -Continue coreg and chlorthalidone #HLD -On ASA and atrovastatin -Follow-up labs ordered Follow up in about 6 months (around 11/21/2025). Janina Ordoñez CNP [facility] Cardiovascular Medicine [1] Patient Active Problem List Diagnosis Allergic rhinitis Atherosclerosis of coronary artery without angina pectoris Cardiomyopathy, ischemic Chronic systolic congestive heart failure, [...] kidney disease (CMS/HCC) Cardiac pacemaker in situ [2] Past Medical History: Diagnosis Date Abnormal ECG AV block Cardiomyopathy (CMS/HCC) CHF (congestive heart failure) (CMS/HCC) Diabetes mellitus (CMS/HCC) [3] Family History Problem Relation Name Age of Onset Cancer Mother Cancer Father Cancer Sister Cancer Brother [4] Social History Tobacco Use Smoking status: Former Types: Cigarettes Smokeless tobacco: Never Substance Use Topics Alcohol use: Never Drug use: Never [5] No Known Allergies [6] Current Outpatient Medications: aspirin 325 mg capsule, Take by mouth., Disp: , Rfl: atorvastatin (Lipitor) 40 mg tablet, Take 1 tablet every day by oral route for 90 days., Disp: , Rfl: carvedilol (Coreg) 12.5 mg tablet, Take 1 tablet twice a day by oral route for 90 days., Disp: , Rfl: chlorthalidone (Hygroton) 25 mg tablet, Take 0.5 tablets (12.5 mg) by mouth in the morning., Disp: 45 tablet, Rfl: 3 cholecalciferol (Vitamin D-3) 125 MCG (5000 UT) capsule, Take 1 capsule by mouth in the morning., Disp: , Rfl: cyanocobalamin (Vitamin B-12) 1,000 mcg tablet, Take 1,000 mcg by mouth in the morning., Disp: , Rfl: glimepiride (Amaryl) 2 mg tablet, Take 1 tablet by mouth in the morning and at bedtime., Disp: , Rfl: metFORMIN (Glucophage) 500 mg tablet, Take 1 tablet twice a day by oral route for 90 days., Disp: ,Rfl: SITagliptin phosphate (Januvia) 50 mg tablet, Take 50 mg by mouth 1 (one) time each day., Disp: , Rfl: documented in this encounter Plan of Treatment NameTypePriorityAssociated DiagnosesOrder ScheduleTransthoracic echo (TTE) completeEchocardiographyRoutine Chronic systolic heart failure (CMS/HCC) 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) Expected: 05/24/2025 (Approximate), Expires: 05/24/2027Comprehensive metabolic panelLabRoutine Chronic systolic heart failure (CMS/HCC) 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) Expected: 05/24/2025 (Approximate), Expires: 05/24/2026BCLabRoutine Chronic systolic heart failure (CMS/HCC) 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) Expected: 05/24/2025 (Approximate), Expires: 05/24/2026Lipid panelLabRoutine Chronic systolic heart failure (CMS/HCC) 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
--- OUTSIDE RECORDS SUMMARY | 2025-05-31 10:14 | XMS_ITS | Encounter Summary ---
Author Organization [facility] Address [address] [place] [address] Care Team Providers Care Curator Of Manuscripts Name Role Phone Eugene Ryan MD Primary Care Provider [phone] Encounter Details DateTypeDepartmentCare Team (Latest Contact Info)Kvbfxptrpfd10/21/2025linisync Result Encounter [facility] Unsolicited Provider, Generic External Data Social History Tobacco UseTypesPacks/DayYears UsedDateSmoking Tobacco: Never Assessed CommentsUnknownSex and Gender InformationValueDate RecordedSex Assigned at Not on fileLegal SbwRafuqy18/15/2023 7:25 PM EDTGender IdentityNot on fileSexual OrientationNot on filedocumented as of this encounter Plan of Treatment Not on file documented as of this encounter Procedures Procedure NamePriorityDate/TimeAssociated DiagnosisCommentsCA ECHO DOPPLER QAZHQYYC31/21/2025 5:40 PM EST documented in this encounter Results * CA ECHO DOPPLER COMPLETE (05/27/2025 5:40 PM EST)Anatomical RegionLaterality ModalityOtherSpecimen (Source)Anatomical Location / LateralityCollection Method / VolumeCollection TimeReceived Time05/27/2025 5:40 PM EST Narrative 05/27/2025 5:41 PM EST [facility] ?[address] ? [place] [address] ? Cardiology Report ? Signed ? Patient: NANCY WANG ?MR#: [id number] ?? : 1940 ?Acct:[id number] ?? Age/Sex: 85 / F ?ADM Date: 05/27/25 ?? Loc: CARD ? Attending Dr: CHRIS TILLEY APRN ? Ordering Physician: CHRIS TILLEY APRN ?? Date of Service: 05/27/25 ?? Procedure(s): CA echo doppler complete ?? Accession Number(s): [id number] ? cc: EUGENE RYAN ; CHRIS TILLEY DIRECTOR OF CONSUMER MARKETING ? Patient Name: ? NANCY WANG ? MR#: [id number] ? : 1940 ? Exam Date: 05/27/2025 ?? Ordering Doctor: CHRIS TILLEY ACCESS DEVELOPER ? ECHOCARDIOGRAM REPORT ? PROCEDURE: ? CA ECHO DOPPLER COMPLETE ? INDICATIONS: ? Chronic systolic heart failure ? COMPARISON: ? None. ? DESCRIPTION: ? COMPLETE ECHOCARDIOGRAM Real-time transthoracic ?? echocardiography with 2D, M-mode, spectral and color flow Doppler performed. ? QUALITY: ? Technical quality was limited. ? LEFT VENTRICLE: ? Normal chamber size. Mild concentric left ventricular ?? hypertrophy. Global left ventricular systolic function is difficult to assess ?? but appears reduced. Visual estimation of left ventricular ejection fraction ?? is 40-45% ?? LV EF: ? Mildly to moderately reduced left ventricular ejection fraction, ?? (40-45%). ?? DIASTOLIC: ? Grade I diastolic dysfunction. ?? ATRIAL SEPTUM: ? LEFT ATRIUM: ? Normal chamber size. ?? RIGHT ATRIUM: ? Normal chamber size. ?? RIGHT VENTRICLE: ? Normal chamber size. Normal right ventricular systolic ?? function. ?Pacer wire present. ?? TRICUSPID VALVE: ? Normal mobility and thickness. No stenosis with mild ?? regurgitation. No evidence of pulmonary hypertension. RVSP 27 mmHg. ? MITRAL VALVE: ? Mild anterior leaflet prolapse. ?? No evidence of mitral ?? valve stenosis. ??There is no mitral annular calcification. Mild mitral ?? regurgitation. ? AORTIC VALVE: ? Normal trileaflet appearance. Thickened aortic valve. ? Normal leaflet mobility. ??No evidence of aortic valve stenosis. Trivial aortic ?? regurgitation. ? AORTIC ROOT: ? Normal diameter and appearance. The aortic root and ascending ?? aorta measure 3.6 cm. ? PULMONIC VALVE: ? Normal thickness and mobility. No stenosis. Trivial ?? regurgitation. ? PERICARDIUM: ? No evidence of pericardial effusion. ? IVC: ? Collapses with inspirations. The IVC is normal in size measuring ?? 1.3cm. ? PLEURA: ? CONCLUSION: ? 1. Mild concentric left ventricular hypertrophy. ??Global left ventricular ?? systolic function is difficult to assess but appears reduced. ??Estimated LVEF ?? is 40 to 45%. ?? 2. Normal right ventricular size and systolic function. ?? 3. Mild mitral and tricuspid regurgitation. ?? 4. Normal right-sided pressures. ? Adult Echocardiography Procedure Report ?? Left Ventricle ?? LVEDD (3.7 - 5.6 cm): ? 3.94 cm ?? LVESD (2.2 - 4.0 cm): ? 2.80 cm ?? LVIVS thickness (0.6 - 1.2 cm): ? 1.15 cm ?? LVPW thickness (0.5 - 1.0 cm): ? 1.07 cm ?? e': ? 0.05 m/s ?? E - e': ? 11.74 ?? LVOT Max Gradient: ? 1.56 mm[Hg] ?? LVOT Area (cm2): ? 0.63 m/s ?? Peak Velocity (LVOT): ? 0.63 m/s ?? Mean Velocity (LVOT): ? 0.47 m/s ?? LVOT Diameter ? 2.24 cm ?? Left Ventricular Ejection Fraction: ? 40-45 % ?? Left Atrium ?? LA Volume Index (2D A2C): ? 23.52 ml/m2 ?? Left Atrium Systolic Dimension: ? 4.14 cm ?? Mitral Valve ?? MV E to A Ratio: ? 0.84 ?? Mitral Valve A-Wave Peak Velocity: ? 0.73 m/s ?? Mitral Valve E-Wave Peak Velocity: ? 0.61 m/s ?? Right Ventricle ?? RV Internal Diastolic Dimension: ? 3.82 cm ?? Aorta ?? AO Root Diam: ? 3.56 cm ?? Ascending Ao Diam: ? 3.62 cm ?? Aortic Valve ?? AoV Area (Peak Palmer): ? 2.38 cm2, 2.38 cm2 ?? AoV Area (VTI): ? 2.51 cm2, 2.51 cm2 ?? Peak Velocity(Antegrade Flow): ? 1.03 m/s ?? Peak Gradient(Antegrade Flow): ? 4.27 mm[Hg] ?? Mean Velocity(Antegrade Flow): ? 0.76 m/s ?? Mean Gradient(Antegrade Flow): ? 2.57 mm[Hg] ?? Velocity Time Integral: ? 19.46 cm ?? Tricuspid Valve ?? Peak Velocity (Regurgitant Flow): ? 2.05 m/s, 1.99 m/s, 1.96 m/s, 2.45 m/s ?? Pulmonic Valve ?? Peak Velocity: ? 0.57 m/s ?? Peak Gradient: ? 1.11 mm[Hg], 1.47 mm[Hg] ?? Right Atrium ?? Right Atrium Systolic Pressure: ? 41.91 ml, 41.91 ml ? Dictated by: Thuan Dale M.D. on 05/27/2025 at 17:34 ? Approved by: Thuan Dale M.D. on 05/27/2025 at 17:40 ? Dictated By: ?THUAN DALE ? Signed By: ?05/27/25 1741 ? DD/ 1740 ? TD/TT: ? Second Ride Fare Collector: Procedure Note Radiology, Radiologist, MD - 05/27/2025 [place] [address] Cardiology Report Signed Patient: NANCY WANG [facility]#: [id number] : 1Acct:[id number] Age/Sex: 85 / FADM Date: 05/27/25 Loc: CARD Attending Dr: CHRIS TILLEY APRN Ordering Physician: CHRIS TILLEY APRN Date of Service: 05/27/25 Procedure(s): CA echo doppler complete Accession Number(s): [id number] cc: EUGENE RYAN ; CHRIS TILLEY APRN Patient Name: NANCY WANG MR#: [id number] : 1940 Exam Date: 05/27/2025 Ordering Doctor: CHRIS TILLEY ACCESS DEVELOPER ECHOCARDIOGRAM REPORT PROCEDURE: CA ECHO DOPPLER COMPLETE INDICATIONS: Chronic systolic heart failure COMPARISON: None. DESCRIPTION: COMPLETE ECHOCARDIOGRAM Real-time transthoracic echocardiography with 2D, M-mode, spectral and color flow Dopplerperformed. QUALITY: Technical quality was limited. LEFT VENTRICLE: Normal chamber size. Mild concentric left ventricular hypertrophy. Global left ventricular systolic function is difficult toassess but appears reduced. Visual estimation of left ventricular ejectionfraction is 40-45% LV EF: Mildly to moderately reduced left ventricular ejectionfraction, (40-45%). DIASTOLIC: Grade I diastolic dysfunction. ATRIAL SEPTUM: LEFT ATRIUM: Normal chamber size. RIGHT ATRIUM: Normal chamber size. RIGHT VENTRICLE: Normal chamber size. Normal right ventricularsystolic function. Pacer wire present. TRICUSPID VALVE: Normal mobility and thickness. No stenosis with mild regurgitation. No evidence of pulmonary hypertension. RVSP 27 mmHg. MITRAL VALVE: Mild anterior leaflet prolapse. No evidence of mitral valve stenosis. There is no mitral annular calcification. Mild mitral regurgitation. AORTIC VALVE: Normal trileaflet appearance. Thickened aortic valve. Normal leaflet mobility. No evidence of aortic valve stenosis. Trivialaortic regurgitation. AORTIC ROOT: Normal diameter and appearance. The aortic root andascending aorta measure 3.6 cm. PULMONIC VALVE: Normal thickness and mobility. No stenosis. Trivial regurgitation. PERICARDIUM: No evidence of pericardial effusion. IVC: Collapses with inspirations. The IVC is normal in size measuring 1.3cm. PLEURA: CONCLUSION: 1. Mild concentric left ventricular hypertrophy. Global left ventricular systolic function is difficult to assess but appears reduced. EstimatedLVEF is 40 to 45%. 2. Normal right ventricular size and systolic function. 3. Mild mitral and tricuspid regurgitation. 4. Normal right-sided pressures. Adult Echocardiography Procedure Report Left Ventricle LVEDD (3.7 - 5.6 cm): 3.94 cm LVESD (2.2 - 4.0 cm): 2.80 cm LVIVS thickness (0.6 - 1.2 cm): 1.15 cm LVPW thickness (0.5 - 1.0 cm): 1.07 cm e': 0.05 m/s E - e': 11.74 LVOT Max Gradient: 1.56 mm[Hg] LVOT Area (cm2): 0.63 m/s Peak Velocity (LVOT): 0.63 m/s Mean Velocity (LVOT): 0.47 m/s LVOT Diameter 2.24 cm Left Ventricular Ejection Fraction: 40-45 % Left Atrium LA Volume Index (2D A2C): 23.52 ml/m2 Left Atrium Systolic Dimension: 4.14 cm Mitral Valve MV E to A Ratio: 0.84 Mitral Valve A-Wave Peak Velocity: 0.73 m/s Mitral Valve E-Wave Peak Velocity: 0.61 m/s Right Ventricle RV Internal Diastolic Dimension: 3.82 cm Aorta AO Root Diam: 3.56 cm Ascending Ao Diam: 3.62 cm Aortic Valve AoV Area (Peak Palmer): 2.38 cm2, 2.38 cm2 AoV Area (VTI): 2.51 cm2, 2.51 cm2 Peak Velocity(Antegrade Flow): 1.03 m/s Peak Gradient(Antegrade Flow): 4.27 mm[Hg] Mean Velocity(Antegrade Flow): 0.76 m/s Mean Gradient(Antegrade Flow): 2.57 mm[Hg] Velocity Time Integral: 19.46 cm Tricuspid Valve Peak Velocity (Regurgitant Flow): 2.05 m/s, 1.99 m/s, 1.96 m/s, 2.45m/s Pulmonic Valve Peak Velocity: 0.57 m/s Peak Gradient: 1.11 mm[Hg], 1.47 mm[Hg] Right Atrium Right Atrium Systolic Pressure: 41.91 ml, 41.91 ml Dictated by: Thuan Dale M.D. on 05/27/2025 at 17:34 Approved by: Thuan Dale M.D. on 05/27/2025 at 17:40 Dictated By: THUAN DALE Signed By:05/27/251740 DD/ 39 TD/TT: Second Ride Fare Collector: Authorizing ProviderResult TypeResult StatusGeneric External Data Provider CLINIS[facility]NC IMAGINGFinal Result documented in this encounter Visit Diagnoses Not on filedocumented in this encounter Care Teams Team MemberRelationshipSpecialtyStart DateEnd Date Ryan, Eugene B, MD [address] [facility] [address] [place] [address] PCP - GeneralInternal Medicine11/12/22documented as of this encounter
--- OUTSIDE RECORDS SUMMARY | 2025-05-31 10:14 | XMS_ITS | Clinical Summary ---
Author Organization [facility] Healthcare Address [address] [facility] [place] [address] Care Team Providers Care Marking Machine Tender Name Role Phone Eugene Ryan MD Primary Care Provider [phone] Medications MedicationSigDispense QuantityRefillsLast FilledStart DateEnd DateStatus Januvia [...] congestive heart failure, NYHA class Elevated liver hhrauaf4002/26/2023omplete atrioventricular block 02/26/2023ardiomyopathy, cqmskavi15/23/2023Obesity (BMI 30-39.9)02/26/2023Old myocardial kgcgbzbpla25/23/2023Osteopenia of right femoral neck02/26/2023ain in right knee02/26/2023rimary ovarian hmoihxj7502/26/2023ure hypercholesterolemia 02/26/2023Recurrent major depressive /23/2023Stage 3b chronic kidney bgbyzde3802/26/20239463Hzmkwzsrbjtudyrq79/23/2023Type 2 diabetes mellitus with diabetic chronic kidney ixventn9002/26/2023iventricular cardiac pacemaker in situ 02/26/2023therosclerosis of coronary artery without angina jlwpfdjy23/23/2023 Allergic gsffuxkk97/23/2023 Encounters DateTypeDepartmentCare NjjvGiskxnvcnrs48/21/2025linisync Result Encounter [facility] External Department Unsolicited Provider, Generic External Data 04/18/2025Refill [facility] [address] [facility] [address] [place] [phone] Eugene Ryan MD Type 2 diabetes mellitus with stage 3b chronic kidney disease, without long-term current use of insulin (HCC); Pure hypercholesterolemia; Chronic systolic congestive heart failure, NYHA class 2 (HCC)04/15/2025Refill [facility] [address] [facility] [address] [place] [phone] Nancy Miles PA Type 2 diabetes mellitus with stage 3b chronic kidney disease, without long-term current use of insulin (HCC); Chronic systolic congestive heart failure, NYHA class 2 (HCC); Pure rickvgnedwakeavbvvgh94/17/2025Refill [facility] [address] [facility] [address] [place] [phone] Nancy Miles PA Type 2 diabetes mellitus with stage 3b chronic kidney disease, without long-term current use of insulin (HCC); Pure hypercholesterolemia ; Chronic systolic congestive heart failure, NYHA class 2 (HCC)from Last 3 Months Social History Tobacco UseTypesPacks/DayYears UsedDateSmoking Tobacco: Never Assessed CommentsUnknownSex and Gender InformationValueDate RecordedSex Assigned at Not on fileLegal LfaYedeeb88/15/2023 7:25 PM EDTGender IdentityNot on fileSexual OrientationNot on file Last Filed Vital Signs Vital SignReadingTime TakenCommentsBlood Knrzbijc001/8201/ 12:00 PM EST Pulse--Temperature--Respiratory Rate--Oxygen Saturation--Inhaled Oxygen Concentration--Kxgvhx26.4 kg (186 lb)07/24/2022 12:00 PM ARHPfxtkx921.6 cm (5' 4 )07/24/2022 12:00 PM ESTBody Mass Index31.9307/24/2022 12:00 PM EST Plan of Treatment Health MaintenanceDue DateLast DoneCommentsDiabetes: Urine Protein Screening Diabetes: Retinopathy Fjjvpvicu85, 02/11/2018Diabetes: Hemoglobin A1C/, 08/06/2021, 01/31/2021, Additional history existsMedicare Annual Wellness (AWV)4007/24/2022, 2COVID-19 Vaccine ( season)/11/2022, 10/08/2021, 06/04/2021, Additional history existsInfluenza Vaccine (#1)511/12/2022, 05/21/2022, 05/08/2021, Additional history existsPneumococcal Vaccine: 65+ Years Nwdukjnga02/01/2015, 11/29/2014 Procedures Procedure NamePriorityDate/TimeAssociated DiagnosisCommentsCA ECHO DOPPLER SKYGDOSX69/21/2025 5:40 PM EST HEMOGLOBIN X8PAnzzpik58/18/2023 12:00 PM EST COLOR FUNDUS PHOTOGRAPHY - OU - BOTH XNDCSnqfvns23/21/2020 12:00 PM EDT MICROALBUMIN / CREATININE URINE MTSULJloodbi14/08/2019 from Last 3 Months or Most Recently Relevant to Health Maintenance Results * CA ECHO DOPPLER COMPLETE (05/27/2025 5:40 PM EST)Anatomical RegionLaterality ModalityOtherSpecimen (Source)Anatomical Location / LateralityCollection Method / VolumeCollection TimeReceived Time05/27/2025 5:40 PM EST Narrative 05/27/2025 5:[address] [facility] ?[address] ? [place] [address] ? Cardiology Report ? Signed ? Patient: TRICKETT,NANCY S ?MR#: [id number] ?? : 1940 ?Acct:[id number] ?? Age/Sex: 85 / F ?ADM Date: 05/27/25 ?? Loc: CARD ? Attending Dr: CHRIS TILLEY APRN ? Ordering Physician: CHRIS TILLEY APRN ?? Date of Service: 05/27/25 ?? Procedure(s): CA echo doppler complete ?? Accession Number(s): [id number] ? cc: EUGENE RYAN ; CHRIS TILLEY APRN ? Patient Name: ? NANCY WANG ? MR#: [id number] ? : 1940 ? Exam Date: 05/27/2025 ?? Ordering Doctor: CHRIS TILLEY CNP ? ECHOCARDIOGRAM REPORT ? PROCEDURE: ? CA [...] 1741 ? DD/ 1740 ? TD/TT: ? Photovoltaic Power Systems Engineer: Procedure Note Radiology, Radiologist, MD - 05/27/2025 [place] [address] Cardiology Report Signed Patient: NANCY WANG SMR#: [id number] : 1940cct:[id number] Age/Sex: 85 / FADM Date: 05/27/25 Loc: CARD Attending Dr: CHRIS TILLEY APRN Ordering Physician: CHRIS TILLEY APRN Date of Service: 05/27/25 Procedure(s): CA echo doppler complete Accession Number(s): [id number] cc: EUGENE RYAN ; CHRIS TILLEY APRN Patient Name: NANCY WANG MR#: [id number] : 1940 Exam Date: 05/27/2025 Ordering Doctor: CHRIS TILLEY [employer] PH[employer] DETAILER ECHOCARDIOGRAM REPORT PROCEDURE: CA ECHO DOPPLER COMPLETE [...] THUAN DALE Signed By:05/27/251740 DD/ 39 TD/TT: Photovoltaic Power Systems Engineer: Authorizing ProviderResult TypeResult StatusGeneric External Data Provider CLINIS[facility]NC IMAGINGFinal Result * Hemoglobin A1c (07/24/2022 12:00 PM EST)ComponentValueRef RangeTest Method Analysis TimePerformed AtPathologist SignatureGENERIC LEGACY COMPONENT INTERNAL7.8ECW NONXML LABSSpecimen (Source)Anatomical Location / Laterality Collection Method / VolumeCollection TimeReceived Time07/24/2022 12:00 PM EST Narrative Authorizing ProviderResult TypeResult Melba Miles PALAB BLOOD ORDERABLESFinal ResultPerforming OrganizationAddressCity/State/ZIP CodePhone Number [facility] NONXML LABS * Color Fundus Photography - OU - Both Eyes (03/27/2020 12:00 PM EDT)Anatomical RegionLateralityModalityHeadFundus PhotographySpecimen (Source)Anatomical Location / LateralityCollection Method / VolumeCollection TimeReceived Time 03/27/2020 12:00 PM EDT Narrative 03/27/2020 12:00 PM EDT PERFORMED AT [facility] LOCATION:[id number] Procedure Note CONVERSION, GENERIC - 11/20/2022 PERFORMED AT [facility] LOCATION:[id number] Authorizing ProviderResult TypeResult StatusEugene Ryan [facility] Final Result * Microalbumin / creatinine urine ratio (01/11/2019)ComponentValueRef RangeTest MethodAnalysis TimePerformed AtPathologist XmlzvzlwoUZXRE75882 - 217[facility] LEGACY EXTERNAL LABMALB1.9[facility] LEGACY EXTERNAL LABComment:mALB reference range not established.MICROALB/CREAT RATIO11.9[facility] LEGACY EXTERNAL LABSpecimen (Source)Anatomical Location / LateralityCollection Method / VolumeCollection TimeReceived Time01/11/2019 Narrative Authorizing ProviderResult TypeResult Saritha Monterroso Ryan MDLAB URINE ORDERABLESFinal ResultPerforming OrganizationAddressCity/State/ZIP CodePhone Number [facility] LEGACY EXTERNAL LAB from Last 3 Months or Most Recently Relevant to Health Maintenance Insurance Care Teams Team MemberRelationshipSpecialtyStart DateEnd Date Eugene Ryan MD [address] [facility] [address] [place] [address] PCP - GeneralInternal Medicine11/12/22
--- OUTSIDE RECORDS SUMMARY | 2025-05-31 10:14 | XMS_ITS | Clinical Summary ---
Author Organization [facility] Address [address] [place] [address] Care Team Providers Care Rn Care Manager Name Role Phone Eugene Ryan MD Primary Care Provider [phone] Allergies No known active allergies Medications MedicationSigDispense [...] /04/2025Discontinued(Reorder) Active Problems ProblemNoted DateDiagnosed DateCongestive heart xytkrxj36 Gqyhliqaeonw37 Overview (07/22/2023): Last Assessment & Plan: Assessment: Stable on medication BP today 138/75 To take medication morning of surgery Cardiac pacemaker in situ07/22/2023llergic ysemddog43 Atherosclerosis of coronary artery without angina vpfejhgs73 Cardiomyopathy, yjwxpvqp96hronic systolic congestive heart failure, NYHA class Elevated liver xlpaohu3202/26/2023 07/22/2023Obesity (BMI 30-39.9)Myocardial infarction 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 ovarian khkuzgp40ure xeppctzumltfqezybpeu61/23/202301/16/2024Recurrent major depressive disorder Stage 3b chronic kidney zdsroeu87 Exuzhtwivphcgife94Type 2 diabetes mellitus with diabetic chronic kidney nibgyve21 Overview (07/22/2023): Last Assessment & Plan: Stable on oral medication Primary gybozrzamoimhm91omplete atrioventricular block Overview (07/22/2023): Last Assessment & Plan: Assessment: s/p pacemaker insertion Resolved Problems ProblemNoted DateDiagnosed DateResolved DateHLD (hyperlipidemia)07/22/2023 Overview (07/22/2023): Last Assessment & Plan: Assessment: stable on medication Encounters DateTypeDepartmentCare YpglExnvqtmokbm79/18/2025 11:20 AM ESTOffice Visit [facility] [address] [place] [address] Janina Ordoñez CNP Chronic systolic heart failure (CMS/HCC) (Primary Dx); 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); Cardiac pacemaker in situ; Sinus node dysfunction (CMS/HCC); Benign hypertensive heart disease with heart failure (CMS/HCC)05/16/2025Refill [facility] [address] [place] [address] Garth Leongah DC Primary hypertension; Chronic systolic congestive heart failure, NYHA class 2 (CMS/HCC)05/03/2025 2:15 PM EDTAncillary Procedure [facility] [address] [place] [address] Encounter for checking and testing of cardiac pacemaker pulse generator (battery)04/21/2025 11:05 AM EDTAncillary Procedure [facility] [address] [place] [phone] Adjustment and management of cardiac htsmxspka69/15/2025Orders Only [facility] [address] [place] [address] Pepe Kathleen MD from Last 3 Months [...] file08/28/2023CommentsNoSex and Gender InformationValueDate RecordedSex Assigned at GywhpVzaetq46/28/2025 2:29 PM EDTLegal SexFemale 01/02/2022 10:03 PM EDTGender TbhmjibjLszhit59/28/2025 2:29 PM EDTSexual OrientationChoose not to mooiovym26/29/2025 11:20 PM EDT Last Filed Vital Signs Vital SignReadingTime TakenCommentsBlood Ndslghtg036/7411 11:18 AM EST Iryeu778505/24/2025 11:18 AM ESTTemperature--Respiratory Udkn5267 4:30 PM EDTOxygen Vfrujajheq32%05/24/2025 11:18 AM ESTInhaled Oxygen Concentration-- Mzygui62.7 kg (178 lb)05/24/2025 11:18 AM LXNYzhivh867.6 cm (5' 4 )05/24/2025 11:18 AM ESTBody Mass Index30.5505/24/2025 11:18 AM EST Plan of Treatment Health MaintenanceDue DateLast DoneCommentsMedicare Annual Wellness (AWV) 1Diabetes: Retinopathy Ydmbxovxl08/08/1951epression Screening 1953Zoster Vaccines (1 of 2)Fall Risk Screening 2006Pneumococcal Vaccine: 50+ Years (2 of 2 - PPSV23, PCV20, or PCV21) Diabetes: Hemoglobin A1C///3COVID-19 Vaccine ( season)5003/16/2025, 03/27/2024, 06/10/2023, Additional history existsAdult Owojoas61/10/32416403/16/2025Influenza VaccineCompleted 03/16/2025, 03/27/2024, 05/12/2023, Additional history existsHIB [...] ImplantedTypeAreaManufacturerDevice IdentifierShelf Expiration DateModel / Serial / [id number] Capsure Sp [id number] Implanted:02/20/2001 (Quantity not on file)[id number] CAPSURE SP / [id number] / [id number] Capsurefix Novus [id number] Implanted:02/20/2001 (Quantity not on file)[id number] CAPSUREFIX NOVUS / [id number] / 5076 Capsurefix Novus [id number] Implanted:02/20/2001 (Quantity not on file)[id number] CAPSUREFIX NOVUS / [id number] / Generator,Asure,Ipg3,Xt Dr Valadez - [id number] - [id number] Implanted:Qty: 1 on 09/22/2023 by Pepe Kathleen [facility]LeadMEDTRON[facility] INC CARDIO-VAS [id number] / [id number] / Addr01 Adapta [id number] Implanted:05/28/2016 (Quantity not on file)[id number] ADAPTA / [id number] / Procedures Procedure NamePriorityDate/TimeAssociated DiagnosisCommentsCARDIAC DEVICE CHECK - IN CLINIC - PACEMAKER DUAL CHAMBER W/ YFCZAoqncxh20/29/2025 11:07 AM EDT Encounter for checking and testing of cardiac pacemaker pulse generator (battery) CARDIAC DEVICE CHECK CHECK - DHNOWFXficvfi44/20/2025 10:13 AM EDT Adjustment and management of cardiac pacemaker CARDIAC DEVICE CHECK - REMOTE - XLQSEJYZVRetxkkf57/15/2025 12:00 AM EDTfrom Last 3 Months Results [...] MemberRelationshipSpecialtyStart DateEnd Date Eugene Ryan MD [address] [facility] [address] [place] [address] PCP - Oqazitp05/19/22
--- OUTSIDE RECORDS SUMMARY | 2025-05-31 10:15 | XMS_ITS | CCD ---
Author Organization [facility] Care Team Providers Care Coupon Manifest Clerk Name Role Phone EUGENE RYAN Primary Care [...] DR MONGE Primary Care Unavailable MERCADO, DR CORYE Consulting Unavailable Zieber, DR Vera Consulting Unavailable Unavailable Primary Care Provider Carmen Condon MD Primary Care Provider DARIN, JED Referring Unavailable CARMEN QUINTANA [facility] Unavailable DARIN, JED Admitting Unavailable DARIN, JED Attending Unavailable DARIN, JED Referring Unavailable DARIN, JED Admitting Unavailable DARIN, JED Attending Unavailable DARIN, JED Referring Unavailable DARIN, JED Referring Unavailable CARMEN QUINTANA [facility] Unavailable DARIN, JED Attending Unavailable NAOMI IBRAHIM [...] Ryan MD Unavailable Eugene Ryan MD Unavailable Allergies Allergy ClassificationReported Allergen(s)Allergy TypeDate of OnsetReaction(s) Facility (1 source)No Known Medication Allergies; Translations: [No Known Medication Allergies]Propensity to adverse reactions (disorder)[facility] Repository Medications Current Medications MedicationDrug Class(es)DatesSig (Normalized)Sig (Original)atorvastatin 40 mg oral tablet (7 sources)HMG-CoA Reductase InhibitorStart: 67-69-3856tusi 1 tablet by mouth in the morningatorvastatin (Lipitor) 40 MG tablet Indications: Pure hypercholesterolemia (CMS/HCC) TAKE 1 TABLET BY MOUTH IN THE MORNING 100 tablet 11/22/2024 ActiveStart: 91-97-1341wyqf 1 tablet by mouth in the morning atorvastatin (Lipitor) 40 MG tablet Indications: Pure hypercholesterolemia (CMS/HCC) TAKE 1 TABLET BY MOUTH IN THE MORNING 90 tablet 3 01/12/2024 Active Start: 23-84-1479azgluncbvjis (LIPITOR) 40 mg tablet Take by mouth. [...] MOUTH BEFORE BEDTIME 200 tablet 11/22/2024 ActiveStart: 54-33-2959eafl 1 tablet by mouth in the morning [...] oral capsule (2 sources)Cephalosporin AntibacterialStart: 11-19-2021 End: 92-96-1154mpve 1 capsule by mouth twice dailyKeflex 250 mg Cap 250 mg = 1 cap(s), Oral, BID, X 5 day(s), # 10 cap(s), Refills(s) 0, Pharmacy: [facility]/pharmacy #[id number], 163, cm, 11/19/21 9:53:00 EDT, Height/Length Dosing, 85.3, kg, 11/19/21 9:53:00 EDT, Weight Dosing Start Date: 11/19/21 Stop Date: 11/24/21 Status: Orderedglimepiride 2 mg oral tablet (7 sources)SulfonylureaStart: 19-47-2514vfsg 1 tablet by mouth in the morning glimepiride (Amaryl) 2 MG tablet Indications: Type 2 diabetes mellitus with stage 3b chronic kidneydisease, without long-term current use of insulin (HCC) (CMS/HCC) TAKE 1 TABLET BY MOUTH IN THE MORNING AND 1 TABLET BY MOUTH BEFORE BEDTIME 200 tablet 11/22/2024 ActiveStart: 76-54-1335igyv 1 tablet by mouth in the morningglimepiride (Amaryl) 2 MG tablet Indications: Type 2 diabetes mellitus with stage 3b chronic kidneydisease, without long-term current use of insulin (HCC) (CMS/HCC) TAKE 1 TABLET BY MOUTH IN THE MORNING AND 1 TABLET BY MOUTH BEFORE BEDTIME 180 tablet 3 01/12/2024 ActiveStart: 13-54-2838ynebznaogcx (AMARYL) 1 mg tablet Take by mouth. 0 04/17/2021 ActiveComment on above:Take by mouth.metFORMIN hydrochloride 500 mg oral tablet (7 sources)BiguanideStart: 89-82-3295adbFIAPOT (Glucophage) 500 MG tablet Indications: Type 2 diabetes mellitus with stage 3b chronic kidney disease, without long-term current use of insulin (HCC) (CMS/HCC) TAKE 1 TABLET BY MOUTH IN THEMORNING AND 1 TABLET BY MOUTH AT NOON AND 1 TABLET BY MOUTH IN THE EVENING WITH MEALS 300 tablet 11/22/2024 ActiveStart: 29-44-8108bixHTVPZV (Glucophage) 500 MG tablet Indications: Type 2 diabetes mellitus with stage 3b chronic kidney disease, without long-term current use of insulin (HCC) (CMS/HCC) TAKE 1 TABLET BY MOUTH IN THEMORNING AND 1 TABLET BY MOUTH AT NOON AND 1 TABLET BY MOUTH IN THE EVENING WITH MEALS 270 tablet 3 01/12/2024 ActiveStart: 65-21-5637axaLRVFNK (GLUCOPHAGE) 500 mg tablet Take by mouth. 0 04/17/2021 ActiveComment on above: Take by mouth.SITagliptin 50 mg oral tablet (4 sources)Dipeptidyl Peptidase 4 InhibitorStart: 98-68-6412xdat 1 tablet by mouth once dailyJanuvia 50 MG tablet Indications: Type 2 diabetes mellitus with chronic kidney disease, without long-term current use of insulin, unspecified CKD stage (CMS/HCC) TAKE 1 TABLET BY MOUTH ONCE DAILY 30 tablet 11 04/05/2024 ActiveStart: 46-31-8777zpqa 1 tablet by mouth once dailySITagliptin (Januvia) 50 MG tablet Indications: Type 2 diabetes mellitus with chronic kidney disease, without long-term current use of insulin, unspecified CKD stage (CMS/HCC) TAKE 1 TABLET BY MOUTH ONCE DAILY 30 tablet 03/12/2024 ActiveStart: 68-76-3162BGABZEB 50 mg tablet Completed/Discontinued Medications MedicationDrug Class(es)DatesSig (Normalized)Sig (Original)aspirin 325 mg oral tablet (5 sources)Platelet Aggregation Inhibitor, Nonsteroidal Anti-inflammatory Drug Start: 58-69-5608zwfzxtt 325 mg cap Take by mouth. 0 04/17/2021 ActiveStart: 51-80-4602pevi 1 mg by mouth once dailyaspirin 325 mg oral capsule mg cap(s), Oral, Daily, Refills(s) 0 Start Date: 04/17/21 Status: OrderedComment on above: Take by mouth.benoxinate hydrochloride 4 mg/ml / fluorescein sodium 2.5 mg/ml ophthalmic solution (1 source)Diagnostic DyeStart: 01-09-2023 End: 57-36-7310vkfnyefbjqi-benoxinate 0.25-0.4 % 1 Drop (FLURESS)phenylephrine hydrochloride 25 mg/ml ophthalmic solution (1 source)alpha-1 Adrenergic AgonistStart: 01-09-2023 End: 59-35-3492UBKBDEzhphcqp 2.5 % 1 Drop (AK-DILATE, LORRIE-SYNEPHRINE)tropicamide 10 mg/ml ophthalmic solution (1 source)AnticholinergicStart: 01-09-2023 End: 89-07-1838pwqaqezcomv 1 % 1 Drop (MYDRIACYL) Problems Active Problems Problem ClassificationProblemDateDocumented DateEpisodic/ChronicAcute myocardial infarction (4 sources)Myocardial infarction; Translations: [Acute myocardial infarction, unspecified]Onset: 971698-19-5695KiongtsTowymqod of urinary tract (9 sources)History of calculus of kidney; Translations: [Personal history of urinary calculi]Onset: 81-31-2943KwyvlzyvLupihyqd (3 sources)Bilateral senile combined form cataracts of eyes; Translations: [Combined forms of age-related cataract, bilateral]Onset: 91-77-8865Yvkbofn Chronic kidney disease (3 sources)Chronic kidney disease stage 3B ; Translations: [Stage 3b chronic kidney disease (HCC)]Onset: 992733-72-7838BvuqktlBrdxzsdakmk and hemorrhagic disorders (3 sources)Thrombocytopenic disorder; Translations: [Thrombocytopenia, unspecified]Onset: 308927-82-0488ItsujfkTkdkrhqoal disorders (18 sources)Biventricular cardiac pacemaker present; Translations: [Presence of cardiac pacemaker]Onset: 479517-39-4450JvaledqShbvrmggbx heart failure; nonhypertensive (7 sources)Chronic systolic heart failure; Translations: [Chronic systolic (congestive) heart failure]Onset: 568945-05-3948UlhgflySvxwmuei atherosclerosis and other heart disease (9 sources)Ischemic myocardial dysfunction; Translations: [Ischemic cardiomyopathy]Onset: 826459-86-6161DrqnhylGwajbion mellitus with complications (3 sources)Chronic kidney disease due to type 2 diabetes mellitus; Translations: [Type 2 diabetes mellitus with diabetic chronic kidney disease]Onset: 02-26-2023 00-60-1967WwujyruQpygxrlt mellitus without complication (6 sources)Diabetes mellitus; Translations: [Type 2 diabetes mellitus without complication]Onset: 537922-66-5449NowdrwvUmnwrjxtq of lipid metabolism (10 sources)Hyperlipidemia; Translations: [Hyperlipidemia, unspecified]Onset: 036590-16-8620GqcibatXxnwacyfn hypertension (5 sources)Hypertensive disorder; Translations: [Essential (primary) hypertension]Onset: 852300-72-4980AgnwpiuNjdouswpukgju symptoms and ill- defined conditions (2 sources)Mixed incontinence; Translations: [Mixed incontinence]Onset: 15-49-2765ErxtgarRbrvgydt (1 source)Preglaucoma, unspecified, bilateral; Translations: [Preglaucoma, unspecified]ChronicHypertension with complications and secondary hypertension (2 sources)Hypertensive heart disease with heart failure; Translations: [Hypertensive heart disease with heartfailure]Onset: 14-93-2668RtvpcroOheoqdnmrb disorders (7 sources)Other primary ovarian failure; 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]Onset: 50-98-1019GmqylxjZjoq disorders (3 sources)Recurrent major depression; Translations: [Major depressive disorder, recurrent, unspecified]Onset: 436650-37-2831TtqcazfDhkvk bone disease and musculoskeletal deformities (1 source)Other specified disorders of bone density and structure, other site; Translations: [OTH D/O BONE DEN STRUCT OTH SITE]Onset: 06-87-6283OyutcaapGosfj nutritional; endocrine; and metabolic disorders (3 sources)Body mass index 30+ - obesity; Translations: [Obesity, unspecified] Onset: 196820-26-2862NvyajllNurwe upper respiratory disease (3 sources)Allergic rhinitis; Translations: [Allergic rhinitis, unspecified] Onset: 417210-73-2363CgorlpmDjlhpjj tract infections (2 sources)Urinary tract infectious disease; Translations: [Urinary tract infection, site not specified]Onset: 03-09-3309Ffgzvrsr Past or Other Problems Problem ClassificationProblemDateDocumented DateEpisodic/ChronicOther bone disease and musculoskeletal deformities (3 sources)Osteopenia; Translations: [Other specified disorders of bone density and structure, right thigh]Onset: 259490-55-4325WfceljqrIspma liver diseases (3 sources)Elevated liver enzymes level; Translations: [Abnormal levels of other serum enzymes]Onset: 878760-55-3746PozpazysLydfm non-traumatic joint disorders (3 sources)Pain in right knee; Translations: [Pain in joint, lower leg]Onset: 961069-24-1516Yuxoxztq Results Test NameValueInterpretationReference RangeFacilityOrders Onlyon 04-20-2025 Orders [id number] Marva Andrade S 1940 F Date Provider Department Center 04/20/2025 241-PEPE KOVACS [facility] CARD [facility] Family History Problem Relation Age of Onset Cancer Mother Cancer Father Cancer Sister Cancer Brother Family Status - Relation Status Age at Mother Father Sister Brother DeceasedNormalUniversKing's Daughters Medical Center OhioOrders Onlyon 97-34-2489Awmtpa [id number] Marva Andrade S 1940 F Date Provider Department Center 12/02/2024 [id number], [facility] CARD [facility] Family History Problem Relation Age of Onset Cancer Mother Cancer Father Cancer Sister Cancer Brother Family Status - Relation Status Age at Mother Father Sister Brother DeceasedNormalUniversKing's Daughters Medical Center OhioALL BASIC METABOLIC PANELon 44-51-7260Wxdbf gap [Moles/Vol]13.8 mmol/LNOMS HealthcareCalcium [Mass/Vol]9.5 mg/dL8.5 - 10.1 mg/dLNOAL HealthcareChloride [Moles/Vol]105 mmol/L 98 - 107 mmol/LNOMS HealthcareCO2 [Moles/Vol]26.3 mmol/L21.0 - 32.0 mmol/LNOMS HealthcareCreatinine [Mass/Vol]1.5 mg/dLHigh0.55 - 1.02 mg/dLNOMissouri Rehabilitation Center GFR/1.73 sq M.predicted CKD-EPI (S/P/Bld) [Vol rate/Area]40Low>=60 mL/min/1.73m 2NOMS HealthcareGlucose [Mass/Vol]207 mg/tUEtxp84 - 106 mg/dLNOMissouri Rehabilitation Center Interpretation and review of laboratory resultsAbnormalNOMS HealthcarePotassium [Moles/Vol]5.1 mmol/L3.5 - 5.1 mmol/LNOMS HealthcareSodium [Moles/Vol]140 mmol/L 136 - 145 mmol/LNOMS HealthcareTBH EGFR-NON AF XWHMEMJQ19Mhy>=60 mL/min/1.73m 2 NOMS HealthcareUrea nitrogen [Mass/Vol]27 mg/dLHigh7.0 - 18.0 mg/dLNOMissouri Rehabilitation CenterUrea nitrogen/Creatinine [Mass ratio]18 mg/mgNOMS HealthcareCLINISYNC NOMS HealthcareOffice Visiton 43-99-4895Sxulov-up [id number] Marva Andrade 1940 Provider Department Center 12/01/2024 MAURILIO SIFUENTES Family History Problem Relation Age of Onset Cancer Mother Cancer Father Cancer Sister Cancer Brother Family Status - Relation Status Age at Mother Father Sister Brother Level of Service:90859 [place] OFFICE/OUTPATIENT ESTABLISHED MOD [facility]DM 30 [facility] 32-75-6082Uszhlp-up visit [id number] Marva Andrade 1940 Provider Department Center 10/20/2024 MAURILIO SIFUENTES Family History Problem Relation Age of Onset Cancer Mother Cancer Father Cancer Sister Cancer Brother Family Status - Relation Status Age at Mother Father Sister Brother Level of Service:96022 [place] OFFICE/OUTPATIENT ESTABLISHED LOW MDM 20 [facility] 80-46-7913Vmwtrz-up visit [id number] Marva Andrade 1940 Provider Department Center 09/29/2024 MAURILIO SIFUENTES No family history on file Level of Service:45271 [place] OFFICE/OUTPATIENT ESTABLISHED LOW MDM 20 [facility] HospitalALL LIPID PROFILE (FASTING)on 40-99-6490ETOY HDL RATIO2.7NOMS HealthcareComment on above:3.3 - 4.4 [...] 150 mg/dLNOMS HealthcareCLINISYNCNOMS HealthcareCARD ECHO LIMITED STUDYon 27-50-0055[place]gp[place] [address] Cardiology Report Signed Patient: MARVA ANDRADE MR#: [id number] : 1940 Acct:[id number] Age/Sex: 83 / F ADM Date: 08/29/23 Loc: CARD Attending Dr: Pepe Kovacs M.D. Ordering Physician: Pepe Kovacs M.D. Date of Service: 08/29/23 Procedure(s): CA echo limited Accession Number(s): [id number] cc: EUGENE RYAN ; Pepe Kovacs M.D. Patient Name: MARVA ANDRADE MR#: [id number] : 1940 Exam Date: 08/29/2023 Ordering Doctor: PEPE KOVACS ECHOCARDIOGRAM REPORT PROCEDURE: CA ECHO LIMITED INDICATIONS: Dilated cardiomyopathy, pacemaker, h/o PA COMPARISON: None. DESCRIPTION: Limited ECHOCARDIOGRAM Real-time transthoracic [...] Signed By: 08/29/23 1221 DD/ 1220 TD/TT: Drilling Assistant:YURIHRadiology, Radiologist, - 08/29/2023 [place] [address] Cardiology Report Signed Patient: MARVA ANDRADE MR#: [id number] : 1940 Acct:[id number] Age/Sex: 83 / F ADM Date: 08/29/23 Loc: CARD Attending Dr: Pepe Kovacs M.D. Ordering Physician: Pepe Kovacs M.D. Date of Service: 08/29/23 Procedure(s): CA echo limited Accession Number(s): [id number] cc: EUGENE YRAN ; Pepe Kovacs M.D. Patient Name: MARVA ANDRADE MR#: [id number] : 1940 Exam Date: 08/29/2023 Ordering Doctor: PEPE KOVACS ECHOCARDIOGRAM REPORT PROCEDURE: CA ECHO LIMITED INDICATIONS: Dilated cardiomyopathy, pacemaker, h/o PA COMPARISON: None. DESCRIPTION: Limited ECHOCARDIOGRAM Real-time transthoracic [...] Signed By: 08/29/23 1221 DD/ 1220 TD/TT: Drilling Assistant: MARTÍN HealthcareRadiology Study observation (narrative)MARTÍN HealthcareCARD ECHO LIMITED STUDYOrdered By: Radiologist Radiology on 42-10-2950IESV [employer] Work Phone: anes POSTPROC EVALon 37-36-4328LGYH POSTPROC EVALHNO ID: [id number] Author: Pepe Junior II, DO Service: Anesthesiology Author Type: Anesthesiologist Type: Anesthesia Postprocedure Evaluation Filed: 03/26/2023 11:31 AM Note Text: POST ANESTHESIA EVALUATION NOTE : 1940 Procedure Summary Date: 03/26/23 Room / Location: [address] Anesthesia Start: 954 Anesthesia Stop: 1014 [...] March 26, 2023 TIME: 11:31 AM CSN: [id number] County Hospital PRE-OPon 75-75-9427TOWS PRE-OPHNO ID: [id number] Author: Pepe Junior II, DO Service: Anesthesiology Author Type: Anesthesiologist Type: Anesthesia Preprocedure Evaluation Filed: 03/26/2023 9:11 AM Note Text: ANESTHESIOLOGY DAY OF SURGERY NOTE : 1940 Procedure Information Date/Time: 03/26/23 1000 Procedures: PHACOEMULSIFICATION CATARACT IMPLANT INTRAOCULAR LENS W/O ENDOSCOPIC CYCLOPHOTOCOAGULATION (Right: Eye) OPHTHALMIC BIOMETRY BY PARTIAL COHERENCE INTERFEROMETRY W/INTRAOCULAR LENS POWER CALCULATION (Right: Eye) Location: [address] Surgeons: Jed Webster V, MD Estimated [...] March 26, 2023 TIME: 9:10 AM CSN: [id number]h Pickerington Methodist HospitalOPERATIVE NOon [id number] NOHNO ID: [id number] Author: Jed Webster V, MD Service: Ophthalmology Author Type: Physician Type: Operative Report Filed: 03/26/2023 10:14 AM Note Text: OPERATIVE REPORT DATE OF SERVICE: March 26, 2023 PRIMARY SURGEON: Jed Webster M.D. LINE OUT MAN: None Procedure(s) (LRB): PHACOEMULSIFICATION CATARACT IMPLANT INTRAOCULAR [...] corneal incision was created temporally with a Native blade then a 2.4 mm keratome. The [...] Implant Name Type Inv. Item Serial No. Track Greaser Lot No. LRB No. Used Action Model No. Santaeon IOL [id number] +25.5 D Implant ILE-JG-W-KIND IMPLANT [id number] [employer] Right 1 Implanted [id number] was inserted through [...] 10:12 AM - Comanage with Dr Ibrahim; [facility]1 Jed WEBSTER MDVan Wert County Hospital POSTPROC EVALon 03-12-2023 ANES POSTPROC EVALHNO ID: [id number] Author: Beto Awan MD Service: Anesthesiology Author Type: Anesthesiologist Type: Anesthesia Postprocedure Evaluation Filed: 03/12/2023 10:36 AM Note Text: POST ANESTHESIA EVALUATION NOTE : 1940 Procedure Summary Date: 03/12/23 Room / Location: [address] Anesthesia Start: 930 Anesthesia Stop: 954 [...] March 12, 2023 TIME: 10:36 AM CSN: [id number] Health Hamilton PRE-OPon 22-14-9242VRFR PRE-OPHNO ID: [id number] Author: Beto Awan MD Service: Anesthesiology Author Type: Anesthesiologist Type: Anesthesia Preprocedure Evaluation Filed: 03/12/2023 9:08 AM Note Text: ANESTHESIOLOGY DAY OF SURGERY NOTE : 1940 Procedure Information Date/Time: 03/12/23 0940 Procedures: PHACOEMULSIFICATION CATARACT IMPLANT INTRAOCULAR LENS W/O ENDOSCOPIC CYCLOPHOTOCOAGULATION (Left: Eye) OPHTHALMIC BIOMETRY BY PARTIAL COHERENCE INTERFEROMETRY W/INTRAOCULAR LENS POWER CALCULATION (Left: Eye) Location: [place] [address] [facility] Surgeons: Jed Webster V, MD Estimated body [...] March 12, 2023 TIME: 9:07 AM CSN: [id number] HealthOPERATIVE NOon [id number] NOHNO ID: [id number] Author: Jed Webster V, MD Service: Ophthalmology Author Type: Physician Type: Operative Report Filed: 03/12/2023 9:52 AM Note Text: OPERATIVE REPORT DATE OF SERVICE: March 12, 2023 PRIMARY SURGEON: Jed Webster M.D. LINE OUT MAN: None Procedure(s) (LRB): PHACOEMULSIFICATION CATARACT IMPLANT INTRAOCULAR [...] corneal incision was created temporally with a Native blade then a 2.4 mm keratome. The [...] Implant Name Type Inv. Item Serial No. Track Greaser Lot No. LRB No. Used Action Model No. QOC-LU-C-KIND IMPLANT - [id number] Implant KES-IX-T-KIND IMPLANT [id number] Qwaya Left 1 Implanted [id number] was inserted through [...] Ibrahim; relinquish care POD #1 Jed WEBSTER MDNoFlower Hospital PHYSICALon 02-27-2023 HISTORY PHYSICALHNO ID: [id number] Author: Shoshana Nieves APRN.SOCIOCULTURAL ANTHROPOLOGY PROFESSOR Service: ? Author Type: Nurse Practitioner Type: [...] fevers. Neuro: No history of TIA's, stroke, SERVICE ARCHITECT tumor, impaired sensorium, hemiplegia, paraplegia or quadraplegia. No neurological symptoms or problems. Respiratory: No history of current cough or dyspnea, or pneumonia in the past 6 weeks. No history of respiratory/pulmonary symptoms or problems. Cardiovascular: Positive for: HLD, Hypertension Pacemaker on ASA follows with Dr. Longoria from in [place] Denies rest pain, gangrene or revascularization/amputation for PVD. GI: No history of GI symptoms or problems. No history of esophageal varices, recent ascites, or ETOH greater than 2 drinks per day. : No difficulty urinating, nocturia > 1 time per night or hematuria, History of kidney stones STRATEGIC ACCOUNT MANAGER: Negative for abnormal vaginal bleeding, abnormal vaginal [...] Modality -- -- Ultrasound Narrative PERFORMED AT [facility] LOCATION:[place] [address] Patient: RAYMOND George Exam Date: 05/08/2021 : 1940 Gender:F Ordering : PEPE KOVACS Admission #: [id number] Family : DR EUGENE RYAN M.D. Order #: [id number] CLICK HERE TO VIEW EXAM ECHOCARDIOGRAM REPORT PROCEDURE: CARDI (more content not included)...NormalSelect [facility] XR DEXA BONE DENSITYon 48-24-7370PO DEXA BONE DENSITYEXAMINATION: XR DEXA BONE DENSITY, [...] Electronically authenticated by: THA LOVE Date: 2022-08-12 11:24[facility] HospitalPatient Educationon 28-23-0616Haogdsa EducationUrology Dietary Guidelines to Help Prevent Kidney [...] Rhubarb. ? Beets. ? Potato chips and zambian fries. ? Nuts. ? If you regularly take a diuretic medicine, make sure to eat at least 1?2 fruits or vegetables high in potassium each day. These include: ? Avocado. ? Banana. ? [place], prune, carrot, or tomato juice. ? Baked [...] salt. Katiana luque (more content not included)...NormalFisher [facility]le[facility] 66-63-4507Latqcbess From: Ayde Horton To: JYOTSNA - Recalls Mercado; Sent: 05/27/2022 14:17:03 EST Show up: 02/05/2024 14:16:00 EDT Subject: 2 year follow up Due Date/Time: 05/21/2024 14:16:00 EST Reminder/Recall Patient will be due back for a two year follow up for med refills in 05/2024 [facility] Office/Clinic Noteon 75-85-5558Dicdpvf Office/Clinic NoteChief Complaint 6m KUB HPI Staff 6m w/KUB due to Kidney Stone. Additional DX: Mixed incontinence & UTI. KUB done @ [place] on 05/21/22. *Effer K 25meq BID therapy. [...] S/p Right ESWL 05/24/21. KUB done at [place] on 05/21/22 shows no appreciable urinary tract [...] When Contact Information JESS DELGADO, Yao Her, [facility] [address] [place] [address]- Additional Instructions: PRN Patient Education Dietary Guidelines [...] Protein Urine Dipstick: Negative (05/27/22 11:20:00) Specific [place] Urine Dipstick: 1.025 (05/27/22 11:20:00) Urine Appearance Urine Dipstick: Cloudy (05/27/22 11:20:00) Urine Color Urine Dipstick: Yellow (05/27/22 11:20:00) Urobilinogen Urine Dipstick: Normal 0.2-1 EU/dl (05/27/22 11:20: (more content not included)...[facility] HospitalComment on above:Result Comment: Electronically Signed By: Yao MERCADO MD\Date and Time Signed: 05/27/22 12:15 ESTRAD - MISCon 73-86-9847DSZ - MIS [id number]:127NoOur Lady of Mercy Hospital - AndersonXR KUB 1 VIEWon 24-06-1609NL KUB 1 VIEWEXAMINATION: XR KUB 1 VIEW [...] Electronically authenticated by: THA LOVE Date: 2022-05-21 15:32[facility] HospitalLab Reportson 04-34-7472Ojq Reports [id number]:127[facility] HospitalCoding Summary.on 25-14-1450Equgdb Summary. CD:[id number]:[id number]+PGhlYWQ+[id number]MPA5PAQ5mh RS6QPntJ7YkerPo [file] b2xs (more content not included)...[facility] Urineon 17-10-9254Aascazfo identified Cx Nom (U)Microbiology PROCEDURE: Urine Culture [...] Locations R1: This test was performed at: [facility], [address] [place] [address], [facility]- , , SsqgepJksuouGrant HospitalComment on above:Performed By: #### [id number] #### [facility] [address] [place], [place] [address]CALCULI, URINARYon ,8 DihydroxyMiami Valley HospitalComment on above:Performed By: #### CHELSEA #### [facility] [address] [place] [address] Dr. Tena GreggAmmonium Acid UrAdena Regional Medical CenterComment on above: Performed By: #### CALCULI #### [facility] [address] [place] [address] [address] Tena GreggBilirubin Ql (U)[facility] HospitalComment on above: Performed By: #### CALCULI #### [facility] [address] [place] [address] [address] Tena GreggCa Oxalate DihydrateNormalBrecksville Va / Crille HospitalComment on above: Performed By: #### CALCULI #### [facility] [address] [place] [address] [address] Tena GreggCaHPO4 ([place])[facility] on above: Performed By: #### CALCULI #### [facility] [address] [place] [address] [address] Tena Schwartzium BilirubinateNMercy Health St. [facility] on above: Performed By: #### CALCULI #### [facility] [address] [place] [address] [address] Tena Schwartzium CarbonateGerman Hospital on above: Performed By: #### CALCULI #### [facility] [address] [place] [address] [address] Tena Schwartzium Oxalate Ppmvtozkqnf10 %[facility] on above:Performed By: #### CALCULI #### [facility] [address] [place] [address] [address] Tena Schwartzium PalmitateGerman Hospital on above: Performed By: #### CALCULI #### [facility] [address] [place] [address] [address] Tena Schwartzium PhosphateGerman Hospital on above: Performed By: #### CALCULI #### [facility] [address] [address] [address] Tena Schwartzium StearateNMercy Health St[facility] on above: Performed By: #### CALCULI #### [facility] [address] [address] [address] Tena GreggCarbonate ApatiteGerman Hospital on above: Performed By: #### CALCULI #### [facility] [address] [address] [address] Tena Stallworthular MaterialGerman Hospital on above: Performed By: #### CALCULI #### [facility] [address] [address] [address] Tena GreggCholesterolGerman Hospital on above:Performed By: #### CALCULI #### [facility] [address] [address] [address] Tena Diaz ([facility] on above: Performed By: #### CALCULI #### [facility] [address] [address] [address] Tena VelizHocking Valley Community Hospital on above:Performed By: #### CALCULI #### [facility] [address] [address] [address] Tena Borden:CommentGerman Hospital on above:Result Comment: Physician questions regarding Calculi Analysis contact [facility] at: [phone].Performed By: #### CALCULI #### [facility] [address] [place] [address] Dr. Tena MonteSt. Anthony's Hospital on above: Result Comment: Percentage (Represents the % composition)Performed By: #### CALCULI #### [facility] [address] [address] [address] Tena GreggCystineGerman Hospital on above:Performed By: #### CALCULI #### [facility] [address] [place] [address] Dr. Tena Carlos:CommentGerman Hospital on above: Result Comment: This test was developed and its performance characteristics determined by [facility]. It has not been cleared or approved by the Food and Drug Administration.Performed By: #### CALCULI #### [facility] [address] [address] [address] Tena Beach BloodCleveland Clinic Medina HospitalComment on above:Performed By: #### CALCULI #### [facility] [address] [address] [address] Tena GreggDrug or MetaboliteCleveland Clinic Medina HospitalCommclaren northern [place] on above: Performed By: #### CALCULI #### [facility] [address] [address] [address] Tena GreggHydroxyapatiteGerman Hospital on above: Performed By: #### CALCULI #### [facility] [address] [address] [address] Tena GreggMg NH4 PO4 (Struvite)[facility] on above: Performed By: #### CALCULI #### [facility] [address] [place] [address] Dr. Tena GreggMgHPO4 (Newberyite)[facility] on above: Performed By: #### CALCULI #### [facility] [address] [place] [address] Dr. Tena GreggOther component(s)[facility] on above: Performed By: #### CALCULI #### [facility] [address] [place] [address] Dr. Tena Ugalde.[facility] on above:Performed By: #### CALCULI #### [facility] [address] [place] [address] Dr. Tena AdamesotoCommentGerman Hospital on above:Result Comment: Photograph will follow under a separate coverPerformed By: #### CALCULI #### [facility] [address] [place] [address] Dr. Tena Mari note:CommentGerman Hospital on above: Result Comment: Calculi report will follow via computer, mail or scheduling representative delivery.Performed By: #### CALCULI #### [facility] [address] [place] [address] Dr. Tena NobleTezqoEjse0s5PzrephWoqGerman Hospital on above:Result Comment: Multiple pieces received. Dimensions of the largest piece reported.Performed By: #### CALCULI #### [facility] [address] [place] [address] Dr. Tena Mendozadium Acid UrateNMercy Health St. [facility] on above: Performed By: #### CALCULI #### [facility] [address] [place] [address] Dr. Tena SlaughterTrinity Health System [facility] on above:Result Comment: Not providedPerformed By: #### CALCULI #### [facility] [address] [place] [address] Dr. Tena BakerSumma Health Akron Campus on above:Performed By: #### CALCULI #### [facility] [address] [place] [address] Dr. Tena Ramos Acid80 %NormalThe Surgical Hospital at Southwoods on above: Performed By: #### CALCULI #### [facility] [address] [place] [address] Dr. Tena GreggUric Acid DihydrateNWayne HealthCare Main CampusCommclaren northern [place] on above: Performed By: #### CALCULI #### [facility] [address] [place] [address] Dr. T[address] [place] [address] on above:Performed By: #### CALCULI #### [facility] [address] [place] [address] Dr. Tena PedersenKettering Health Miamisburg on above:Performed By: #### CALCULI #### [facility] [address] [place] [address] Dr. Tena Mcdonald [id number] From: Olga Duque MA To: EU - Clinical; Sent: 11/19/2021 13:53:51 EDT Show up: 11/21/2021 13:53:00 EDT Subject: Urine culture Reminder/Recall Urine culture Sent to Maite Hernando to reviewGrant HospitalAmbulatory Visit Summaryon 08-95-7771Wkamsxrgde Visit Summary MARVA ANDRADE :1940 Visit Date:11/19/2021 Ambulatory Visit Instructions Your Diagnosis Personal history of kidney stones Kidney stone Mixed incontinence Urinary tract infection Tests Performed Urnls Dip Stick Auto w/o Microscopy POC 79576 XR Abdomen 1 View -- Results Pending [...] Yao MERCADO MD [facility] CenterPatient Educationon 48-89-7563Aecnbvd EducationUrology Dietary Guidelines to Help Prevent Kidney [...] Rhubarb. ? Beets. ? Potato chips and zambian fries. ? Nuts. ? If you regularly take a diuretic medicine, make sure to eat at least 1?2 fruits or vegetables high in potassium each day. These include: ? Avocado. ? Banana. ? [place], prune, carrot, or tomato juice. ? Baked [...] with salt. Salad dr (more content not included)...Grant HospitalUrology Office/Clinic Noteon 19-58-4483Izqktqb Office/Clinic NoteChief Complaint 6 month f/u HPI Staff Pt is here for f/u. Previous dx of kidney stone (right ESWL 05/24/21), stress incontinence, personal hx of kidney stones and correction use of aspirin. Dysuria: no Incomplete bladder [...] 250mg bid for 5 days, sent to [facility] in [place]. Follow-up With When Contact Information JESS DELGADO, Yao R, URL [facility] [address], [place] [address]- Additional Instructions: 6 month f/u with KUB [...] Urine Dipstick: Negative (05 (more content not included)...Grant HospitalComment on above:Result Comment: Electronically Signed By: Yao MERCADO MD\.br\Date and Time Signed: 11/19/21 10:29 EDT\.br\Electronically Co-Signed By: Sangeetha Singh\.br\Date and Time Co-Signed: 11/19/21 10:27 EDTRAD - MISCon 34-26-4218QUZ - [facility] [id number]#1.00CD:[address] [place], [place] [address]RAD - [id number]#1.00CD:[address] [place] [address] 38-16-1171Qurjqwysu From: Rebecca Asencio To: EU - Clinical; Sent: 08/02/2021 15:25:57 EST Show up: 08/07/2021 15:25:00 EST Subject: KUB Reminder/Recalls ChoeJoseph WALKERKriss, order faxed 08/02/21 Results scanned into pt's file will send PRW a message when they are available. Grant HospitalComplete Blood Count with Auto Diffon 64-08-2176Dieudjnwo (Bld) [#/Vol]0.06 10*3/uLNormal0.00-0.20[facility] SpecialistComment on above:Performed By: #### CBCAD, CMP, LIPD #### [facility] [address], [place] [id number]/100 WBC (Bld)0.7 %[facility] SpecialistComment on above:Performed By: #### CBCAD, CMP, LIPD #### [facility] [address], [place] [id number] (Bld) [#/Vol]0.23 10*3/uLNormal0.02-0.50NoUniversity Hospitals Parma Medical Center SpecialistComment on above:Performed By: #### CBCAD, CMP, LIPD #### [facility] [address], [place] [id number]/100 WBC (Bld)2.5 %[facility] SpecialistComment on above:Performed By: #### CBCAD, CMP, LIPD #### [facility] [address], [place] [id number] distribution width (RBC) [Ratio]13.0 %Normal 11.0-15.0[facility] SpecialistComment on above:Performed By: #### CBCAD, CMP, LIPD #### [facility] [address], [place] [id number] (Bld) [Volume fraction]43.3 %Ysvmwe53.0-47.0 [facility] Memorial HospitalComment on above:Performed By: #### CBCAD, CMP, LIPD #### [facility] [address], [place] [id number] (Bld) [Mass/Vol]14.1 g/vXKpsfcg79.6-15.5NortLake County Memorial Hospital - West SpecialistComment on above:Performed By: #### CBCAD, CMP, LIPD #### [facility] [address], [place] [id number] (Bld) [#/Vol]2.7 10*3/uLNormal0.9-3.9NortRegional Medical Center Medical SpecialistComment on above:Performed By: #### CBCAD, CMP, LIPD #### [facility] [address], [place] [id number]/100 WBC (Bld)29.9 %NormalNortLake County Memorial Hospital - West SpecialistComment on above:Performed By: #### CBCAD, CMP, LIPD #### [facility] [address], [place] [id number] (RBC) [Entitic mass]31.7 weQjlhtf78.0-33.0NortLake County Memorial Hospital - West SpecialistComment on above:Performed By: #### CBCAD, CMP, LIPD #### [facility] [address], [place] [id number] (RBC) [Mass/Vol]32.6 g/eQQvsulg45.0-36.0NortLake County Memorial Hospital [facility] West SpecialistComment on above:Performed By: #### CBCAD, CMP, LIPD #### [facility] [address], [place] [id number] (RBC) [Entitic vol]97 gFShjpqu94-367Oltzkkvi [facility] SpecialistComment on above:Performed By: #### CBCAD, CMP, LIPD #### [facility] [address], [place] [id number] (Bld) [#/Vol]0.9 10*3/uLNormal0.2-0.9NortLake County Memorial Hospital - West SpecialistComment on above:Performed By: #### CBCAD, CMP, LIPD #### [facility] [address], [place] [id number]/100 WBC (Bld)9.5 %NormalNorthern Oklahoma Medical SpecialistComment on above:Performed By: #### CBCAD, CMP, LIPD #### [facility] [address], [place] [id number] (Bld) [#/Vol]5.2 10*3/uLNormal1.5-7.8NortRegional Medical Center Medical SpecialistComment on above:Performed By: #### CBCAD, CMP, LIPD #### [facility] [address], [place] [id number]/100 WBC (Bld)57.2 %NormalNortRegional Medical Center Medical SpecialistComment on above:Performed By: #### CBCAD, CMP, LIPD #### [facility] [address], [place] [id number] mean volume (Bld) [Entitic vol]12.10 fLNormal 7.50-12.50NortLake County Memorial Hospital - West SpecialistComment on above:Performed By: #### CBCAD, CMP, LIPD #### [facility] [address], [place] [id number] (Bld) [#/Vol]138 10*3/aSFqo567-590Fltepzia [place] [facility] SpecialistComment on above:Performed By: #### CBCAD, CMP, LIPD #### [facility] [address], [place] [id number] (Bld) [#/Vol]4.45 10*6/uLNormal3.90-5.20NortRegional Medical Center Medical SpecialistComment on above:Performed By: #### CBCAD, CMP, LIPD #### [facility] [address], [place] [id number]-WW62.4 hZOdtvrb41.0-50.0NortLake County Memorial Hospital - WestBeef Pusher Comment on above:Performed By: #### CBCAD, CMP, LIPD #### [facility] [address], [place] [id number] (Bld) [#/Vol]9.1 10*3/uLNormal3.8-11.0NortRegional Medical Center Medical SpecialistComment on above:Performed By: #### CBCAD, CMP, LIPD #### [facility] [address], [place] [id number] Metabolic Panelon 65-06-3184Ofvcqwy [Mass/Vol] 4.6 g/dLNormal3.6-5.1[facility] SpecialistComment on above:Performed By: #### CBCAD, CMP, LIPD #### [facility] [address], [place] [id number]/Globulin [Mass ratio]2.1 {ratio}Normal1.0-2.5NoUniversity Hospitals Parma Medical Center SpecialistComment on above:Performed By: #### CBCAD, CMP, LIPD #### [facility] [address], [place] [id number] [Catalytic activity/Vol]126 U/AJcln04-946Hvoswged [place] [facility] SpecialistComment on above:Performed By: #### CBCAD, CMP, LIPD #### [facility] [address], [place] [id number] [Catalytic activity/Vol]26 U/LNormal6-33NoUniversity Hospitals Parma Medical Center SpecialistComment on above:Result Comment: 06/06/2021 Female reference range changed.Performed By: #### CBCAD, CMP, LIPD #### [facility] [address], [place] [id number] gap [Moles/Vol]20 mmol/TDsvxih78-35Mzpfalic [place] [facility] SpecialistComment on above:Result Comment: Effective 07/12/2019 reference range changed.Performed By: #### CBCAD, CMP, LIPD #### [facility] [address], [place] [id number] [Catalytic activity/Vol]36 U/LHigh9-34NoUniversity Hospitals Parma [facility] Center SpecialistComment on above:Performed By: #### CBCAD, CMP, LIPD #### [facility] [address], [place] [id number] [Mass/Vol]0.64 mg/dLNormal0.30-1.20[facility] [place] [facility] SpecialistComment on above:Performed By: #### CBCAD, CMP, LIPD #### [facility] [address] [place], [place] [id number]/CREA24 RatioHigh6-22NoUniversity Hospitals Parma [facility] Center Specialist Comment on above:Performed By: #### CBCAD, CMP, LIPD #### [facility] [address] [place], [place] [id number] [Mass/Vol]9.7 mg/dLNormal8.6-10.2[facility] [place] [facility] SpecialistComment on above:Performed By: #### CBCAD, CMP, LIPD #### [facility] [address] [place], [place] [id number] [Moles/Vol]108 mmol/GPkro53-077Gallsygs [place] [facility] SpecialistComment on above:Performed By: #### CBCAD, CMP, LIPD #### [facility] [address] [facility] [place] [id number] [Moles/Vol]19 mmol/AIdp65-27Wvvurblv [place] [facility] SpecialistComment on above:Performed By: #### CBCAD, CMP, LIPD #### [facility] [address] [facility]enc[facility] [place] [id number] [Mass/Vol]1.2 mg/dLNormal0.6-1.4NoUniversity Hospitals Parma [facility] Center SpecialistComment on above:Performed By: #### CBCAD, CMP, LIPD #### [facility] [address] [facility] HospitaleneSan [place], [place] [id number] mL/min/1.44d3Rcf>60NoMethodist [facility] of [facility] Beef Pusher Comment on above:Performed By: #### CBCAD, CMP, LIPD #### [facility] [address] [place], [place] [id number] mL/min/1.28g1Mha>60NoMethodist Hospital of [facility] Beef Pusher Comment on above:Performed By: #### CBCAD, CMP, LIPD #### [facility] [address] [place], [place] [id number] (S) [Mass/Vol]2.2 g/dLNormal1.9-3.7NoUniversity Hospitals Parma [facility] Center SpecialistComment on above:Performed By: #### CBCAD, CMP, LIPD #### [facility] [address], [place] [id number] [Mass/Vol]104 mg/sLHtiw93-54Bfvkofwp [place] [facility] SpecialistComment on above:Result Comment: For FASTING Glucose --- ADA reference ranges: Normal 65-99 mg/dl Prediabetes 100-125 Diabetes >/= 126Performed By: #### CBCAD, CMP, LIPD #### [facility] [address], [place] [id number] [Moles/Vol]4.5 mmol/LNormal3.5-5.5NoUniversity Hospitals Parma [facility] Center SpecialistComment on above:Performed By: #### CBCAD, CMP, LIPD #### [facility] [address], [place] [id number] [Mass/Vol]6.8 g/dLNormal6.1-8.1NorthOhioHealth Shelby Hospital SpecialistComment on above:Performed By: #### CBCAD, CMP, LIPD #### [facility] [address], [place] [id number] [Moles/Vol]143 mmol/NVyqdeh829-860Oumhhaeg [place] [facility] SpecialistComment on above:Performed By: #### CBCAD, CMP, LIPD #### [facility] [address], [place] [id number] nitrogen [Mass/Vol]28 mg/dLHigh7-25NoUniversity Hospitals Par[facility] SpecialistComment on above:Performed By: #### CBCAD, CMP, LIPD #### [facility] [address], [place] [id number] A1Con 58-28-4031ZLK619.59NormalNoUniversity Hospitals [facility] SpecialistComment on above:Performed By: #### A1C #### [facility] [address], [place] [id number] (Bld) [Mass fraction]6.7 %High4.0-6.0NoUniversity Hospitals Par[facility] Center SpecialistComment on above:Performed By: #### A1C #### [facility] [address], [place] [id number] Panelon 59-99-6560Ubyczhbqfcn [Mass/Vol]142 mg/dLNormal 125-200NoUniversity Hospitals [facility] SpecialistComment on above:Result Comment: Low risk < 200mg/dL Borderline risk 201-239 mg/dl High risk > or equal to 240Performed By: #### CBCAD, CMP, LIPD #### [facility] [address], [place] [id number] in HDL [Mass/Vol]43 mg/dLNormal>40NoUniversity Hospitals Par[facility] Center SpecialistComment on above:Result Comment: High Cardiovascular Risk HDL <40 mg/dL Low Cardiovascular Risk HDL > or equal to 60 mg/dlPerformed By: #### CBCAD, CMP, LIPD #### [facility] [address], [place] [id number] in LDL [Mass/Vol]73 mg/dLNormKettering Health Hamilton SpecialistComment on above:Result Comment: LDL ATP III CLASSIFICATION LDL less than 100 mg/dl Optimal LDL 100-129 mg/dl Near or above optimal LDL 130-159 Borderline high LDL 160-189 High LDL greater than 189 mg/dl Very HighPerformed By: #### CBCAD, CMP, LIPD #### [facility] [address], [place] [id number] in VLDL [Mass/Vol]26 mg/dLNormKettering Health Hamilton SpecialistComment on above:Performed By: #### CBCAD, CMP, LIPD #### [facility] [address], [place] [id number].total/Cholesterol in HDL [Mass ratio]3 {ratio} NormalNoUniversity Hospitals [facility] SpecialistComment on above:Performed By: #### CBCAD, CMP, LIPD #### [facility] [address], [place] [id number] [Mass/Vol]132 mg/gWDwmicm17-218Ntvivbjx [place] [facility] SpecialistComment on above:Result Comment: TRIG ATPIII CLASSIFICATIONS TRIG less than 150 mg/dl Normal TRIG 150-199 mg/dl Borderline High TRIG 200-500 mg/dl High TRIG greather than 500 mg/dl Very HighPerformed By: #### CBCAD, CMP, LIPD #### [facility] [address] [place] [id number] AND LATERALon 81-03-4259QMEDZ AND LATERALProMedica Toledo Hospital Department of Radiology [address] [place] [address] Patient Name: MARVA ANDRADE : [...] pathology. Electronically signed: Nikolai Palomino. Transcribed by: [email or web address], User Resident: Electronically Signed by: NIKOLAI PALOMINO @ 03/30/2021 01:03 PMNormalSt. Vincent HospitalComment on above:Order Comment: evaluateIOL BIOMETRY W/ IOL CALC OU (BOTH EYES)[facility] Vital Signs Date TimeVital SignValuePerforming YfnscgoylLplbayzv55-94-3278 08:37-0400Body aoijub485.6 cmPacc 1 Work Phone: [facility]08-24-2023 08:37-0400Body temperature 98.01 [degF]Pacc 1 Work Phone: [facility]08-24-2023 08:37-0400Body luaofb50.56 kgPacc 1 Work Phone: [facility]08-24-2023 08:37-0400Diastolic blood ctfurlne14 mm[Hg]Pacc 1 Work Phone: [facility]08-24-2023 08:37-0400Heart rate99 /min Pacc 1 Work Phone: [facility]08-24-2023 08:37-0400Respiratory rate 16 /minPacc 1 Work Phone: [facility]08-24-2023 08:37-2094CaZ4% (BldA) [Mass fraction]99 %Pacc 1 Work Phone: [facility]08-24-2023 08:37-0400Systolic blood yiaxyiep132 mm[Hg]Pacc 1 Work Phone: [facility]05-16-2022 09:49-0400Blood Pressure LocationPaB[facility] 05-16-2022 09:49-0400Diastolic blood hkuxggfw82 mm[Hg] Yao MERCADO [facility] 05-16-2022 09:49-0400Heart rate73 /minPatrick [employer] [facility] 05-16-2022 09:49-0400Respiratory rate16 /minPatrick [employer] [facility] 05-16-2022 09:49-0400Systolic blood bflijilt880 mm[Hg] Yao MERCADO [facility] Encounters Encounter DateEncounter TypeCare ProviderFacilityStart: 05-03-2025 End: 25-40-5393vkqlwxwdnjNFFXFostoria City Hospitaltart: 67-35-8860yqaczwurfsTZYRFostoria City Hospitaltart: 96-69-0032suyrbohuieXKTAK GRUBBUniLakeHealth TriPoint Medical Centertart: 12-01-2024 End: 22-32-2684Bfxhgckow Result EncounterGeneric External Data ProviderNOMS External Department UnsolicitedStart: 12-01-2024 End: 81-28-7596Oieoopmod Result EncounterGeneric External Data ProviderNOMS External Department UnsolicitedStart: 12-01-2024 End: 22-01-6650wcolerkelkUTWK SNIDERUnMercy Health Defiance Hospitaltart: 39-77-3987jllhpwbddxBDXXFostoria City Hospitaltart: 15-39-0053ehcwkpaaraLOQYTwin City Hospitaltart: 10-25-2024 End: 32-59-2195zesknfbfaxLSUEFostoria City Hospitaltart: 10-20-2024 End: 67-48-0817yzvucjzhkyYTBJChillicothe Hospitaltart: 09-29-2024 End: 22-94-5917ayvnvgvgrtOBABTwin City Hospitaltart: 05-18-2024 End: 73-12-6519btwffgtngcUCUKTwin City Hospitaltart: 03-29-2024 End: 57-98-1513Bmdxgizmw Result EncounterGeneric External Data ProviderNOMS External Department UnsolicitedStart: 03-29-2024 End: 67-84-2190Fbiuoexvd Result EncounterGeneric External Data ProviderNOMS External Department UnsolicitedStart: 08-29-2023 End: 84-47-8270Aottxtqgx Result EncounterGeneric External Data ProviderNOMS External Department UnsolicitedStart: 08-29-2023 End: 54-74-3719Vndgnjpvq Result EncounterGeneric External Data ProviderNOMS External Department UnsolicitedStart: 03-26-2023 End: 47-11-6560vekphoecgyEDOEG HABERFacility:[facility] [place] [facility] Centertart: 03-12-2023 End: 21-55-4767lnbaulrkoxMJQPM HABERFacility:[facility] [place] [facility] Centertart: 74-15-6256Cvxnzlyyo for other preprocedural examinationAIMEE [facility] HospitalStart: 02-27-2023 End: 97-01-1370Npspwuk encounter procedureEye Measurements Work Phone: OphthalmologyComment on above: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Start: 02-27-2023 End: 62-41-0243Nygudrrgv to establishmentPacc [place] 1 Work Phone: [facility]PITALtart: 02-27-2023 End: 46-13-1142zccpqajdraZnim [place] 1 Work Phone: Pre AnesthesiaComment on above:Pre-operative clearance (Primary Dx); Type 2 diabetes mellitus without complication, without long-term current use of insulin (HCC); Hyperlipidemia, unspecified hyperlipidemia type; Hypertension, unspecified type; Biventricular cardiac pacemaker in situ; Complete atrioventricular block (HCC)Start: 02-27-2023 End: 83-14-6971Chosligngjxe [facility] Mayda Meyers Work Phone: [facility] Work Phone: Start: 01-09-2023 End: 99-34-5624usjalnwpavJRGDI HABERFacility:[facility] HospitalStart: 01-09-2023 End: 88-93-7059Ejpaamm encounter procedureJed Webster MD Work Phone: OphthalmologyComment on above: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 (Primary Dx); Glaucoma suspect of both eyesStart: 08-12-2022 End: 47-91-4221khogxyidxuKT MARVA SAUERFacility:W3Yyeuh: 05-27-2022 End: 17-10-7911todnwprwizLA Patrick R WATERSFacility:EU BellevueStart: 05-21-2022 End: 09-23-3573zigqyojjuxQO YAO MERCADOFacility:V3Poivd: 11-19-2021 End: 10-71-9662dakshupdadQYCourtney MERCADOFacility:FTMCStart: 11-19-2021 End: 30-54-5379Wqv Drop offYao MERCADO [facility] Start: 11-19-2021 End: 81-27-1301rbktqzhjpsKWRomeo MERCADOFacility:B3Qtuzq: 11-19-2021 End: 63-13-0994vqxguojetfFUCourtney MERCADOFacility:EU BellevueStart: 11-19-2021 End: 53-29-6975Ltxupsf encounter procedureYao MERCADO [facility] Procedures DateProcedureProcedure DetailPerforming ClinicianStart: 20-63-0311WZF BASIC METABOLIC PANELGeneric External Data ProviderStart: 95-55-2956DYQ LIPID PROFILE (FASTING)Generic External Data ProviderStart: 45-31-0704FONV ECHO LIMITED STUDY Generic External Data ProviderStart: 34-11-8250YAL BIOMETRY W/ IOL CALC OU (BOTH EYES)Jed Webster MD Work Phone: Start: 58-67-2104Uomwxiofbjppdj shockwave lithotripsy of calculus of kidneyPatrick MERCADO Cardiac pacemaker, device (physical object)Yao MERCADO Plan of Treatment DateCare ActivityDetailAuthorStart: 43-42-2584Xmgrhkmdd vaccinationUTAH STATE HOSPITAL HealthcareStart: 55-54-5817Cubcwanks vaccinationInfluenza Vaccine (#1)[facility] HealthcareStart: 90-03-1255Aefsoaoxu C antibody, confirmatory testDILATED RETINAL EXAMPremier Healthtart: 01-09-2024 End: 91-45-6922SUZ BIOMETRY W/ IOL CALC OU (BOTH EYES)IOL BIOMETRY W/ IOL CALC OU (BOTH EYES) OPHT Imaging Routine Combined forms of age-related cataractof both eyes Expected: 01/09/2024, Expires: 07/02/2024[facility] Work Phone: Comment on above:Expected: 01/09/2024, Expires: 07/02/2024Start: 06-41-9356Duxgo screening for proteinDiabetes: Urine Protein ScreeningNOAL HealthcareStart: 01-18-2024Medicare Annual Wellness (AWV)Medicare Annual Wellness (AWV)[facility] HealthcareStart: 76-43-7276Ogsasgxbr vaccination INFLUENZA (#1)[facility]: 39-16-0839Vjpxpxouwx A1c measurement Diabetes: Hemoglobin D4MEQSA HealthcareStart: 72-99-1220BPSPYPI DIRECTIVE DISCUSSIONADVANCE DIRECTIVE DISCUSSIONCleAdena Regional Medical Centertart: 07-07-2022 DEPRESSION ASSESSMENTDEPRESSION ASSESSMENTCleAdena Regional Medical Centertart: 03-27-2022 Glaucoma screeningDiabetes: Retinopathy ScreeningNOAL HealthcareStart: 95-25-3459Gkqft screening for proteinDiabetes: Urine Protein ScreeningUniversity HospitalStart: 05-50-6098XYFC DENSITYBONE DENSITYPremier Healthtart: 90-43-0992PDVIGHOWKGWX: 65+ (1 - PCV)PNEUMOCOCCAL: 65+ (1 - PCV)[facility] Start: 65-62-2711KFUIAZQG VACCINE (1 of 2)SHINGRIX VACCINE (1 of 2)[facility]: 42-11-2555GMZUXUVS SCREENDIABETES SCREENPremier Healthtart: 08-74-3394Issjv microalbumin profileDTAP,TDAP,TD (1 - Tdap)[facility] Start: 52-84-5432Sthnfszgx B surface antibody levelLDL CHOLESTEROLPremier Healthtart: comp foot exam completedDIABETIC FOOT EXAMPremier Healthtart: 02-57-9233Kcjklcjhj B screeningURINE ALBUMIN:CREATININE RATIO [facility]: 37-71-5556XEWGVVMRMQJD: 65+ (1 - PCV)PNEUMOCOCCAL: 65+ (1 - PCV)[facility]: 47-30-7028Dxagseardu A1c/Hemoglobin.total in Blood XGC4NAqpahuhxuSelect Medical Specialty Hospital - CincinnatiCORNEAL TOPOGRAPHY ATLAS OU (BOTH EYES)CORNEAL TOPOGRAPHY ATLAS OU (BOTH EYES) OPHT Imaging Routine Combined forms of age-related cataract of both eyes 01/09/2023 1:45 PM [facility] Work Phone: End: 06-62-2264CJH MACULA CIRRUS OU (BOTH EYES)OCT MACULA CIRRUS OU (BOTH EYES) OPHT Imaging Routine Combined forms of age-related cataract of both eyes 1 Occurrences starting 12/20/2022 until 06/12/2024[facility] Work Phone: Comment on above:1 Occurrences starting 12/20/2022 until 06/12/2024OCT MACULA CIRRUS OU (BOTH EYES)OCT MACULA CIRRUS OU (BOTH EYES) OPHT Imaging Routine Combined forms of age-related cataract of both eyes 01/09/2023 2:05 PM [facility] Work Phone: [facility] Immunizations Immunization DateImmunizationNotesCare BxfqxxbsUluruwrs89-02-4801yoqwqtcqa virus vaccine, unspecified formulationGeneric ProviderNOMissouri Rehabilitation CenterHrggcywgor96-77-6228 SARS-CoV-2 (COVID-19) Ad26 vaccine, recombinantPatrick MERCADO [facility] [id number] (COVID-19) Ad26 vaccine, recombinantPatrick MERCADO [facility] Payers DatePayer CategoryPayerPolicy [id number] Health InsuranceST[facility] A[facility] SUPPLEMENT [id number] 2022-Present [phone] [address] [place] [address] [id number] [id number] 1960Medicare [id number] [id number] [id number] [id number] [id number] Social History DateTypeDetailFacilityStart: 04-17-2021 End: 50-28-9278Lpoltgn smoking statusNever smoked tobacco (finding)[facility] start: 11-58-5551Mvdcnmc smoking statusNeverExecutive Urology of [facility] start: 01-09-2023 End: 00-62-8408Dmf Assigned At BirthFemaleExecutive Urology of [facility] start: 58-11-0123Qmlvsws use and exposureSmokeless tobacco non-userPremier Healthtart: 01-09-2023 End: 98-85-6418Eohseyv intakeEx-drinker (finding)[facility]: 29-41-0135Xyq Assigned At BirthNot on filePremier Healthtart: 01-09-2023 End: 13-15-0321Iduwunh of Social functionPremier Healthtart: 18-33-2405Gkylzp identityIdentifies as female gender (finding)[facility] smoking status NHISTobacco smoking consumption unknownUniversity Hospital Clinical Notes 11-19-2021 to 12-01-2024 Note Date & KcbmPfegLgoqvlzj88-93-9812 NoteSUBJECTIVE Reason for Visit: Marva Andrade is [...] oral route for 90 (more content not included)...[facility]04-16-2025 NoteSUBJECTIVE Reason for Visit: Marva Andrade [...] known visit with result (more content not included)...[facility]03-26-2025 NoteSUBJECTIVE Reason for Visit: Marva Andrade [...] Date Value Date Time Interrogation * 05/27/2023 [id number] Implantable Pulse Genera* 05/27/2023 Medtronic Implantable Pulse Genera* 05/27/2023 [id number] Adapta Implantable Pulse Genera* 05/27/2023 [id number] Type Interrogation Sessi* 05/27/2023 In Clinic Clinic Name 05/27/2023 [facility] Implantable Pulse Genera* 05/27/2023 Pacemaker Implantable Pulse Genera* 05/27/2023 [id number] Implantable Lead Manufac* 05/27/2023 Medtronic Implantable Lead Model 05/27/2023 4023 CapSure SP Implantable Lead Serial * 05/27/2023 [id number] Implantable Lead Implant* 05/27/2023 [id number] Implantable Lead Location 05/27/2023 Left Ventricle Implantable L (more content not included)...[facility] 02-27-2023 NoteHNO ID: [id number] Author: Leticia Keyes COA Service: ? Author Type: Gift Shop Clerk Type: Progress Notes Filed: 02/27/2023 9:49 AM Note Text: CONFIRM AIM PLANO BOTH EYES. PATIENT AWARE THAT SHE WILL NEED GLASSES FOR ALL DISTANCES. [facility] HurleySelect [facility] History of Present illness Narrative* Leticia Keyes COA - 02/27/2023 9:48 AM EDT CONFIRM AIM PLANO BOTH EYES. PATIENT AWARE THAT SHE WILL NEED GLASSES FOR ALL DISTANCES. BOZENA Hurley documented in this encounterSelect [facility]ty [facility]08-24-2023 Instructions* Patient Instructions* Shoshana Nieves APRN.SOCIOCULTURAL ANTHROPOLOGY PROFESSOR - 02/27/2023 8:53 AM EDT PATIENT PREOPERATIVE INSTRUCTIONS Jed Webster V, MD has scheduled you for your procedure at this surgery center: [facility]: [phone] --[address] [place] [place] [address]. Please read below carefully for your personalized [...] Procedures: - YOU MUST HAVE A RESPONSIBLE APPEALS WRITER TAKE YOU HOME. A LINUX SYSTEM ADMIN OR ENGINEERING TECHNICAL ANALYST CANNOT BE MADE A RESPONSIBLE APPEALS WRITER. - We recommend that a responsible person [...] Advance Directive, please fax a copy to [phone] or email to for it to be [...] day. Shoshana Nieves APRN.CNP documented in this encounterSelect [facility]ty [facility] [place]08-24-2023 History and physical note * Shoshana Nieves [...] fevers. Neuro: No history of TIA's, stroke, SERVICE ARCHITECT tumor, impaired sensorium, hemiplegia, paraplegia or quadraplegia. [...] night or hematuria, History of kidney stones STRATEGIC ACCOUNT MANAGER: Negative for abnormal vaginal bleeding, abnormal vaginal [...] Modality -- -- Ultrasound Narrative PERFORMED AT [facility] LOCATION:[place] [address] Patient: RAYMOND George Exam Date: 05/08/2021 : 1940 Gender:F Ordering : PEPE KOVACS Admission #: [id number] Family : DR EUGENE RYAN M.D. Order #: [id number] CLICK HERE TO VIEW EXAM ECHOCARDIOGRAM REPORT [...] Area(A4C): 20.50 cm2 Left Atrium Systolic Volume(A2C): 02131 mm3 Left Atrium Systolic Volume(A4C): 83167 mm3 Mitral Valve MV E to A Ratio: 0.70 Deceleration Hemphill: 2330 mm/s2 Mitral Valve A-Wave Peak Velocity: [...] 2023 TIME: 8:39 AM documented in this encounterSelect Medical [facility]ty [facility]07-06-2023 NoteHNO ID: [id number] Author: Jed Webster V, MD Service: ? [...] and surgery - Comanage with Dr Ibrahim; [facility] POD #1 Cataract Presurgical Documentation Cataract: [...] patient was offered a surgery/procedure at a [facility] facility. The surgeon/proceduralist and patient have discussed [...] Jed WEBSTER MD January 09, 2023 3:01 [facility]07-06-2023 Miscellaneous Notes* Addendum Note - Bindu Daniels - 01/09/2023 4:33 PM EDTAddended by: BINDU LÓPEZ on: 01/09/2023 04:33 PM Modules accepted: Orders documented in this encounterSelect Medical Specialty [facility]07-06-2023 NoteHNO ID: [id number] Author: Tyson Fleming, OD Service: ? Author Type: COUNTER TACKER Type: Progress Notes Filed: 01/09/2023 4:04 PM [...] Tyson Fleming, OD January 09, 2023 2:20 [facility]07-06-2023 History of Present illness Narrative * [...] and surgery - Comanage with Dr Ibrahim; [facility] POD #1 Cataract Presurgical Documentation Cataract: [...] patient was offered a surgery/procedure at a [facility] facility. The surgeon/proceduralist and patient have discussed [...] 09, 2023 2:20 PM documented in this encounterSelect Medical Specialty [facility]05-16-2022 Hospital Discharge instructions Patient Education 11/19/2021 07:44:37 [...] include: ?Spinach. ?Rhubarb. ?Beets. ?Potato chips and zambian fries. ?Nuts. If you regularly take a diuretic medicine, make sure to eat at least 1 2 fruits or vegetables high in potassium each day. These include: ?Avocado. ?Banana. ?[place], prune, carrot, or tomato juice. ?Baked potato. [...] Casseroles. Pizza. Lasagna. Frozen meals. Potato chips. Bhutanese fries. Summary You can reduce your risk [...] 10/18/2011 Document Revised: 10/13/2019 Document Reviewed: 06/03/2017 [employer] Patient Education 2020 [employer]. Follow Up Care 05/24/2021 08:42:01 With:Yao MERCADO MD, URL Address: [facility] [address], [place] [address]- When: Unknown [facility] evaluation + Plan note Future Appointments Appointment Date:05/27/2022 11:15:00 AM Scheduled Provider:Yao MERCADO MD Location:[facility] Appointment Type:URO Office Visit Diagnostic Tests Pending * Calculi Analysis Urinary 11/19/21 [facility] evaluation + Plan note Future Appointments Appointment Date:05/27/2022 11:15:00 AM Scheduled Provider:Yao MERCADO MD Location:[facility] Appointment Type:URO Office Visit Diagnostic Tests Pending * [facility] Diagnosis Combined forms of age-related cataract of both eyes- Primary Other and combined forms of senile cataract Glaucoma suspect of both eyes Preglaucoma, unspecified [facility]* Diagnosis Pre-operative clearance- Primary Preoperative examination, [...] of senile cataract documented in this encounter [place] note* Diagnosis Combined forms of age-related cataract of both eyes Other and combined forms of senile cataract Combined forms of age-related cataract of both eyes Other and combined forms of senile cataract Combined forms of age-related cataract of both eyes Other and combined forms of senile cataract documented in this encounter [facility] course Narrative No data available for this section [facility] Discharge instructions No data available for this section [facility] Summary Purpose Family History No Family History [...] a Fluress shortage, administer 1 drop of [place]-Fluor into both eyes as directed for applanation [...] and content) DATE CREATED AUTHOR 04/03/2021 [facility] DATE CREATED AUTHOR AUTHOR'S ORGANIZ ATION 08/06/2021 [facility] DATE CREATED AUTHOR AUTHOR'S ORGANIZ ATION 05/28/2022 [facility] DATE CREATED AUTHOR AUTHOR'S ORGANIZ ATION 08/15/2022 [facility] DATE CREATED AUTHOR AUTHOR'S ORGANIZ ATION 03/27/2023 [facility] DATE CREATED AUTHOR AUTHOR'S ORGANIZ ATION 05/05/2025 [facility] Source Comments (unrecognize d section and content) In the event this informatio n is protected by the Federal Confidentiality of Alcohol and Drug Abuse Patient Records regulations: The Federal rules restrict any use of the information to criminally investigate or prosecute any alcohol or drug abuse patient.[facility] CincinnatiIn the event this information is protected by the Federal Confidentiality of Alcohol and Drug Abuse Patient Records regulations: The Federal rules restrict any use of the information to criminally investigate or prosecute any alcohol or drug abuse patient.[facility] CincinnatiIn the event this information is protected by the Federal Confidentiality of Alcohol and Drug Abuse Patient Records regulations: The Federal rules restrict any use of the information to criminally investigate or prosecute any alcohol or drug abuse patient.[facility] Reason for Visit (unrecogniz ed section and content) ReasonCommentsCataract EvaluationReasonCommentsAnesthesia ConsultBilateral CataractReasonCommentsPre-Op Exam Care Teams (unrecognized sec tion and content) Team MemberRelationshipSpecialtyStart DateEnd Date Carmen Quintana MD [address] [place] [address] PCP - GeneralInternal Medicine02/20/23Te MemberRelationshipSpecialtyStart Date End Date Carmen Quintana MD [address] [place] [address] PCP - GeneralInternal Medicine02/20/23 MemberRelationshipSpecialtyStart Date End Date Eugene Ryan MD [address] [facility] [address] [place] [address] PCP - ACO [facility]11/28/22 Eugene Ryan MD [address] [place] [address] PCP - GeneralInternal Medicine11/12/22 MemberRelationshipSpecialtyStart Date End Date Eugene Ryan MD [address] [facility] [address] [place] [address] PCP - GeneralInternal Medicine11/12/22Team MemberRelationshipSpecialtyStart Date End Date Eugene Ryan MD [address] [facility] [address] [place] [address] [facility] [place] [place] Reach Eugene Ryan MD [address] [facility] [address] [place] [address] [facility]11/12/22 Eugene Ryan MD [address] [facility] [address] [place] [address] [facility] [place] [place] Reach FOR RECORDS PERTAINING TO PATIENTS WHO [...] CLINICAL RECORDS. [facility] Consulted [facility]. provides no warranty or guarantee of the accuracy or completeness of information in this document.
[2025-05-31 10:33] LABS: Hematocrit 41.5 % (36.0-48.0); Hemoglobin 13.9 g/dL (12.0-16.0); Immature Granulocytes Abs Auto 0.05 10^3/uL (0.00-0.03); Immature Granulocytes Pct Auto 0.7 % (0.0-0.5); Lymphocytes Absolute Auto 2.0 10^3/uL (1.2-3.8); Mean Corpuscular HGB Conc 33.5 g/dL (29.9-35.2); Mean Corpuscular Hemoglobin 32.6 pg (26.7-34.0); Mean Corpuscular Volume 97.4 fL (81.0-99.0); Red Blood Count 4.26 10^6/uL (4.20-5.40); White Blood Count 6.7 10^3/uL (4.0-11.0)
[2025-05-31 10:47] LABS: Alanine Aminotransferase 15 U/L (14-59); Albumin Globulin Ratio 1.0; Albumin Level 3.4 g/dL (3.4-5.0); Alkaline Phosphatase 112 U/L (46-116); Anion Gap 13.7; Aspartate Amino Transferase 37 U/L (15-37); Blood Urea Nitrogen 26.0 mg/dL (7.0-18.0); Calcium 9.2 mg/dL (8.5-10.1); Carbon Dioxide 25.9 mmol/L (21.0-32.0); Chloride 109 mmol/L (98-107); Cholesterol 141 mg/dL (<=200); Estimated GFR (African America 46 (>=60 mL/min/1.73m^2); Estimated GFR (Non-African Ame 38 (>=60 mL/min/1.73m^2); Globulin 3.4 g/dL; Glucose 104 mg/dL (74-106); HDL Cholesterol 51 mg/dL (40-60); Potassium 4.6 mmol/L (3.5-5.1); Sodium 144 mmol/L (136-145); Total Protein 6.8 g/dL (6.4-8.2); Triglycerides 113 mg/dL (<=150); VLDL CHOLESTEROL 22.6 mg/dL
[2025-05-31 10:59] LABS: Platelet Count 38 10^3/uL (150-450)
== END 2025-05-31 10:10 | disposition home or self-care (01) ==
PROVIDERS: PCP Internal Medicine; Visit Provider Nurse Practitioner Family
DX: I50.22 Chronic systolic (congestive) heart failure (principal); I50.20 Unspecified systolic (congestive) heart failure
CPT/HCPCS: 36415; 80053; 80061; 85025